=== PATIENT | male | born 1980 | race Caucasian/White ===

== ENCOUNTER 2016-07-03 15:21 | Emergency (ER) | payer OTHER, MEDICARE ==
[~2016-07-03] VITALS: Ht 165.1 cm; Wt 163.3 kg
[~2016-07-03 15:21] MED LIST: A/B OTIC 54 MG/15 ML OT; ALBUTEROL 3 ML3 ML INH/SOL; AMLODIPINE BESY10 M1 PO; AMOXICILLIN500 MG PO; ANTIVERT 25 MG25 M1 PO; ASPIR 8181 MG PO; ATORVASTATIN CA20 MG PO; ATORVASTATIN CA40 MG PO; AUGMENTIN 500 M1 TAB PO; AUGMENTIN 500M500 MG PO; AUGMENTIN 875-1 EACH PO; AZITHROMYCIN250 M1 PO; BACTRIM DS 8001 TAB PO; BENADRYL EXTRA1 CRE TOP; Benadryl PO; CALCIUM CARBON200 MG PO; CALCIUM500 M1 PO; CLONAZEPAM0.5 M3 PO; CLONAZEPAM1 MG PO; CLONAZEPAM2 M2 PO; COMPAZINE10 MG PO; CYCLOBENZAPRINE10 M2 PO; DESYREL50 MG PO; DILAUDID2 M1 PO; DILAUDID2 MG PO; DUONEB 3 MG/3 ML3 ML INH/SOL; ESCITALOPRAM OX20 MG PO; ESCITALOPRAM20 MG PO; FLOVENT HF0.11 MG/Ac INH; FLU VACCINE 0.0.5 ML IM; FUROSEMIDE80 M1 PO; HUMALOG 100U100 U/ML SC; HUMALOG KW100 UNIT/1 SC; HUMALOG PEN100 U/ML SC; KEFLEX500 M1 PO; KLOR-CON M1010 MEQ PO; LANTUS100 U/ML SC; LASIX80 MG PO; LEVEMIR 10100 UNITS/ SC; LEVEMIR FL300 UNITS/ SC; LEVEMIR100 U/ML SC; LEVEMIR100 UNIT/1 SC; LISINOPRIL20 MG PO; LOPERAMIDE2 M2 PO; LOPRESSOR50 MG PO; LYRICA100 M1 PO; LYRICA50 M1 PO; LYRICA50 MG PO; METOPROLOL TAR100 MG PO; METOPROLOL TART50 M1 PO; NORVASC 10MG10 MG PO; NORVASC 5MG TAB5 MG PO; NOVOLIN L100 UNITS/ SC; NOVOLOG FLEX100 U/ML SC; NOVOLOG100 U/ML SC; OLANZAPINE5 M2 PO; OXYCODONE5 M1 PO; PARICALCITOL PO; PERCOCET 325 MG1 TA2 PO; PROBIOTIC & ACI1 CAP PO; RENVELA800 MG PO; SENSIPAR30 MG PO; SIMVASTATIN40 MG PO; SYMBICORT 160/41 PUF INH; SYMBICORT 16010.2 GM INH; TEMAZEPAM15 MG PO; TYLENOL TAB 32325 MG PO; VIBRAMYCIN 100100 MG PO; VITAMIN D250000 UNIT PO; VITAMIN D50000 IU PO; ZOFRAN ODT4 MG PO; ZOFRAN ODT4 MG SL; ZOFRAN4 M1 SL
--- NOTE | 2016-07-03 15:35 | ED GENERAL ADULT ---
History of Present Illness General Chief Complaint: General Adult Stated Complaint: HIGH BLOOD SUGAR, WEAKNESS, SOB, L HIP PAIN Source: patient Exam Limitations: no limitations Vital Signs & Intake/Output Vital Signs & Intake/Output Vital Signs Date Time Temp Pulse Resp B/P Pulse O2 O2 Flow FiO2 Ox Delivery Rate 07/03 1847 96.0 78 18 148/98 93 Nasal 4.0L Cannula 07/03 1527 96.0 82 18 147/67 100 Nasal 3.0L Cannula ED Intake and Output 07/04 0000 07/03 1200 Intake Total Output Total Balance Patient 360 lb Weight Allergies Coded Allergies: NO KNOWN ALLERGIES (10/16/15) Reconcile Medications Amlodipine Besylate 10 MG TABLET 1 TAB PO DAILY HEART HEALTH (Reported) Cinacalcet HCl (Sensipar) 30 MG TABLET 1 TAB PO DAILY KIDNEYS (Reported) Clonazepam 1 MG TABLET 1 TAB PO BID PRN ANXIETY (Reported) Ergocalciferol (Vitamin D2) (Vitamin D2) 50,000 UNIT CAPSULE 50,000 IU PO QSAT Low Vit D Follow the Instruction for 8 weeks then check Vit D level Escitalopram Oxalate 20 MG TABLET 1 TAB PO DAILY MENTAL HEALTH (Reported) Ferric Citrate (Auryxia) 210 MG IRON TABLET 2 TAB PO TID KIDNEYS (Reported) Hydromorphone HCl (Dilaudid) 2 MG TABLET 1 TAB PO BIDP PRN pain Insulin Glargine,Hum.rec.anlog (Lantus Solostar) 100 UNIT/ML (3 ML) INSULN.PEN 24 UNITS SC BID DM (Reported) Insulin Lispro (Humalog Kwikpen U-100) 100 UNIT/ML INSULN.PEN DM (Reported) Metoprolol Tartrate 50 MG TABLET 1 TAB PO BID HTN (Reported) Olanzapine 5 MG TABLET 1 TAB PO QPM MENTAL HEALTH (Reported) Pregabalin (Lyrica) 100 MG CAPSULE 1 CAP PO TID PRN NEUROPATHY (Reported) Sodium Polystyrene Sulfon/Sorb (Kionex 15 Gm/60 Ml Suspension) (Unknown Strength ) ORAL.SUSP (Unknown Dose) AD HYPERKALEMIA (Reported) Triage Note: 36 YO MALE TO ER FOR WEAKNESS. PT WAS ON HIS WAY TO [facility] WHEN HE BECAME WEAK AND CALLED 911. PT ALSO C/O L SIDED HIP PAIN, NO KNOWN INJURY. ON EMS ARRIVAL PTS SUGAR 584. DYLAN COX TO BEDSIDE ON ARRIVAL TO ED. Triage Nurses Notes Reviewed? yes Onset: Abrupt Duration: day(s):, constant Timing: recent history Injury Environment: home No Modifying Factors: none HPI: 36-year-old male comes into emergency room for chronic left hip pain. Patient reports that he is due to go to dialysis today but reports that he couldn't make it because he was having difficulty walking. Sharp pain. Denies any recent falls or trauma. Patient has lots of chronic medical issues. Patient reports she is here for primarily his left hip. Denies any other symptoms such as chest pain shortness of breath. (BROOKE FELDMAN) Past History Travel History Traveled to [place] past 21 day No Medical History Any Pertinent Medical History? 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: NONE Other Medical Hx: MSSA hidradenitis History of MRSA: Yes History of VRE: No History of CDIFF: No Pneumonia Vaccine: 01/16/15 Influenza Vaccine: 02/17/16 Surgical History Surgical History: AVF LUE Vitrectomies- Both eyes Pilonidal Cyst I & D of abscesses Right IJ [facility] Psychosocial History Who do you live with Brother Services at Home None What is your primary language Azeri Tobacco Use: Never used Family History Family History, If Any: FATHER Myocardial infarction at age less than 60 MOTHER Hodgkin's sarcoma Relation not specified for: FH: CAD (coronary artery disease) FH: HTN (hypertension) Hx Contributory? No (BROOKE FELDMAN) Review of Systems Review of Systems Constitutional: Reports: no symptoms. EENTM: Reports: no symptoms. Respiratory: Reports: no symptoms. Cardiovascular: Reports: no symptoms. GI: Reports: no symptoms. Genitourinary: Reports: no symptoms. Musculoskeletal: Reports: see HPI. Skin: Reports: no symptoms. Neurological/Psychological: Reports: no symptoms. Hematologic/Endocrine: Reports: no symptoms. Immunologic/Allergic: Reports: no symptoms. All Other Systems: Reviewed and Negative (BROOKE FELDMAN) Physical Exam Physical Exam General Appearance: no apparent distress, alert, awake Head: atraumatic, normal appearance Eyes: Bilateral: normal appearance. Ears, Nose, Throat: normal pharynx, normal ENT inspection Neck: normal inspection Respiratory: normal breath sounds, no respiratory distress Cardiovascular: regular rate/rhythm Gastrointestinal: soft Back: normal inspection Extremities: normal inspection, full range of motion of left hip, tenderness to palpation,, no erythema, no warmth, Neurologic/Psych: awake, alert, oriented x 3, normal gait Skin: intact, normal color Core Measures ACS in differential dx? No CVA/TIA Diagnosis: No Severe Sepsis Present: No Septic Shock Present: No (BROOKE FELDMAN) Progress Differential Diagnoses I considered the following diagnoses in my evaluation of the patient: Arthritis , muscle strain, fracture, sciatica, DKA, hyperosmolar, Plan of Care: Orders Procedure Date/time Status COMPREHENSIVE METABOLIC PANEL 07/03 1532 Complete CBC WITHOUT DIFFERENTIAL 07/03 1532 Complete ACETONE 07/03 1532 Complete EKG 07/03 1532 Active Laboratory Tests 07/03/16 1531: Anion Gap 16, Estimated GFR 8 L, BUN/Creatinine Ratio 7.8, Glucose 506 *H, Calcium 6.6 L, Total Bilirubin 0.5, AST 19, ALT 22, Alkaline Phosphatase 242 H , Total Protein 7.8, Albumin 3.7, Globulin 4.1, Albumin/Globulin Ratio 0.9 L, CBC w Diff NO MAN DIFF REQ, RBC 3.80 L, MCV 75.6 L, MCH 23.0 L, RDW 23.8 H, MPV 9.2, Gran % 67.1, Lymphocytes % 17.4 L, Monocytes % 8.5, Eosinophils % 5.8 H, Basophils % 1.2, Absolute Granulocytes 5.6, Absolute Lymphocytes 1.5, Absolute Monocytes 0.7 H, Absolute Eosinophils 0.5, Absolute Basophils 0.1, PUBS MCHC 30.5 L, Acetone Level NEGATIVE Diagnostic Imaging: Viewed by Me: Radiology Read. Discussed w/RAD: Radiology Read. Radiology Impression: EXAM TYPE: RAD - XRY-HIP 2-3 VIEWS, LEFT EXAMINATION: XR HIP, LEFT CLINICAL INFORMATION: 36-year-old male patient with left hip pain. History of dialysis. COMPARISON: None recent. TECHNIQUE: Two views of the left hip. FINDINGS: Bones and soft tissues are normal. No fracture. Alignment is anatomic. Hip joint space is maintained. IMPRESSION: Normal left hip. Initial ED EKG: normal intervals, normal p-waves, normal sinus rhythm, rate (79) (JOE RICHARDSON,BROOKE) Departure Departure Disposition: HOME OR SELF CARE Condition: Stable Clinical Impression Primary Impression: Left hip pain Secondary Impressions: Hyperglycemia Referrals: GUILLERMO BEAR,BLANCA Chun (PCP/Family) Additional Instructions: Follow-up with your primary care doctor. Make sure you go to dialysis tomorrow. Return if any concerns worsening symptoms. Please go over all results of today's visit with your primary care doctor. Contact your primary care doctor to let them know you were here in the emergency room. There may be nonspecific findings which may not be related to your visit today here in the emergency room but may require further evaluation and chronic monitoring by your primary care doctor. If you had a laceration today the chance of foreign body always remains. You should follow-up with your primary care doctor for recheck in 3-5 days for a wound check. If you had an x-ray done there is a chance that a fracture could have been missed on initial read and you should follow-up with your primary care doctor for repeat x-rays if symptoms persist. If your blood pressure was elevated here in the emergency room please have rechecked by her primary care doctor within the next 48 hours by your primary care doctor. If you were prescribed a narcotic here in the emergency room or any type of controlled substances you're not allowed to drive while taking this medication or operate any type of heavy machinery. Narcotics can make you feel lightheaded dizziness nausea and can cause constipation. You may need to pickling drum operator a stool softener. Thank you for choosing [facility] emergency room. Please return to the emergency room immediately if you have any other concerns worsening of symptoms. Departure Forms: Customer Survey General Discharge Information Prescriptions: Current Visit Scripts Hydromorphone HCl (Dilaudid) 1 TAB PO BIDP PRN pain #5 TAB Comments 07/03/2016 7:29:33 PM Patient is at his normal baseline of function. I explained the importance that the patient needs to make dialysis tomorrow. Patient has been sleeping comfortably here on the stretcher in no apparent distress. Patient does not appear to be in any type of acute distress. Patient was requesting IV Dilaudid here in the emergency room. I do not feel IV pain medication as necessary. Patient needs follow-up with his primary care doctor as well as possibly orthopedic doctor. There is no signs of infection of the left hip. Patient has normal range of motion. Patient able to ambulate here in the emergency room with no difficulty. Patient sent back by ambulance due to the fact that he is on oxygen and did not bring his oxygen tank.case discussed with dr berger. (BROOKE FELDMAN) PA/SOFTWARE MANAGER Co-Sign Statement Statement: ED Attending supervision documentation- [X] I saw and evaluated the patient. I have also reviewed all the pertinent lab results and diagnostic results. I agree with the findings and the plan of care as documented in the PA's/SOFTWARE MANAGER's documentation. [X] I have reviewed the ED Record and agree with the PA's/SOFTWARE MANAGER's documentation. [] Additions or exceptions (if any) to the PAs/SOFTWARE MANAGER's note and plan are summarized below: [] (KY BEAR,AUBREY) Critical Care Note Critical Care Note Critical Care Time: non-applicable (BROOKE FELDMAN)
[2016-07-03 15:42] LABS: ABSOLUTE BASOPHIL COUNT 0.1 /CUMM (0.0-0.2); ABSOLUTE EOSINOPHIL COUNT 0.5 /CUMM (0.0-0.7); ABSOLUTE GRANULOCYTE CT 5.6 /CUMM (1.4-6.5); ABSOLUTE LYMPH COUNT 1.5 /CUMM (1.2-3.4); ABSOLUTE MONOCYTE COUNT 0.7 /CUMM (0.10-0.60); BASOPHIL % 1.2 % (0.0-2.0); EOSINOPHIL % 5.8 % (0-5); GRANULOCYTE % 67.1 % (42.2-75.2); HEMATOCRIT 28.7 % (42-52); MEAN CORPUSCULAR HGB CONC 30.5 G/DL (33.0-37.0); MEAN CORPUSCULAR VOLUME 75.6 FL (80.0-94.0); MEAN PLATELET VOLUME 9.2 FL (7.4-10.4); PLATELET COUNT 251 /CUMM (130-400); RBC DISTRIBUTION WIDTH 23.8 % (11.5-14.5); WHITE BLOOD CELL COUNT 8.3 /CUMM (4.8-10.8)
[2016-07-03] MEDS ORDERED: SENSIPAR30 M1 PO (16:03)
[2016-07-03] MEDS ORDERED: AURYXIA210 MG PO (16:04)
[2016-07-03] MEDS ORDERED: KIONEX 1515 GM/60 M (16:05)
[2016-07-03] MEDS ORDERED: LANTUS SOL100 UNIT/1 SC (16:06)
--- NOTE | 2016-07-03 17:51 | RADIOLOGY REPORT ---
EXAMINATION: XR HIP, LEFT CLINICAL INFORMATION: 36-year-old male patient with left hip pain. History of dialysis. COMPARISON: None recent. TECHNIQUE: Two views of the left hip. FINDINGS: Bones and soft tissues are normal. No fracture. Alignment is anatomic. Hip joint space is maintained. IMPRESSION: Normal left hip.
[2016-07-03] MEDS ORDERED: DILAUDID2 M1 PO (18:37)
[2016-07-03 18:47] VITALS: BP 148/98
== END 2016-07-03 19:31 ==
LOC: ERH 15:21
PROVIDERS: Physician Assistant Medical
DX: M25.552 Pain in left hip (principal); R73.9 Hyperglycemia, unspecified
CPT/HCPCS: 73502-LT; 93005; 93010; 96372; J1815

== ENCOUNTER 2016-07-04 06:20 | Inpatient (IN) | payer OTHER, MEDICARE ==
[~2016-07-04] VITALS: Ht 170.2 cm; Wt 169.8 kg
[~2016-07-04 06:20] MED LIST changes: +AURYXIA210 MG PO; +KIONEX 1515 GM/60 M; +LANTUS SOL100 UNIT/1 SC; +SENSIPAR30 M1 PO
--- NOTE | 2016-07-04 06:27 | NUR ---
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 DENIES HEADSTRIKE, +LOC. REPORTS "WOKE UP AND DIN'T KNOW WHERE I WAS." ON EMS ARRIVAL, PATIENT ALERT AND ORIENTED X3. PATIENT ONLY C/O L HIP PAIN 12/25 WHICH HE WAS SEEN HERE EARLIER TODAY FOR, DENIES ANY CHANGE IN PAIN FROM PREVIOUS VISIT. ARRIVES ALERT AND ORIENTED X3, UNKEPT. ALSO REPORTING "DIDN'T GO TO MY DIALYSIS YESTERDAY." HX L ARM RESTRICTED D/T SHUNT, +MRSA.
--- NOTE | 2016-07-04 06:27 | NUR ---
RESP PAGED FOR ABG D/T PATIENT DROWSINESS ON EXAM. EVALUATED BY MD IZQUIERDO.
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
--- NOTE | 2016-07-04 06:52 | NUR ---
BLOODWORK OBTAINED AND SENT TO LAB (LAV, SST X2, BLUE). PATIENT FALLING ASLEEP MULTIPLE TIMES DURING CONVERSATION W/ RN THOUGH ORIENTED X 3 WHEN AWAKE. ABG OBTAINED AND SENT TO LAB.
[2016-07-04 06:59] LABS: ABSOLUTE BASOPHIL COUNT 0 /CUMM (0.0-0.2); ABSOLUTE EOSINOPHIL COUNT 0.5 /CUMM (0.0-0.7); ABSOLUTE GRANULOCYTE CT 10.3 /CUMM (1.4-6.5); ABSOLUTE LYMPH COUNT 0.8 /CUMM (1.2-3.4); ABSOLUTE MONOCYTE COUNT 0.9 /CUMM (0.10-0.60); BASOPHIL % 0.2 % (0.0-2.0); EOSINOPHIL % 4.2 % (0-5); GRANULOCYTE % 81.9 % (42.2-75.2); HEMATOCRIT 28.6 % (42-52); MEAN CORPUSCULAR HGB 23.4 PG (27.0-31.0); MEAN CORPUSCULAR HGB CONC 31.1 G/DL (33.0-37.0); MEAN CORPUSCULAR VOLUME 75.3 FL (80.0-94.0); MEAN PLATELET VOLUME 10.1 FL (7.4-10.4); PLATELET COUNT 258 /CUMM (130-400); RBC DISTRIBUTION WIDTH 25.8 % (11.5-14.5)
[2016-07-04 07:05] LABS: WHITE BLOOD CELL COUNT 12.5 /CUMM (4.8-10.8)
--- NOTE | 2016-07-04 07:05 | NUR ---
AWAITING RT TO PLACE PT ON BIPAP
--- NOTE | 2016-07-04 07:32 | NUR ---
REPEAT SST DRAWN/SENT RESPIRATORY AT BEDSIDE TO PUT PATIENT ON BIPAP
--- NOTE | 2016-07-04 07:54 | NUR ---
FELIX FROM [facility] IN [facility] #[phone] CALLED TO SEE IF PATIENT WOULD BE ABLE TO MAKE 10 AM DIALYSIS APPOINTMENT AND WOULD LIKE TO BE NOTIFIED IF PATIENT IS ADMITTED OR D/C'D. NORMAL DIALYSIS SCHEDULE BUT THEY STATE HE MISSED YESTERDAY BECAUSE HE CAME TO THE ER INSTEAD.
--- NOTE | 2016-07-04 08:09 | NUR ---
CRITICAL TEST RESULTS [id number] KRISSY LAWTON 36 M TESTS AND RESULTS: CREATININE 8.7 Results received and read back by: LATIA KNOX Results received date and time: 07/04/16 0809 The following provider was notified of the results, and read the results back: DR THOMAS Notified date and time: 07/04/16 at 0809
--- NOTE | 2016-07-04 08:50 | NUR ---
PT REQUESTED WATER, OK PER DR THOMAS TAKEN TO CT SCAN VIA STRETCHER
--- NOTE | 2016-07-04 09:05 | NUR ---
PT RETURNS FROM CT SCAN AT THIS TIME, REQUESTING PAIN MEDICATIONS. DR THOMAS MADE AWARE OF SAME. NO NEW ORDERS AT THIS TIME.
--- NOTE | 2016-07-04 09:15 | NUR ---
PT PULLED BIPAP FACE MASK OFF, WHEN ASKED WHY STATES "I'M AWAKE NOW AND IT'S TOO HARD TO BREATHE WITH IT ON". PT AGAIN REQUESTING PAIN MEDICATIONS. DR THOMAS MADE AWARE OF SAME BUT DOES NOT WANT PAIN MEDICATIONS ADMINISTERED TO PATIENT AT THIS TIME.
--- NOTE | 2016-07-04 09:26 | NUR ---
RESP PAGED DUE TO PATIENT REFUSING TO WEAR MASK AND CONTINUING LOREN TAKE IT OFF.
--- NOTE | 2016-07-04 09:52 | NUR ---
DR THOMAS AT BEDSIDE
--- NOTE | 2016-07-04 09:54 | CT SCAN REPORT ---
EXAMINATION: CT HEAD WITHOUT CONTRAST CLINICAL INFORMATION: Fall, head injury. COMPARISON: None. TECHNIQUE: Contiguous axial imaging was performed from the skull base to vertex without intravenous administration of contrast. DLP: 1344 mGy-cm. FINDINGS: There is no evidence of acute intracranial hemorrhage or territorial infarction. No abnormal mass effect or midline shift is seen. Hall to white matter differentiation is well preserved. No extra-axial fluid collections are identified. The ventricles are normal in size. There is no abnormal attenuation within the brain parenchyma. The osseous structures and soft tissues are normal. The mastoid air cells and visualized portions of the paranasal sinuses are well aerated. IMPRESSION: No acute intracranial process seen.
--- NOTE | 2016-07-04 10:11 | NUR ---
PT MEDICATED WITH IV OFIRMEV PER ORDERS
--- NOTE | 2016-07-04 10:12 | CT SCAN REPORT ---
EXAMINATION: CT PELVIS WITHOUT CONTRAST CLINICAL INFORMATION: Pain after fall. COMPARISON: Left hip radiographs, 07/03/2016. CT of abdomen pelvis, 05/10/2014 and 04/08/2016. TECHNIQUE: Helical scanning was performed with submillimeter collimation through the pelvis. Sagittal and coronal multiplanar 2-D reformatted images were obtained. DLP: 1051 mGy-cm. FINDINGS: Obese body habitus. Subcutaneous tissue edema is present within the abdominal wall. No focal fluid collection or hematoma in the abdominal wall or gluteal region. The visualized gastrointestinal tract, including sigmoid colon and rectum, are unremarkable. No pelvic free fluid. Prostate gland is unremarkable. Urinary bladder is empty. The inguinal lymph nodes are chronically enlarged with lymph nodes measuring up to 1.6 cm short axis dimension on the right and 1.2 cm short axis dimension on the left. There is chronic subarticular bone resorption along the iliac margin of each sacroiliac joint, likely secondary to hyperparathyroidism in this patient with chronic renal disease. Bones have normal alignment at the pelvis and hips. There is no evidence of sacral fracture. At each hip, there is mild osteophyte formation. A small subchondral cyst is present within the superior right acetabulum. No evidence of acute acetabular injury, proximal femur fracture, hip joint effusion or pericapsular fluid collection. IMPRESSION: 1. No evidence of femoral fracture or gluteal hematoma after recent fall. 2. Inguinal lymph nodes are chronically enlarged, similar compared to 05/10/2014. 3. Subarticular bone resorption along the iliac margin of each sacroiliac joint is likely due to secondary hyperparathyroidism in this patient with history of chronic renal failure.
--- NOTE | 2016-07-04 10:15 | NUR ---
PT R/A SATS NOTED TO BE 88%, PLACED ON NASAL O2 @3L WITH SATS IMPROVED TO >94%, DR THOMAS MADE AWARE OF SAME. WILL CONTINUE TO MONITOR
--- NOTE | 2016-07-04 10:57 | NUR ---
PT REPOSITIONED INTO HOSPITAL BED AT THIS TIME
--- NOTE | 2016-07-04 11:33 | History & Physical ---
See Addendum General Information and HPI MD Statement: I have seen and personally examined KRISSY LAWTON and documented this H&P. The patient is a 36 year old M who presented with a patient stated chief complaint of [Fall]. Source of Information: patient, EMS History of Present Illness: 36 years old man presented with CC of altered mental status and fall. Patient has past medical history significant for end-stage renal disease on dialysis 4 days/week, last dialysis was today, and control diabetes mellitus on insulin complicated with peripheral neuropathy and retinopathy, depression, PTSD, Crohn' s disease with last colonoscopy in 2005 showed mild chronic colitis, asthma, obstructive sleep apnea not on CPAP, hypertension, hyperlipidemia, mitral regurgitation, congestive heart failure, previous admission at [facility] for skin abscess in 2014, grew MRSA. He lives alone, and ambulating independently and is able to take care of himself. Yesterday on 07/03/2016 patient presented to the emergency room with a complaint of not feeling well and found to have elevated blood sugar. ED physician contacted the dialysis nurse who mentioned that the patient has missed 2 sessions of his previous dialysis appointments. Patient was discharged home with recommendation to follow with the dialysis. After resecting from emergency room patient had one episode of fall associated with dizziness and loss of consciousness. Patient does not remember the details of the incident however he denies any preceding chest pain, palpitation, cold sweats, nausea, vomiting, diarrhea,, fever, chills, abdominal pain or urinary symptoms, essential upper respiratory tract infection symptoms and any sick contact. Patient highlighted that for the past few days his swelling of bilateral lower extremity slightly increased. During the fall patient did not have any head trauma and after a while he found himself on the floor. Called 911 and was transferred to the emergency room. In the ED blood gas analysis showed pH of 7.28/and markedly elevated PCO2 of 61. Vital signs are relatively stable. Patient was admitted to telemetry unit for syncopal episode. Allergies/Medications Allergies: Coded Allergies: iron (From [facility]) (UNKNOWN 07/04/16) Home Med list Amlodipine Besylate 10 MG TABLET 1 TAB PO DAILY HEART HEALTH (Reported) Cinacalcet HCl (Sensipar) 30 MG TABLET 1 TAB PO DAILY KIDNEYS (Reported) Clonazepam 1 MG TABLET 1 TAB PO BID PRN ANXIETY (Reported) Ergocalciferol (Vitamin D2) (Vitamin D2) 50,000 UNIT CAPSULE 50,000 IU PO QSAT Low Vit D Follow the Instruction for 8 weeks then check Vit D level Escitalopram Oxalate 20 MG TABLET 1 TAB PO DAILY MENTAL HEALTH (Reported) Ferric Citrate (Auryxia) 210 MG IRON TABLET 2 TAB PO TID KIDNEYS (Reported) Hydromorphone HCl (Dilaudid) 2 MG TABLET 1 TAB PO BIDP PRN pain Insulin Glargine,Hum.rec.anlog (Lantus Solostar) 100 UNIT/ML (3 ML) INSULN.PEN 24 UNITS SC BID DM (Reported) Insulin Lispro (Humalog Kwikpen U-100) 100 UNIT/ML INSULN.PEN DM (Reported) Metoprolol Tartrate 50 MG TABLET 1 TAB PO BID HTN (Reported) Olanzapine 5 MG TABLET 1 TAB PO QPM MENTAL HEALTH (Reported) Pregabalin (Lyrica) 100 MG CAPSULE 1 CAP PO TID PRN NEUROPATHY (Reported) Sodium Polystyrene Sulfon/Sorb (Kionex 15 Gm/60 Ml Suspension) (Unknown Strength ) ORAL.SUSP (Unknown Dose) AD HYPERKALEMIA (Reported) Past History Travel History Traveled to [place] past 21 day No Medical History Neurological: migraine, peripheral neuropathy EENT: diabetic retinopathy Cardiovascular: CHF, hypertension, hyperlipidemia, mitral regurgitation Respiratory: asthma, obstructive sleep apnea, pneumonia Gastrointestinal: Crohn's disease, last colonoscopy was in 2005 and biopsies showed mild chronic colitis Hepatic: NONE Renal: glomerulonephritis, CRF-DIALYSIS M-T-TH-SAT END STAGE KIDNEY FAILURE Musculoskeletal: NONE Psychiatric: depression, PTSD Endocrine: diabetes, diabetic ketoacidosis, obesity Blood Disorders: NONE Cancer(s): NONE ENTERTAINMENT USHER/Reproductive: NONE Other Medical Hx: MSSA hidradenitis History of MRSA: Yes History of VRE: No History of CDIFF: No Surgical History Surgical History: AVF LUE Vitrectomies- Both eyes Pilonidal Cyst I & D of abscesses Right IJ [facility] Past Family/Social History Family History Relations & Conditions if any FATHER Myocardial infarction at age less than 60 MOTHER Hodgkin's sarcoma Relation not specified for: FH: CAD (coronary artery disease) FH: HTN (hypertension) Psychosocial History Who Do You Live With? brother Services at Home: None Primary Language: [place] ETOH Use: denies use Illicit Drug Use: denies illicit drug use Living Will? no Power of Process Operator/HCP? no Functional Ability ADLs Independent: dressing, eating, toileting, bathing. Ambulation: independent IADLs Independent: shopping, housework, finances, food prep, telephone, transportation , medication admin. Review of Systems Review of Systems Constitutional: Reports: malaise, weakness. Denies: chills, diaphoresis, fever, unexplained weight loss. EENTM: Denies: blurred vision, double vision, visual changes, eye pain, eye drainage, eye tearing, icterus, ear discharge, ear pain, ear redness, hearing changes, nasal congestion, epistaxis, nasal pain, throat pain, throat swelling, mouth pain, tooth pain. Cardiovascular: Denies: chest pain, edema, orthopena, palpitations, peripheral edema, syncope. Respiratory: Reports: short of breath. Denies: cough, hemoptysis, orthopnea, sputum production, stridor, wheezing. GI: Reports: diarrhea. Denies: abdominal pain, bloating, constipation, distention, bowel incontinence, melena, nausea, bloody stool, changes in stool, vomiting, steatorrhea. Genitourinary: Denies: discharge, dysuria, frequency, hematuria, hesitation, nocturia, pain, urgency. Musculoskeletal: Denies: back pain, gout, joint pain, joint swelling, muscle pain, muscle stiffness, neck pain. Skin: Denies: cysts, change in skin color, change in hair/nails, dryness, erythema, jaundice, lesions, lymphangitis, lumps, moles, rash. Neurological/Psychological: Reports: depressed, emotional problems, headache, tingling, tremors, weakness. Denies: anxiety, ataxia, cognitive dysfunction, dementia, numbness, paresthesia, pre-existing deficit, petit mal seizures, tonic-clonic seizures, unable to move lower ext, unable to move upper ext, other. Hematologic/Endocrine: Reports: see HPI. All Other Systems: Reviewed and Negative Exam & Diagnostic Data Last 24 Hrs of Vital Signs/I&O Vital Signs Date Time Temp Pulse Resp B/P Pulse O2 O2 Flow FiO2 Ox Delivery Rate 07/04 1012 98.7 88 22 134/76 94 Nasal 3.0L Cannula 07/04 1011 98.7 07/04 0850 96.3 86 16 132/69 96 BIPAP 07/04 0737 76 98 07/04 0653 94 Nasal 3.0L Cannula 07/04 06 97.7 78 20 133/97 99 Nasal 3.0L Cannula Intake & Output 07/04 1600 07/04 0800 07/04 0000 Intake Total Output Total Balance Patient 357 lb Weight Physical Exam General Appearance Alert, Oriented X3, Cooperative, No Acute Distress, somnolent and drowsy; response to verbal stimulation and open his eyes response to calling his name Skin No Rashes, No Breakdown HEENT membranes are dry Neck No JVD Lymphatic Axillary nl, Cervical nl Cardiovascular Normal S1, Normal S2, No Murmurs, Gallops Lungs faint basilar crackles, significant decrease in air movement Abdomen Soft, No Tenderness, No Masses Neurological Strength at 5/5 X4 Ext, Cranial Nerves 3-12 NL, flapping tremor, drowsy but arousable Extremities bilateral pedal 2-3+ pitting edema Vascular Normal Pulses, Pulses Symmetrical Breasts No breast discharge Last 24 Hrs of Labs/Karthik: Laboratory Tests 07/04/16 0730: Anion Gap 14, Estimated GFR 7 L, BUN/Creatinine Ratio 7.2, Glucose 83, Calcium 7.1 L, Total Bilirubin 0.5, AST 20, ALT 24, Alkaline Phosphatase 231 H, Troponin I < 0.01, Total Protein 8.5 H, Albumin 4.2, Globulin 4.3 H, Albumin/ Globulin Ratio 1.0 L 07/04/16 0646: CBC w Diff NO MAN DIFF REQ, RBC 3.80 L, MCV 75.3 L, MCH 23.4 L, RDW 25.8 H, MPV 10.1, Gran % 81.9 H, Lymphocytes % 6.3 L, Monocytes % 7.4, Eosinophils % 4.2, Basophils % 0.2, Absolute Granulocytes 10.3 H, Absolute Lymphocytes 0.8 L , Absolute Monocytes 0.9 H, Absolute Eosinophils 0.5, Absolute Basophils 0, PUBS MCHC 31.1 L 07/04/16 0645: pH 7.28 *L, pCO2 61 *H, pO2 87, HCO3 28, ABG O2 Sat (Measured) 94.0 L, P-50 ( Temp Corrected) Y, Carboxyhemoglobin 1.1 L, O2 Concentration % 3 LPM, Temperature 97.7, O2 Delivery Method N/C, Phlebotomy Draw Site RIGHT RADIAL Diagnostic Data EKG Results Sinus rate and rhythm Prolonged QT interval No acute ST-T segment change CXR Results Cardiomegaly and pulmonary vascular congestion, which appears slightly improved compared to 06/05/2016. Assessment/Plan Assessment: 36-year-old gentleman with significant past medical history for obstructive sleep apnea noncompliant with CPAP and oxygen, and this is renal disease noncompliant with dialysis presented with altered mental status and fall. List of active problems #1 syncope #2 ESRD and uremic encephalopathy #3 hypercapnic respiratory acidosis with metabolic compensation #4 leukocytosis and new onset diarrhea #5 insulin-dependent diabetes #6 diabetes neuropathy #7 depression Assessment and plan #1 syncope: Possibly due to generalized weakness and somnolence secondary to metabolic encephalopathy, and/or dehydration. Cardiac arrhythmia was ruled out must be ruled out. -Admit to telemetry unit for 24-hour for cardiac arrhythmia due to nature of fall and elevated potassium(pro-arrhythmogenic) -Check troponin and EKG -Obtain echo -Continue amlodipine 10 mg by mouth daily -Continue metoprolol 50 mg by mouth twice a day -Screen for U tox -PT and OT eval -Fall precautions #2 ESRD and uremic encephalopathy - arrange for dialysis-urgent -Follow nephrology recommendation -Check BEP tomorrow -dialysis Diet #3 hypercapnic Respiratory failure due to obstructive sleep apnea noncompliant with CPAP -TRC neb [id number] as needed -Continue BiPAP treatments -Repeat ABG -Follow Dr. Leiva's recommendation #4 leukocytosis and new onset diarrhea -Possibly due to dehydration -New-onset diarrhea -C. difficile toxin sample #5 insulin-dependent diabetes -Insulin detemir 20 u BID -Insulin lispro high-dose sliding scale -Diabetic diet #6 diabetes neuropathy -pregabalin 100 mg TID #7 depression -EsCitalopram 20 mg by mouth daily #8 anxiety -Clonazepam 1 mg on dialysis day-holding parameters for somnolence -Olanzapine 5 mg at bedtime on dialysis day-with holding parameter for somnolence #9 DVT prophylaxis heparin 5000 units every 8 subcutaneous As Ranked By This Provider Problem List: 1. Syncope 2. Type 2 diabetes mellitus with hyperosmolar nonketotic hyperglycemia 3. Dehydration 4. Full code status 5. DVT prophylaxis 6. ESRD on dialysis 7. Anemia 8. Hypertension 9. Depression Core Measures/Miscellaneous Acute Coronary Syndrome ACS Diagnosis: No Cerebrovascular Accident CVA/TIA Diagnosis: No Congestive Heart Failure CHF Diagnosis: No Venous Thromboembolism VTE Risk Factors: Acute medical illness, Age > 40, Immobility, paresis, Obesity VTE Prophylaxis Ordered Inpt: Mech & Pharm No Mech VTE prophylaxis d/t: No contraindications No VTE Pharm Prophylaxis d/t: No contraindications VTE Diagnosis: No VTE Type: NONE VTE Confirmed by (Test): NONE Severe Sepsis Severe Sepsis Present: No BC x2: No Septic Shock Septic Shock Present: No Miscellaneous Documentation Attending Case Discussed With: HUSEYIN BOLANOS MD Primary Care Physician: BLANCA LI MD Patient 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
--- NOTE | 2016-07-04 12:12 | RADIOLOGY REPORT ---
EXAMINATION: XR PORTABLE CHEST CLINICAL INFORMATION: Status post fall. Possible syncope. Renal failure. COMPARISON: CXR from 06/05/2016 TECHNIQUE: Portable view of the chest was obtained. FINDINGS: Obese body habitus. Cardiac silhouette is mildly enlarged and pulmonary vessels remain congested. However, there is no evidence of peripheral interstitial edema, focal consolidation or pleural effusion. Linear streaks of discoid atelectasis are present within the right mid and lower lung. IMPRESSION: Cardiomegaly and pulmonary vascular congestion, which appears slightly improved compared to 06/05/2016.
--- NOTE | 2016-07-04 13:08 | Cons- Nephrology ---
General Information and HPI Consulting Request Date of Consult: 07/04/16 Requested By: HUSEYIN BOLANOS MD Reason for Consult: Evaluation and management of chronic kidney disease stage V or end-stage renal disease on hemodialysis Source of Information: patient, old records Exam Limitations: the patient is quite somnolent History of Present Illness: This 36-year-old gentleman has a long history of chronic kidney disease. The patient has been on hemodialysis since April 2014. He is been admitted to [facility] frequently because of fluid overload, hyperglycemia and other issues. He is dialyzed 4 times a week at renal care in [facility].(The phone number is ). He was in the emergency room here yesterday with hyperglycemia. He was last dialyzed and Sunday, 2016. His weight departing the unit was 167.6 kg. He apparently had gained 7.1 kg from the prior treatment. His target weight is listed as 160 kg. The patient was found to have CO2 retention. Interestingly, his chest x-ray is being read as being better than previous examinations. His weight today is listed as being 162.3 kg. It is unclear to me how old that weight was obtained. The patient denies any fever or chills. He says 2 or 3 nights ago he did not sleep at all. In between falling back asleep, he asked for something for sleep. Allergies/Medications Allergies: Coded Allergies: iron (From VENOFER) (UNKNOWN 07/04/16) Home Med List: Amlodipine Besylate 10 MG TABLET 1 TAB PO DAILY HEART HEALTH (Reported) Cinacalcet HCl (Sensipar) 30 MG TABLET 1 TAB PO DAILY KIDNEYS (Reported) Clonazepam 1 MG TABLET 1 TAB PO BID PRN ANXIETY (Reported) Ergocalciferol (Vitamin D2) (Vitamin D2) 50,000 UNIT CAPSULE 50,000 IU PO QSAT Low Vit D Follow the Instruction for 8 weeks then check Vit D level Escitalopram Oxalate 20 MG TABLET 1 TAB PO DAILY MENTAL HEALTH (Reported) Ferric Citrate (Auryxia) 210 MG IRON TABLET 2 TAB PO TID KIDNEYS (Reported) Hydromorphone HCl (Dilaudid) 2 MG TABLET 1 TAB PO BIDP PRN pain Insulin Glargine,Hum.rec.anlog (Lantus Solostar) 100 UNIT/ML (3 ML) INSULN.PEN 24 UNITS SC BID DM (Reported) Insulin Lispro (Humalog Kwikpen U-100) 100 UNIT/ML INSULN.PEN DM (Reported) Metoprolol Tartrate 50 MG TABLET 1 TAB PO BID HTN (Reported) Olanzapine 5 MG TABLET 1 TAB PO QPM MENTAL HEALTH (Reported) Pregabalin (Lyrica) 100 MG CAPSULE 1 CAP PO TID PRN NEUROPATHY (Reported) Sodium Polystyrene Sulfon/Sorb (Kionex 15 Gm/60 Ml Suspension) (Unknown Strength ) ORAL.SUSP (Unknown Dose) AD HYPERKALEMIA (Reported) Current Medications: Current Medications Sig/Georgina Start time Last Medication Dose Route Stop Time Status Admin Acetaminophen 650 MG Q6P PRN 07/04 1300 UNVr PO Acetaminophen 0 .STK-MED ONE 07/04 1008 DC IV Acetaminophen 500 MG ONCE ONE 07/04 1000 DC 07/04 IV 07/04 1001 1011 Amlodipine Besylate 10 MG DAILY 07/04 1237 AC PO Clonazepam 1 MG .[ON DIALYSIS DAY] 07/04 1315 UNVr PO 07/11 1314 Ergocalciferol 50,000 IU QSAT 07/08 0700 AC PO Escitalopram Oxalate 20 MG AT BEDTIME 07/04 2200 AC PO Ferrous Sulfate 325 MG TID 07/04 1238 AC PO Heparin Sodium 5,000 UNIT Q8 07/04 1400 AC (Porcine) SC Hydromorphone HCl 2 MG Q4P PRN 07/04 1300 UNVr PO Hydromorphone HCl 2 MG ONCE ONE 07/04 0630 DC IV 07/04 0631 Metoprolol Tartrate 50 MG BID 07/04 1239 AC PO Olanzapine 5 MG .[2199,DIALYSIS DAY] 07/04 1315 UNVr PO Pregabalin 100 MG TID PRN 07/04 1245 AC PO Review of Systems Review of Systems Constitutional: Reports: fever. Denies: chills. EENTM: Reports: throat pain. Denies: blurred vision, double vision, visual changes, ear pain, hearing changes. Cardiovascular: Denies: chest pain, edema, orthopena, palpitations, peripheral edema. Respiratory: Denies: orthopnea, short of breath, wheezing. GI: Denies: bloating, constipation, diarrhea, distention, bowel incontinence, vomiting. Musculoskeletal: Denies: back pain, joint pain, joint swelling. Skin: Denies: change in skin color, moles, rash. Hematologic/Endocrine: Denies: bruising, bleeding. Past History Travel History Traveled to [place] past 21 day No Medical History Neurological: migraine, peripheral neuropathy EENT: diabetic retinopathy Cardiovascular: CHF, hypertension, hyperlipidemia, mitral regurgitation, he has chronic fluid overload due to his inabilityto adhere to the necessary dietary restrictions of sodium and fluid intake. 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 brother Services at Home: None Primary Language: Libyan ETOH Use: denies use Illicit Drug Use: denies illicit drug use Living Will? no Power of Surgical Pathologist/HCP? no Functional Ability ADLs Independent: dressing, eating, toileting, bathing. Ambulation: independent IADLs Independent: shopping, housework, finances, food prep, telephone, transportation , medication admin. Exam & Diagnostic Data Vital Signs and I&O Vital Signs Date Time Temp Pulse Resp B/P Pulse O2 O2 Flow FiO2 Ox Delivery Rate 07/04 1301 98.1 84 18 123/79 94 Nasal 3.0L Cannula 07/04 1012 98.7 88 22 134/76 94 Nasal 3.0L Cannula 07/04 1011 98.7 07/04 0850 96.3 86 16 132/69 96 BIPAP 07/04 0737 76 98 07/04 0653 94 Nasal 3.0L Cannula 07/04 0627 97.7 78 20 133/97 99 Nasal 3.0L Cannula Intake & Output 07/04 1600 07/04 0400 07/03 1600 07/03 0400 07/02 1600 07/02 0400 Intake Total Output Total Balance Patient 357 lb Weight Physical Exam: General Appearance: well developed/nourished, no apparent distress, comfortable, obese Head: atraumatic Eyes: Sclerae anicteric Bilateral: normal appearance, PERRL, EOMI. Ears, Nose, Throat: normal pharynx, hearing grossly normal Neck: Cannot assess for JVD due to his body habitus. Respiratory: normal breath sounds, lungs clear anteriorly Cardiovascular: regular rate/rhythm Gastrointestinal: normal bowel sounds, soft, non-tender, no organomegaly, no Bruits Back: normal inspection Extremities: positive lower extremity edema, positive sacral edema. Skin: intact, normal color, no rash or erythema Lymphatic: no anterior cervical meagan Neurologic/Psych: Somnolent, trips off to sleep rather rapidly, but arouses easily and is appropriate when awake. Cranial Nerves: normal hearing, normal speech, PERRLA Skin: normal color, warm/dry, rash (excoriations) Lymphatic: no anterior cervical adenopathy Skin: No rash, no erythema Results Pertinent Lab Results: Laboratory Tests 07/04 07/04 07/04 0730 0646 0645 Blood Gas pH (7.35 - 7.45 PH) 7.28 *L pCO2 (35 - 45 TORR) 61 *H pO2 (80 - 100 TORR) 87 HCO3 (21 - 28 MEQ/L) 28 ABG O2 Sat (Measured) (>96.0 %) 94.0 L P-50 (Temp Corrected) Y Carboxyhemoglobin (1.5 - 5.0 %) 1.1 L O2 Concentration % 3 LPM Temperature (97.0 - 100.0 FARH) 97.7 O2 Delivery Method N/C Chemistry Sodium (137 - 145 mmol/L) 135 L Potassium (3.5 - 5.1 mmol/L) 5.5 H Chloride (98 - 107 mmol/L) 90 L Carbon Dioxide (22 - 30 mmol/L) 30 Anion Gap (5 - 16) 14 BUN (9 - 20 mg/dL) 63 H Creatinine (0.7 - 1.2 mg/dL) 8.7 *H Estimated GFR (>60 ml/min) 7 L BUN/Creatinine Ratio (7 - 25 %) 7.2 Glucose (65 - 99 mg/dL) 83 Calcium (8.4 - 10.2 mg/dL) 7.1 L Total Bilirubin (0.2 - 1.3 mg/dL) 0.5 AST (17 - 59 U/L) 20 ALT (21 - 72 U/L) 24 Alkaline Phosphatase (< 127 U/L) 231 H Troponin I (<0.11 ng/ml) < 0.01 Total Protein (6.3 - 8.2 g/dL) 8.5 H Albumin (3.5 - 5.0 g/dL) 4.2 Globulin (1.9 - 4.2 gm/dL) 4.3 H Albumin/Globulin Ratio (1.1 - 2.2 %) 1.0 L Hematology CBC w Diff NO MAN DIFF REQ WBC (4.8 - 10.8 /CUMM) 12.5 H RBC (4.70 - 6.10 /CUMM) 3.80 L Hgb (14.0 - 18.0 G/DL) 8.9 L Hct (42 - 52 %) 28.6 L MCV (80.0 - 94.0 FL) 75.3 L MCH (27.0 - 31.0 PG) 23.4 L RDW (11.5 - 14.5 %) 25.8 H Plt Count (130 - 400 /CUMM) 258 MPV (7.4 - 10.4 FL) 10.1 Gran % (42.2 - 75.2 %) 81.9 H Lymphocytes % (20.5 - 51.1 %) 6.3 L Monocytes % (1.7 - 9.3 %) 7.4 Eosinophils % (0 - 5 %) 4.2 Basophils % (0.0 - 2.0 %) 0.2 Absolute Granulocytes (1.4 - 6.5 /CUMM) 10.3 H Absolute Lymphocytes (1.2 - 3.4 /CUMM) 0.8 L Absolute Monocytes (0.10 - 0.60 /CUMM) 0.9 H Absolute Eosinophils (0.0 - 0.7 /CUMM) 0.5 Absolute Basophils (0.0 - 0.2 /CUMM) 0 PUBS MCHC (33.0 - 37.0 G/DL) 31.1 L Miscellaneous Phlebotomy Draw Site RIGHT RADIAL Imaging/Other Studies: PATIENT: KRISSY LAWTON PRESENT AGE: 36 PATIENT ACCOUNT NO: [id number] : 79 LOCATION: [facility] ORDERING PHYSICIAN: MP THOMAS MD SERVICE DATE: 07/04/16 EXAM TYPE: RAD - XRY-PORTABLE CHEST XRAY EXAMINATION: XR PORTABLE CHEST CLINICAL INFORMATION: Status post fall. Possible syncope. Renal failure. COMPARISON: CXR from 06/05/2016 TECHNIQUE: Portable view of the chest was obtained. FINDINGS: Obese body habitus. Cardiac silhouette is mildly enlarged and pulmonary vessels remain congested. However, there is no evidence of peripheral interstitial edema, focal consolidation or pleural effusion. Linear streaks of discoid atelectasis are present within the right mid and lower lung. IMPRESSION: Cardiomegaly and pulmonary vascular congestion, which appears slightly improved compared to 06/05/2016. DICTATED BY: LAURA MURILLO MD DATE/TIME DICTATED:07/04/161012 ORDNANCE TRUCK INSTALLATION SUPERVISOR:LUCI DATE/TIME TRANSCRIBED:07/04/161012 CONFIDENTIAL, DO NOT COPY WITHOUT APPROPRIATE AUTHORIZATION. <Electronically signed in Other Vendor System> SIGNED BY: LAURA MURILLO MD 07/04/16 1212 PATIENT: KRISSY LAWTON PRESENT AGE: 36 PATIENT ACCOUNT NO: [id number] : 79 LOCATION: [facility] ORDERING PHYSICIAN: BRENNA IZQUIERDO MD SERVICE DATE: 07/04/16 EXAM TYPE: CAT - CT PELVIS WO IV CONTRAST EXAMINATION: CT PELVIS WITHOUT CONTRAST CLINICAL INFORMATION: Pain after fall. COMPARISON: Left hip radiographs, 07/03/2016. CT of abdomen pelvis, 05/10/2014 and 04/08/2016. TECHNIQUE: Helical scanning was performed with submillimeter collimation through the pelvis. Sagittal and coronal multiplanar 2-D reformatted images were obtained. DLP: 1051 mGy-cm. FINDINGS: Obese body habitus. Subcutaneous tissue edema is present within the abdominal wall. No focal fluid collection or hematoma in the abdominal wall or gluteal region. The visualized gastrointestinal tract, including sigmoid colon and rectum, are unremarkable. No pelvic free fluid. Prostate gland is unremarkable. Urinary bladder is empty. The inguinal lymph nodes are chronically enlarged with lymph nodes measuring up to 1.6 cm short axis dimension on the right and 1.2 cm short axis dimension on the left. There is chronic subarticular bone resorption along the iliac margin of each sacroiliac joint, likely secondary to hyperparathyroidism in this patient with chronic renal disease. Bones have normal alignment at the pelvis and hips. There is no evidence of sacral fracture. At each hip, there is mild osteophyte formation. A small subchondral cyst is present within the superior right acetabulum. No evidence of acute acetabular injury, proximal femur fracture, hip joint effusion or pericapsular fluid collection. IMPRESSION: 1. No evidence of femoral fracture or gluteal hematoma after recent fall. 2. Inguinal lymph nodes are chronically enlarged, similar compared to 05/10/2014. 3. Subarticular bone resorption along the iliac margin of each sacroiliac joint is likely due to secondary hyperparathyroidism in this patient with history of chronic renal failure. DICTATED BY: LAURA MURILLO MD DATE/TIME DICTATED:07/04/16957 ORDNANCE TRUCK INSTALLATION SUPERVISOR:ADAN DATE/TIME TRANSCRIBED:07/04/16957 CONFIDENTIAL, DO NOT COPY WITHOUT APPROPRIATE AUTHORIZATION. <Electronically signed in Other Vendor System> SIGNED BY: LAURA MURILLO MD 07/04/16 1012 PATIENT: KRISSY LAWTON PRESENT AGE: 36 PATIENT ACCOUNT NO: [id number] : 79 LOCATION: [facility] ORDERING PHYSICIAN: BRENNA IZQUIERDO MD SERVICE DATE: 07/04/16 EXAM TYPE: CAT - CT HEAD WO IV CONTRAST EXAMINATION: CT HEAD WITHOUT CONTRAST CLINICAL INFORMATION: Fall, head injury. COMPARISON: None. TECHNIQUE: Contiguous axial imaging was performed from the skull base to vertex without intravenous administration of contrast. DLP: 1344 mGy-cm. FINDINGS: There is no evidence of acute intracranial hemorrhage or territorial infarction. No abnormal mass effect or midline shift is seen. Hall to white matter differentiation is well preserved. No extra-axial fluid collections are identified. The ventricles are normal in size. There is no abnormal attenuation within the brain parenchyma. The osseous structures and soft tissues are normal. The mastoid air cells and visualized portions of the paranasal sinuses are well aerated. IMPRESSION: No acute intracranial process seen. DICTATED BY: LARA STORM MD DATE/TIME DICTATED:07/04/16946 ORDNANCE TRUCK INSTALLATION SUPERVISOR:LUCI DATE/TIME TRANSCRIBED:07/04/16946 CONFIDENTIAL, DO NOT COPY WITHOUT APPROPRIATE AUTHORIZATION. <Electronically signed in Other Vendor System> SIGNED BY: LARA STORM MD 07/04/16 0954 Assessment/Plan Assessment/Recommendations Assessment: 1. Somnolence/carbon dioxide retention. I could not elicit any history of any ingestions. He appears to be fluid overloaded, however, the x-rays being read as perhaps better than his last exam. It is difficult to say how much volume overload is playing a role here. 2. End-stage renal disease. Hemodialysis will be off this afternoon. We'll plan 5 L ultrafiltration with dialysis today. It is possible that dialysis will be offered once again tomorrow. 3. Obesity 4. Diabetes mellitus 5. Hypertension 6. Hemodialysis for 4 hours. We'll plan 4-5 L L off as tolerated. 7. He may be dialyzed again tomorrow in order to optimize volume control 8. Anemia. He is on 200 g of Aranesp every week. Please note, he is listed as being allergic Venofer. With regards to the use of by mouth iron,'s generally does not work in people with hemodialysis. It often causes nausea as well as constipation. Recommendations: Patient will be dialyzed today. 2. Another dialysis session may be contemplated tomorrow. 3. Anemia his most recent outpatient hemoglobin on 06/23/2016 was 7.9. 4. Will continue the Aranesp as ordered.
--- NOTE | 2016-07-04 13:20 | NUR ---
REPORT TO MICHAEL BATISTA FROM DIALYSIS ALSO SPOKE WITH DR GUARDADO WHO ADVISED TO HOLD MEDS AT THIS TIME.
--- NOTE | 2016-07-04 13:27 | NUR ---
PT TRANSPORTED TO DIALYSIS AT THIS TIME
--- NOTE | 2016-07-04 14:00 | Admission Certification ---
Admission Certification Certification Statement - As attending physician, I certify that at the time of - admission, based on clinical presentation, severity of - symptoms, need for further diagnostic testing and - therapeutic interventions, and risk of adverse outcomes - without in-hospital treatment, in my clinical assessment, - this patient requires an acute hospital stay for a minimum - of two nights or longer. I have also considered psychsocial - factors such as support system, advanced age, financial - issues, cognitive issues, and failed out-patient treatments, - past re-admission history, safety of patient, and lack of - compliance as applicable. Specific rationale supporting this admission is: uremic, hyperkalemic and respiratory failure. Needs urgent dialysis and NIPPV
--- NOTE | 2016-07-04 14:14 | NUR ---
PT ADMITTED TO ROOM 183-1
--- NOTE | 2016-07-04 15:14 | NUR ---
REPORT TO MICHAEL EUGENE
--- NOTE | 2016-07-04 18:26 | Cons- Pulmonary ---
General Information and HPI Consulting Request Date of Consult: 07/04/16 Requested By: med team History of Present Illness: 36 years old man presented with CC of altered mental status and fall. Patient has past medical history significant for end-stage renal disease on dialysis 4 days/week, last dialysis was today, and control diabetes mellitus on insulin complicated with peripheral neuropathy and retinopathy, depression, PTSD, Crohn' s disease with last colonoscopy in 2005 showed mild chronic colitis, asthma, obstructive sleep apnea not on CPAP, hypertension, hyperlipidemia, mitral regurgitation, congestive heart failure, previous admission at [facility] for skin abscess in 2014, grew MRSA. He lives alone, and ambulating independently and is able to take care of himself. Yesterday on 07/03/2016 patient presented to the emergency room with a complaint of not feeling well and found to have elevated blood sugar. ED physician contacted the dialysis nurse who mentioned that the patient has missed 2 sessions of his previous dialysis appointments. Patient was discharged home with recommendation to follow with the dialysis. Patient had one episode of fall associated with dizziness and loss of consciousness. Patient does not remember the details of the incident however he denies any preceding chest pain, palpitation, cold sweats, nausea, vomiting, diarrhea,, fever, chills, abdominal pain or urinary symptoms, essential upper respiratory tract infection symptoms and any sick contact. Patient highlighted that for the past few days his swelling of bilateral lower extremity slightly increased. During the fall patient did not have any head trauma and after a while he found himself on the floor. Called 911 and was transferred to the emergency room. In the ED blood gas analysis showed pH of 7.28/and markedly elevated PCO2 of 61. Vital signs are relatively stable. Patient was admitted to telemetry unit for syncopal episode. Due to hypercarbia pt was placed on bipap intially did use it and then refused Pt did have dialysis when I saw him Appears back to baseline Has sig renee and is on cpap 12 at home and non compliant Review of Systems Constitutional: Reports: fever. Denies: chills. EENTM: Reports: throat pain. Denies: blurred vision, double vision, visual changes, ear pain, hearing changes. Cardiovascular: Denies: chest pain, edema, orthopena, palpitations, peripheral edema. Respiratory: Denies: orthopnea, short of breath, wheezing. GI: Denies: bloating, constipation, diarrhea, distention, bowel incontinence, vomiting. Musculoskeletal: Denies: back pain, joint pain, joint swelling. Skin: Denies: change in skin color, moles, rash. Hematologic/Endocrine: Denies: bruising, bleeding. Allergies/Medications Allergies: Coded Allergies: iron (From [facility]) (UNKNOWN 07/04/16) Home Med List: Amlodipine Besylate 10 MG TABLET 1 TAB PO DAILY HEART HEALTH (Reported) Cinacalcet HCl (Sensipar) 30 MG TABLET 1 TAB PO DAILY KIDNEYS (Reported) Clonazepam 1 MG TABLET 1 TAB PO BID PRN ANXIETY (Reported) Ergocalciferol (Vitamin D2) (Vitamin D2) 50,000 UNIT CAPSULE 50,000 IU PO QSAT Low Vit D Follow the Instruction for 8 weeks then check Vit D level Escitalopram Oxalate 20 MG TABLET 1 TAB PO DAILY MENTAL HEALTH (Reported) Ferric Citrate (Auryxia) 210 MG IRON TABLET 2 TAB PO TID KIDNEYS (Reported) Hydromorphone HCl (Dilaudid) 2 MG TABLET 1 TAB PO BIDP PRN pain Insulin Glargine,Hum.rec.anlog (Lantus Solostar) 100 UNIT/ML (3 ML) INSULN.PEN 24 UNITS SC BID DM (Reported) Insulin Lispro (Humalog Kwikpen U-100) 100 UNIT/ML INSULN.PEN DM (Reported) Metoprolol Tartrate 50 MG TABLET 1 TAB PO BID HTN (Reported) Olanzapine 5 MG TABLET 1 TAB PO QPM MENTAL HEALTH (Reported) Pregabalin (Lyrica) 100 MG CAPSULE 1 CAP PO TID PRN NEUROPATHY (Reported) Sodium Polystyrene Sulfon/Sorb (Kionex 15 Gm/60 Ml Suspension) (Unknown Strength ) ORAL.SUSP (Unknown Dose) AD HYPERKALEMIA (Reported) Review of Systems Review of Systems Constitutional: Reports: see HPI. Past History Travel History Traveled to [place] past 21 day No Medical History Neurological: migraine, peripheral neuropathy EENT: diabetic retinopathy Cardiovascular: CHF, hypertension, hyperlipidemia, mitral regurgitation, he has chronic fluid overload due to his inabilityto adhere to the necessary dietary restrictions of sodium and fluid intake. 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 Home Who Do You Live With? brother Primary Language: Cambodian Smoking Status: Former Smoker ETOH Use: denies use Illicit Drug Use: denies illicit drug use Living Will? no Power of Evp Managing Director/HCP? no Functional Ability ADLs Independent: dressing, eating, toileting, bathing. Ambulation: independent IADLs Independent: shopping, housework, finances, food prep, telephone, transportation , medication admin. Exam & Diagnostic Data Last 24 Hrs of Vital Signs/I&O Vital Signs Date Time Temp Pulse Resp B/P Pulse O2 O2 Flow FiO2 Ox Delivery Rate 07/04 1301 98.1 84 18 123/79 94 Nasal 3.0L Cannula 07/04 1012 98.7 88 22 134/76 94 Nasal 3.0L Cannula 07/04 1011 98.7 07/04 0850 96.3 86 16 132/69 96 BIPAP 07/04 0737 76 98 07/04 0653 94 Nasal 3.0L Cannula 07/04 0627 97.7 78 20 133/97 99 Nasal 3.0L Cannula Intake & Output 07/04 1600 07/04 0800 07/04 0000 Intake Total Output Total Balance Patient 357 lb Weight Last 48 Hrs of Labs/Karthik: Laboratory Tests 07/04/16 1758: BUN Pending 07/04/16 1340: 07/04/16 0730: Anion Gap 14, Estimated GFR 7 L, BUN/Creatinine Ratio 7.2, Glucose 83, Calcium 7.1 L, Total Bilirubin 0.5, AST 20, ALT 24, Alkaline Phosphatase 231 H, Troponin I < 0.01, Total Protein 8.5 H, Albumin 4.2, Globulin 4.3 H, Albumin/ Globulin Ratio 1.0 L 07/04/16 0646: CBC w Diff NO MAN DIFF REQ, RBC 3.80 L, MCV 75.3 L, MCH 23.4 L, RDW 25.8 H, MPV 10.1, Gran % 81.9 H, Lymphocytes % 6.3 L, Monocytes % 7.4, Eosinophils % 4.2, Basophils % 0.2, Absolute Granulocytes 10.3 H, Absolute Lymphocytes 0.8 L , Absolute Monocytes 0.9 H, Absolute Eosinophils 0.5, Absolute Basophils 0, PUBS MCHC 31.1 L 07/04/16 0645: pH 7.28 *L, pCO2 61 *H, pO2 87, HCO3 28, ABG O2 Sat (Measured) 94.0 L, P-50 ( Temp Corrected) Y, Carboxyhemoglobin 1.1 L, O2 Concentration % 3 LPM, Temperature 97.7, O2 Delivery Method N/C, Phlebotomy Draw Site RIGHT RADIAL Assessment/Plan Impression/Plan: Physical Exam: General Appearance: well developed/nourished, no apparent distress, comfortable, obese Head: atraumatic Eyes: Sclerae anicteric Bilateral: normal appearance, PERRL, EOMI. Ears, Nose, Throat: normal pharynx, hearing grossly normal Neck: Cannot assess for JVD due to his body habitus. Respiratory: normal breath sounds, lungs clear anteriorly Cardiovascular: regular rate/rhythm Gastrointestinal: normal bowel sounds, soft, non-tender, no organomegaly, no Bruits Back: normal inspection Extremities: positive lower extremity edema, positive sacral edema. Skin: intact, normal color, no rash or erythema Lymphatic: no anterior cervical meagan Neurologic/Psych: Somnolent, trips off to sleep rather rapidly, but arouses easily and is appropriate when awake. Cranial Nerves: normal hearing, normal speech, PERRLA Skin: normal color, warm/dry, rash (excoriations) Lymphatic: no anterior cervical adenopathy Skin: No rash, no erythema SIGNIFICANT DATA ABG reviewed 728/81 White count 12.5 with a left shift hemoglobin 8.9 which is chronically low Blood work reviewed initial potassium 5.5 creatinine 8.7 and and gap initially was 14. Last TSH was 3.8 last free T4 was 1.13. Chest x-ray showed cardiomegaly with pulmonary venous congestion. IMPRESSION This is an unfortunate 36-year-old gentleman with type 1 diabetes with end-stage renal disease on dialysis, sig RENEE with OHV on cpap noncompliant with cpap, Morbid obesity with dietary noncompliance, previous Crohn's disease, mild persistent eosinophilia of unknown etiology with reactive airway disease * Significant obstructive sleep apnea noncompliant with CPAP with bedtime hypoxemia supposed to be on chronic oxygen, now with acute on chronic hypercarbic resp failure due to cpap noncompliance complicated by pulm edema due to dietary noncompliance. Pt is on clonazepam and lyrica and olanzapine and this is also contributing to his chronic resp failure. Pt has been on narcotics previously and is denying that * Significant uncontrolled diabetes type I diabetic with resolving lethargy * End-stage renal disease on dialysis, now s/p dialysis * Chronic fluid overload with recurrent pulmonary edema due to renal failure and dietary noncompliance with significant diastolic heart disease * Chronic eosinophilia of unknown etiology with no evidence suggestive of eosinophilic lung disease. Patient does have reactive airway disease * Significant obstructive sleep apnea with bedtime hypoxemia noncompliant with CPAP suppose to be on oxygen with cpap but is not using it. PT has both obstructive and central apnea. Is on bedtime oxygen 3 litres with cpap * Significant gastroparesis with recurrent aspiration, now stable * Mild lymphadenopathy in the abdomen and chest of unknown etiology, last ct has shown stable lymphadenopathy * Previous history of Crohn's disease with no active colitis * Significant depression and personality disorder with anxiety and chronic pain syndrome with diabetic neuropathy as well on multiple medications which is also causing him to have altered mental status * Mild asthma with eosinophilia as well with no significant bronchospasm at this present time. RECOMMENDATION * Place patient back to baseline bedtime CPAP, with 3 L bleed in off oxygen which is his baseline * Try to wean off oxygen while awake during the day, no further BiPAP needed * Reduce his pregabalin * Can reduce his Klonopin 0.5 mg twice a day, only if patient allows * Continue his other medications * Patient is advised to be on a strict diet * Flovent 110 g 2 puffs twice a day * Keep the head of bed elevated * Continue dialysis * No need for systemic corticosteroids * Check stool for C. difficile - patient does have history of Crohn's disease * Continue insulin and check his sugar to avoid hypo-glycemia * Telemetry monitoring and rule out ID * Continue his current cardiac medications * UrinE tox screen if he can make urine Consult Acknowledgment - Thank you for your consult request.
[2016-07-04 18:42] VITALS: BP 124/61
--- NOTE | 2016-07-04 19:44 | NUR ---
ADMISSION NOTE: PT ARRIVED TO ROOM 183 AT 18:15 PM FROM DIALYSIS. PT ALREADY PLACED ON TELE MONITOR WHILE IN DIALYSIS. VSS. MEDS FOR GRINDING L HIP PAIN 12/25 PER EMAR. ACCUCHECK 56 AT THIS TIME. PT SLIGHTLY DIZZY. ATE 100% OF DINNER TRAY AT THIS TIME AND OJ. RECHECK ACCUCHECK WAS 91 AT 19:10 PM & PT NO LONGER FELT DIZZY. DR FISHMAN AWARE. PT REFUSES TO REMOVE PANTS AT THIS TIME FOR COMPLETE SKIN ASSESSMENT- OTHERWISE INTACT. PLACED ON ISOLATION PRECAUTIONS FOR HISTORY OF MRSA. LUNGS CLEAR. FAMILY TO BRING IN NOCTURNAL CPAP. WILL CONTINUE TO MONITOR.
[2016-07-04 23:36] VITALS: BP 112/58
--- NOTE | 2016-07-05 07:28 | PN- Housestaff ---
PATRICK FARLEY 07/05/16 0727: Subjective Follow-up For: 1. Acute hyperkalemia 2. End-stage renal disease on dialysis with multiple admissions due to noncompliance 3. History of obstructive sleep apnea noncompliant with CPAP. 4. Local petechial rash most likely contact dermatitis Tele-Events Since Last Visit: Sinus rhythm overnight with no acute events Subjective: Patient is seen and examined today sitting comfortably in the bed, reports rash with continuous itching on the back. Remained afebrile overnight, denies any chest discomfort trouble breathing nausea. Hyperkalemia resolved potassium today is 5, will DC monitoring manager and transfer the patient to. The [facility] floor. Patient will get dialysis today. Urine toxicology still pending(urine sample to be obtained today) Review of Systems Constitutional: Denies: chills, diaphoresis, fever, malaise. EENTM: Denies: blurred vision, double vision, visual changes, eye pain. Cardiovascular: Denies: chest pain, edema, orthopena. Respiratory: Denies: cough, hemoptysis, orthopnea, short of breath. Gastrointestinal: Denies: abdominal pain, bloating, constipation. Skin: Reports: rash. Neurological/Psychological: Denies: anxiety, ataxia, cognitive dysfunction. Objective Last 24 Hrs of Vital Signs/I&O Vital Signs Date Time Temp Pulse Resp B/P Pulse O2 O2 Flow FiO2 Ox Delivery Rate 07/05 0938 97.7 85 20 120/70 07/05 0938 97.7 85 20 120/70 07/05 0837 97.7 84 20 114/62 97 Nasal 3.0L Cannula 07/05 0136 86 98 07/05 0000 Nasal 4.0L Cannula 07/04 2336 98.5 98 22 112/58 93 Nasal 4.0L Cannula 07/04 2145 103 112/58 07/04 2141 Nasal 3.0L Cannula 07/04 1849 97 124/61 07/04 1848 97 124/61 07/04 1842 98.1 97 18 124/61 99 Nasal 4.0L Cannula 07/04 1815 Nasal Cannula 07/04 1301 98.1 84 18 123/79 94 Nasal 3.0L Cannula 07/04 1012 98.7 88 22 134/76 94 Nasal 3.0L Cannula 07/04 1011 98.7 Intake & Output 07/05 1600 07/05 0800 07/05 0000 Intake Total 490 250 Output Total Balance 490 250 Intake, IV 10 10 Intake, Oral 480 240 Patient 357 lb Weight Physical Exam General Appearance: Alert Skin: LOCAL RASH ON THE BACK HEENT: Atraumatic, PERRLA Neck: Supple, No JVD Lymphatic: Axillary nl, Cervical nl Cardiovascular: Regular Rate, Normal S1, Normal S2 Lungs: Clear to Auscultation Abdomen: Normal Bowel Sounds, Soft, No Tenderness Neurological: Normal Gait, Normal Speech Current Medications: Current Medications Sig/Georgina Start time Last Medication Dose Route Stop Time Status Admin Acetaminophen 650 MG Q6P PRN 07/04 1300 AC PO Acetaminophen 0 .STK-MED ONE 07/04 1008 DC IV Acetaminophen 500 MG ONCE ONE 07/04 1000 DC 07/04 IV 07/04 1001 1011 Albuterol Sulfate 3 ML EVERY 4 HRS/AWAKE .. 07/04 2130 AC INH Amlodipine Besylate 10 MG DAILY 07/04 1237 AC 07/05 PO 0938 Clonazepam 0.5 MG BID PRN 07/05 1000 AC PO 07/12 0959 Clonazepam 1 MG .[ON DIALYSIS DAY] 07/04 1315 DC PO 07/11 1314 Diphenhydramine HCl 25 MG Q6P PRN 07/05 0945 AC PO Ergocalciferol 50,000 IU QSAT 07/08 0700 AC PO Escitalopram Oxalate 20 MG AT BEDTIME 07/04 2200 AC 07/04 PO 2145 Ferrous Sulfate 325 MG TID 07/04 1238 DC PO Fluticasone 2 PUF BID 07/04 2200 AC 07/05 Propionate INH 0940 Heparin Sodium 5,000 UNIT Q8 07/04 1400 AC 07/05 (Porcine) SC 0508 Hydromorphone HCl 4 MG Q4P PRN 07/05 0945 AC 07/05 PO 0946 Hydromorphone HCl 1 MG ONCE ONE 07/04 2130 DC 07/04 PO 07/04 2131 2146 Hydromorphone HCl 2 MG Q4P PRN 07/04 1300 DC 07/05 PO 0108 Insulin Aspart 0 TIDAC 07/04 1700 AC 07/05 SC 0818 Insulin Detemir 20 UNITS BID 07/04 2200 AC 07/05 SC 0938 Metoprolol Tartrate 50 MG BID 07/04 1239 AC 07/05 PO 0938 Olanzapine 5 MG .[2200,DIALYSIS DAY] 07/04 1315 AC PO Patient Medication 1 UNIT 1400 07/04 1400 DC 07/04 Teaching ED 07/04 1401 1850 Patient Medication 1 UNIT ONE NR 07/04 1330 DC [facility] ED 07/04 1930 Patient Medication 1 UNIT ONE NR 07/04 1330 DC [facility] ED 07/04 1930 Patient Medication 1 UNIT ONE NR 07/04 1330 DC [facility] ED 07/04 1930 Pregabalin 50 MG TID PRN 07/05 0730 AC PO Pregabalin 50 MG TIDPRN PRN 07/04 2109 DC PO Pregabalin 100 MG TID PRN 07/04 1245 DC PO Last 24 Hrs of Lab/Karthik Results Last 24 Hrs of Labs/Mics: Laboratory Tests 07/05/16 0625: Anion Gap 16, Estimated GFR 10 L, BUN/Creatinine Ratio 6.6 L, CBC w Diff NO MAN DIFF REQ, RBC 3.93 L, MCV 75.7 L, MCH 23.0 L, RDW 26.8 H, MPV 9.4, Gran % 76.4 H, Lymphocytes % 16.1 L, Monocytes % 6.0, Eosinophils % 1.5, Basophils % 0 L, Absolute Granulocytes 7.1 H, Absolute Lymphocytes 1.5, Absolute Monocytes 0.6, Absolute Eosinophils 0.1, Absolute Basophils 0, PUBS MCHC 30.4 L 07/04/16 1758: 07/04/16 1400: Troponin I Cancelled 07/04/16 1340: Troponin I < 0.01 Microbiology 07/04 1250 STOOL: Clostridium difficile Toxin A & B - COLB Assessment/Plan Assessment: This is a 36-year-old obese gentleman with past medical history significant for end-stage renal dialysis(4 days a week), multiple admissions due to noncompliance and missing dialysis as an outpatient, history of diabetes complicated with retinopathy, history of obstructive sleep apnea noncompliant with CPAP, history of previous Crohn's disease, history of chronic eosinophilia without any etiology presented to the hospital after missing dialysis and was found to have acute uremic encephalopathy on admission requiring urgent dialysis. Also was found to be in acute hypercapnic respiratory acidosis due to noncompliance with CPAP and was admitted to telemetry floor. Labs on admission elevated W Terry BC count 12.5 that improved to 9.3 today. H& H stable at 9.1/29.8, on CPAP at nighttime. Slightly low sodium levels 133, with creatinine improved from 8.7-6.2 after urgent dialysis yesterday. Assessment Acute uremia with hyperkalemia after missing dialysis(history of end-stage renal dialysis) Acute hypercarbic respiratory acidosis-resolved now. Local rash with itching possible contact dermatitis History of uncontrolled type 1 diabetes mellitus complicated with diabetic neuropathy due to noncompliance Severe obstructive sleep apnea due to noncompliance with CPAP History of depression and anxiety with possible personality disorder Plan Acute uremia with hyperkalemia after missing dialysis(history of end-stage renal dialysis): * Nephrology consult was obtained patient received urgent dialysis yesterday and creatinine improved to 6.2 today patient is going for another dialysis today. * Will follow nephrology recommendations * Hyperkalemia resolved Will DC monitoring manager and transfer the patient told [facility] * Repeat BEP tomorrow. 2,.Local rash with itching possible contact dermatitis: * Evidence of chronic eosinophilia without any acute changes * We'll start the patient on by mouth Benadryl as needed for itchiness and rash * Continue to evaluate the rash on daily basis monitor for any worsening. 3.History of uncontrolled type 1 diabetes mellitus complicated with diabetic neuropathy due to noncompliance: * Continue high-dose NovoLog sliding scale with Accu-Cheks * Continue Lyrica for diabetic neuropathy. 4.Severe obstructive sleep apnea due to noncompliance with CPAP: * Pulmonology consult Warren Leiva MD has been obtained as per recommendations continue CPAP at bedtime. * Continue oxygen to keep saturations above 92% * 2 sets of troponin are negative without any evidence of ST-T changes on the EKG. * Continue Flovent. 5. History of depression and anxiety with possible personality disorder: * Klonopin dose has been decreased to 0.5 mg twice a day * Continue Xanax and other medications. * U tox pending 6. History of chronic pain disorder * Continue moderate to severe pain controlled with by mouth Dilaudid 4 mg as needed. 7. History of Crohn's disease with evidence of diarrhea now * Check C. difficile. 8. DVT prophylaxis subcutaneous heparin 9. Patient is full code Problem List: 1. ESRD on dialysis 2. Hyperglycemia without ketosis Pain Ratin Pain Location: Hip pain Pain Goal: Pain 4 or less Pain Plan: By mouth Dilaudid 4 mg as needed for some moderate to severe pain Tomorrow's Labs & Rationales: CBC and BEP tomorrow ABIOLA CARY MD 07/05/16 1201: Attending MD Review Statement Attending Statement Attending MD Statement: examined this patient, discuss w/resident/PA/HOG CONFINEMENT SYSTEM MANAGER, agreed w/resident/PA/HOG CONFINEMENT SYSTEM MANAGER, reviewed EMR data (avail), discussed with nursing, discussed with case mgmt Attending Assessment/Plan: More awake and alert today. He wants IV Dilaudid o I explained to him at length the dangers of IV narcotics given his significant acute hypercapnic respiratory failure. He is a 36-year-old with diabetes, obstructive sleep apnea and chronic CPAP use but significant noncompliance. He is here with uremia, acute hypercapnic acidosis and hyperkalemia. He was dialyzed yesterday and the hyperkalemia is resolved. I think we can safely stop the monitor at this point. Will try to minimize sedatives ,hypnotics and narcotics. I believe he'll need STR and will need PT to see him.
[2016-07-05 08:16] LABS: ABSOLUTE BASOPHIL COUNT 0 /CUMM (0.0-0.2); ABSOLUTE EOSINOPHIL COUNT 0.1 /CUMM (0.0-0.7); ABSOLUTE GRANULOCYTE CT 7.1 /CUMM (1.4-6.5); ABSOLUTE LYMPH COUNT 1.5 /CUMM (1.2-3.4); ABSOLUTE MONOCYTE COUNT 0.6 /CUMM (0.10-0.60); BASOPHIL % 0 % (0.0-2.0); EOSINOPHIL % 1.5 % (0-5); GRANULOCYTE % 76.4 % (42.2-75.2); HEMATOCRIT 29.8 % (42-52); MEAN CORPUSCULAR HGB CONC 30.4 G/DL (33.0-37.0); MEAN CORPUSCULAR VOLUME 75.7 FL (80.0-94.0); MEAN PLATELET VOLUME 9.4 FL (7.4-10.4); PLATELET COUNT 245 /CUMM (130-400); RBC DISTRIBUTION WIDTH 26.8 % (11.5-14.5); RED BLOOD CELL CT 3.93 /CUMM (4.70-6.10); WHITE BLOOD CELL COUNT 9.3 /CUMM (4.8-10.8)
[2016-07-05 08:37] VITALS: BP 114/62
--- NOTE | 2016-07-05 10:43 | PN- Nephrology ---
Assessment/Plan Assessment: 1. Somnolence/carbon dioxide retention. He is much more awake today 2. End-stage renal disease. Hemodialysis will be off this afternoon. We'll plan 5 L ultrafiltration with dialysis today. I do not see an urgent dialytic need today 3. Obesity 4. Diabetes mellitus 5. Hypertension 6. Hemodialysis for 4 hours. 5-6 L may need to be removed tomorrow 7. Anemia. He is on 200 g of Aranesp every week. Please note, he is listed as being allergic Venofer. With regards to the use of by mouth iron,'s generally does not work in people with hemodialysis. It often causes nausea as well as constipation. 8. Rash. Unclear cause Suggestion: 1. Hemodialysis again tomorrow 2. No urgent dialytic need today Subjective Subjective: Patient says he feels better. Denies shortness of breath. He is more awake and alert. Objective Vital Signs and I&Os Vital Signs Date Time Temp Pulse Resp B/P Pulse O2 O2 Flow FiO2 Ox Delivery Rate 07/05 1217 95 Nasal 3.0L Cannula 07/05 1122 Nasal 3.0L Cannula 07/05 0938 97.7 85 20 120/70 07/05 0938 97.7 85 20 120/70 07/05 0837 97.7 84 20 114/62 97 Nasal 3.0L Cannula 07/05 0136 86 98 07/05 0000 Nasal 4.0L Cannula 07/04 2336 98.5 98 22 112/58 93 Nasal 4.0L Cannula 07/04 2145 103 112/58 07/04 2141 Nasal 3.0L Cannula 07/04 1849 97 124/61 07/04 1848 97 124/61 07/04 1842 98.1 97 18 124/61 99 Nasal 4.0L Cannula 07/04 1815 Nasal Cannula Intake & Output 07/05 1600 07/05 0400 07/04 1600 07/04 0400 07/03 1600 07/03 0400 Intake Total 490 250 Output Total Balance 490 250 Intake, IV 10 10 Intake, Oral 480 240 Patient 357 lb 357 lb Weight Physical Exam: General Appearance: well developed/nourished, no apparent distress, comfortable, obese Head: atraumatic Eyes: Sclerae anicteric Bilateral: normal appearance, PERRL, EOMI. Ears, Nose, Throat: normal pharynx, hearing grossly normal Neck: Cannot assess for JVD due to his body habitus. Respiratory: normal breath sounds, lungs clear anteriorly Cardiovascular: regular rate/rhythm Gastrointestinal: normal bowel sounds, soft, non-tender, no organomegaly, no Bruits Back: normal inspection Extremities: positive lower extremity edema, positive sacral edema still. Skin: intact, normal color, he has a rash over his back along with excoriations. It is red raised and plaque-like. Lymphatic: no anterior cervical meagan Neurologic/Psych: Awake and alert of present complaints. Clearly there is some visual impairment Cranial Nerves: normal hearing, normal speech, PERRLA Skin: normal color, warm/dry, in addition to his usual excoriations, he has red raised areas on his back that are likely an accessible for his hands.) Lymphatic: no anterior cervical adenopathy Current Medications: Current Medications Sig/Georgina Start time Last Medication Dose Route Stop Time Status Admin Acetaminophen 650 MG Q6P PRN 07/04 1300 AC PO Albuterol Sulfate 3 ML EVERY 4 HRS/AWAKE .. 07/04 2130 AC INH Amlodipine Besylate 10 MG DAILY 07/04 1237 AC 07/05 PO 0938 Clonazepam 0.5 MG BID PRN 07/05 1000 AC PO 07/12 0959 Clonazepam 1 MG .[ON DIALYSIS DAY] 07/04 1315 DC PO 07/11 1314 Diphenhydramine HCl 25 MG Q6P PRN 07/05 0945 AC PO Ergocalciferol 50,000 IU QSAT 07/08 0700 AC PO Escitalopram Oxalate 20 MG AT BEDTIME 07/04 2200 AC 07/04 PO 2145 Ferrous Sulfate 325 MG TID 07/04 1238 DC PO Fluticasone 2 PUF BID 07/04 2200 AC 07/05 Propionate INH 0940 Heparin Sodium 5,000 UNIT Q8 07/04 1400 AC 07/05 (Porcine) SC 0508 Hydromorphone HCl 4 MG Q4P PRN 07/05 0945 AC 07/05 PO 0946 Hydromorphone HCl 1 MG ONCE ONE 07/04 2130 DC 07/04 PO 07/04 213 2146 Hydromorphone HCl 2 MG Q4P PRN 07/04 1300 DC 07/05 PO 0108 Insulin Aspart 0 TIDAC 07/04 1700 AC 07/05 SC 0818 Insulin Detemir 20 UNITS BID 07/04 2200 AC 07/05 SC 0938 Metoprolol Tartrate 50 MG BID 07/04 1239 AC 07/05 PO 0938 Olanzapine 5 MG .[2199,DIALYSIS DAY] 07/04 1315 AC PO Patient Medication 1 UNIT 1400 07/04 1400 DC 07/04 Teaching ED 07/04 1401 1850 Patient Medication 1 UNIT ONE NR 07/04 1330 DC Teaching ED 07/04 1930 Patient Medication 1 UNIT ONE NR 07/04 1330 DC [facility] ED 07/04 1930 Patient Medication 1 UNIT ONE NR 07/04 1330 DC [facility] ED 07/04 1930 Pregabalin 50 MG TID PRN 07/05 0730 AC PO Pregabalin 50 MG TIDPRN PRN 07/04 2109 DC PO Pregabalin 100 MG TID PRN 07/04 1245 DC PO Results Pertinent Lab Results: Laboratory Tests 07/05 07/04 07/04 0625 1758 1400 Chemistry Sodium (137 - 145 mmol/L) 133 L Potassium (3.5 - 5.1 mmol/L) 5.0 Chloride (98 - 107 mmol/L) 92 L Carbon Dioxide (22 - 30 mmol/L) 24 Anion Gap (5 - 16) 16 BUN (9 - 20 mg/dL) 41 H < 2 L Creatinine (0.7 - 1.2 mg/dL) 6.2 *H Estimated GFR (>60 ml/min) 10 L BUN/Creatinine Ratio (7 - 25 %) 6.6 L Troponin I Cancelled Hematology CBC w Diff NO MAN DIFF REQ WBC (4.8 - 10.8 /CUMM) 9.3 RBC (4.70 - 6.10 /CUMM) 3.93 L Hgb (14.0 - 18.0 G/DL) 9.1 L Hct (42 - 52 %) 29.8 L MCV (80.0 - 94.0 FL) 75.7 L MCH (27.0 - 31.0 PG) 23.0 L RDW (11.5 - 14.5 %) 26.8 H Plt Count (130 - 400 /CUMM) 245 MPV (7.4 - 10.4 FL) 9.4 Gran % (42.2 - 75.2 %) 76.4 H Lymphocytes % (20.5 - 51.1 %) 16.1 L Monocytes % (1.7 - 9.3 %) 6.0 Eosinophils % (0 - 5 %) 1.5 Basophils % (0.0 - 2.0 %) 0 L Absolute Granulocytes (1.4 - 6.5 /CUMM) 7.1 H Absolute Lymphocytes (1.2 - 3.4 /CUMM) 1.5 Absolute Monocytes (0.10 - 0.60 /CUMM) 0.6 Absolute Eosinophils (0.0 - 0.7 /CUMM) 0.1 Absolute Basophils (0.0 - 0.2 /CUMM) 0 PUBS MCHC (33.0 - 37.0 G/DL) 30.4 L 07/04 07/04 07/04 1340 0730 0646 Chemistry Sodium (137 - 145 mmol/L) 135 L Potassium (3.5 - 5.1 mmol/L) 5.5 H Chloride (98 - 107 mmol/L) 90 L Carbon Dioxide (22 - 30 mmol/L) 30 Anion Gap (5 - 16) 14 BUN (9 - 20 mg/dL) 68 H 63 H Creatinine (0.7 - 1.2 mg/dL) 8.7 *H Estimated GFR (>60 ml/min) 7 L BUN/Creatinine Ratio (7 - 25 %) 7.2 Glucose (65 - 99 mg/dL) 83 Calcium (8.4 - 10.2 mg/dL) 7.1 L Total Bilirubin (0.2 - 1.3 mg/dL) 0.5 AST (17 - 59 U/L) 20 ALT (21 - 72 U/L) 24 Alkaline Phosphatase (< 127 U/L) 231 H Troponin I (<0.11 ng/ml) < 0.01 < 0.01 Total Protein (6.3 - 8.2 g/dL) 8.5 H Albumin (3.5 - 5.0 g/dL) 4.2 Globulin (1.9 - 4.2 gm/dL) 4.3 H Albumin/Globulin Ratio (1.1 - 2.2 %) 1.0 L Hematology CBC w Diff NO MAN DIFF REQ WBC (4.8 - 10.8 /CUMM) 12.5 H RBC (4.70 - 6.10 /CUMM) 3.80 L Hgb (14.0 - 18.0 G/DL) 8.9 L Hct (42 - 52 %) 28.6 L MCV (80.0 - 94.0 FL) 75.3 L MCH (27.0 - 31.0 PG) 23.4 L RDW (11.5 - 14.5 %) 25.8 H Plt Count (130 - 400 /CUMM) 258 MPV (7.4 - 10.4 FL) 10.1 Gran % (42.2 - 75.2 %) 81.9 H Lymphocytes % (20.5 - 51.1 %) 6.3 L Monocytes % (1.7 - 9.3 %) 7.4 Eosinophils % (0 - 5 %) 4.2 Basophils % (0.0 - 2.0 %) 0.2 Absolute Granulocytes (1.4 - 6.5 /CUMM) 10.3 H Absolute Lymphocytes (1.2 - 3.4 /CUMM) 0.8 L Absolute Monocytes (0.10 - 0.60 /CUMM) 0.9 H Absolute Eosinophils (0.0 - 0.7 /CUMM) 0.5 Absolute Basophils (0.0 - 0.2 /CUMM) 0 PUBS MCHC (33.0 - 37.0 G/DL) 31.1 L 07/04 0645 Blood Gas pH (7.35 - 7.45 PH) 7.28 *L pCO2 (35 - 45 TORR) 61 *H pO2 (80 - 100 TORR) 87 HCO3 (21 - 28 MEQ/L) 28 ABG O2 Sat (Measured) (>96.0 %) 94.0 L P-50 (Temp Corrected) Y Carboxyhemoglobin (1.5 - 5.0 %) 1.1 L O2 Concentration % 3 LPM Temperature (97.0 - 100.0 FARH) 97.7 O2 Delivery Method N/C Miscellaneous Phlebotomy Draw Site RIGHT RADIAL
--- NOTE | 2016-07-05 12:35 | PN- Pulmonary ---
Subjective HPI/Critical Care Issues: Patient is seen and examined today sitting comfortably in the bed, reports rash with continuous itching on the back. Remained afebrile overnight, denies any chest discomfort trouble breathing nausea. Hyperkalemia resolved potassium today is 5, Urine toxicology still pending(urine sample to be obtained today) Review of Systems Constitutional: Denies: chills, diaphoresis, fever, malaise. EENTM: Denies: blurred vision, double vision, visual changes, eye pain. Cardiovascular: Denies: chest pain, edema, orthopena. Respiratory: Denies: cough, hemoptysis, orthopnea, short of breath. Gastrointestinal: Denies: abdominal pain, bloating, constipation. Skin: Reports: rash. Neurological/Psychological: Denies: anxiety, ataxia, cognitive dysfunction. Objective Current Medications: Current Medications Sig/Georgina Start time Last Medication Dose Route Stop Time Status Admin Acetaminophen 650 MG Q6P PRN 07/04 1300 AC PO Albuterol Sulfate 3 ML EVERY 4 HRS/AWAKE .. 07/04 2130 AC INH Amlodipine Besylate 10 MG DAILY 07/04 1237 AC 07/05 PO 0938 Clonazepam 0.5 MG BID PRN 07/05 1000 AC PO 07/12 0959 Clonazepam 1 MG .[ON DIALYSIS DAY] 07/04 1315 DC PO 07/11 1314 Diphenhydramine HCl 25 MG Q6P PRN 07/05 0945 AC 07/05 PO 1159 Ergocalciferol 50,000 IU QSAT 07/08 0700 AC PO Escitalopram Oxalate 20 MG AT BEDTIME 07/04 2200 AC 07/04 PO 2145 Ferrous Sulfate 325 MG TID 07/04 1238 DC PO Fluticasone 2 PUF BID 07/04 2200 AC 07/05 Propionate INH 0940 Heparin Sodium 5,000 UNIT Q8 07/04 1400 AC 07/05 (Porcine) SC 0508 Hydromorphone HCl 4 MG Q4P PRN 07/05 0945 AC 07/05 PO 0946 Hydromorphone HCl 1 MG ONCE ONE 07/04 2130 DC 07/04 PO 07/04 2131 2146 Hydromorphone HCl 2 MG Q4P PRN 07/04 1300 DC 07/05 PO 0108 Insulin Aspart 0 TIDAC 07/04 1700 AC 07/05 SC 0818 Insulin Detemir 20 UNITS BID 07/04 2200 AC 07/05 SC 0938 Metoprolol Tartrate 50 MG BID 07/04 1239 AC 07/05 PO 0938 Olanzapine 5 MG .[] 07/04 1315 AC PO Patient Medication 1 UNIT 1400 07/04 1400 DC 07/04 Teaching ED 07/04 1401 1850 Patient Medication 1 UNIT ONE NR 07/04 1330 DC Teaching ED 07/04 1930 Patient Medication 1 UNIT ONE NR 07/04 1330 DC Teaching ED 07/04 1930 Patient Medication 1 UNIT ONE NR 07/04 1330 DC Teaching ED 07/04 1930 Pregabalin 50 MG TID PRN 07/05 0730 AC PO Pregabalin 50 MG TIDPRN PRN 07/04 2109 DC PO Pregabalin 100 MG TID PRN 07/04 1245 DC PO Vital Signs & I&O Last 24 Hrs of Vitals and I&O: Vital Signs Date Time Temp Pulse Resp B/P Pulse O2 O2 Flow FiO2 Ox Delivery Rate 07/05 1217 95 Nasal 3.0L Cannula 07/05 1122 Nasal 3.0L Cannula 07/05 0938 97.7 85 20 120/70 07/05 0938 97.7 85 20 120/70 07/05 0837 97.7 84 20 114/62 97 Nasal 3.0L Cannula 07/05 0136 86 98 07/05 0000 Nasal 4.0L Cannula 07/04 2336 98.5 98 22 112/58 93 Nasal 4.0L Cannula 07/04 2145 103 112/58 07/04 2141 Nasal 3.0L Cannula 07/04 1849 97 124/61 07/04 1848 97 124/61 07/04 1842 98.1 97 18 124/61 99 Nasal 4.0L Cannula 07/04 1815 Nasal Cannula 07/04 1301 98.1 84 18 123/79 94 Nasal 3.0L Cannula Intake & Output 07/05 1600 07/05 0800 07/05 0000 Intake Total 490 250 Output Total Balance 490 250 Intake, IV 10 10 Intake, Oral 480 240 Patient 357 lb Weight Impression/Plan Impression/Plan Impression/Plan: Physical Exam: General Appearance: well developed/nourished, no apparent distress, comfortable, obese Head: atraumatic Eyes: Sclerae anicteric Bilateral: normal appearance, PERRL, EOMI. Ears, Nose, Throat: normal pharynx, hearing grossly normal Neck: Cannot assess for JVD due to his body habitus. Respiratory: normal breath sounds, lungs clear anteriorly Cardiovascular: regular rate/rhythm Gastrointestinal: normal bowel sounds, soft, non-tender, no organomegaly, no Bruits Back: normal inspection Extremities: positive lower extremity edema, positive sacral edema. Skin: intact, normal color, no rash or erythema Lymphatic: no anterior cervical meagan Neurologic/Psych: Somnolent, trips off to sleep rather rapidly, but arouses easily and is appropriate when awake. Cranial Nerves: normal hearing, normal speech, PERRLA Skin: normal color, warm/dry, rash (excoriations) Lymphatic: no anterior cervical adenopathy Skin: rash, no erythema SIGNIFICANT DATA ABG reviewed 728/61/81 White count 12.5 with a left shift hemoglobin 8.9 which is chronically low Blood work reviewed initial potassium 5.5 creatinine 8.7 and and gap initially was 14. Last TSH was 3.8 last free T4 was 1.13. Chest x-ray showed cardiomegaly with pulmonary venous congestion. IMPRESSION This is an unfortunate 36-year-old gentleman with type 1 diabetes with end-stage renal disease on dialysis, sig RENEE with OHV on cpap noncompliant with cpap, Morbid obesity with dietary noncompliance, previous Crohn's disease, mild persistent eosinophilia of unknown etiology with reactive airway disease * Significant obstructive sleep apnea noncompliant with CPAP with bedtime hypoxemia supposed to be on 3 l nocturnal oxygen, now with Resolved acute on chronic hypercarbic resp failure due to cpap noncompliance complicated by pulm edema due to dietary noncompliance. Pt is on clonazepam and lyrica and olanzapine and this is also contributing to his chronic resp failure. Pt has been on narcotics previously and is denying that * Significant uncontrolled diabetes type I diabetic with resolving lethargy * End-stage renal disease on dialysis, now s/p dialysis * Chronic fluid overload with recurrent pulmonary edema due to renal failure and dietary noncompliance with significant diastolic heart disease * Chronic eosinophilia of unknown etiology with no evidence suggestive of eosinophilic lung disease. Patient does have reactive airway disease * Significant obstructive sleep apnea with bedtime hypoxemia noncompliant with CPAP suppose to be on oxygen with cpap but is not using it. PT has both obstructive and central apnea. Is on bedtime oxygen 3 litres with cpap * Significant gastroparesis with recurrent aspiration, now stable * Mild lymphadenopathy in the abdomen and chest of unknown etiology, last ct has shown stable lymphadenopathy * Previous history of Crohn's disease with no active colitis * Significant depression and personality disorder with anxiety and chronic pain syndrome with diabetic neuropathy as well on multiple medications which is also causing him to have altered mental status * Mild asthma with eosinophilia as well with no significant bronchospasm at this present time. * Rash * RECOMMENDATION * Cont cpap at hs with oxygen, and wean oxygen off during the day if sao2 is more than 90 percent * Minimize sedatives and hypnotics * Continue his other medications * Diet * Flovent 110 g 2 puffs twice a day * Keep the head of bed elevated * Continue dialysis * Continue his current cardiac medications * UrinE tox screen if he can make urine WIll follow
[2016-07-05 16:05] VITALS: BP 118/68
[2016-07-05 23:40] VITALS: BP 116/64
--- NOTE | 2016-07-06 07:21 | PN- Housestaff ---
PATRICK FARLEY 07/06/16 0720: Subjective Follow-up For: 1. Acute hyperkalemia 2. End-stage renal disease on dialysis with multiple admissions due to noncompliance 3. History of obstructive sleep apnea noncompliant with CPAP. 4. Local petechial rash most likely contact dermatitis Subjective: Patient is seen and examined today, seems better, slept well overnight. Petechial rash on the back with itchiness improved, getting by mouth Benadryl as needed. Vitals remained stable overnight .Denies any chest discomfort/trouble breathing/ nausea. No urinary bowel habit complaints. Review of Systems Constitutional: Denies: chills, diaphoresis, fever. EENTM: Denies: blurred vision, double vision, visual changes, eye pain. Cardiovascular: Denies: chest pain, edema, orthopena, palpitations. Respiratory: Denies: cough, hemoptysis, orthopnea. Gastrointestinal: Denies: abdominal pain, bloating, constipation, diarrhea, distention. Genitourinary: Denies: discharge, dysuria, frequency. Musculoskeletal: Denies: back pain, gout, joint pain. Objective Last 24 Hrs of Vital Signs/I&O Vital Signs Date Time Temp Pulse Resp B/P Pulse O2 O2 Flow FiO2 Ox Delivery Rate 07/06 0824 98.0 80 20 118/60 97 Nasal 3.5L Cannula 07/06 0133 97 07/06 0000 Nasal 4.0L Cannula 07/05 2340 97.8 90 20 116/64 94 Nasal 4.0L Cannula 07/05 2328 90 116/64 07/05 2301 97 Nasal 3.0L Cannula 07/05 1605 97.8 80 20 118/68 95 07/05 1600 Nasal 4.0L Cannula 07/05 1217 95 Nasal 3.0L Cannula 07/05 1122 Nasal 3.0L Cannula Intake & Output 07/06 1600 07/06 0800 07/06 0000 Intake Total 240 480 Output Total Balance 240 480 Intake, Oral 240 480 Patient 379 lb Weight Physical Exam General Appearance: Alert, Oriented X3 Skin: No Rashes, No Breakdown HEENT: Atraumatic, PERRLA Neck: Supple, No JVD Cardiovascular: Regular Rate, Normal S1, Normal S2 Lungs: Clear to Auscultation Abdomen: Normal Bowel Sounds, Soft, No Tenderness Neurological: Normal Gait, Normal Speech Extremities: No Clubbing, No Cyanosis Current Medications: Current Medications Sig/Georgina Start time Last Medication Dose Route Stop Time Status Admin Acetaminophen 650 MG Q6P PRN 07/04 1300 AC PO Albuterol Sulfate 3 ML EVERY 4 HRS/AWAKE .. 07/04 2130 AC INH Amlodipine Besylate 10 MG DAILY 07/04 1237 AC 07/05 PO 0938 Clonazepam 0.5 MG BID PRN 07/05 1000 AC PO 07/12 0959 Diphenhydramine HCl 25 MG Q6P PRN 07/05 0945 AC 07/05 PO 2114 Ergocalciferol 50,000 IU QSAT 07/08 0700 AC PO Escitalopram Oxalate 20 MG AT BEDTIME 07/04 2200 AC 07/05 PO 2328 Fluticasone 2 PUF BID 07/04 2200 AC 07/05 Propionate INH 2115 Heparin Sodium 5,000 UNIT Q8 07/04 1400 AC 07/06 (Porcine) SC 0536 Hydromorphone HCl 4 MG Q4P PRN 07/05 0945 AC 07/06 PO 0659 Insulin Aspart 0 TIDAC 07/04 1700 AC 07/05 SC 0818 Insulin Detemir 20 UNITS BID 07/04 2200 AC 07/05 SC 2114 Metoprolol Tartrate 50 MG BID 07/04 1239 AC 07/05 PO 2328 Olanzapine 5 MG .[2199,DIALYSIS DAY] 07/04 1315 AC PO Pregabalin 50 MG TID PRN 07/05 0730 AC 07/05 PO 2114 Last 24 Hrs of Lab/Karthik Results Last 24 Hrs of Labs/Mics: Laboratory Tests 07/06/16 0802: Calcium Cancelled, Magnesium Cancelled, Albumin Cancelled 07/06/16 0802: Anion Gap 13, Estimated GFR 7 L, BUN/Creatinine Ratio 6.5 L, Calcium 7.6 L, Magnesium 2.4 H, Albumin 3.4 L Microbiology 07/05 1445 STOOL: Clostridium difficile Toxin A & B - COLB Assessment/Plan Assessment: This is a 36-year-old obese gentleman with past medical history significant for end-stage renal dialysis(4 days a week), multiple admissions due to noncompliance and missing dialysis as an outpatient, history of diabetes complicated with retinopathy, history of obstructive sleep apnea noncompliant with CPAP, history of previous Crohn's disease, history of chronic eosinophilia without any etiology presented to the hospital after missing dialysis and was found to have acute uremic encephalopathy on admission requiring urgent dialysis. Also was found to be in acute hypercapnic respiratory acidosis due to noncompliance with CPAP and was admitted to telemetry floor. Labs on admission elevated W Terry BC count 12.5 that improved to 9.3 today. H& H stable at 9.1/29.8, on CPAP at nighttime. Slightly low sodium levels 133, with creatinine improved from 8.7-6.2 after urgent dialysis yesterday. Assessment Acute uremia with hyperkalemia after missing dialysis(history of end-stage renal dialysis) Acute hypercarbic respiratory acidosis-resolved now. Local rash with itching possible contact dermatitis History of uncontrolled type 1 diabetes mellitus complicated with diabetic neuropathy due to noncompliance Severe obstructive sleep apnea due to noncompliance with CPAP History of depression and anxiety with possible personality disorder Plan Acute uremia with hyperkalemia after missing dialysis(history of end-stage renal dialysis): * Nephrology consult was obtained patient received urgent dialysis on admission and creatinine improved. * Patient will go for another session of dialysis today. * Will follow nephrology recommendations * Hyperkalemia resolved. * Repeat BEP tomorrow. 2,.Local rash with itching possible contact dermatitis: * Petechial rash on the back with itchiness improved, getting by mouth Benadryl as needed. * Evidence of chronic eosinophilia without any acute changes * tchiness and rash * Continue to evaluate the rash on daily basis monitor for any worsening. 3.History of uncontrolled type 1 diabetes mellitus complicated with diabetic neuropathy due to noncompliance: * Continue high-dose NovoLog sliding scale with Accu-Cheks * Continue Lyrica for diabetic neuropathy. 4.Severe obstructive sleep apnea due to noncompliance with CPAP: * Pulmonology consult Warren Leiva MD has been obtained as per recommendations continue CPAP at bedtime. * Continue oxygen to keep saturations above 92% * 2 sets of troponin are negative without any evidence of ST-T changes on the EKG. * Continue Flovent. 5. History of depression and anxiety with possible personality disorder: * Klonopin dose has been decreased to 0.5 mg twice a day * Continue Xanax and other medications. * U tox pending, sample could not be obtained 6. History of chronic pain disorder * Continue moderate to severe pain controlled with by mouth Dilaudid 4 mg as needed. 7. History of Crohn's disease with evidence of diarrhea now * C. difficile 8. DVT prophylaxis subcutaneous heparin 9. Patient is full code Problem List: 1. Chronic kidney disease with end stage renal failure on dialysis Pain Ratin Pain Location: Hip pain Pain Goal: Remain pain free Pain Plan: Moderate to severe pain control with Dilaudid Tomorrow's Labs & Rationales: Anemia elevated creatinine \ Labs after dialysis LUIS DANIEL BEAR,ABIOLA 07/06/16 1143: Attending MD Review Statement Attending Statement Attending MD Statement: examined this patient, discuss w/resident/PA/FRAME BENDER, agreed w/resident/PA/FRAME BENDER, reviewed EMR data (avail), discussed with nursing, discussed with case mgmt Attending Assessment/Plan: Appreciate nephrology's evaluation. 36-year-old male with diabetes, ESRD on hemodialysis admitted with acute hyperkalemia after having missed dialysis. His rash is much better and that suggests a contact dermatitis in its nature and distribution. He has no mucosal involvement. At this point actively working on STR placement.
--- NOTE | 2016-07-06 07:30 | NUR ---
PT LEFT FLOOR WITH DISTRIBUTION IN BED FOR DIALYSIS, AT 1330 HE RETURNED TO FLOOR ASLEEP/AROUSABLE ORIENTED X3.
[2016-07-06 08:24] VITALS: BP 118/60
[2016-07-06 09:07] LABS: ABSOLUTE BASOPHIL COUNT 0 /CUMM (0.0-0.2); ABSOLUTE EOSINOPHIL COUNT 0.2 /CUMM (0.0-0.7); ABSOLUTE GRANULOCYTE CT 5.7 /CUMM (1.4-6.5); ABSOLUTE LYMPH COUNT 0.9 /CUMM (1.2-3.4); ABSOLUTE MONOCYTE COUNT 0.5 /CUMM (0.10-0.60); BASOPHIL % 0.2 % (0.0-2.0); EOSINOPHIL % 2.5 % (0-5); GRANULOCYTE % 77.4 % (42.2-75.2); HEMATOCRIT 26.8 % (42-52); MEAN CORPUSCULAR HGB CONC 30.6 G/DL (33.0-37.0); MEAN CORPUSCULAR VOLUME 75.3 FL (80.0-94.0); MEAN PLATELET VOLUME 9.1 FL (7.4-10.4); PLATELET COUNT 225 /CUMM (130-400); RBC DISTRIBUTION WIDTH 26.2 % (11.5-14.5); RED BLOOD CELL CT 3.56 /CUMM (4.70-6.10); WHITE BLOOD CELL COUNT 7.4 /CUMM (4.8-10.8)
--- NOTE | 2016-07-06 09:30 | PN- Nephrology ---
Assessment/Plan Assessment: 1. End-stage renal disease. Hemodialysis will be off this afternoon. We'll plan 5 L ultrafiltration with dialysis today. I do not see an urgent dialytic need today 2. Obesity 3. Diabetes mellitus 4. Hypertension 5. Hemodialysis for 4 hours. 5-6 L may need to be removed tomorrow 6. Anemia. He is on 200 g of Aranesp every week. Please note, he is listed as being allergic Venofer. With regards to the use of by mouth iron,'s generally does not work in people with hemodialysis. It often causes nausea as well as constipation. 7. Anemia. He is on Aranesp as an outpatient. Currently however Leann S was not carried here. He will receive 10,000 units of Epogen today. Suggestion: 1. Hemodialysis he'll be dialyzed again on Sunday. He is been leaving the outpatient dialysis unit 6 kg above his stated dry. This leads to questions. The first question being is that dry weight accurate? Clearly his intradialytic weight gains are such that his outpatient facility feels the need to dialyze him 4 times in a week. 2. Epogen 10,000 units 3 times a week with hemodialysis. Subjective Subjective: Seen with hemodialysis in progress. Sleeping fairly soundly but is arousable. Objective Vital Signs and I&Os Vital Signs Date Time Temp Pulse Resp B/P Pulse O2 O2 Flow FiO2 Ox Delivery Rate 07/06 0824 98.0 80 20 118/60 97 Nasal 3.5L Cannula 07/06 0133 97 07/06 0000 Nasal 4.0L Cannula 07/05 2340 97.8 90 20 116/64 94 Nasal 4.0L Cannula 07/05 2328 90 116/64 07/05 2301 97 Nasal 3.0L Cannula 07/05 1605 97.8 80 20 118/68 95 07/05 1600 Nasal 4.0L Cannula 07/05 1217 95 Nasal 3.0L Cannula 07/05 1122 Nasal 3.0L Cannula 07/05 0938 97.7 85 20 120/70 07/05 0938 97.7 85 20 120/70 Intake & Output 07/06 1600 07/06 0400 07/05 1600 07/05 0400 07/04 1600 07/04 0400 Intake Total 240 480 850 250 Output Total Balance 240 480 850 250 Intake, IV 10 10 Intake, Oral 240 480 840 240 Patient 379 lb 357 lb 357 lb Weight Physical Exam: General Appearance: well developed/nourished, no apparent distress, comfortable, obese Head: atraumatic Eyes: Sclerae anicteric Bilateral: normal appearance, PERRL, EOMI. Ears, Nose, Throat: normal pharynx, hearing grossly normal Neck: Cannot assess for JVD due to his body habitus. Respiratory: normal breath sounds, lungs clear anteriorly Cardiovascular: regular rate/rhythm Gastrointestinal: normal bowel sounds, soft, non-tender, no organomegaly, no Bruits Back: normal inspection Extremities: positive lower extremity edema, positive sacral edema still. Skin: intact, normal color, he has a rash over his back along with excoriations. It is red raised and plaque-like. Lymphatic: no anterior cervical meagan Neurologic/Psych: Awake and alert of present complaints. Clearly there is some visual impairment Cranial Nerves: normal hearing, normal speech, PERRLA Skin: normal color, warm/dry, in addition to his usual excoriations, he has red raised areas on his back that are likely an accessible for his hands.) Lymphatic: no anterior cervical adenopathy Current Medications: Current Medications Sig/Georgina Start time Last Medication Dose Route Stop Time Status Admin Acetaminophen 650 MG Q6P PRN 07/04 1300 AC PO Albuterol Sulfate 3 ML EVERY 4 HRS/AWAKE .. 07/04 2130 AC INH Amlodipine Besylate 10 MG DAILY 07/04 1237 AC 07/05 PO 0938 Clonazepam 0.5 MG BID PRN 07/05 1000 AC PO 07/12 0959 Diphenhydramine HCl 25 MG Q6P PRN 07/05 0945 AC 07/05 PO 2114 Ergocalciferol 50,000 IU QSAT 07/08 0700 AC PO Escitalopram Oxalate 20 MG AT BEDTIME 07/04 2200 AC 07/05 PO 2328 Fluticasone 2 PUF BID 07/04 2200 AC 07/05 Propionate INH 2115 Heparin Sodium 5,000 UNIT Q8 07/04 1400 AC 07/06 (Porcine) SC 0536 Hydromorphone HCl 4 MG Q4P PRN 07/05 0945 AC 07/06 PO 0659 Hydromorphone HCl 2 MG Q4P PRN 07/04 1300 DC 07/05 PO 0108 Insulin Aspart 0 TIDAC 07/04 1700 AC 01/18 SC 0818 Insulin Detemir 20 UNITS BID 07/04 2200 AC 07/05 SC 2113 Metoprolol Tartrate 50 MG BID 07/04 1239 AC 07/05 PO 2328 Olanzapine 5 MG .[2199,DIALYSIS DAY] 07/04 1315 AC PO Pregabalin 50 MG TID PRN 07/05 0730 AC 07/05 PO 2113 Results Pertinent Lab Results: Laboratory Tests 07/06 07/06 07/05 0802 0802 0625 Chemistry Sodium (137 - 145 mmol/L) Pending 133 L Potassium (3.5 - 5.1 mmol/L) Pending 5.0 Chloride (98 - 107 mmol/L) Pending 92 L Carbon Dioxide (22 - 30 mmol/L) Pending 24 Anion Gap (5 - 16) Pending 16 BUN (9 - 20 mg/dL) Pending 41 H Creatinine (0.7 - 1.2 mg/dL) Pending 6.2 *H Estimated GFR (>60 ml/min) 10 L BUN/Creatinine Ratio (7 - 25 %) Pending 6.6 L Calcium Cancelled Pending Magnesium Cancelled Pending Albumin Cancelled Pending Hematology CBC w Diff NO MAN DIFF REQ WBC (4.8 - 10.8 /CUMM) 9.3 RBC (4.70 - 6.10 /CUMM) 3.93 L Hgb (14.0 - 18.0 G/DL) 9.1 L Hct (42 - 52 %) 29.8 L MCV (80.0 - 94.0 FL) 75.7 L MCH (27.0 - 31.0 PG) 23.0 L RDW (11.5 - 14.5 %) 26.8 H Plt Count (130 - 400 /CUMM) 245 MPV (7.4 - 10.4 FL) 9.4 Gran % (42.2 - 75.2 %) 76.4 H Lymphocytes % (20.5 - 51.1 %) 16.1 L Monocytes % (1.7 - 9.3 %) 6.0 Eosinophils % (0 - 5 %) 1.5 Basophils % (0.0 - 2.0 %) 0 L Absolute Granulocytes (1.4 - 6.5 /CUMM) 7.1 H Absolute Lymphocytes (1.2 - 3.4 /CUMM) 1.5 Absolute Monocytes (0.10 - 0.60 /CUMM) 0.6 Absolute Eosinophils (0.0 - 0.7 /CUMM) 0.1 Absolute Basophils (0.0 - 0.2 /CUMM) 0 PUBS MCHC (33.0 - 37.0 G/DL) 30.4 L 07/04 07/04 07/04 07/04 07/04 1758 1509 1400 1340 0730 Chemistry Sodium (137 - 145 mmol/L) 135 L Potassium (3.5 - 5.1 mmol/L) 5.5 H Chloride (98 - 107 mmol/L) 90 L Carbon Dioxide (22 - 30 mmol/L) 30 Anion Gap (5 - 16) 14 BUN (9 - 20 mg/dL) < 2 L 68 H 63 H Creatinine (0.7 - 1.2 mg/dL) 8.7 *H Estimated GFR (>60 ml/min) 7 L BUN/Creatinine Ratio (7 - 25 %) 7.2 Glucose (65 - 99 mg/dL) 83 Calcium (8.4 - 10.2 mg/dL) 7.1 L Total Bilirubin (0.2 - 1.3 mg/dL) 0.5 AST (17 - 59 U/L) 20 ALT (21 - 72 U/L) 24 Alkaline Phosphatase (< 127 U/L) 231 H Troponin I (<0.11 ng/ml) Cancelled < 0.01 < 0.01 Total Protein (6.3 - 8.2 g/dL) 8.5 H Albumin (3.5 - 5.0 g/dL) 4.2 Globulin (1.9 - 4.2 gm/dL) 4.3 H Albumin/Globulin Ratio (1.1 - 2.2 %) 1.0 L Toxicology Methadone Screen Cancelled Barbiturate Screen Cancelled Ur Phencyclidine Scrn Cancelled Amphetamines Screen Cancelled U Benzodiazepines Scrn Cancelled Urine Cocaine Screen Cancelled Urine Cannabis Screen Cancelled 07/04 07/04 0646 0645 Blood Gas pH (7.35 - 7.45 PH) 7.28 *L pCO2 (35 - 45 TORR) 61 *H pO2 (80 - 100 TORR) 87 HCO3 (21 - 28 MEQ/L) 28 ABG O2 Sat (Measured) (>96.0 %) 94.0 L P-50 (Temp Corrected) Y Carboxyhemoglobin (1.5 - 5.0 %) 1.1 L O2 Concentration % 3 LPM Temperature (97.0 - 100.0 FARH) 97.7 O2 Delivery Method N/C Hematology CBC w Diff NO MAN DIFF REQ WBC (4.8 - 10.8 /CUMM) 12.5 H RBC (4.70 - 6.10 /CUMM) 3.80 L Hgb (14.0 - 18.0 G/DL) 8.9 L Hct (42 - 52 %) 28.6 L MCV (80.0 - 94.0 FL) 75.3 L MCH (27.0 - 31.0 PG) 23.4 L RDW (11.5 - 14.5 %) 25.8 H Plt Count (130 - 400 /CUMM) 258 MPV (7.4 - 10.4 FL) 10.1 Gran % (42.2 - 75.2 %) 81.9 H Lymphocytes % (20.5 - 51.1 %) 6.3 L Monocytes % (1.7 - 9.3 %) 7.4 Eosinophils % (0 - 5 %) 4.2 Basophils % (0.0 - 2.0 %) 0.2 Absolute Granulocytes (1.4 - 6.5 /CUMM) 10.3 H Absolute Lymphocytes (1.2 - 3.4 /CUMM) 0.8 L Absolute Monocytes (0.10 - 0.60 /CUMM) 0.9 H Absolute Eosinophils (0.0 - 0.7 /CUMM) 0.5 Absolute Basophils (0.0 - 0.2 /CUMM) 0 PUBS MCHC (33.0 - 37.0 G/DL) 31.1 L Miscellaneous Phlebotomy Draw Site RIGHT RADIAL
--- NOTE | 2016-07-06 09:54 | ECHOCARDIOGRAM REPORT ---
KRISSY LAWTON Age: 36 : 1980 Gender: M Exam Date: 07/05/2016 14:27 Exam Location: 1 [facility] Ht (in): 67 Wt (lb): 357 BSA: 2.87 BP: 120 / 70 Ordering Physician: FELTON CAIN MD Referring Physician: FELTON CAIN MD Technologist: Orquidea Arnold NICOLE Room Number: [id number] Indications: PRESYNCOPE/SYNCOPE Rhythm: Sinus Technical Quality: Fair FINDINGS Left Ventricle Normal size left ventricle. Normal left ventricular wall thickness. Normal left ventricular ejection fraction visually estimated at > 60%. Normal left ventricular wall motion. Right Ventricle Normal right ventricular size and function. Right Atrium Normal right atrial size. Left Atrium Mild left atrial dilatation. Mitral Valve Mitral valve thickened. Trace mitral regurgitation. Aortic Valve Structurally normal trileaflet aortic valve. No aortic stenosis. No aortic regurgitation. Tricuspid Valve Tricuspid valve not well visualized, grossly normal. Trace tricuspid regurgitation. No evidence of pulmonary hypertension. Pulmonic Valve Pulmonic valve not well visualized, grossly normal. Pericardium No pericardial effusion. Great Vessels Normal size aortic root. CONCLUSIONS Normal size left ventricle. Normal left ventricular wall thickness. Normal left ventricular ejection fraction visually estimated at > 60%. Mild left atrial dilatation. Trace mitral regurgitation. Trace tricuspid regurgitation. Yousuf Selby M.D. (Electronically Signed) Final Date: 06 July 2016 09:54 MEASUREMENTS (Male / Female) Normal Values 2D ECHO LV Diastolic Diameter PLAX 4.9 cm 4.2 - 5.9 / 3.9 - 5.3 cm LV Systolic Diameter PLAX 2.8 cm 2.1 - 4.0 cm LV Fractional Shortening PLAX 42.9 % 25 - 46 % LV Ejection Fraction 2D Teich 73.8 % IVS Diastolic Thickness 0.9 cm LVPW Diastolic Thickness 1.2 cm LV Relative Wall Thickness 0.4 RV Internal Dim ED PLAX 3.2 cm 1.9 - 3.8 cm LVOT Diameter 2.0 cm Aortic Root Diameter 2.6 cm LA Systolic Diameter LX 4.3 cm 3.0 - 4.0 / 2.7 - 3.8 cm LA Volume 34.0 cm 18 - 58 / 22 - 52 cm Ascending Aorta Diameter 2.7 cm DOPPLER AV Peak Velocity 150.0 cm/s AV Peak Gradient 9.0 mmHg AV Mean Velocity 113.0 cm/s AV Mean Gradient 6.0 mmHg AV Velocity Time Integral 36.8 cm LVOT Peak Velocity 117.0 cm/s LVOT Peak Gradient 5.5 mmHg LVOT Mean Velocity 80.7 cm/s LVOT Mean Gradient 3.0 mmHg LVOT Velocity Time Integral 22.9 cm LVOT Stroke Volume 71.9 cm AV Area Cont Eq vti 2.0 cm AV Area Cont Eq pk 2.5 cm MV Peak Velocity 160.0 cm/s MV Peak Gradient 10.2 mmHg MV Mean Velocity 96.0 cm/s MV Mean Gradient 4.0 mmHg Mitral E Point Velocity 125.0 cm/s Mitral A Point Velocity 84.9 cm/s Mitral E to A Ratio 1.5 MV PHT Velocity 174.0 cm/s MV Deceleration Randolph 889.0 cm/s MV Pressure Half Time 58.7 ms MV Area PHT 3.7 cm MV Deceleration Time 256.0 ms TR Peak Velocity 137.0 cm/s TR Peak Gradient 7.5 mmHg Right Atrial Pressure 5.0 mmHg Pulmonary Artery Systolic Pressu 12.5 mmHg Right Ventricular Systolic Press 12.5 mmHg PV Peak Velocity 130.0 cm/s PV Peak Gradient 6.8 mmHg PV Mean Velocity 79.9 cm/s PV Mean Gradient 3.0 mmHg PV Velocity Time Integral 30.8 cm LV E' Lateral Velocity 9.5 cm/s Mitral E to LV E' Lateral Ratio 13.2 LV E' Septal Velocity 7.5 cm/s Mitral E to LV E' Septal Ratio 16.6
--- NOTE | 2016-07-06 11:33 | Discharge Summary ---
Visit Information Visit Dates Admission Date: 07/04/16 Discharge Date: 07/07/16 Hospital Course Course Attending Physician: Dr. Pantoja Primary Care Physician: GUILLERMO BEAR,BLANCA Chun Consulting Request: Consulting Specialty: Nephrology Hospital Course: Patient is a 36-year-old obese gentleman with a past medical history significant for end-stage renal disease on dialysis 4 days/week, multiple admissions due to noncompliance and missing dialysis as an outpatient,diabetes mellitus on insulin complicated with peripheral neuropathy and retinopathy, depression, PTSD, Crohn' s disease with last colonoscopy in 2005 showed mild chronic colitis, asthma, obstructive sleep apnea not on CPAP, hypertension, hyperlipidemia, mitral regurgitation, congestive heart failure, 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 Vitals on admission temperature 97.7, pulse 78, respiratory rate 20, blood pressure 133/97 saturating more than 92% on 3 L. Pertinent labs on admission leukocytosis 12.5 without any bandemia H&H low 8.9/ 28.6, sodium 135 hyperkalemia 5.5 elevated BUN/creatinine is 63/8.7 ABG showed pH of 7.28 with PCO2 of 61 PO2 87 bicarbonate 28 EKG showed normal sinus rhythm with prolonged QT interval Chest x-ray revealed cardiomegaly with pulmonary vascular congestion. Following problems are resolved patient was on telemetry floor: 1. Altered mental status(most likely due to uremic encephalopathy) with hyperkalemia: Patient was admitted to telemetry floor. Closely monitor for cardiac arrhythmias. Urgent nephrology consult was obtained and patient had dialysis done on the day of admission. His clinical condition and kidney functions( creatinine) improved after the dialysis. ACS was ruled out. He was constantly dialyzed for the next 2-3 days. Patient had been hospitalized multiple times with similar complaints. He was discharged to short-term rehabilitation for better management of his end-stage renal disease. He is dialyzed 4 times a week currently 2.History of uncontrolled type 1 diabetes mellitus complicated with diabetic neuropathy due to noncompliance: Blood sugar levels were controlled with high-dose insulin sliding scale Accu- Cheks. Received home dose of Lyrica for diabetic neuropathy. He was discharged to the [facility] on home doses of Lantus and sliding scale insulin. 3.Local rash with itching, possible contact dermatitis: Rash improved in the hospital after getting by mouth Benadryl. 4.Acute hypercarbic respiratory acidosis due to noncompliance with CPAP (history of Severe obstructive sleep apnea) Pulmonology consult Warren Leiva MD has been obtained, as per recommendations we continued the CPAP at bedtime. Flovent was continued. Respiratory status improved during the stay in the hospital. 5. History of depression and anxiety with possible personality disorder: Klonopin dose was decreased to 0.5 mg twice a day in the hospital. Other medications were continued including Xanax. 6. History of chronic pain disorder: Patient received by mouth Dilaudid 4 mg for Moderate to severe pain in the hospital. 7. History of Crohn's disease 8. DVT prophylaxis subcutaneous heparin 9. Patient is full code Allergies: Coded Allergies: iron (From VENOFER) (UNKNOWN 07/04/16) Disposition Summary Disposition Principal Diagnosis: Altered mental status(most likely due to uremic encephalopathy) with hyperkalemia Additional Diagnosis: Acute Hypercapnic respiratory acidosis Discharge Disposition: SNF Discharge Instructions General Discharge Information Code Status: Full Code Patient's Diet: Diabetic renal diet Patient's Activity: As tolerated Follow-Up Instructions/Appts: 1. Follow closely with dialysis right now patient is dialyzed 4 times a week. 2. Nocturnal CPAP diligently as patient has a tendency to have hypercapnic respiratory acidosis Medications at Discharge Discharge Medications: Stop taking the following medications: Ferric Citrate (Auryxia) 210 MG IRON TABLET ORAL THREE TIMES DAILY Qty = 180 Sodium Polystyrene Sulfon/Sorb (Kionex 15 Gm/60 Ml Suspension) (Unknown Strength ) ORAL.SUSP As Directed Qty = 360 Continue taking these medications: Clonazepam (Clonazepam) 0.5 MG TAB.RAPDIS 1 Tablet ORAL TWICE DAILY Instructions: prn sunday , and sunday Ergocalciferol (Vitamin D2) (Vitamin D2) 50,000 UNIT CAPSULE 50,000 International Unit ORAL EVERY SUNDAY Qty = 8 Instructions: Follow the Instruction for 8 weeks then check Vit D level Comments: NOT GIVEN IN HOSPITAL Amlodipine Besylate (Amlodipine Besylate) 10 MG TABLET 1 Tablet ORAL DAILY Qty = 90 Comments: Last Taken: 06/08/16 Time: 1400 Metoprolol Tartrate (Metoprolol Tartrate) 50 MG TABLET 1 Tablet ORAL TWICE DAILY Qty = 180 Comments: Last Taken: 06/08/16 Time: 1400 Olanzapine (Olanzapine) 5 MG TABLET 1 Tablet ORAL Every night Qty = 30 Comments: Last Taken: 06/07/16 Time: 2100 Insulin Lispro (Humalog Kwikpen U-100) 100 UNIT/ML INSULN.PEN Units Inject into fatty tissue BEFORE MEALS AND AT BEDTIME Qty = 30 Instructions: before meals bed time <150 mg /dl - no coverage 150 -200 - 4 units 201- 250 - 6 unit 251 -300 - 8 unit s 251- 300 - 1 unit 301 -350 -10 unit s 301- 350 - 2 unit 351- 400 -12 unit s 351- 400 -3 unit >400 - 14 unit s >400 - 4 unit Comments: Last Taken: 06/08/16 Time: 1400 NOVOLOG GIVEN SUBSTITUTION Escitalopram Oxalate (Escitalopram Oxalate) 20 MG TABLET 1 Tablet ORAL DAILY Qty = 30 Comments: Last Taken: 06/08/16 Time: 1400 Pregabalin (Lyrica) 100 MG CAPSULE 1 Capsule ORAL THREE TIMES DAILY as needed for NEUROPATHY Qty = 90 Comments: Last Taken: 06/08/16 Time: 2100 Cinacalcet HCl (Sensipar) 30 MG TABLET 1 Tablet ORAL DAILY Qty = 30 Comments: PER PT Insulin Glargine,Hum.rec.anlog (Lantus Solostar) 100 UNIT/ML (3 ML) INSULN.PEN 24 Units Inject into fatty tissue TWICE DAILY Qty = 30 Comments: PER PT MED CLAIM HX SHOWS 24 UNITS DAILY Hydromorphone HCl (Dilaudid) 2 MG TABLET 1 Tablet ORAL 2 x Daily as needed as needed for pain Qty = 5 Start taking the following new medications: Darbepoetin [place] in Polysorbat (Aranesp) 40 MCG/0.4 ML SYRINGE 1 1ML Inject into fatty tissue SEE INSTRUCTIONS Days = 30 No Refills Instructions: 0.45 mcg/kg SC/IV Diphenhydramine HCl (Diphenhydramine HCl) 25 MG CAPSULE 1 Tablet ORAL EVERY SIX HOURS NEEDED as needed for ICTHING Days = 7 No Refills Copies To: GUILLERMO BEAR,BLANCA Chun
--- NOTE | 2016-07-06 13:08 | PN- Pulmonary ---
Subjective HPI/Critical Care Issues: Doing better Rash better Afebrile ESRD with ongoing dialysis Objective Current Medications: Current Medications Sig/Georgina Start time Last Medication Dose Route Stop Time Status Admin Acetaminophen 650 MG Q6P PRN 07/04 1300 AC PO Albuterol Sulfate 3 ML EVERY 4 HRS/AWAKE .. 07/04 2130 AC INH Amlodipine Besylate 10 MG DAILY 07/04 1237 AC 07/05 PO 0938 Clonazepam 0.5 MG BID PRN 07/05 1000 AC PO 07/12 0959 Diphenhydramine HCl 25 MG Q6P PRN 07/05 0945 AC 07/05 PO 2114 Epoetin Hernesto 10,000 UNIT TuThSa PRN 07/06 1100 AC IV Ergocalciferol 50,000 IU QSAT 07/08 0700 AC PO Escitalopram Oxalate 20 MG AT BEDTIME 07/04 2200 AC 07/05 PO 2328 Fluticasone 2 PUF BID 07/04 2200 AC 07/05 Propionate INH 2115 Heparin Sodium 5,000 UNIT Q8 07/04 1400 AC 07/06 (Porcine) SC 0536 Hydromorphone HCl 4 MG Q4P PRN 07/05 0945 AC 07/06 PO 0659 Insulin Aspart 0 TIDAC 07/04 1700 AC 07/05 SC 0818 Insulin Detemir 20 UNITS BID 07/04 2200 AC 07/05 SC 2114 Metoprolol Tartrate 50 MG BID 07/04 1239 AC 07/05 PO 2328 Olanzapine 5 MG .[2199,DIALYSIS DAY] 07/04 1315 AC PO Pregabalin 50 MG TID PRN 07/05 0730 AC 07/05 PO 2114 Vital Signs & I&O Last 24 Hrs of Vitals and I&O: Vital Signs Date Time Temp Pulse Resp B/P Pulse O2 O2 Flow FiO2 Ox Delivery Rate 07/06 0824 98.0 80 20 118/60 97 Nasal 3.5L Cannula 07/06 0800 93 Nasal 4.0L Cannula 07/06 0133 97 07/06 0000 Nasal 4.0L Cannula 07/05 2340 97.8 90 20 116/64 94 Nasal 4.0L Cannula 07/05 2328 90 116/64 07/05 2301 97 Nasal 3.0L Cannula 07/05 1605 97.8 80 20 118/68 95 07/05 1600 Nasal 4.0L Cannula Intake & Output 07/06 1600 07/06 0800 07/06 0000 Intake Total 240 480 Output Total Balance 240 480 Intake, Oral 240 480 Patient 379 lb Weight Laboratory Tests 07/06 07/06 07/06 UNK 0802 0802 Chemistry Sodium (137 - 145 mmol/L) 131 L Potassium (3.5 - 5.1 mmol/L) 5.3 H Chloride (98 - 107 mmol/L) 90 L Carbon Dioxide (22 - 30 mmol/L) 27 Anion Gap (5 - 16) 13 BUN (9 - 20 mg/dL) 55 H Creatinine (0.7 - 1.2 mg/dL) 8.4 *H Estimated GFR (>60 ml/min) 7 L BUN/Creatinine Ratio (7 - 25 %) 6.5 L Calcium (8.4 - 10.2 mg/dL) Cancelled 7.6 L Magnesium (1.6 - 2.3 mg/dL) Cancelled 2.4 H Albumin (3.5 - 5.0 g/dL) Cancelled 3.4 L Hematology CBC w Diff NO MAN DIFF REQ WBC (4.8 - 10.8 /CUMM) 7.4 RBC (4.70 - 6.10 /CUMM) 3.56 L Hgb (14.0 - 18.0 G/DL) 8.2 L Hct (42 - 52 %) 26.8 L MCV (80.0 - 94.0 FL) 75.3 L MCH (27.0 - 31.0 PG) 23.0 L RDW (11.5 - 14.5 %) 26.2 H Plt Count (130 - 400 /CUMM) 225 MPV (7.4 - 10.4 FL) 9.1 Gran % (42.2 - 75.2 %) 77.4 H Lymphocytes % (20.5 - 51.1 %) 12.6 L Monocytes % (1.7 - 9.3 %) 7.3 Eosinophils % (0 - 5 %) 2.5 Basophils % (0.0 - 2.0 %) 0.2 Absolute Granulocytes (1.4 - 6.5 /CUMM) 5.7 Absolute Lymphocytes (1.2 - 3.4 /CUMM) 0.9 L Absolute Monocytes (0.10 - 0.60 /CUMM) 0.5 Absolute Eosinophils (0.0 - 0.7 /CUMM) 0.2 Absolute Basophils (0.0 - 0.2 /CUMM) 0 PUBS MCHC (33.0 - 37.0 G/DL) 30.6 L 07/05 07/04 07/04 0625 1758 1509 Chemistry Sodium (137 - 145 mmol/L) 133 L Potassium (3.5 - 5.1 mmol/L) 5.0 Chloride (98 - 107 mmol/L) 92 L Carbon Dioxide (22 - 30 mmol/L) 24 Anion Gap (5 - 16) 16 BUN (9 - 20 mg/dL) 41 H < 2 L Creatinine (0.7 - 1.2 mg/dL) 6.2 *H Estimated GFR (>60 ml/min) 10 L BUN/Creatinine Ratio (7 - 25 %) 6.6 L Hematology CBC w Diff NO MAN DIFF REQ WBC (4.8 - 10.8 /CUMM) 9.3 RBC (4.70 - 6.10 /CUMM) 3.93 L Hgb (14.0 - 18.0 G/DL) 9.1 L Hct (42 - 52 %) 29.8 L MCV (80.0 - 94.0 FL) 75.7 L MCH (27.0 - 31.0 PG) 23.0 L RDW (11.5 - 14.5 %) 26.8 H Plt Count (130 - 400 /CUMM) 245 MPV (7.4 - 10.4 FL) 9.4 Gran % (42.2 - 75.2 %) 76.4 H Lymphocytes % (20.5 - 51.1 %) 16.1 L Monocytes % (1.7 - 9.3 %) 6.0 Eosinophils % (0 - 5 %) 1.5 Basophils % (0.0 - 2.0 %) 0 L Absolute Granulocytes (1.4 - 6.5 /CUMM) 7.1 H Absolute Lymphocytes (1.2 - 3.4 /CUMM) 1.5 Absolute Monocytes (0.10 - 0.60 /CUMM) 0.6 Absolute Eosinophils (0.0 - 0.7 /CUMM) 0.1 Absolute Basophils (0.0 - 0.2 /CUMM) 0 PUBS MCHC (33.0 - 37.0 G/DL) 30.4 L Toxicology Methadone Screen Cancelled Barbiturate Screen Cancelled Ur Phencyclidine Scrn Cancelled Amphetamines Screen Cancelled U Benzodiazepines Scrn Cancelled Urine Cocaine Screen Cancelled Urine Cannabis Screen Cancelled 07/04 07/04 1400 1340 Chemistry BUN (9 - 20 mg/dL) 68 H Troponin I (<0.11 ng/ml) Cancelled < 0.01 Microbiology Date/Time Procedure - Status Source Growth 07/05 1445 Clostridium difficile Toxin A & B - COLB STOOL 07/04 1250 Clostridium difficile Toxin A & B - CAN STOOL Cancelled: NO STOOL SAMPLE COLLECTED FOR MICRO DEPT Impression/Plan Impression/Plan Impression/Plan: Physical Exam: General Appearance: well developed/nourished, no apparent distress, comfortable, obese Head: atraumatic Eyes: Sclerae anicteric Bilateral: normal appearance, PERRL, EOMI. Ears, Nose, Throat: normal pharynx, hearing grossly normal Neck: Cannot assess for JVD due to his body habitus. Respiratory: normal breath sounds, lungs clear anteriorly Cardiovascular: regular rate/rhythm Gastrointestinal: normal bowel sounds, soft, non-tender, no organomegaly, no Bruits Back: normal inspection Extremities: positive lower extremity edema, positive sacral edema. Skin: intact, normal color, no rash or erythema Lymphatic: no anterior cervical meagan Neurologic/Psych: Somnolent, trips off to sleep rather rapidly, but arouses easily and is appropriate when awake. Cranial Nerves: normal hearing, normal speech, PERRLA Skin: normal color, warm/dry, rash (excoriations) Lymphatic: no anterior cervical adenopathy Skin: rash, no erythema SIGNIFICANT DATA ABG reviewed Chest x-ray showed cardiomegaly with pulmonary venous congestion. IMPRESSION This is an unfortunate 36-year-old gentleman with type 1 diabetes with end-stage renal disease on dialysis, sig RENEE with OHV on cpap noncompliant with cpap, Morbid obesity with dietary noncompliance, previous Crohn's disease, mild persistent eosinophilia of unknown etiology with reactive airway disease * Significant obstructive sleep apnea noncompliant with CPAP with bedtime hypoxemia supposed to be on 3 l nocturnal oxygen, now with Resolved acute on chronic hypercarbic resp failure due to cpap noncompliance complicated by pulm edema due to dietary noncompliance. Pt is on clonazepam and lyrica and olanzapine and this is also contributing to his chronic resp failure. Pt has been on narcotics previously and is denying that * Significant uncontrolled diabetes type I diabetic with resolving lethargy * End-stage renal disease on dialysis, now s/p dialysis * Chronic fluid overload with recurrent pulmonary edema due to renal failure and dietary noncompliance with significant diastolic heart disease * Chronic eosinophilia of unknown etiology with no evidence suggestive of eosinophilic lung disease. Patient does have reactive airway disease * Significant obstructive sleep apnea with bedtime hypoxemia noncompliant with CPAP suppose to be on oxygen with cpap but is not using it. PT has both obstructive and central apnea. Is on bedtime oxygen 3 litres with cpap * Significant gastroparesis with recurrent aspiration, now stable * Mild lymphadenopathy in the abdomen and chest of unknown etiology, last ct has shown stable lymphadenopathy * Previous history of Crohn's disease with no active colitis * Significant depression and personality disorder with anxiety and chronic pain syndrome with diabetic neuropathy as well on multiple medications which is also causing him to have altered mental status * Mild asthma with eosinophilia as well with no significant bronchospasm at this present time. * Rash * RECOMMENDATION * Cont cpap at hs with oxygen, and wean oxygen off during the day if sao2 is more than 90 percent * Minimize sedatives and hypnotics * Continue his other medications * Diet * Flovent 110 g 2 puffs twice a day * Keep the head of bed elevated * Continue dialysis * Continue his current cardiac medications OK to dc Please have patient follow up with me in the office WIll follow
[2016-07-06 14:03] VITALS: BP 116/60
[2016-07-06] MEDS ORDERED: DIPHENHYDRAMINE25 M4 PO (15:08)
--- NOTE | 2016-07-06 15:11 | Patient Discharge Instructions ---
Discharge Instructions General Discharge Information You were seen/treated for: 1. Altered mental status(most likely due to uremic encephalopathy) with hyperkalemia 2.Acute hypercarbic respiratory acidosis due to noncompliance with CPAP (history of Severe obstructive sleep apnea) Special Instructions: 1. Please follow-up with the PCP within 1-2 weeks after discharge 2. Follow-up with mix house operator Dr. Lan as an outpatient. 3. Please remain compliant with CPAP at bedtime for obstructive sleep apnea Diet Recommended Diet: Renal Dialysis Activity Activity Self Limited: Yes Acute Coronary Syndrome Inclusion Criteria At DC or during hospital stay patient has or had the following: ACS DIAGNOSIS No Discharge Core Measures Meds if any: Prescribed or Continued at Discharge Meds if any: NOT Prescribed or Continued at Discharge Congestive Heart Failure Inclusion Criteria At DC or during hospital stay patient has or had the following: CHF DIAGNOSIS No Discharge Core Measures Meds if any: Prescribed or Continued at Discharge Meds if any: NOT Prescribed or Continued at Discharge Cerebrovascular accident Inclusion Criteria At DC or during hospital stay patient has or had the following: CVA/TIA Diagnosis No Discharge Core Measures Meds if any: Prescribed or Continued at Discharge Meds if any: NOT Prescribed or Continued at Discharge Venous thromboembolism Inclusion Criteria VTE Diagnosis No VTE Type NONE VTE Confirmed by (Test) NONE Discharge Core Measures - Per Current guidelines, there needs to be overlap - treatment for the first 5 days of Warfarin therapy. - If discharged on Warfarin prior to 5 days of - overlap therapy, the patient will need to be - assessed for post discharge needs including - *Post discharge parental anticoagulation - *Warfarin and/or parental anticoagulation education - *Follow up date to check INR post discharge At least 5 days overlap therapy as Inpatient No Meds if any: Prescribed or Continued at Discharge Note: Overlap Therapy is Warfarin and Anticoagulant Meds if any: NOT Prescribed or Continued at Discharge
[2016-07-06 16:10] VITALS: BP 134/64
[2016-07-06 22:04] VITALS: BP 124/65
--- NOTE | 2016-07-07 07:25 | PN- Housestaff ---
PATRICK FARLEY 07/07/16 0725: Subjective Follow-up For: 1. Acute hyperkalemia 2. End-stage renal disease on dialysis with multiple admissions due to noncompliance 3. History of obstructive sleep apnea noncompliant with CPAP. 4. Local petechial rash most likely contact dermatitis Subjective: Patient is seen and examined today, seems much better than yesterday slept well overnight. Denies any overnight complaints local rash on the back improved. If patient remains stable will be discharged to [facility] Review of Systems Constitutional: Denies: chills, diaphoresis, fever, malaise. EENTM: Denies: blurred vision, double vision, visual changes, eye pain. Cardiovascular: Denies: chest pain, edema, orthopena. Respiratory: Denies: cough, hemoptysis, orthopnea. Gastrointestinal: Denies: abdominal pain, bloating, constipation. Objective Last 24 Hrs of Vital Signs/I&O Vital Signs Date Time Temp Pulse Resp B/P Pulse O2 O2 Flow FiO2 Ox Delivery Rate 07/07 1037 97.8 84 18 11368 07/07 0855 84 113/68 07/07 0855 84 113/07/07 0800 97 Nasal 3.0L Cannula 07/07 0745 97.8 84 18 97 Room Air Room Air 07/07 0142 72 96 07/07 0000 Nasal 4.0L Cannula 07/06 2211 80 124/65 07/06 2204 97.3 80 20 124/65 98 Nasal 3.0L Cannula 07/06 2114 97 Nasal 3.0L Cannula 07/06 1622 90 134/64 07/06 1621 90 134/64 07/06 1610 97.3 90 20 134/64 97 Nasal 4.0L Cannula 07/06 1403 97.6 84 20 116/60 98 Nasal 3.0L Cannula Intake & Output 07/07 1600 07/07 0800 07/07 0000 Intake Total 240 240 Output Total 500 Balance 240 -260 Intake, Oral 240 240 Output, Urine 500 Patient 374 lb Weight Physical Exam General Appearance: Alert, Oriented X3 Skin: No Rashes, No Breakdown HEENT: Atraumatic, PERRLA Cardiovascular: Regular Rate, Normal S1, Normal S2 Lungs: Clear to Auscultation Abdomen: Normal Bowel Sounds, Soft Assessment/Plan Assessment: This is a 36-year-old obese gentleman with past medical history significant for end-stage renal dialysis(4 days a week), multiple admissions due to noncompliance and missing dialysis as an outpatient, history of diabetes complicated with retinopathy, history of obstructive sleep apnea noncompliant with CPAP, history of previous Crohn's disease, history of chronic eosinophilia without any etiology presented to the hospital after missing dialysis and was found to have acute uremic encephalopathy on admission requiring urgent dialysis. Also was found to be in acute hypercapnic respiratory acidosis due to noncompliance with CPAP and was admitted to telemetry floor. Labs on admission elevated W Terry BC count 12.5 that improved to 9.3 today. H& H stable at 9.1/29.8, on CPAP at nighttime. Slightly low sodium levels 133, with creatinine improved from 8.7-6.2 after urgent dialysis yesterday. Assessment Acute uremia with hyperkalemia after missing dialysis(history of end-stage renal dialysis) Acute hypercarbic respiratory acidosis-resolved now. Local rash with itching possible contact dermatitis History of uncontrolled type 1 diabetes mellitus complicated with diabetic neuropathy due to noncompliance Severe obstructive sleep apnea due to noncompliance with CPAP History of depression and anxiety with possible personality disorder Plan Acute uremia with hyperkalemia after missing dialysis(history of end-stage renal dialysis): * Nephrology consult was obtained patient received urgent dialysis on admission and creatinine improved. * Patient will go for another session of dialysis on Sunday * Will follow nephrology recommendations * Hyperkalemia resolved. * If patient remains stable will be discharged today 2,.Local rash with itching possible contact dermatitis: * Petechial rash on the back with itchiness improved, he will stop Benadryl and start the patient on loratadine. * Evidence of chronic eosinophilia without any acute changes * tchiness and rash * Continue to evaluate the rash on daily basis monitor for any worsening. 3.History of uncontrolled type 1 diabetes mellitus complicated with diabetic neuropathy due to noncompliance: * Continue high-dose NovoLog sliding scale with Accu-Cheks * Continue Lyrica for diabetic neuropathy. 4.Severe obstructive sleep apnea due to noncompliance with CPAP: * Pulmonology consult Warren Leiva MD has been obtained as per recommendations continue CPAP at bedtime. * Continue oxygen to keep saturations above 92% * 2 sets of troponin are negative without any evidence of ST-T changes on the EKG. * Continue Flovent. 5. History of depression and anxiety with possible personality disorder: * Klonopin dose has been decreased to 0.5 mg twice a day * Continue Xanax and other medications. * U tox pending, sample could not be obtained 6. History of chronic pain disorder * Continue moderate to severe pain controlled with by mouth Dilaudid 4 mg as needed. 7. History of Crohn's disease with evidence of diarrhea now * C. difficile 8. DVT prophylaxis subcutaneous heparin 9. Patient is full code Problem List: 1. Abdominal pain 2. Anxiety Pain Ratin Pain Location: Hip pain Pain Goal: Remain pain free Pain Plan: When necessary bilateral Tomorrow's Labs & Rationales: No need of labs Consulting Request: Consulting Specialty: Nephrology ABIOLA CARY MD 07/07/16 1113: Attending MD Review Statement Attending Statement Attending MD Statement: examined this patient, discuss w/resident/PA/TICKET TAKER, agreed w/resident/PA/TICKET TAKER, reviewed EMR data (avail), discussed with nursing, discussed with case mgmt Attending Assessment/Plan: Patient is doing better. His rash and itching is better as well. We stressed nocturnal CPAP and close compliance. He is a 36-year-old with diabetes, chronic complications of diabetes with diabetic nephropathy and ESRD on hemodialysis. He also has obstructive sleep apnea with nocturnal CPAP. The plan is discharge to [facility] with close outpatient follow-up.
[2016-07-07 07:45] VITALS: BP 113/68
[2016-07-07] MEDS ORDERED: ARANESP40 MCG/0.4 SC ×2 (09:26→09:28)
--- NOTE | 2016-07-07 09:52 | PN- Pulmonary ---
Subjective HPI/Critical Care Issues: More awake and back to baseline Objective Current Medications: Current Medications Sig/Georgina Start time Last Medication Dose Route Stop Time Status Admin Acetaminophen 650 MG Q6P PRN 07/04 1300 AC PO Albuterol Sulfate 3 ML EVERY 4 HRS/AWAKE .. 07/04 2130 AC INH Amlodipine Besylate 10 MG DAILY 07/04 1237 AC 07/07 PO 0855 Clonazepam 0.5 MG BID PRN 07/05 1000 AC PO 07/12 0959 Diphenhydramine HCl 25 MG .STK-MED ONE 07/06 2204 DC PO 07/06 2205 Diphenhydramine HCl 25 MG Q6P PRN 07/05 0945 AC 07/07 PO 0859 Epoetin Hernesto 10,000 UNIT TuThSa PRN 07/06 1100 AC IV Ergocalciferol 50,000 IU QSAT 07/08 0700 AC PO Escitalopram Oxalate 20 MG AT BEDTIME 07/04 2200 AC 07/06 PO 2212 Fluticasone 2 PUF BID 07/04 2200 AC 07/07 Propionate INH 0855 Heparin Sodium 5,000 UNIT Q8 07/04 1400 AC 07/07 (Porcine) SC 0511 Hydromorphone HCl 4 MG Q4P PRN 07/05 0945 AC 07/07 PO 0937 Insulin Aspart 0 TIDAC 07/04 1700 AC 07/07 SC 0854 Insulin Detemir 20 UNITS BID 07/04 2200 AC 07/07 SC 0854 Metoprolol Tartrate 50 MG BID 07/04 1239 AC 07/07 PO 0855 Olanzapine 5 MG .[2199,DIALYSIS DAY] 07/04 1315 AC PO Pregabalin 50 MG TID PRN 07/05 0730 AC 07/06 PO 2214 Vital Signs & I&O Last 24 Hrs of Vitals and I&O: Vital Signs Date Time Temp Pulse Resp B/P Pulse O2 O2 Flow FiO2 Ox Delivery Rate 07/07 0855 84 113/68 07/07 0855 84 113/68 07/07 0745 97.8 84 18 113 97 Room Air Room Air 07/07 0142 72 96 07/07 0000 Nasal 4.0L Cannula 07/06 2210 80 124/65 07/06 2203 97.3 80 20 12465 98 Nasal 3.0L Cannula 07/06 2113 97 Nasal 3.0L Cannula 07/06 1622 90 134/64 07/06 1621 90 134/64 07/06 1610 97.3 90 20 134/64 97 Nasal 4.0L Cannula 07/06 1403 97.6 84 20 116/60 98 Nasal 3.0L Cannula Intake & Output 07/07 1600 07/07 0800 07/07 0000 Intake Total 240 240 Output Total 500 Balance 240 -260 Intake, Oral 240 240 Output, Urine 500 Patient 374 lb Weight Impression/Plan Impression/Plan Impression/Plan: Physical Exam: General Appearance: well developed/nourished, no apparent distress, comfortable, obese Head: atraumatic Eyes: Sclerae anicteric Bilateral: normal appearance, PERRL, EOMI. Ears, Nose, Throat: normal pharynx, hearing grossly normal Neck: Cannot assess for JVD due to his body habitus. Respiratory: normal breath sounds, lungs clear anteriorly Cardiovascular: regular rate/rhythm Gastrointestinal: normal bowel sounds, soft, non-tender, no organomegaly, no Bruits Back: normal inspection Extremities: positive lower extremity edema, positive sacral edema. Skin: intact, normal color, no rash or erythema Lymphatic: no anterior cervical meagan Neurologic/Psych: Somnolent, trips off to sleep rather rapidly, but arouses easily and is appropriate when awake. Cranial Nerves: normal hearing, normal speech, PERRLA Skin: normal color, warm/dry, rash (excoriations) Lymphatic: no anterior cervical adenopathy Skin: rash, no erythema SIGNIFICANT DATA ABG reviewed 72 Chest x-ray showed cardiomegaly with pulmonary venous congestion. IMPRESSION This is an unfortunate 36-year-old gentleman with type 1 diabetes with end-stage renal disease on dialysis, sig RENEE with OHV on cpap noncompliant with cpap, Morbid obesity with dietary noncompliance, previous Crohn's disease, mild persistent eosinophilia of unknown etiology with reactive airway disease * Significant obstructive sleep apnea noncompliant with CPAP with bedtime hypoxemia supposed to be on 3 l nocturnal oxygen, now with Resolved acute on chronic hypercarbic resp failure due to cpap noncompliance complicated by pulm edema due to dietary noncompliance. Pt is on clonazepam and lyrica and olanzapine and this is also contributing to his chronic resp failure. Pt has been on narcotics previously and is denying that * Significant uncontrolled diabetes type I diabetic with resolving lethargy * End-stage renal disease on dialysis, now s/p dialysis * Chronic fluid overload with recurrent pulmonary edema due to renal failure and dietary noncompliance with significant diastolic heart disease * Chronic eosinophilia of unknown etiology with no evidence suggestive of eosinophilic lung disease. Patient does have reactive airway disease * Significant obstructive sleep apnea with bedtime hypoxemia noncompliant with CPAP suppose to be on oxygen with cpap but is not using it. PT has both obstructive and central apnea. Is on bedtime oxygen 3 litres with cpap * Significant gastroparesis with recurrent aspiration, now stable * Mild lymphadenopathy in the abdomen and chest of unknown etiology, last ct has shown stable lymphadenopathy * Previous history of Crohn's disease with no active colitis * Significant depression and personality disorder with anxiety and chronic pain syndrome with diabetic neuropathy as well on multiple medications which is also causing him to have altered mental status * Mild asthma with eosinophilia as well with no significant bronchospasm at this present time. * Rash * RECOMMENDATION * Cont cpap at hs with oxygen, and wean oxygen off during the day if sao2 is more than 90 percent * Minimize sedatives and hypnotics, dc benadryl and can use loratidine * Continue his other medications * Diet * Flovent 110 g 2 puffs twice a day * Keep the head of bed elevated * Continue dialysis * Continue his current cardiac medications OK to dc Please have patient follow up with me in the office WIll follow
[2016-07-07] MEDS ORDERED: HUMALOG KW100 UNIT/1 SC (10:03)
[2016-07-07 10:37] VITALS: BP 113/68
[2016-07-07] MEDS ORDERED: CLARITIN10 M1 PO (11:18)
== END 2016-07-07 13:10 | DRG 70 ==
LOC: ENRESERVTM → ENRESERVDT → ERH 06:20 → 1NO 10:55 → ENPENDDIS 10:55 → ERHI 10:55 → 1NO 15:27 → 2NB 07-05 19:10
PROVIDERS: Emergency Medicine; Student in an Organized Health Care Education/Training Program; ADMIT Internal Medicine
DX: G93.41 Metabolic encephalopathy (principal); J96.92 Respiratory failure, unspecified with hypercapnia; I13.2 Hypertensive heart and chronic kidney disease with heart failure and with stage 5 chronic kidney disease, or end stage renal disease; N18.6 End stage renal disease; K50.90 Crohn's disease, unspecified, without complications; E87.2 Acidosis; Z68.43 Body mass index [BMI] 50.0-59.9, adult; I50.32 Chronic diastolic (congestive) heart failure; E87.5 Hyperkalemia; H53.149 Visual discomfort, unspecified; E66.01 Morbid (severe) obesity due to excess calories; Z99.2 Dependence on renal dialysis; Z91.15 Patient's noncompliance with renal dialysis; G47.33 Obstructive sleep apnea (adult) (pediatric); F32.9 Major depressive disorder, single episode, unspecified; F41.9 Anxiety disorder, unspecified; G89.29 Other chronic pain; E78.5 Hyperlipidemia, unspecified; D63.1 Anemia in chronic kidney disease; E11.319 Type 2 diabetes mellitus with unspecified diabetic retinopathy without macular edema; E11.42 Type 2 diabetes mellitus with diabetic polyneuropathy
CPT/HCPCS: 1NP; 2NBP; 73502-LT; 80307; 82436; 93005; 93010; 93306; 96374; 97110-GO; 97116-GO; 97162-GP; 97530-GO; J0131; J0885; J1644; J3490

== ENCOUNTER 2016-07-31 14:09 | Inpatient (IN) | payer OTHER, MEDICARE ==
[~2016-07-31] VITALS: Ht 170.2 cm; Wt 170.1 kg
[~2016-07-31 14:09] MED LIST changes: +ARANESP40 MCG/0.4 SC; +CLARITIN10 M1 PO; +DIPHENHYDRAMINE25 M4 PO
--- NOTE | 2016-07-31 14:22 | NUR ---
36 Y/O MALE BIBA FROM HOME FOR EVAL OF L HIP PAIN X 1 MONTH. PT STATES "I COULDNT GET DOWN MY STAIRS TODAY". STATES HE HAS HAD THIS PAIN X 1 MONTH AND HAS BEEN EVAL'D IN ED FOR SAME. STATES HE DOES NOT TAKE ANYTHING FOR THE PAIN AT HOME - "THE DILAUDID PILLS DONT WORK; IT ONLY WORKS THROUGH THE IV". PT DENIES RECENT RE INJURY OR FALL. DENIES TRAUMA TO HIPS. ARRIVES WEARING 3L OXYGEN WHICH IS BASELINE, SAT 95% PA BROOKE INTO EVAL ON ARRIVAL TO ED
--- NOTE | 2016-07-31 14:24 | NUR ---
PT STATES HE HAD DIALYSIS TODAY BUT DID NOT GO - "BECAUSE I CAME HERE" RESTRICTED BAND PLACED TO L ARM.
--- NOTE | 2016-07-31 14:31 | ED UPPER/LOWER EXTREMITY COMPL ---
History of Present Illness General Chief Complaint: General Adult Stated Complaint: BIBA, BILATERAL HIP PAIN Source: patient Exam Limitations: no limitations Vital Signs & Intake/Output Vital Signs & Intake/Output Vital Signs Date Time Temp Pulse Resp B/P Pulse O2 O2 Flow FiO2 Ox Delivery Rate 08/02 0825 97.6 85 18 102/57 94 Nasal 1.0L Cannula 08/02 0238 97.5 94 15 112/47 96 Nasal 3.0L Cannula 08/02 0134 93 92 08/02 0009 96.6 95 14 90 Nasal 3.0L Cannula 08/02 0000 CPAP 08/01 2137 113 116/66 08/01 2019 113 116/66 08/01 1999 Nasal 3.0L Cannula 08/01 1999 99.7 113 20 116/66 96 Nasal 3.0L Cannula 08/01 1514 Nasal 3.0L Cannula 08/01 1152 98.7 90 20 146/80 94 Nasal 3.0L Cannula ED Intake and Output 08/02 0000 08/01 1200 Intake Total 1160 Output Total 0 Balance 1160 Intake, IV 10 Intake, Oral 1150 Number 1 Bowel Movements Output, Urine 0 Patient 374 lb 380 lb Weight Allergies Coded Allergies: iron (From [facility]) (UNKNOWN 07/04/16) Triage Note: 36 Y/O MALE BIBA FROM HOME FOR EVAL OF L HIP PAIN X 1 MONTH. PT STATES "I COULDNT GET DOWN MY STAIRS TODAY". STATES HE HAS HAD THIS PAIN X 1 MONTH AND HAS BEEN EVAL'D IN ED FOR SAME. STATES HE DOES NOT TAKE ANYTHING FOR THE PAIN AT HOME - "THE DILAUDID PILLS DONT WORK; IT ONLY WORKS THROUGH THE IV". PT DENIES RECENT RE INJURY OR FALL. DENIES TRAUMA TO HIPS. ARRIVES WEARING 3L OXYGEN WHICH IS BASELINE, SAT 95% PA BROOKE INTO EVAL ON ARRIVAL TO ED Triage Nurses Notes Reviewed? yes Onset: Abrupt Duration: chronic Timing: recent history No Modifying Factors: none HPI: 36-year-old male comes into emergency room with chronic hip pain bilaterally. Patient has been seen here many times for the same thing in the past. Patient has a history of dialysis and goes to dialysis Sunday and Saturdays. Patient reports that he has not followed up with orthopedic doctor yet because he has not had a chance to get there. Pain is sharp. Patient reports that he is usually given IV Dilaudid for the pain. Denies any recent falls or trauma. Denies any other associated symptoms. EMS reports that he was able to walk down all the steps to get the ambulance. (BROOKE FELDMAN) Reconcile Medications Amlodipine Besylate 10 MG TABLET 1 TAB PO DAILY HEART HEALTH (Reported) Cinacalcet HCl (Sensipar) 30 MG TABLET 1 TAB PO DAILY KIDNEYS (Reported) Clonazepam 1 MG TABLET 0.5 TAB PO BID PRN ANXIETY (Reported) Darbepoetin [place] in Polysorbat (Aranesp) 40 MCG/0.4 ML SYRINGE 1 1ML SC SEE ADMIN CRITERIA DURING DIALYSIS 0.45 mcg/kg SC/IV Ergocalciferol (Vitamin D2) (Vitamin D2) 50,000 UNIT CAPSULE 50,000 IU PO QSAT Low Vit D Follow the Instruction for 8 weeks then check Vit D level Escitalopram Oxalate 20 MG TABLET 1 TAB PO DAILY MENTAL HEALTH (Reported) Ferric Citrate (Auryxia) (Unknown Strength) TABLET (Unknown Dose) UNKNOWN ( Reported) Insulin Glargine,Hum.rec.anlog (Lantus Solostar) 100 UNIT/ML (3 ML) INSULN.PEN 24 UNITS SC BID DM (Reported) Insulin Lispro (Humalog Kwikpen U-100) 100 UNIT/ML INSULN.PEN 1 UNITS SC TIDAC /HS DM before meals <150 mg /dl - no coverage 150 -200 - 4 units 201- 250 - 6 unit 251 -300 - 8 unit s 301- 350 - 10 UNITS 351- 400 --- 12 UNITS >400 ----14 UNITS BED TIME 201 -250 -1 UNIT 251 - 300 - 2 UNIT 301- 350 - 3 UNIT 351 - 400 -- 4 UNIT >400 ---- 5 UNIT Loratadine (Claritin) 10 MG TABLET 1 TAB PO DAILY ALLERGY Metoprolol Tartrate 50 MG TABLET 1 TAB PO BID HTN (Reported) Olanzapine 5 MG TABLET 1 TAB PO QPM MENTAL HEALTH (Reported) Pregabalin (Lyrica) 100 MG CAPSULE 1 CAP PO TID PRN NEUROPATHY (Reported) ([place] BEAR,AUBREY) Past History Travel History Traveled to [place] past 21 day No Medical History Any Pertinent Medical History? see below for history Neurological: migraine, peripheral neuropathy EENT: diabetic retinopathy Cardiovascular: CHF, hypertension, hyperlipidemia, mitral regurgitation, he has chronic fluid overload due to his inabilityto adhere to the necessary dietary restrictions of sodium and fluid intake. 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 No (BROOKE FELDMAN) Review of Systems Review of Systems Constitutional: Reports: see HPI. EENTM: Reports: no symptoms. Respiratory: Reports: no symptoms. Cardiovascular: Reports: no symptoms. Gastrointestinal/Abdominal: Reports: no symptoms. Genitourinary: Reports: no symptoms. Musculoskeletal: Reports: see HPI. Skin: Reports: no symptoms. Neurological/Psychological: Reports: no symptoms. Hematologic/Endocrine: Reports: no symptoms. Immunological: Reports: no symptoms. All Other Systems: Reviewed and Negative (BROOKE FELDMAN) Physical Exam Physical Exam General Appearance: well developed/nourished Head: atraumatic Eyes: Bilateral: normal appearance. Ears, Nose, Throat: normal ENT inspection, hearing grossly normal Neck: normal inspection Cardiovascular/Respiratory: no respiratory distress Back: normal inspection Hip Left: soft tissue tenderness, limited range of motion Hip Right: soft tissue tenderness, limited range of motion Neurologic/Tendon: responds to pain, no evidence tendon injury Skin: intact, normal color, warm/dry Lymphatic: no anterior cervical meagan (BROOKE FELDMAN) Progress Differential Diagnosis: arterial insufficiency, cellulitis, CHF, compartment syndrome, contusion, dislocation, DVT, fracture, gout, septic arthritis, sprain, tendon injury Plan of Care: Orders Procedure Date/time Status Renal Dialysis Diet 08/02 L Active RAPID VIRAL INFLUENZA A 08/02 0700 Complete CBC WITHOUT DIFFERENTIAL 08/02 06 Active BASIC ELECTROLYTES PLUS BUN&CR 08/02 06 Active Pain Treatment and Response 08/01 0929 Active Therapeutic Activities 08/01 UNK Complete Therapeutic Exercise 08/01 UNK Complete Gait Training 08/01 UNK Complete Therapeutic Activity 08/01 UNK Complete OT EVAL MOD COMPLEX 45 MIN 08/01 UNK Complete ADL/SelfCare 08/01 UNK Complete OXYGEN SETUP CHG 07/31 UNK Complete OXYGEN 07/31 UNK Complete OXYGEN TRANSPORT 07/31 UNK Complete Current Medications Sig/Georgina Start time Last Medication Dose Stop Time Status Admin Naloxone HCl 0.4 MG Q3P PRN 07/31 2215 AC (Narcan) Laboratory Tests 08/02/16 0620: CBC w Diff Pending, WBC Pending, RBC Pending, Hgb Pending, Hct Pending, MCV Pending, MCH Pending, RDW Pending, Plt Count Pending, MPV Pending, PUBS MCHC Pending 08/01/16 0853: Anion Gap 23 H, Estimated GFR 5 L, BUN/Creatinine Ratio 6.2 L 08/01/16 0848: CBC w Diff NO MAN DIFF REQ, RBC 4.13 L, MCV 79.5 L, MCH 24.1 L, RDW 26.0 H, MPV 10.3, Gran % 85.8 H, Lymphocytes % 5.5 L, Monocytes % 6.1, Eosinophils % 2.5, Basophils % 0.1, Absolute Granulocytes 13.9 H, Absolute Lymphocytes 0.9 L , Absolute Monocytes 1.0 H, Absolute Eosinophils 0.4, Absolute Basophils 0, PUBS MCHC 30.4 L Comments: 07/31/2016 5:33:06 PM Patient did not pass the physical therapy evaluation. Patient was told earlier in the afternoon that he needs to call dialysis to set up appointment tomorrow. He understands this. (JOE RICHARDSON,BROOKE) Departure Departure Disposition: ACUTE REHAB FACILITY Condition: Stable Clinical Impression Primary Impression: Gait instability Secondary Impressions: Dialysis patient, Intractable pain Referrals: GUILLERMO BEAR,BLANCA Chun (PCP/Family) Departure Forms: Customer Survey General Discharge Information Admission Note Spoke With: TRUNG MANRIQUEZ MD Documentation of Exam: Documentation of any treatments & extenuating circumstances including Concerns Regarding Discharge (functional status, medication knowledge or non-compliance, living conditions, etc.) that warrant an admission rather than observation: Patient will require dialysis tomorrow. Patient will likely be going to short- term rehabilitation. Patient would do poorly as an outpatient. (BROOKE FELDMAN) PA/FOCUSED FACTORY MANAGER Co-Sign Statement Statement: ED Attending supervision documentation- [X] I saw and evaluated the patient. I have also reviewed all the pertinent lab results and diagnostic results. I agree with the findings and the plan of care as documented in the PA's/FOCUSED FACTORY MANAGER's documentation. [X] I have reviewed the ED Record and agree with the PA's/FOCUSED FACTORY MANAGER's documentation. [] Additions or exceptions (if any) to the PAs/FOCUSED FACTORY MANAGER's note and plan are summarized below: [] ([place] BEAR,AUBREY)
--- NOTE | 2016-07-31 15:06 | NUR ---
DYLAN DIAZ TO BEDSIDE FOR EVAL.
--- NOTE | 2016-07-31 15:25 | NUR ---
PT TO BEDSIDE FOR EVAL.
--- NOTE | 2016-07-31 15:32 | NUR ---
Case mgmnt TSF: I went in and introduced myself to patient and explained my role. Patient is willing to go back to [facility]. Physical therapy saw him and they are recommending [facility]. Patient is willing to go back to [facility]. I have a call placed to [facility] with Dimitri and am pending call back. CM continuing to follow.
--- NOTE | 2016-07-31 15:47 | NUR ---
Case mgmnt TSF: Another call placed to Dimitri at [facility]. We spoke about possibly going to back to [facility]. Dimitri stated that they would take patient back, but they need a new [facility] completed. Will attempt to get [facility] approved and patient out to facility. CM continuing to follow.
--- NOTE | 2016-07-31 16:40 | NUR ---
07/31 case mgmt- [facility] done and pending attestation faxed, call placed to [facility] and spoke with Rosa states they review ir the order in which they were recieved. She was made aware pt has bed at [facility] just awaiting [facility] and states they have 6 hours in which they receive to review it and it will be reviewed either tonight or tomorrow and they can only review in order which was received. case mgmt will continue to follow.
[2016-07-31] MEDS ORDERED: CLONAZEPAM1 M2 PO (16:48)
[2016-07-31] MEDS ORDERED: AURYXIA210 MG (16:49)
--- NOTE | 2016-07-31 16:57 | NUR ---
07/31 case mgmt- [facility] website requesting attestation and er notes faxed. attestation was faxed previously and written on [facility] that it was faxed and have confirmation, er notes faxed.
--- NOTE | 2016-07-31 17:42 | NUR ---
Case Mgmnt TSF: I went in to speak with patient. Patient drowsy but updated that he would be staying. [facility] has not been approved at present. I called Lissett RODRIGUEZ [facility]. and updated her that patient would not be going to [facility]. We let her know that we would follow up. We are pending approval and then hopefully we can get him placed at [place]. Patient was aware that he needed to cancel his dialysis ride tomorrow as he will be here. Patient states that he has cancelled. CM continuing to follow.
[2016-07-31 18:15] LABS: ABSOLUTE BASOPHIL COUNT 0 /CUMM (0.0-0.2); ABSOLUTE GRANULOCYTE CT 8.9 /CUMM (1.4-6.5); ABSOLUTE LYMPH COUNT 2.1 /CUMM (1.2-3.4); ABSOLUTE MONOCYTE COUNT 1.4 /CUMM (0.10-0.60); BASOPHIL % 0 % (0.0-2.0); EOSINOPHIL % 7.2 % (0-5); GRANULOCYTE % 66.8 % (42.2-75.2); HEMATOCRIT 33.7 % (42-52); MEAN CORPUSCULAR HGB 23.9 PG (27.0-31.0); MEAN CORPUSCULAR HGB CONC 30.1 G/DL (33.0-37.0); MEAN CORPUSCULAR VOLUME 79.2 FL (80.0-94.0); MEAN PLATELET VOLUME 9.6 FL (7.4-10.4); PLATELET COUNT 258 /CUMM (130-400); RED BLOOD CELL CT 4.26 /CUMM (4.70-6.10); WHITE BLOOD CELL COUNT 13.4 /CUMM (4.8-10.8)
--- NOTE | 2016-07-31 18:52 | NUR ---
VITALS TAKEN. PT NOTED TO HAVE RESP RATE 8-10. SATS 96%. PT AROUSABLE TO TACTILE STIMULI TO DROWSY STATE BUT WILL NOT STAY AWAKE. DR MCPHERSON IN ROOM TO JOURDAN PT. NARCAN ORDERED
--- NOTE | 2016-07-31 19:05 | NUR ---
CRITICAL TEST RESULTS [id number] KRISSY LAWTON 36 M TESTS AND RESULTS: CREATININE 10.1 Results received and read back by: ALEKSANDER SAENZ Results received date and time: 07/31/161904 The following provider was notified of the results, and read the results back: BROOKE RICHARDSON Notified date and time: 07/31/16 at 1905
--- NOTE | 2016-07-31 19:20 | NUR ---
PT AWAKE WITH EYES OPEN, ASKING FOR BEDPAN TO HAVE A BM. PT AWAKE AND ALERT ENOUGH TO LIFT BUTTOCKS IN THE AIR AND GET ON BEDPAN.
--- NOTE | 2016-07-31 19:31 | NUR ---
PT VOIDED LARGE SOFT BM. [facility] PROVIDED. DR. MANRIQUEZ TO BEDSIDE FOR EVAL.
--- NOTE | 2016-07-31 20:17 | NUR ---
PT SLEEPING, SNORING. EASILY AROUSABLE TO DROWSY STATE WITH VERBAL STIMULI BUT RESP RATE WHEN ASLEEP IS 8. BROOKE RICHARDSON NOTIFIED AND NARCAN ORDERED
--- NOTE | 2016-07-31 20:37 | History & Physical ---
[facility] 07/31/162036: General Information and HPI MD Statement: I have seen and personally examined KRISSY LAWTON and documented this H&P. The patient is a 36 year old M who presented with a patient stated chief complaint of [bilateral lower edema]. Source of Information: patient Exam Limitations: unable to give history, confusion, patient is lethargic History of Present Illness: Patient is a 36-year-old male with a history of ESRD on dialysis 4 times a week (M/T/T/S), multiple admissions due to noncompliance and missing dialysis as an outpatient, recently admitted to [facility] with AMS, hypercarbic respiratory acidosis and uremic encephalopathy, who was BIBA with left hip pain for about 2 months. He reports no back pain, no recent trauma, no LOC, reports today he fell on his knees but did not hurt himself. No pain in the knees, no headache. Patient lost today's dialysis session as he thought his hip pain is more important to be addressed. Patient is very drowsy and falls asleep right after answering each question. His PMH is also significant for diabetes mellitus on insulin complicated by peripheral neuropathy and retinopathy. 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 Allergies/Medications Allergies: Coded Allergies: iron (From [facility]OFER) (UNKNOWN 07/04/16) Home Med list Amlodipine Besylate 10 MG TABLET 1 TAB PO DAILY HEART HEALTH (Reported) Cinacalcet HCl (Sensipar) 30 MG TABLET 1 TAB PO DAILY KIDNEYS (Reported) Clonazepam 1 MG TABLET 0.5 TAB PO BID PRN ANXIETY (Reported) Darbepoetin [place] in Polysorbat (Aranesp) 40 MCG/0.4 ML SYRINGE 1 1ML SC SEE ADMIN CRITERIA DURING DIALYSIS 0.45 mcg/kg SC/IV Ergocalciferol (Vitamin D2) (Vitamin D2) 50,000 UNIT CAPSULE 50,000 IU PO QSAT Low Vit D Follow the Instruction for 8 weeks then check Vit D level Escitalopram Oxalate 20 MG TABLET 1 TAB PO DAILY MENTAL HEALTH (Reported) Ferric Citrate (Auryxia) (Unknown Strength) TABLET (Unknown Dose) UNKNOWN ( Reported) Insulin Glargine,Hum.rec.anlog (Lantus Solostar) 100 UNIT/ML (3 ML) INSULN.PEN 24 UNITS SC BID DM (Reported) Insulin Lispro (Humalog Kwikpen U-100) 100 UNIT/ML INSULN.PEN 1 UNITS SC TIDAC /HS DM before meals <150 mg /dl - no coverage 150 -200 - 4 units 201- 250 - 6 unit 251 -300 - 8 unit s 301- 350 - 10 UNITS 351- 400 --- 12 UNITS >400 ----14 UNITS BED TIME 201 -250 -1 UNIT 251 - 300 - 2 UNIT 301- 350 - 3 UNIT 351 - 400 -- 4 UNIT >400 ---- 5 UNIT Loratadine (Claritin) 10 MG TABLET 1 TAB PO DAILY ALLERGY Metoprolol Tartrate 50 MG TABLET 1 TAB PO BID HTN (Reported) Olanzapine 5 MG TABLET 1 TAB PO QPM MENTAL HEALTH (Reported) Pregabalin (Lyrica) 100 MG CAPSULE 1 CAP PO TID PRN NEUROPATHY (Reported) Compliance With Home Meds: UNKNOWN Past History Travel History Traveled to [place] past 21 day No Medical History Type of Reaction: Itching Neurological: migraine, peripheral neuropathy EENT: diabetic retinopathy Cardiovascular: CHF, hypertension, hyperlipidemia, mitral regurgitation, he has chronic fluid overload due to his inabilityto adhere to the necessary dietary restrictions of sodium and fluid intake. Respiratory: asthma, obstructive sleep apnea, pneumonia Gastrointestinal: Crohn's disease, last colonoscopy was in 2005 and biopsies showed mild chronic colitis Hepatic: NONE Renal: ESRD on HD, glomerulonephritis, CRF-DIALYSIS M-T-TH-SAT END STAGE KIDNEY FAILURE Musculoskeletal: NONE Psychiatric: depression, PTSD Endocrine: diabetes, diabetic ketoacidosis, obesity Blood Disorders: NONE Cancer(s): NONE FENCE INSTALLER/Reproductive: NONE Other Medical Hx: MSSA hidradenitis History of MRSA: Yes History of VRE: No History of CDIFF: No Influenza Vaccine: 02/17/16 Surgical History Surgical History: AVF LUE Vitrectomies- Both eyes Pilonidal Cyst I & D of abscesses Right IJ Bharat Cath Past Family/Social History Family History Relations & Conditions if any FATHER Myocardial infarction at age less than 60 MOTHER Hodgkin's sarcoma Relation not specified for: FH: CAD (coronary artery disease) FH: HTN (hypertension) Psychosocial History Who Do You Live With? brother Primary Language: Spanish Living Will? no Power of Family Development Extension Specialist/HCP? no Functional Ability ADLs Independent: dressing, eating, toileting, bathing. Ambulation: cane IADLs Independent: shopping, housework, finances, food prep, telephone, transportation , medication admin. Review of Systems Review of Systems Constitutional: Denies: chills, fever. EENTM: Reports: no symptoms. Cardiovascular: Reports: no symptoms. Respiratory: Denies: cough, short of breath. GI: Denies: abdominal pain, changes in stool. Genitourinary: Reports: no symptoms. Musculoskeletal: Reports: joint pain (on the hips). Skin: Reports: no symptoms. Neurological/Psychological: Reports: no symptoms. Hematologic/Endocrine: Reports: no symptoms. Exam & Diagnostic Data Last 24 Hrs of Vital Signs/I&O Vital Signs Date Time Temp Pulse Resp B/P Pulse O2 O2 Flow FiO2 Ox Delivery Rate 07/31 2251 98.5 85 14 142/89 98 Nasal 3.0L Cannula 07/315 100 Nasal 3.0L Cannula 07/31 2144 98.4 86 10 146/95 100 Nasal 3.0L Cannula 07/31 2015 83 8 142/84 98 Nasal 3.0L Cannula 07/31 1855 98.0 85 8 148/84 95 Nasal Cannula 07/31 1421 95 Nasal 3.0L Cannula 07/31 1421 98.1 88 18 163/71 95 Nasal 3.0L Cannula Intake & Output 07/31 1600 07/31 0800 07/31 0000 Intake Total Output Total Balance Patient 158.757 kg Weight Physical Exam General Appearance Cooperative, No Acute Distress, somnolent, orientedx3, able to follow directions Skin foliculitis on the shins b/l HEENT Atraumatic, EOMI, Mucous Membr. moist/pink, pupils myotic minimally reactive to light Neck Supple, No JVD Cardiovascular Regular Rate, Normal S1, Normal S2 Lungs Clear to Auscultation, Normal Air Movement, RR of 16, no wheezing or rhonchi Abdomen Normal Bowel Sounds, Soft, No Tenderness, distended, obese Neurological Normal Tone, Sensation Intact, Cranial Nerves 3-12 NL, asterixis present Extremities No Clubbing, No Cyanosis, 1+ pitting pedal edema b/l, obese Vascular Normal Pulses, Pulses Symmetrical Last 24 Hrs of Labs/Karthik: Laboratory Tests 02/13/17 2223: Ammonia < 9 L 02/13/17 1802: Anion Gap 19 H, Estimated GFR 6 L, BUN/Creatinine Ratio 6.2 L, Glucose 299 H , Calcium 6.8 L, Total Bilirubin 0.5, AST 18, ALT 26, Alkaline Phosphatase 234 H, Total Protein 8.7 H, Albumin 4.2, Globulin 4.5 H, Albumin/Globulin Ratio 0.9 L, CBC w Diff MAN DIFF ORDERED, RBC 4.26 L, MCV 79.2 L, MCH 23.9 L, RDW 26.0 H, MPV 9.6, Gran % 66.8, Lymphocytes % 15.4 L, Monocytes % 10.6 H, Eosinophils % 7.2 H, Basophils % 0 L, Absolute Granulocytes 8.9 H, Segmented Neutrophils 68, Absolute Lymphocytes 2.1, Lymphocytes 20 L, Monocytes 7, Absolute Monocytes 1.4 H, Eosinophils 5, Absolute Eosinophils 1.0, Absolute Basophils 0, Platelet Estimate ADEQUATE, Hypochromic-Microcytic 1+, Anisocytosis 2+, Microcytic Cells 1+, Stomatocytes 1+, PUBS MCHC 30.1 L Assessment/Plan Assessment: Patient is a 36 year old morbidly obese male with extensive PMH including diabetes, diabetic retinopathy and neuropathy, hypertension, HLD, ESRD on hemodialysis, obstructive sleep apnea noncompliant with CPAP, multiple admission due to missed dialysis and AMS who came to the ED with chronic left hip pain of about 2 months. He has missed dialysis today, will be admitted to receive dialysis tomorrow AM and be displaced to [facility] tomorrow. Patient is found to be lethargic with fluctuating RR of 8-18, SO2 on 3L. Aslo lab studies show elevated Cr of 10.1, low Ca at 6.8, elevated ALP, low ammonia. CXR unremarkable. Problem list and plan: Altered mental statu, likely due to uremia Most likely dx is uremic encephalopathy (as evidenced by asterixis, elevated BUN and creatinine, also patient missed dialysis today and has had several previous admission due to missed dialysis sessions). Less likely etiology would hepatic encephalopathy (as pt has normal ammonia), narcotic overdose: pupils miotic, respiratory depression, however minimally responded to narcan x3 doses. Sepsis: less likely, has leukocytosis but no source of infection so far, also he is afebrile, BP and CA normal, CXR unremarkable, no urinary symptoms. * vital signs Q3h * IV access * O2 suppl to keep SO2>92% * nephro consult and arrange dialysis in AM ESRD on dialysis * will arrange for dialysis tomorrow * continue cinacalcet Left hip pain chronic and stable * Hip xray * Lidoderm patch for pain * Will arrange STR tomorrow Diabetes * accuchecks * Insulin Novolog SS Renal dialysis diet DVT px with heparin SC FC As Ranked By This Provider Problem List: 1. Chronic hip pain 2. ESRD on dialysis 3. Obstructive sleep apnea 4. Hypertension 5. Hyperlipidemia 6. Migraine 7. Diabetes 8. Obesity Core Measures/Miscellaneous Acute Coronary Syndrome ACS Diagnosis: No Cerebrovascular Accident CVA/TIA Diagnosis: No Congestive Heart Failure CHF Diagnosis: No Venous Thromboembolism VTE Risk Factors: Acute medical illness, Age > 40, Obesity VTE Prophylaxis Ordered Inpt: Pharm- Heparin No Mech VTE prophylaxis d/t: No contraindications No VTE Pharm Prophylaxis d/t: No contraindications VTE Diagnosis: No VTE Type: NONE VTE Confirmed by (Test): NONE Severe Sepsis Severe Sepsis Present: No BC x2: No Septic Shock Septic Shock Present: No Miscellaneous Documentation Attending Case Discussed With: TRUNG MANRIQUEZ MD Primary Care Physician: BLANCA LI MD Patient sees these Specialists Dr. Florian Cobb, nephrology Dr. Rachel Perez, endocrinology Level of Patient Care: General Medicine K[facility]AR[facility] 07/31/167: Resident Review Statement Resident Statement: examined this patient, discussed with promotions intern, agreed with promotions intern Other Findings: Patient is 36-year-old morbidly obese gentleman with past medical history significant for end-stage renal disease on dialysis 4 days a week on Mondays, Tuesdays, and Saturdays, history of type 1 diabetes complicated with peripheral neuropathy and retinopathy, posttraumatic stress disorder, Crohn's disease last colonoscopy in 2005, asthma, obstructive sleep apnea not very much compliant with his CPAP, hypertension, hyperlipidemia, mitral regurgitation, congestive heart failure, history of chronic eosinophilia without definite the etiology, recent admission in [facility] from July 04 - July 07 with hyperkalemia and uremic encephalopathy needs urgent dialysis than and was discharged to short-term rehabilitation came with chief complaint of worsening hip pain and difficulty ambulating since discharge from rehabilitation on Sunday. Patient admits that he was discharged from rehabilitation on July 26, not feeling well and trouble with ambulation due to his chronic hip pain and order repeat medications were not helping him. He was supposed to go to dialysis today but he missed his dialysis as was thinking of addressing his hip pain and decided to come to ER. At time of interview he was very drowsy but oriented to time person and place and was able to answer our questions correctly but dozing off multiple times while talking. He denied chest pain, shortness of breath, headache, nausea, vomiting, urinary or bowel complaints. He endorses that his hip pain is sharp, annoying and 7 x 10 in intensity on walking and down to 4 at rest. Of note patient was given 2 mg of Tylenol. Intramuscular around 3:40 PM and was noted to have decreased respiratory rate to 8-10 and was given 0.4 mg of Narcan respiratory rate was fine but later on again his respiratory rate was down to 8 and was given another dose of Narcan at 8:22 PM and then 9:29 PM. Vital signs on admission were temperature 98.1, pulse 88, respiratory rate 18, blood pressure 163/71 and he was saturating 95% on 3 L nasal cannula. Labs and admission were WBC count 13.4, hemoglobin 10.1, hematocrit 33.7, platelet count 258, sodium 136, potassium 5.1, anion gap 19, BUNs 63, creatinine 10.1, glucose 299, Chest x-ray showed no acute evidence of cardiopulmonary pathology Physical examination Very drowsy but oriented to time, person and place Head atraumatic HEENT showed constricted pupils but reactive to light Neck supple Chest clear to auscultate Heart S1-S2 normal with no added sounds Abdomen obese with normal bowel sounds Lower extremities showed 3-4+ bilateral edema No neurological deficit noted Assessment and plan Patient is 76-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 Was evaluated by physical therapy in ER and was recommended to discharge to rehabilitation facility needs admission to general medical floor to get his dialysis tomorrow Problem list 1. End-stage renal disease on dialysis 4 times a week 2. Insulin-dependent diabetes mellitus 3. History of hypertension 4. History of hyperlipidemia 5. Chronic hip pain 6. History of PTSD 7. History of congestive heart failure. We will admit patient on general medical floor Vital signs every 3 hours If patient become more drowsy we will order ABGs CPAP disorder if patient still remained uncomfortable/drowsy we will order BiPAP We will request referral consultation for dialysis tomorrow Physical therapy is on hold We will continue all his home medications from tomorrow We will order x-ray hip to look for any acute pathology We will avoid opioids Pharmacological DVT prophylaxis Patient is full code TRUNG MANRIQUEZ 08/01/16 0241: Attending MD Review Statement Attending Statement Attending MD Statement: examined this patient, discuss w/resident/PA/FACETOR, agreed w/resident/PA/FACETOR, reviewed EMR data (avail), reviewed images, amended to note Attending Assessment/Plan: CC : Left hip pain, unable to walk PMH: morbid obesity, noncompliance, HTN, HLD, HFpEF (EF 65%), ESRD on HD 4 days/ week (MTTS), IDDM, peripheral neuropathy and retinopathy, RENEE on 2L home oxygen & CPAP, asthma Crohn's disease, depression and PTSD Patient is been recurrently admitted in hospital for noncompliance and missing dialysis. Recently discharged to short-term rehabilitation on July 07, discharged from there 4 days back. He went for dialysis on Sunday. When he was planning to go for dialysis today, patient's help did not come in he could not walk. He accidentally fell down tripping on O2 cannula. His left hip pain was getting aggravated and could not walk so He comes into emergency room. He complains of bilateral hip pain left more than right. He was supposed to follow- up with orthopedic but failed to do so. He states that Pain is sharp and he is usually given IV Dilaudid for the pain. He denies shortness of breath, dizziness , LOC, head trauma, palpitations, edema, weight gain. Vitals: Afebrile, pulse 80s, RR 18 at presentation drop to 8 after hydromorphone , increased to 14 after Narcan. Saturating 99% on 3 L, blood pressure in acceptable range. On exam: Sleepy but arousable, no acute respiratory distress, appropriate answers, O 3. Neck supple, no JVD, CVS: S1-S2, RS: Clear to auscultate bilaterally, no crackles. Abdomen: Soft, NT, ND, bowel sounds present. No focal neurological deficit except asterixis. Labs: WBC 13.4,, neutrophils 66%, hemoglobin 10.1, potassium 5.1, bicarbonate 26 , anion gap 19, BUN 63, creatinine 10.1, glucose 299, calcium 6.8, alkaline phosphatase 234. CXR:No acute change of chest. A and P #1 left hip pain: Patient requests for hydromorphone, received 2 mg dose in ER, followed by mild depression in respiration and lethargy. Received 3 doses of Narcan. Avoid any opiate medications for now. Obtain x-ray bilateral hips. Range of motion intact bilateral hips. Needs OT PT evaluation. Patient states that he is unable to walk and would need rehabilitation placement. It is also difficult for him to go to dialysis as he does not have help at home. #2 metabolic encephalopathy: Can be multifactorial, opiate-induced, suspected CO2 narcosis, uremia. Patient underwent dialysis on Sunday and was given today. And was ambulating at home this morning according to EMS But had a fall. Patient will need urgent dialysis tomorrow. Avoid opiates, when necessary Narcan , CPAP (patient refuses CPAP and ABG), and has history of noncompliance. #3 ESRD : Patient has metabolic encephalopathy and would need dialysis early tomorrow. At present patient's potassium is normal, clear to auscultation in all chest beckman, chest x-ray does not show any vascular congestion or volume overload, bicarbonate is 26. Inform nephrology patient being in hospital. #4 DM: Continue basal and sliding scale insulin. #5 continue his other medications for chronic stable conditions: Amlodipine, metoprolol, olanzapine, escitalopram hold benzos and Lyrica #6 DVT prophylaxis heparin.
--- NOTE | 2016-07-31 21:05 | NUR ---
PT HAS BED #206-1
--- NOTE | 2016-07-31 21:19 | NUR ---
REPORT GIVEN TO MICHAEL LAW.
--- NOTE | 2016-07-31 21:29 | NUR ---
PT ADMINISTRERED NARCAN 0.4MG PER EMAR FOR RR 10. PT CONTINUES TO BE LETHARGIC AFTER ADMINISTRATION. PT BRIEFLY AROUSABLE TO TACTILE STIMULI. CHARGE NURSE REKHA MADE AWARE OF PT STATUS. HOUSE STAFF PAGED.
--- NOTE | 2016-07-31 21:54 | NUR ---
MOD UPDATED ON PT STATUS, PLAN TO ORDER STAT ABG.
--- NOTE | 2016-07-31 22:26 | NUR ---
DR. Estrada AND HOUSE STAFF TO BEDSIDE TO RE-EVALUATE PT. PT AWAKE WITH VERBAL STIMULI. RESPIRATORY TO BEDSIDE TO ABG. PT FOUND TO HAVE BEEN INCONTINENT OF LARGE BM. PT CLEANED. LABS OBTAINED 1 GREEN TOP SENT. RADIOLOGY TO BEDSIDE FOR PCXY.
--- NOTE | 2016-07-31 22:28 | NUR ---
PER RESPIRATORY PLAN TO HOLD OFF ON ABG AT THIS TIME AND SET PT UP ON C-PAP WHEN HE GETS TO HIS ROOM UPSTAIRS.
--- NOTE | 2016-07-31 22:49 | NUR ---
PT IS ALERT TO VERBAL STIMULI AND REQUESTING ICE CHIPS. PER D. PT IS CLEARED FOR GEN MED. TRANSPORT CALLED.
--- NOTE | 2016-07-31 22:55 | RADIOLOGY REPORT ---
EXAMINATION: XR PORTABLE CHEST CLINICAL INFORMATION: Hypoxia. Drowsiness. Pleural effusion. COMPARISON: Chest x-ray 07/04/2016 TECHNIQUE: Portable AP portable view of the chest was obtained. 10:34 PM FINDINGS: No significant abnormality is noted involving the heart, lungs, mediastinum, bony thorax or soft tissues. IMPRESSION: No acute change of chest.
[2016-08-01] VITALS: BP 124/61
--- NOTE | 2016-08-01 00:35 | NUR ---
pt admitted to floor from er via stretcher. Orineted to room, call gutierres, and staff. Alert and drowsy. 3 L o2. RR-12. Vital signs Q3H. Skin cdi, +4 edema to BLE. LUE fistula. NO c/o pain. Refusing c-pap at the moment. Will continue to monnitor.
--- NOTE | 2016-08-01 02:43 | Admission Certification ---
Admission Certification Certification Statement - As attending physician, I certify that at the time of - admission, based on clinical presentation, severity of - symptoms, need for further diagnostic testing and - therapeutic interventions, and risk of adverse outcomes - without in-hospital treatment, in my clinical assessment, - this patient requires an acute hospital stay for a minimum - of two nights or longer. I have also considered psychsocial - factors such as support system, advanced age, financial - issues, cognitive issues, and failed out-patient treatments, - past re-admission history, safety of patient, and lack of - compliance as applicable. Specific rationale supporting this admission is: Fall, left hip pain, metabolic encephalopathy
[2016-08-01 03:20] VITALS: BP 155/52
[2016-08-01 03:21] VITALS: BP 155/52
--- NOTE | 2016-08-01 03:47 | NUR ---
ATTEMPTED TO WAKE PT UP FOR VITAL SIGNS. DIFFICULT TO ARROUSE WITH STERNAL STIMULATION. T-97.2 P-84 R-14 B/P-155/52 POX-92% ON CPAP. FS-218. PT OPENS EYES BREIFLY, ONLY ORINETED TO SELF. MD ROSE UP TO SEE PT. NURSING DIGITAL LEARNING PLATFORMS MANAGER MAXIMILIAN UP TO SEE PT MD WILL CONTACT DIALYSIS TO SET UP APPT FOR AM , STATING PT EXPECTED TO BE THIS WAY DUE TO UREMIA. POX Q 1H. WILL CONTINUE TO MONITOR.
--- NOTE | 2016-08-01 04:58 | PN- Housestaff ---
Subjective Follow-up For: bilateral hip pain metabolic encephalopathy requring dialysis Subjective: Patient is more awake and alert in AM compared to overnight, has been on bipap overnight. Still reports pain on the hip that increases with change in position. otherwise no complaints. Review of Systems Constitutional: Denies: chills, fever, malaise, weakness. EENTM: Reports: no symptoms. Cardiovascular: Reports: peripheral edema. Denies: chest pain, palpitations. Respiratory: Denies: cough, sputum production. Gastrointestinal: Reports: no symptoms. Genitourinary: Reports: no symptoms. Musculoskeletal: Reports: joint pain (on the hips). Skin: Reports: no symptoms. Objective Last 24 Hrs of Vital Signs/I&O Vital Signs Date Time Temp Pulse Resp B/P Pulse O2 O2 Flow FiO2 Ox Delivery Rate 08/01 0512 93 Room Air 08/01 0419 82 96 08/01 0400 94 CPAP 08/01 0321 97.2 84 14 155/52 92 CPAP 3.0L 08/01 0100 88 93 08/01 0001 99 Nasal 3.0L Cannula 08/01 0000 98.4 84 12 124/61 99 Nasal 3.0L Cannula 08/01 0000 98.4 84 12 124/61 99 Nasal 3.0L Cannula 08/01 0000 98.4 84 12 124/61 99 Nasal 3.0L Cannula 07/31 2327 Nasal 3.0L Cannula 07/31 2251 98.5 85 14 142/89 98 Nasal 3.0L Cannula 07/31 2155 100 Nasal 3.0L Cannula 07/31 2144 98.4 86 10 146/95 100 Nasal 3.0L Cannula 07/31 2015 83 8 142/84 98 Nasal 3.0L Cannula 07/31 1855 98.0 85 8 148/84 95 Nasal Cannula 07/31 1421 95 Nasal 3.0L Cannula 07/31 1421 98.1 88 18 163/71 95 Nasal 3.0L Cannula Intake & Output 08/01 0800 08/01 0000 07/31 1600 Intake Total Output Total Balance Patient 172.365 kg 158.757 kg 158.757 kg Weight Physical Exam General Appearance: Oriented X3, Cooperative, No Acute Distress, somnolent but wakes up when called, answers questions and goes back down to sleep. Skin: foliculitis on the lower legs both sides HEENT: Atraumatic, PERRLA, EOMI, Mucous Membr. moist/pink, has bipap mask on the face Neck: Supple Cardiovascular: Regular Rate, Normal S1, Normal S2, No Murmurs Lungs: Clear to Auscultation, Normal Air Movement Abdomen: Normal Bowel Sounds, Soft, No Tenderness Neurological: Normal Speech, Strength at 5/5 X4 Ext, Normal Tone, Sensation Intact, Cranial Nerves 3-12 NL Extremities: No Clubbing, No Cyanosis, Normal Pulses, 1+ pitting edema, obese Vascular: Normal Pulses, Pulses Symmetrical Last 24 Hrs of Lab/Karthik Results Last 24 Hrs of Labs/Mics: Laboratory Tests 07/31/16 2223: Ammonia < 9 L 07/31/16 1802: Anion Gap 19 H, Estimated GFR 6 L, BUN/Creatinine Ratio 6.2 L, Glucose 299 H , Calcium 6.8 L, Total Bilirubin 0.5, AST 18, ALT 26, Alkaline Phosphatase 234 H, Total Protein 8.7 H, Albumin 4.2, Globulin 4.5 H, Albumin/Globulin Ratio 0.9 L, CBC w Diff MAN DIFF ORDERED, RBC 4.26 L, MCV 79.2 L, MCH 23.9 L, RDW 26.0 H, MPV 9.6, Gran % 66.8, Lymphocytes % 15.4 L, Monocytes % 10.6 H, Eosinophils % 7.2 H, Basophils % 0 L, Absolute Granulocytes 8.9 H, Segmented Neutrophils 68, Absolute Lymphocytes 2.1, Lymphocytes 20 L, Monocytes 7, Absolute Monocytes 1.4 H, Eosinophils 5, Absolute Eosinophils 1.0, Absolute Basophils 0, Platelet Estimate ADEQUATE, Hypochromic-Microcytic 1+, Anisocytosis 2+, Microcytic Cells 1+, Stomatocytes 1+, PUBS MCHC 30.1 L Assessment/Plan Assessment: Patient is a 36 year old morbidly obese male with extensive PMH including diabetes, diabetic retinopathy and neuropathy, hypertension, HLD, ESRD on hemodialysis, obstructive sleep apnea noncompliant with CPAP, multiple admission due to missed dialysis and AMS who came to the ED with chronic hip pain of about 2 months. He has missed dialysis today, will be admitted to receive dialysis today and be displaced to [facility]. Patient is found to be lethargic with fluctuating RR of 8-18, SO2 on 3L. Aslo lab studies show elevated Cr of 10.1, low Ca at 6.8, elevated ALP, low ammonia. CXR unremarkable. Problem list and plan: Altered mental statu, likely due to uremia Most likely dx is uremic encephalopathy (as evidenced by asterixis, elevated BUN and creatinine, also patient missed dialysis today and has had several previous admission due to missed dialysis sessions). Less likely etiology would hepatic encephalopathy (as pt has normal ammonia), narcatic overdose: pupils myotic, respiratory depression, however minimally responded to narcan x3 doses. Sepsis: less likely, has leukocytosis but no source of infection so far, also he is afebrile, BP and [place] normal, CXR unremarkable, no urinary symptoms. * vital signs Q3h * IV access * O2 suppl to keep SO2>92% * follow up nephro consult ESRD on dialysis * will get dialysis today * continue cinacalcet Left hip pain chronic and stable * Hip xray * Lidoderm patch for pain * will arrange STR today Diabetes * accuchecks * Insulin Novolog SS Renal dialysis diet DVT px with heparin SC FC Problem List: 1. Dialysis patient 2. Gait instability 3. Hypertension 4. Hypertension 5. Hip pain Pain Ratin Pain Location: left hip Pain Goal: Pain 4 or less Pain Plan: tylenol Tomorrow's Labs & Rationales: CBC (leukocytosis), BEP (dialysis patient, metabolic encephalopathy)
--- NOTE | 2016-08-01 07:51 | NUR ---
PT pox 93% 3L. Pt not as lethargic. Ambulated to bathroom. Nephology consult ordered per mD Acuña.
--- NOTE | 2016-08-01 07:53 | Discharge Summary ---
See Addendum Visit Information Visit Dates Admission Date: 07/31/16 Discharge Date: 08/02/16 Hospital Course Course Attending Physician: TRUNG MANRIQUEZ MD Primary Care Physician: BLANCA LI MD Hospital Course: 36-year-old man with past medical history of morbid obesity, noncompliance, HTN, HLD, HFpEF (EF 65%), ESRD on HD 4 days/week (MTTS), IDDM, peripheral neuropathy and retinopathy, RENEE on 2L home oxygen & CPAP, asthma Crohn's disease, depression and PTSD came by ambulance with chief complaint of left hip pain and being unable to walk. Patient is been recurrently admitted in hospital for noncompliance and missing dialysis. Recently discharged to short-term rehabilitation on July 07, discharged from there 4 days back. He went for dialysis on Sunday. When he was planning to go for dialysis today, patient's help did not come in he could not walk. He accidentally fell down tripping on O2 cannula. His left hip pain was getting aggravated and could not walk so He comes into emergency room. He complains of bilateral hip pain left more than right. He was supposed to follow- up with orthopedic but failed to do so. He states that Pain is sharp and he is usually given IV Dilaudid for the pain. He denies shortness of breath, dizziness , LOC, head trauma, palpitations, edema, weight gain. Vitals: Afebrile, pulse 80s, RR 18 at presentation drop to 8 after hydromorphone , increased to 14 after Narcan. Saturating 99% on 3 L, blood pressure in acceptable range. On exam: Sleepy but arousable, no acute respiratory distress, appropriate answers, O 3. Neck supple, no JVD, CVS: S1-S2, RS: Clear to auscultate bilaterally, no crackles. Abdomen: Soft, NT, ND, bowel sounds present. No focal neurological deficit except asterixis. Labs: WBC 13.4,, neutrophils 66%, hemoglobin 10.1, potassium 5.1, bicarbonate 26 , anion gap 19, BUN 63, creatinine 10.1, glucose 299, calcium 6.8, alkaline phosphatase 234. CXR:No acute change of chest. He was admitted to general floor and treated for these medical conditions # left hip pain: Pain was controlled with narcotics. Exx ray of the hip did not show any acute fracture. PT evaluation suggested STIR #ESRD : Patient had milds metabolic encephalopathy. Nephrology was on board and he underwent dialysis during the hospitalization. Patient has dialysis schedule Sunday, Sunday, , Sunday #DM,HTN, depression We continued all other medication with home doses without any major complications Continue basal and sliding scale insulin. Allergies: Coded Allergies: iron (From VENOFER) (UNKNOWN 07/04/16) Disposition Summary Disposition Principal Diagnosis: joint pain ESRD with HD Additional Diagnosis: Diabetes Discharge Disposition: SNF Discharge Instructions General Discharge Information Code Status: Full Code Patient's Diet: renal dialysis/ diabetic Patient's Activity: as tolerated Follow-Up Instructions/Appts: -Please follow-up with your primary care provider within 7 days after discharge. -We have made changes to your home medications, please read the instructions carefully. -Please come back to the hospital if your symptoms got worse. Medications at Discharge Discharge Medications: Continue taking these medications: Ergocalciferol (Vitamin D2) (Vitamin D2) 50,000 UNIT CAPSULE 50,000 International Unit ORAL EVERY SUNDAY Qty = 8 Instructions: Follow the Instruction for 8 weeks then check Vit D level Comments: NOT GIVEN IN HOSPITAL Amlodipine Besylate (Amlodipine Besylate) 10 MG TABLET 1 Tablet ORAL DAILY Qty = 90 Comments: Last Taken: 08/02/16 Time: 0845 AM Metoprolol Tartrate (Metoprolol Tartrate) 50 MG TABLET 1 Tablet ORAL TWICE DAILY Qty = 180 Comments: Last Taken: 08/02/16 Time: 0845 AM Olanzapine (Olanzapine) 5 MG TABLET 1 Tablet ORAL Every night Qty = 30 Comments: NOT GIVEN IN HOSPITAL Escitalopram Oxalate (Escitalopram Oxalate) 20 MG TABLET 1 Tablet ORAL DAILY Qty = 30 Comments: Last Taken: 08/02/16 Time: 0845AM Pregabalin (Lyrica) 100 MG CAPSULE 1 Capsule ORAL THREE TIMES DAILY as needed for NEUROPATHY Qty = 90 Comments: Last Taken: 08/02/16 Time: 0845 AM Cinacalcet HCl (Sensipar) 30 MG TABLET 1 Tablet ORAL DAILY Qty = 30 Comments: Last Taken: 08/02/16 Time: 0845AM Insulin Glargine,Hum.rec.anlog (Lantus Solostar) 100 UNIT/ML (3 ML) INSULN.PEN 24 Units Inject into fatty tissue TWICE DAILY Qty = 30 Comments: NOT GIVEN IN HOSPITAL Darbepoetin Hernesto in Polysorbat (Aranesp) 40 MCG/0.4 ML SYRINGE 1 1ML Inject into fatty tissue SEE INSTRUCTIONS Days = 30 Instructions: 0.45 mcg/kg SC/IV Comments: NOT GIVEN IN HOSPITAL Insulin Lispro (Humalog Kwikpen U-100) 100 UNIT/ML INSULN.PEN 1 Units Inject into fatty tissue BEFORE MEALS AND AT BEDTIME Qty = 30 Instructions: before meals <150 mg /dl - no coverage 150 -200 - 4 units 201- 250 - 6 unit 251 -300 - 8 unit s 301- 350 - 10 UNITS 351- 400 --- 12 UNITS >400 ----14 UNITS BED TIME 201 -250 -1 UNIT 251 - 300 - 2 UNIT 301- 350 - 3 UNIT 351 - 400 -- 4 UNIT >400 ---- 5 UNIT Comments: Last Taken: 08/02/16 Time: 1200 NOVOLOG GIVEN SUBSTITUTION Loratadine (Claritin) 10 MG TABLET 1 Tablet ORAL DAILY Days = 10 Comments: NOT GIVEN IN HOSPITAL Clonazepam (Clonazepam) 1 MG TABLET 0.5 Tablet ORAL TWICE DAILY as needed for ANXIETY Qty = 60 Comments: Last Taken: 08/02/16 Time: 0845AM Copies To: GUILLERMO BEAR,BLANCA Chun Attending MD Review Statement Documenting Attending: PADMINI BEAR,BETH Sifuentes
[2016-08-01 08:24] VITALS: BP 140/64
[2016-08-01 09:38] LABS: ABSOLUTE BASOPHIL COUNT 0 /CUMM (0.0-0.2); ABSOLUTE EOSINOPHIL COUNT 0.4 /CUMM (0.0-0.7); ABSOLUTE GRANULOCYTE CT 13.9 /CUMM (1.4-6.5); ABSOLUTE LYMPH COUNT 0.9 /CUMM (1.2-3.4); BASOPHIL % 0.1 % (0.0-2.0); EOSINOPHIL % 2.5 % (0-5); HEMATOCRIT 32.8 % (42-52); MEAN CORPUSCULAR HGB 24.1 PG (27.0-31.0); MEAN CORPUSCULAR HGB CONC 30.4 G/DL (33.0-37.0); MEAN CORPUSCULAR VOLUME 79.5 FL (80.0-94.0); MEAN PLATELET VOLUME 10.3 FL (7.4-10.4); RED BLOOD CELL CT 4.13 /CUMM (4.70-6.10); WHITE BLOOD CELL COUNT 16.3 /CUMM (4.8-10.8)
[2016-08-01 10:33] LABS: GRANULOCYTE % 85.8 % (42.2-75.2); PLATELET COUNT 200 /CUMM (130-400)
--- NOTE | 2016-08-01 11:08 | NUR ---
NURSING NOTE: PT LEFT FLOOR VIA STRETCHER FOR HIP XRAY PER MD ORDER, 3L NC PT AWAKE, A/OX3, DENIES PAIN, TICKET TO RIDE COMPLETE, CHART SENT WITH PT. AWAIT RETURN TO FLOOR/
--- NOTE | 2016-08-01 11:49 | RADIOLOGY REPORT ---
EXAMINATION: XR HIP, BILATERAL CLINICAL INFORMATION: Hip pain and bilateral gait instability. COMPARISON: CT images of the pelvis, 07/04/2016. TECHNIQUE: AP and frog-leg lateral view of right hip. AP and frog-leg lateral view of left hip. FINDINGS: The patient has an obese body habitus; pannus projects over the lower pelvis/hips. The sacrum and sacroiliac joints are suboptimally visualized. There is mild widening of the inferior aspect of each sacroiliac joint with sclerosis along the iliac margin of each joint. These findings are more clearly seen on the recent pelvis CT of 07/04/2016 and are compatible with resorptive changes from hyperparathyroidism. There is chronic, mild subarticular bone resorption at the pubic symphysis, as well. The articular cartilage space of each hip is well-preserved. There is a small subchondral cyst of the superior right acetabulum. There is no radiographic evidence of a significant degenerative or inflammatory arthropathy at either hip. No focal soft tissue swelling. No evidence of femoral fracture or osteonecrosis. IMPRESSION: 1. No acute findings at either hip compared to 07/04/2016. 2. Subarticular bone resorption at the sacroiliac joints and pubic symphysis, compatible with changes of secondary hyperparathyroidism.
[2016-08-01 11:52] VITALS: BP 146/80
--- NOTE | 2016-08-01 13:05 | Cons- Nephrology ---
General Information and HPI Consulting Request Date of Consult: 08/01/16 Requested By: BETH WASHINGTON MD Reason for Consult: ESRD History of Present Illness: Uday Morales is a 36-year-old man with end-stage renal disease on hemodialysis support at [facility] in [place]. He is normally dialyzed 4 days per week on Tuesdays, , Saturdays and Sunday - presumably because of the need for greater clearances and ultrafiltration in this very large man. He has had multiple hospital admissions here at [facility] for variety of issues including shortness of breath/fluid overload, infections, or confusion. He now comes after having missed his regularly scheduled dialysis yesterday and having fallen at home without apparent serious injury but complaining of shortness of breath. Hip x-rays are negative for fracture. Past medical history is positive for end-stage renal disease on dialysis for the past 2-3 years, diabetic retinopathy, peripheral neuropathy, CHF, hypertension, hyperlipidemia, mitral regurgitation, obstructive sleep apnea, asthma, pneumonia , Crohn's disease, frequent admissions for volume overload, recent admission for possible pneumonia, morbid obesity. Medications: See below Allergies: No known drug allergies Family history: Negative for diabetes mellitus or kidney disease in his parents or other family members Social history: Lives with family members; ; no children. Ex-smoker without history of alcohol abuse or drug abuse. 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 Allergies/Medications Allergies: Coded Allergies: iron (From VENOFER) (UNKNOWN 07/04/16) Home Med List: Amlodipine Besylate 10 MG TABLET 1 TAB PO DAILY HEART HEALTH (Reported) Cinacalcet HCl (Sensipar) 30 MG TABLET 1 TAB PO DAILY KIDNEYS (Reported) Clonazepam 1 MG TABLET 0.5 TAB PO BID PRN ANXIETY (Reported) Darbepoetin Hernesto in Polysorbat (Aranesp) 40 MCG/0.4 ML SYRINGE 1 1ML SC SEE ADMIN CRITERIA DURING DIALYSIS 0.45 mcg/kg SC/IV Ergocalciferol (Vitamin D2) (Vitamin D2) 50,000 UNIT CAPSULE 50,000 IU PO QSAT Low Vit D Follow the Instruction for 8 weeks then check Vit D level Escitalopram Oxalate 20 MG TABLET 1 TAB PO DAILY MENTAL HEALTH (Reported) Ferric Citrate (Auryxia) (Unknown Strength) TABLET (Unknown Dose) UNKNOWN ( Reported) Insulin Glargine,Hum.rec.anlog (Lantus Solostar) 100 UNIT/ML (3 ML) INSULN.PEN 24 UNITS SC BID DM (Reported) Insulin Lispro (Humalog Kwikpen U-100) 100 UNIT/ML INSULN.PEN 1 UNITS SC TIDAC /HS DM before meals <150 mg /dl - no coverage 150 -200 - 4 units 201- 250 - 6 unit 251 -300 - 8 unit s 301- 350 - 10 UNITS 351- 400 --- 12 UNITS >400 ----14 UNITS BED TIME 201 -250 -1 UNIT 251 - 300 - 2 UNIT 301- 350 - 3 UNIT 351 - 400 -- 4 UNIT >400 ---- 5 UNIT Loratadine (Claritin) 10 MG TABLET 1 TAB PO DAILY ALLERGY Metoprolol Tartrate 50 MG TABLET 1 TAB PO BID HTN (Reported) Olanzapine 5 MG TABLET 1 TAB PO QPM MENTAL HEALTH (Reported) Pregabalin (Lyrica) 100 MG CAPSULE 1 CAP PO TID PRN NEUROPATHY (Reported) Review of Systems Review of Systems: Review of Systems Constitutional: Denies: chills, fever. EENTM: Reports: no symptoms. Cardiovascular: Reports: no symptoms. Respiratory: Reports: shortness of breath Denies: cough. GI: Denies: abdominal pain, changes in stool. Genitourinary: Reports: no symptoms. Musculoskeletal: Reports: joint pain (on the hips). Skin: Reports: no symptoms. Neurological/Psychological: Reports: no symptoms. Hematologic/Endocrine: Reports: no symptoms. Past History Travel History Traveled to [place] past 21 day No Medical History Type of Reaction: Itching Neurological: migraine, peripheral neuropathy EENT: diabetic retinopathy Cardiovascular: CHF, hypertension, hyperlipidemia, mitral regurgitation, he has chronic fluid overload due to his inabilityto adhere to the necessary dietary restrictions of sodium and fluid intake. Respiratory: asthma, obstructive sleep apnea, pneumonia Gastrointestinal: Crohn's disease, last colonoscopy was in 2005 and biopsies showed mild chronic colitis Hepatic: NONE Renal: ESRD on HD, glomerulonephritis, CRF-DIALYSIS M-T-TH-SAT END STAGE KIDNEY FAILURE Musculoskeletal: NONE Psychiatric: depression, PTSD Endocrine: diabetes, diabetic ketoacidosis, obesity Blood Disorders: NONE Cancer(s): NONE CESSATION SYSTEMS OUTREACH SPECIALIST/Reproductive: NONE Other Medical Hx: MSSA hidradenitis Surgical History Surgical History: AVF LUE Vitrectomies- Both eyes Pilonidal Cyst I & D of abscesses Right IJ Bharat Cath Family History Relations & Conditions If Any: FATHER Myocardial infarction at age less than 60 MOTHER Hodgkin's sarcoma Relation not specified for: FH: CAD (coronary artery disease) FH: HTN (hypertension) Psychosocial History Who Do You Live With? brother Primary Language: [place] Smoking Status: Unknown If Ever Smoked Living Will? no Power of Business System Consultant/HCP? no Functional Ability ADLs Independent: dressing, eating, toileting, bathing. Ambulation: cane IADLs Independent: shopping, housework, finances, food prep, telephone, transportation , medication admin. Exam & Diagnostic Data Vital Signs and I&O Vital Signs Date Time Temp Pulse Resp B/P Pulse O2 O2 Flow FiO2 Ox Delivery Rate 08/01 1152 98.7 90 20 146/80 94 Nasal 3.0L Cannula 08/01 0824 98.4 95 16 140/64 96 Nasal 3.0L Cannula 08/01 0800 95 Nasal 3.0L Cannula 08/01 0700 94 Nasal 3.0L Cannula 08/01 0600 93 CPAP 08/01 0558 93 CPAP 08/01 0557 93 93 08/01 0512 93 Room Air 08/01 0500 94 CPAP 08/01 0419 82 96 08/01 0400 94 CPAP 08/01 0400 94 CPAP 08/01 0321 97.2 84 14 155/52 92 CPAP 3.0L 08/01 0100 88 93 08/01 0001 99 Nasal 3.0L Cannula 08/01 0000 98.4 84 12 124/61 99 Nasal 3.0L Cannula 08/01 0000 98.4 84 12 124/61 99 Nasal 3.0L Cannula 08/01 0000 98.4 84 12 124/61 99 Nasal 3.0L Cannula 07/31 2327 Nasal 3.0L Cannula 07/31 2251 98.5 85 14 142/89 98 Nasal 3.0L Cannula 07/315 100 Nasal 3.0L Cannula 07/31 2143 98.4 86 10 146/95 100 Nasal 3.0L Cannula 07/31 2015 83 8 142/84 98 Nasal 3.0L Cannula 07/31 1855 98.0 85 8 148/84 95 Nasal Cannula 07/31 1421 95 Nasal 3.0L Cannula 07/31 1421 98.1 88 18 163/71 95 Nasal 3.0L Cannula Intake & Output 08/01 Intake Total Output Total Balance Number 1 Bowel Movements Patient 380 lb 350 lb 350 lb Weight Physical Exam: General: Well-developed, morbidly obese white male in NAD Skin: No rash or jaundice HEENT: Conjunctivae pink, sclerae anicteric, mucous membranes moist Neck: Without masses or thyromegaly, no supraclavicular or cervical adenopathy Chest: Decreased breath sounds at bases, no discernible rales Heart: Regular rate and rhythm without S3 or rub Abdomen: Obese, soft and nontender without palpable masses or organomegaly Extremities: 2-3+ lower extremity edema, no cyanosis Neuro: No focal findings, no asterixis or myoclonus Assessment/Plan Assessment/Recommendations Assessment: 36-year-old man with a multitude of comorbidities including end-stage renal disease and morbid obesity who now comes in after having missed his dialysis yesterday and after a fall at home but complaining only of shortness of breath. No fractures on hip x-rays. He is clinically volume overloaded. Recommendations: 1. Hemodialysis for later today with plan for 4-5 L ultrafiltration as tolerated over 4 hours 2. Next hemodialysis for 08/03 3. Diet: 2 g sodium, 2 g potassium, 90 g protein, no concentrated sweets, 1200 mL fluid limit per day 4. Continue outpatient medications
--- NOTE | 2016-08-01 15:00 | NUR ---
NURSING NOTE: PT LEFT FLOOR VIA BED WITH DISTRIBUTION FOR DIALYSIS. PT AWAKE, DROUSY AT TIMES, ORIENTED X3, 3L NC DENIES DISTRESS, LAV SHUNT INTACT. AM WEIGHT RECORDED. AWAIT RETURN TO FLOOR. WILL GIVE REPORT TO NEXT SHIFT RN.
--- NOTE | 2016-08-01 15:53 | PN- Att Addend ---
Attending MD Review Statement Attending Statement Attending MD Statement: examined this patient, discuss w/resident/PA/METAL SPRAY OPERATOR, agreed w/resident/PA/METAL SPRAY OPERATOR, reviewed EMR data (avail), discussed w/nursing Attending Assessment/Plan: Laboratory Tests 08/01/16 0853: Anion Gap 23 H, Estimated GFR 5 L, BUN/Creatinine Ratio 6.2 L 08/01/16 0848: CBC w Diff NO MAN DIFF REQ, RBC 4.13 L, MCV 79.5 L, MCH 24.1 L, RDW 26.0 H, MPV 10.3, Gran % 85.8 H, Lymphocytes % 5.5 L, Monocytes % 6.1, Eosinophils % 2.5, Basophils % 0.1, Absolute Granulocytes 13.9 H, Absolute Lymphocytes 0.9 L , Absolute Monocytes 1.0 H, Absolute Eosinophils 0.4, Absolute Basophils 0, PUBS MCHC 30.4 L 07/31/16 2223: Ammonia < 9 L 07/31/16 1802: Anion Gap 19 H, Estimated GFR 6 L, BUN/Creatinine Ratio 6.2 L, Glucose 299 H , Calcium 6.8 L, Total Bilirubin 0.5, AST 18, ALT 26, Alkaline Phosphatase 234 H, Total Protein 8.7 H, Albumin 4.2, Globulin 4.5 H, Albumin/Globulin Ratio 0.9 L, CBC w Diff MAN DIFF ORDERED, RBC 4.26 L, MCV 79.2 L, MCH 23.9 L, RDW 26.0 H, MPV 9.6, Gran % 66.8, Lymphocytes % 15.4 L, Monocytes % 10.6 H, Eosinophils % 7.2 H, Basophils % 0 L, Absolute Granulocytes 8.9 H, Segmented Neutrophils 68, Absolute Lymphocytes 2.1, Lymphocytes 20 L, Monocytes 7, Absolute Monocytes 1.4 H, Eosinophils 5, Absolute Eosinophils 1.0, Absolute Basophils 0, Platelet Estimate ADEQUATE, Hypochromic-Microcytic 1+, Anisocytosis 2+, Microcytic Cells 1+, Stomatocytes 1+, PUBS MCHC 30.1 L Vital Signs Date Time Temp Pulse Resp B/P Pulse O2 O2 Flow FiO2 Ox Delivery Rate 08/01 1514 Nasal 3.0L Cannula 08/01 1152 98.7 90 20 146/80 94 Nasal 3.0L Cannula 08/01 0824 98.4 95 16 140/64 96 Nasal 3.0L Cannula 08/01 0800 95 Nasal 3.0L Cannula 08/01 0700 94 Nasal 3.0L Cannula 08/01 0600 93 CPAP 08/01 0558 93 CPAP 08/01 0557 93 93 08/01 0512 93 Room Air 08/01 0500 94 CPAP 08/01 0419 82 96 08/01 0400 94 CPAP 08/01 0400 94 CPAP 08/01 0321 97.2 84 14 155/52 92 CPAP 3.0L 08/01 0100 88 93 08/01 0001 99 Nasal 3.0L Cannula 08/01 0000 98.4 84 12 124/61 99 Nasal 3.0L Cannula 08/01 0000 98.4 84 12 124/61 99 Nasal 3.0L Cannula 08/01 0000 98.4 84 12 124/61 99 Nasal 3.0L Cannula 07/31 2327 Nasal 3.0L Cannula 07/31 2251 98.5 85 14 142/89 98 Nasal 3.0L Cannula 07/31 2155 100 Nasal 3.0L Cannula 07/31 2144 98.4 86 10 146/95 100 Nasal 3.0L Cannula 07/31 2015 83 8 142/84 98 Nasal 3.0L Cannula 07/31 1855 98.0 85 8 148/84 95 Nasal Cannula 36 year old morbidly obese male with extensive PMH including diabetes, diabetic retinopathy and neuropathy, hypertension, HLD, ESRD on hemodialysis, obstructive sleep apnea noncompliant with CPAP, multiple admission due to missed dialysis and AMS who came to the ED with chronic hip pain of about 2 months. Pt missed 2 dialysis days and will be going for hemodialysis today . Pt is currently on 4 times a week dialysis. Pt having some chills this am at time of examination. will get rapid flu test and will repeat his labs in am and watch for fever. pt says someone around him at home was sick possibly with flu. d/w pt the care plan.
[2016-08-01 20:00] VITALS: BP 116/66
[2016-08-02 02:38] VITALS: BP 112/47
--- NOTE | 2016-08-02 04:56 | NUR ---
PT SEEN IN ROOM PLACING SOMETHING IN MOUTH AND THEN TAKING A DRINK OF WATER. WHEN PT ASKED WHAT HE JUST TOOK, HE ADMITTED TO TAKING ZYPREXA TAB. SUPERVISOR FABRICATION AND ASSEMBLY DIONI RAE, NURSING LATHE SET UP PERSON AND CHARGE NURSE NOTIFIED. PHARMACY CONTACTED AND UP TO VERIFY MEDS. SECURITY UP TO SEARCH PT'S BELONGINGS. SECURITY FOUND 2 ADDITIONAL BOTTLES OF MEDS(KLONOPIN) AND A LARGE SWITCH BLADE KNIFE. KNIFE TAKEN BY SECURITY AND LOCKED IN SAFE TO BE RETURNED TO PT UPON DISCHARGE. MEDICATIONS VERIFIED, COUNTED AND LOCKED UP BY PHARMACY. PT APOLOGETIC AND STATES HE UNDERSTANDS WHY HE CANNOT BE TAKING OWN MEDS WHILE IN HOSPITAL. WILL CONTINUE TO MONITOR.
--- NOTE | 2016-08-02 07:02 | PN- Housestaff ---
See Addendum Subjective Follow-up For: left groin pain ESRD on dialysis Subjective: Patient is alert and oriented, much less drowsy today. states he still has pain deep in the groin 7/10 worse when moving, attributes it to ligaments inside. Has no itchiness or redness on the skin. Review of Systems Constitutional: Denies: chills, weakness. EENTM: Reports: no symptoms. Cardiovascular: Denies: chest pain, palpitations. Respiratory: Denies: cough, short of breath. Gastrointestinal: Denies: abdominal pain, nausea, changes in stool, vomiting. Genitourinary: Denies: discharge, pain. Musculoskeletal: Denies: back pain, joint pain (left groin pain). Skin: Reports: no symptoms. Objective Last 24 Hrs of Vital Signs/I&O Vital Signs Date Time Temp Pulse Resp B/P Pulse O2 O2 Flow FiO2 Ox Delivery Rate 08/02 0238 97.5 94 15 112/47 96 Nasal 3.0L Cannula 08/02 0134 93 92 08/02 0009 96.6 95 14 90 Nasal 3.0L Cannula 08/02 0000 CPAP 08/01 2137 113 116/66 08/01 2020 113 116/66 08/01 2000 Nasal 3.0L Cannula 08/01 2000 99.7 113 20 116/66 96 Nasal 3.0L Cannula 08/01 1514 Nasal 3.0L Cannula 08/01 1152 98.7 90 20 146/80 94 Nasal 3.0L Cannula 08/01 0824 98.4 95 16 140/64 96 Nasal 3.0L Cannula Intake & Output 08/02 1600 08/02 0800 08/02 0000 Intake Total 300 Output Total 0 Balance 0 300 Intake, Oral 300 Number 1 Bowel Movements Output, Urine 0 Patient 170.097 kg 169.644 kg Weight Physical Exam General Appearance: Alert, Oriented X3, Cooperative, No Acute Distress Skin: No Breakdown, multiple maculopapular lesions scattered on the skin of the upper and lower extremity. HEENT: Atraumatic, EOMI Neck: Supple Cardiovascular: Normal S1, Normal S2, No Murmurs Lungs: Normal Air Movement Abdomen: Normal Bowel Sounds, Soft, No Tenderness Neurological: Normal Speech, Strength at 5/5 X4 Ext, Normal Tone, Sensation Intact, Cranial Nerves 3-12 NL Extremities: 1+ pitting edema on both legs Vascular: Normal Pulses, Pulses Symmetrical Last 24 Hrs of Lab/Karthik Results Last 24 Hrs of Labs/Mics: Laboratory Tests 08/02/16 0620: CBC w Diff Pending, WBC Pending, RBC Pending, Hgb Pending, Hct Pending, MCV Pending, MCH Pending, RDW Pending, Plt Count Pending, MPV Pending, PUBS MCHC Pending 08/01/16 0853: Anion Gap 23 H, Estimated GFR 5 L, BUN/Creatinine Ratio 6.2 L 08/01/16 0848: CBC w Diff NO MAN DIFF REQ, RBC 4.13 L, MCV 79.5 L, MCH 24.1 L, RDW 26.0 H, MPV 10.3, Gran % 85.8 H, Lymphocytes % 5.5 L, Monocytes % 6.1, Eosinophils % 2.5, Basophils % 0.1, Absolute Granulocytes 13.9 H, Absolute Lymphocytes 0.9 L , Absolute Monocytes 1.0 H, Absolute Eosinophils 0.4, Absolute Basophils 0, PUBS MCHC 30.4 L Assessment/Plan Assessment: Patient is a 36 year old morbidly obese male with extensive PMH including diabetes, diabetic retinopathy and neuropathy, hypertension, HLD, ESRD on hemodialysis, obstructive sleep apnea noncompliant with CPAP, multiple admission due to missed dialysis and AMS who came to the ED with chronic hip pain of about 2 months. He has missed dialysis today, will be admitted to receive dialysis today and be displaced to STR. Patient is found to be lethargic with fluctuating RR of 8-18, SO2 on 3L. Aslo lab studies show elevated Cr of 10.1, low Ca at 6.8, elevated ALP, low ammonia. CXR unremarkable. Problem list and plan: Altered mental status, likely due to uremia -resolved resolved, patient had dilaysis yesterday, possible DC to STR today * follow up nephro consult ESRD on dialysis * dialysis M/T/T/S * continue cinacalcet Left hip pain chronic and stable Hip xray unremarkable * Lidoderm patch for pain * will arrange STR today Diabetes * accuchecks * Insulin Novolog SS Renal dialysis diet DVT px with heparin SC FC Problem List: 1. Hip pain 2. Dialysis patient Pain Ratin Pain Location: left groin, off and on Pain Goal: Pain 4 or less Pain Plan: tylenol for mild pain, lidocaine Tomorrow's Labs & Rationales: BEP (ESRD)
[2016-08-02 08:25] VITALS: BP 102/57
--- NOTE | 2016-08-02 10:45 | Patient Discharge Instructions ---
Discharge Instructions General Discharge Information You were seen/treated for: Metabolic encephalopathy Left hip pain Special Instructions: please: 1- follwow up with your PCP within a week of discharge 2- follow up with nephrology, Dr. Cobb regarding kidney disease 3- continue hemodialysis on Sunday/Sunday//Sunday Diet Recommended Diet: Renal Dialysis Activity Activity Self Limited: Yes Acute Coronary Syndrome Inclusion Criteria At DC or during hospital stay patient has or had the following: ACS DIAGNOSIS No Discharge Core Measures Meds if any: Prescribed or Continued at Discharge Meds if any: NOT Prescribed or Continued at Discharge Congestive Heart Failure Inclusion Criteria At DC or during hospital stay patient has or had the following: CHF DIAGNOSIS No Discharge Core Measures Meds if any: Prescribed or Continued at Discharge Meds if any: NOT Prescribed or Continued at Discharge Cerebrovascular accident Inclusion Criteria At DC or during hospital stay patient has or had the following: CVA/TIA Diagnosis No Discharge Core Measures Meds if any: Prescribed or Continued at Discharge Meds if any: NOT Prescribed or Continued at Discharge Venous thromboembolism Inclusion Criteria VTE Diagnosis No VTE Type NONE VTE Confirmed by (Test) NONE Discharge Core Measures - Per Current guidelines, there needs to be overlap - treatment for the first 5 days of Warfarin therapy. - If discharged on Warfarin prior to 5 days of - overlap therapy, the patient will need to be - assessed for post discharge needs including - *Post discharge parental anticoagulation - *Warfarin and/or parental anticoagulation education - *Follow up date to check INR post discharge At least 5 days overlap therapy as Inpatient No Meds if any: Prescribed or Continued at Discharge Note: Overlap Therapy is Warfarin and Anticoagulant Meds if any: NOT Prescribed or Continued at Discharge
[2016-08-02 11:27] VITALS: BP 110/76
[2016-08-02 11:58] VITALS: BP 110/76
--- NOTE | 2016-08-02 13:07 | NUR ---
NURSING NOTE: MEDICATIONS GIVEN BACK TO PT FROM PHARMACY; SIGNED FOR BY PTS BROTHER, PT BROTHER TO BRING THEM HIM. PTS BRTOTHER TO GET HIS KNIFE FROM SECURITY. REPORT CALLED TO SNF. OTHER BELONINGINGS PACKED.
== END 2016-08-02 13:13 | DRG 70 ==
LOC: ENRESERVDT → ENRESERVTM → ERH 14:09 → ENPENDDIS 18:26 → 2NB 18:26 → ERHI 18:26 → 2NB 23:01
PROVIDERS: Internal Medicine; Physician Assistant Medical; ADMIT Internal Medicine
PROC: 5A1D00Z (ICD-10-PCS; principal; 2016-08-01)
DX: G93.41 Metabolic encephalopathy (principal); N18.6 End stage renal disease; I13.2 Hypertensive heart and chronic kidney disease with heart failure and with stage 5 chronic kidney disease, or end stage renal disease; E11.22 Type 2 diabetes mellitus with diabetic chronic kidney disease; K50.90 Crohn's disease, unspecified, without complications; Z68.43 Body mass index [BMI] 50.0-59.9, adult; E66.2 Morbid (severe) obesity with alveolar hypoventilation; I50.9 Heart failure, unspecified; Z99.2 Dependence on renal dialysis; Z79.4 Long term (current) use of insulin; Z91.15 Patient's noncompliance with renal dialysis; E11.40 Type 2 diabetes mellitus with diabetic neuropathy, unspecified; E11.319 Type 2 diabetes mellitus with unspecified diabetic retinopathy without macular edema; J45.909 Unspecified asthma, uncomplicated; G47.33 Obstructive sleep apnea (adult) (pediatric); E78.5 Hyperlipidemia, unspecified; I34.0 Nonrheumatic mitral (valve) insufficiency
CPT/HCPCS: 2NASP; 36415; 82436; 87804; 87804-59; 96372; 97110-GO; 97116-GO; 97116-GP; 97162-GP; 97166-GO; 97530-GO; 97530-GP; G8978-GP; G8979-GP; J1644; J2310

== ENCOUNTER 2016-08-04 03:24 | Emergency (ER) | payer OTHER, MEDICARE ==
[~2016-08-04 03:24] MED LIST changes: +AURYXIA210 MG; +CLONAZEPAM1 M2 PO
--- NOTE | 2016-08-04 04:21 | ED GENERAL ADULT ---
History of Present Illness General Chief Complaint: Fever Stated Complaint: FEVER Source: patient, old records, EMS, [facility] Exam Limitations: no limitations Vital Signs & Intake/Output Vital Signs & Intake/Output Vital Signs Date Time Temp Pulse Resp B/P Pulse O2 O2 Flow FiO2 Ox Delivery Rate 08/04 0524 98.9 80 20 110/55 92 Nasal 3.5L Cannula 08/04 0503 97 Nasal 3.0L Cannula 08/04 0330 99.9 87 20 112/53 94 Nasal 3.0L Cannula Allergies Coded Allergies: iron (From VENOFER) (UNKNOWN 07/04/16) Reconcile Medications Amlodipine Besylate 10 MG TABLET 1 TAB PO DAILY HEART HEALTH (Reported) Cinacalcet HCl (Sensipar) 30 MG TABLET 1 TAB PO DAILY KIDNEYS (Reported) Clonazepam 1 MG TABLET 0.5 TAB PO BID PRN ANXIETY (Reported) Darbepoetin Hern[place] in Polysorbat (Aranesp) 40 MCG/0.4 ML SYRINGE 1 1ML SC SEE ADMIN CRITERIA DURING DIALYSIS 0.45 mcg/kg SC/IV Ergocalciferol (Vitamin D2) (Vitamin D2) 50,000 UNIT CAPSULE 50,000 IU PO QSAT Low Vit D Follow the Instruction for 8 weeks then check Vit D level Escitalopram Oxalate 20 MG TABLET 1 TAB PO DAILY MENTAL HEALTH (Reported) Insulin Glargine,Hum.rec.anlog (Lantus Solostar) 100 UNIT/ML (3 ML) INSULN.PEN 24 UNITS SC BID DM (Reported) Insulin Lispro (Humalog Kwikpen U-100) 100 UNIT/ML INSULN.PEN 1 UNITS SC TIDAC /HS DM before meals <150 mg /dl - no coverage 150 -200 - 4 units 201- 250 - 6 unit 251 -300 - 8 unit s 301- 350 - 10 UNITS 351- 400 --- 12 UNITS >400 ----14 UNITS BED TIME 201 -250 -1 UNIT 251 - 300 - 2 UNIT 301- 350 - 3 UNIT 351 - 400 -- 4 UNIT >400 ---- 5 UNIT Loratadine (Claritin) 10 MG TABLET 1 TAB PO DAILY ALLERGY Metoprolol Tartrate 50 MG TABLET 1 TAB PO BID HTN (Reported) Olanzapine 5 MG TABLET 1 TAB PO QPM MENTAL HEALTH (Reported) Pregabalin (Lyrica) 100 MG CAPSULE 1 CAP PO TID PRN NEUROPATHY (Reported) Triage Note: PER [facility]CF PT HAD DIALYSIS SUNDAY AND SPIKED A TEMP TO 102.5 AND LOW SATS GIVEN TYLENOL AND TEMP WENT TO 101.9 SENT PER ORDER OF MD. Triage Nurses Notes Reviewed? yes Onset: Just prior to arrival Duration: minute(s):, better, gone now Timing: recent history Severity: moderate Modifying Factors: Improves With: medication (tylenol). HPI: Referred by [facility] for fever to 102 low oxygen saturation. Patient was not placed on CPAP as ordered for RENEE. Currently he denies chest pain cough shortness of breath headache dysuria rash bleeding and is afebrile. Past History Travel History Traveled to [facility] [place] past 21 day No Medical History Any Pertinent Medical History? see below for history Neurological: migraine, peripheral neuropathy EENT: diabetic retinopathy Cardiovascular: CHF, hypertension, hyperlipidemia, mitral regurgitation, he has chronic fluid overload due to his inabilityto adhere to the necessary dietary restrictions of sodium and fluid intake. 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 No Review of Systems Review of Systems Constitutional: Reports: see HPI, fever. EENTM: Reports: no symptoms. Respiratory: Reports: no symptoms. Cardiovascular: Reports: no symptoms. GI: Reports: no symptoms. Genitourinary: Reports: no symptoms. Musculoskeletal: Reports: no symptoms. Skin: Reports: no symptoms. Neurological/Psychological: Reports: no symptoms. Hematologic/Endocrine: Reports: no symptoms. Immunologic/Allergic: Reports: no symptoms. All Other Systems: Reviewed and Negative Physical Exam Physical Exam General Appearance: mild distress, obese Head: atraumatic, normal appearance Eyes: Bilateral: normal appearance, PERRL, EOMI. Ears, Nose, Throat: normal pharynx, normal ENT inspection Neck: normal inspection, supple, full range of motion, no midline tenderness Respiratory: chest non-tender, no respiratory distress, quiet respiration, decreased breath sounds Cardiovascular: regular rate/rhythm, normal peripheral pulses, norml femoral pulses equa Peripheral Pulses: 4+ carotid (R), 4+ carotid (L) Gastrointestinal: normal bowel sounds, soft, non-tender, no organomegaly Back: normal inspection, normal range of motion Extremities: normal inspection, pedal edema Neurologic/Psych: awake, alert, gambling counsellor II-XII nml as tested, motor weakness Reflexes: 2+: bicep (R), bicep (L). Skin: intact, normal color Lymphatic: no anterior cervical meagan Core Measures ACS in differential dx? No CVA/TIA Diagnosis: No Severe Sepsis Present: No Septic Shock Present: No Progress Differential Diagnoses I considered the following diagnoses in my evaluation of the patient: UTI pneumonia atelectasis fever influenza Plan of Care: Orders Procedure Date/time Status ARTERIAL BLOOD GAS (GEN) 08/04 0447 Complete RAPID VIRAL INFLUENZA A 08/04 0346 Complete URINALYSIS 08/04 0346 Active Laboratory Tests 08/04/16 0500: pH 7.31 L, pCO2 50 H, pO2 97, HCO3 25, ABG O2 Sat (Measured) 96.0, P-50 (Temp Corrected) Y, Carboxyhemoglobin 1.0 L, O2 Concentration % 3 LPM, Temperature 99.9, O2 Delivery Method N/C, Phlebotomy Draw Site RIGHT RADIAL Microbiology 08/04 0400 NASOPHARYN: Influenza Virus A & B Rapid Smear - COMP Diagnostic Imaging: Viewed by Me: Radiology Read. Discussed w/RAD: Radiology Read. CXR Impression: Suspect linear right basilar atelectasis. No additional consolidation. Prominent cardiac silhouette. Initial ED EKG: none Departure Departure Time of Disposition: 06 Disposition: ACUTE REHAB FACILITY Condition: Stable Clinical Impression Primary Impression: Obstructive sleep apnea Secondary Impressions: Atelectasis of right lung Fever Qualifiers: Fever type: unspecified Qualified Code: R50.9 - Fever, unspecified Referrals: GUILLERMO BEAR,BLANCA Chun (PCP/Family) Departure Forms: Customer Survey General Discharge Information Critical Care Note Critical Care Note Critical Care Time: non-applicable
--- NOTE | 2016-08-04 04:32 | RADIOLOGY REPORT ---
EXAMINATION: XR PORTABLE CHEST CLINICAL INFORMATION: Fever, chills COMPARISON: 07/31/2016 TECHNIQUE: Portable AP view of the chest was obtained. FINDINGS: Lung volumes are symmetric. No focal consolidation is seen. Linear atelectasis is suspected at the right lung base. No evidence of pneumothorax, significant pleural effusion, or overt pulmonary edema. The cardiac silhouette is prominent. No acute osseous findings are seen. IMPRESSION: Suspect linear right basilar atelectasis. No additional consolidation. Prominent cardiac silhouette.
[2016-08-04 05:24] VITALS: BP 110/55
== END 2016-08-04 07:00 ==
LOC: ERH 03:24
DX: G47.33 Obstructive sleep apnea (adult) (pediatric) (principal); J98.11 Atelectasis; R50.9 Fever, unspecified
CPT/HCPCS: 1263; 87804; 87804-59

== ENCOUNTER 2016-08-04 23:54 | Inpatient (IN) | payer OTHER, MEDICARE ==
[~2016-08-04] VITALS: Ht 172.7 cm; Wt 167.4 kg
--- NOTE | 2016-08-05 00:05 | ED GENERAL ADULT ---
History of Present Illness General Chief Complaint: General Adult Stated Complaint: BIBA MULTI COMPLAINTS Source: patient Exam Limitations: no limitations Vital Signs & Intake/Output Vital Signs & Intake/Output Vital Signs Date Time Temp Pulse Resp B/P Pulse O2 O2 Flow FiO2 Ox Delivery Rate 08/05 0030 100 Nasal 3.5L Cannula 08/05 0006 99.7 94 20 111/53 95 Nasal 3.0L Cannula Allergies Coded Allergies: iron (From VENOFER) (UNKNOWN 07/04/16) Reconcile Medications Amlodipine Besylate 10 MG TABLET 1 TAB PO DAILY HEART HEALTH (Reported) Cinacalcet HCl (Sensipar) 30 MG TABLET 1 TAB PO DAILY KIDNEYS (Reported) Clonazepam 1 MG TABLET 0.5 TAB PO BID PRN ANXIETY (Reported) Darbepoetin [place] in Polysorbat (Aranesp) 40 MCG/0.4 ML SYRINGE 1 1ML SC SEE ADMIN CRITERIA DURING DIALYSIS 0.45 mcg/kg SC/IV Ergocalciferol (Vitamin D2) (Vitamin D2) 50,000 UNIT CAPSULE 50,000 IU PO QSAT Low Vit D Follow the Instruction for 8 weeks then check Vit D level Escitalopram Oxalate 20 MG TABLET 1 TAB PO DAILY MENTAL HEALTH (Reported) Insulin Glargine,Hum.rec.anlog (Lantus Solostar) 100 UNIT/ML (3 ML) INSULN.PEN 24 UNITS SC BID DM (Reported) Insulin Lispro (Humalog Kwikpen U-100) 100 UNIT/ML INSULN.PEN 1 UNITS SC TIDAC /HS DM before meals <150 mg /dl - no coverage 150 -200 - 4 units 201- 250 - 6 unit 251 -300 - 8 unit s 301- 350 - 10 UNITS 351- 400 --- 12 UNITS >400 ----14 UNITS BED TIME 201 -250 -1 UNIT 251 - 300 - 2 UNIT 301- 350 - 3 UNIT 351 - 400 -- 4 UNIT >400 ---- 5 UNIT Loratadine (Claritin) 10 MG TABLET 1 TAB PO DAILY ALLERGY Metoprolol Tartrate 50 MG TABLET 1 TAB PO BID HTN (Reported) Olanzapine 5 MG TABLET 1 TAB PO QPM MENTAL HEALTH (Reported) Pregabalin (Lyrica) 100 MG CAPSULE 1 CAP PO TID PRN NEUROPATHY (Reported) Triage Nurses Notes Reviewed? yes Onset: Gradual Duration: week(s):, waxing and waning Injury Environment: SHORT-TERM REHABILITATION Severity: moderate Modifying Factors: Improves With: rest, other (BETTER WITH OXYGEN). Associated Symptoms: DYSPNEA, MIGRAINE HEADACHES, ELEVATED GLUCOSE HPI: 36 yo gentleman, with esrd, on 3liters nasal cannula for pneumonia, brought in by ambulance, due to low grade temperatures, headache, body aches, dyspnea. He notes no chest pain, shortness of breath, diarrhea, abdominal pain. Past History Travel History Traveled to [place] past 21 day No Medical History Any Pertinent Medical History? see below for history Neurological: migraine, peripheral neuropathy EENT: diabetic retinopathy Cardiovascular: CHF, hypertension, hyperlipidemia, mitral regurgitation, he has chronic fluid overload due to his inabilityto adhere to the necessary dietary restrictions of sodium and fluid intake. 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 Psychosocial History Who do you live with Brother What is your primary language Hebrew Family History Family History, If Any: FATHER Myocardial infarction at age less than 60 MOTHER Hodgkin's sarcoma Relation not specified for: FH: CAD (coronary artery disease) FH: HTN (hypertension) Hx Contributory? No Review of Systems Review of Systems Constitutional: Reports: no symptoms. EENTM: Reports: no symptoms. Respiratory: Reports: no symptoms. Cardiovascular: Reports: no symptoms. GI: Reports: no symptoms. Genitourinary: Reports: no symptoms. Musculoskeletal: Reports: no symptoms. Skin: Reports: no symptoms. Neurological/Psychological: Reports: no symptoms. Hematologic/Endocrine: Reports: no symptoms. Immunologic/Allergic: Reports: no symptoms. All Other Systems: Reviewed and Negative Physical Exam Physical Exam General Appearance: well developed/nourished, mild distress Head: atraumatic, normal appearance Eyes: Bilateral: normal appearance. Ears, Nose, Throat: normal pharynx, normal ENT inspection Neck: normal inspection, supple, full range of motion Respiratory: decreased breath sounds Cardiovascular: regular rate/rhythm Gastrointestinal: normal bowel sounds, soft, non-tender, no organomegaly Back: normal inspection, normal range of motion Extremities: normal inspection, normal capillary refill, diffuse edema Neurologic/Psych: no motor/sensory deficits, awake, alert, oriented x 3 Skin: intact, normal color, warm/dry Core Measures ACS in differential dx? No CVA/TIA Diagnosis: No Severe Sepsis Present: No Septic Shock Present: No Progress Differential Diagnoses I considered the following diagnoses in my evaluation of the patient: pneumonia, chf vs sepsis vs other. Plan of Care: Orders Procedure Date/time Status Nothing by Mouth 08/05 B Active Saline Lock 08/05 012 Active Misc Message 08/05 012 Active ED Holding Orders 08/05 012 Active Admit to inpatient 08/05 012 Active Saline Lock 08/05 0035 Active Misc Message 08/05 0035 Active ED Holding Orders 08/05 0035 Active Vital Signs 08/05 003 Active Code Status 08/05 0035 Active Admit to inpatient 08/05 0034 Active Diagnostic Imaging: Viewed by Me: Radiology Read. Discussed w/RAD: Radiology Read. Radiology Impression: CXR AT REHAB, DATED 08/04/16, 8PM... RIGHT ATELECTASIS VS INFILTRATE Initial ED EKG: none Departure Departure Disposition: STILL A PATIENT Condition: Stable Clinical Impression Primary Impression: Hyponatremia Secondary Impressions: Dyspnea, ESRD (end stage renal disease) on dialysis, Hyperglycemia, Obesity Referrals: GUILLERMO BEAR,BLANCA Chun (PCP/Family) Departure Forms: Customer Survey General Discharge Information Admission Note Spoke With: TRUNG MANRIQUEZ MD Documentation of Exam: Documentation of any treatments & extenuating circumstances including Concerns Regarding Discharge (functional status, medication knowledge or non-compliance, living conditions, etc.) that warrant an admission rather than observation: 36-year-old gentleman with a constellation of symptoms that make it so he cannot be cared for at short-term rehabilitation. These problems include hyperglycemia to the 400s, hyponatremia, hypoxemia this fluctuating O2 sat. In the ED as O2 sat was 86% on room air and 92% on 3 L nasal cannula. Her plan will be to medically optimize him. We will consider pneumonia, however this seems unlikely since he has no fever cough or sputum or elevated white count. He is also due for dialysis later today.
--- NOTE | 2016-08-05 00:11 | NUR ---
PT YAMILET FROM [facility] C/O SOB. PT WAS IN [facility] LAST NIGHT FOR GENERALIZED WEAKNESS, RN AT [facility] STATES THAT PT EVALUATED PT THIS MORNING AND PT LEFT SIDE WAS WEAKER THAN RIGHT. ON ARRIVAL PT IS A&0 X3, NO ACUTE DISTRESS NOTED, PT IS ON 3.5 L 02NC AT HOME AND ON ARRIVAL. PT REQUESTING VANCOMYCIN "EVERYTIME MY LEGS SWELL AND I GET WEAK I GOT IV VANCOMYCIN AND IM FIXED" [facility], DR SNYDER IN FOR EVAL. PT REFUSED IV IN AMBULANCE AND STATED TO MEDIC "I WANT ONE WHEN I GET THERE"
--- NOTE | 2016-08-05 00:26 | NUR ---
IV ACCESS ESTABLISHED BY THIS RN RFA #[id number]. BS [id number], DR SNYDER INFORMED LABS DRAWN AND SENT BY THIS RN (SST, [place], BLUE ,LAV)
--- NOTE | 2016-08-05 00:27 | NUR ---
PT HAS LEFT RESTRICTED EXTREMEITY DUE TO FISTULA FOR DIALYSIS.
--- NOTE | 2016-08-05 00:50 | NUR ---
PT MEDICATED WITH 5UNITS NOVOLIN R IV, AND 10UNITS SC NOVOLIN R PER EMAR FOR BS [id number].
--- NOTE | 2016-08-05 01:00 | NUR ---
MICHAEL ARTIS FROM [facility] CALLED THIS RN AND STATED THAT AFTER PT LEFT HIS ROOM WAS BEING CLEANED AND 1 TAB FLEXERIL WAS FOUND IN HIS BED SHEETS AND PT IS NOT PRESCRIBED FLEXERIL.
--- NOTE | 2016-08-05 02:02 | History & Physical ---
JOSE BEAR,[facility] 08/05/16 0202: General Information and HPI MD Statement: I have seen and personally examined KRISSY MORALES and documented this H&P. The patient is a 36 year old M who presented with a patient stated chief complaint of suspected pneumonia after C-Xray was done at [facility]. Source of Information: patient, old records Exam Limitations: no limitations History of Present Illness: Mr Morales is a 36 year old gentleman with PMH of morbid obesity,HTN, HLD, HFpEF (EF 60%), ESRD on HD 4 days/week (M,T,T,S), IDDM, peripheral neuropathy and retinopathy, RENEE on 2L home oxygen & CPAP, asthma, Crohn's disease, depression and PTSD who presented to the emergency on 08/05/2016 after the patient stated that an x-ray done at the short term rehab where he was undergoing therapy showed evidence of pneumonia. Patient also endorses subjective chills and reports a fever. Patient also reports cough with minimal sputum production and right-sided chest pain. He rates his chest pain is 7 out of 10 in severity. Worse with movement. Described as a sharp pain. Patient also endorses headache owing to history of migraine. He rates his headache as a 7 out of 10 in severity. Bilateral in nature. Retro-orbital in position and worse with light and excessive noise. Allergies/Medications Allergies: Coded Allergies: iron (From VENOFER) (UNKNOWN 07/04/16) Home Med list Amlodipine Besylate 10 MG TABLET 1 TAB PO DAILY HEART HEALTH (Reported) Cinacalcet HCl (Sensipar) 30 MG TABLET 1 TAB PO DAILY KIDNEYS (Reported) Clonazepam 1 MG TABLET 0.5 TAB PO BID PRN ANXIETY (Reported) Darbepoetin [place] in Polysorbat (Aranesp) 40 MCG/0.4 ML SYRINGE 1 1ML SC SEE ADMIN CRITERIA DURING DIALYSIS 0.45 mcg/kg SC/IV Ergocalciferol (Vitamin D2) (Vitamin D2) 50,000 UNIT CAPSULE 50,000 IU PO QSAT Low Vit D Follow the Instruction for 8 weeks then check Vit D level Escitalopram Oxalate 20 MG TABLET 1 TAB PO DAILY MENTAL HEALTH (Reported) Insulin Aspart (Novolog) 100 UNIT/ML VIAL 0 UNITS SC TIDAC/HS DIABETES pre-meal blood sugar - NovoLog dose 80-150 - 8 units 151-200 - 9 units 201-250 - 10 units 251-300 - 11 units 301-350 - 12 units 351-400 - 13 units Bedtime sliding scale <250 - no insulin 251-300 - 3 units 301-350 - 4 units 351-400 - 5 units Insulin Glargine,Hum.rec.anlog (Lantus Solostar) 100 UNIT/ML (3 ML) INSULN.PEN 24 UNITS SC BID DM (Reported) Insulin Lispro (Humalog Kwikpen U-100) 100 UNIT/ML INSULN.PEN 1 UNITS SC TIDAC /HS DM before meals 80-150 mg/dl--8 units 151-200 mg/dl--9 units 201-250 mg/dl--10 units 251-300 mg/dl-- 11 units 301-350 mg/dl--13 units BEDTIME DOSING less than 250-No insulin 251-300 mg/dl--3 units 301-350 mg/dl--4 units 351-400 mg/dl 5 units 351- 400 --- 12 UNITS >400 ----14 UNITS BED TIME 201 -250 -1 UNIT 251 - 300 - 2 UNIT 301- 350 - 3 UNIT 351 - 400 -- 4 UNIT >400 ---- 5 UNIT Loratadine (Claritin) 10 MG TABLET 1 TAB PO DAILY ALLERGY Metoprolol Tartrate 50 MG TABLET 1 TAB PO BID HTN (Reported) Olanzapine 5 MG TABLET 1 TAB PO QPM MENTAL HEALTH (Reported) Pregabalin (Lyrica) 100 MG CAPSULE 1 CAP PO TID PRN NEUROPATHY (Reported) Compliance With Home Meds: UNKNOWN Past History Travel History Traveled to [place] past 21 day No Medical History Neurological: migraine, peripheral neuropathy EENT: diabetic retinopathy Cardiovascular: CHF, hypertension, hyperlipidemia, mitral regurgitation, he has chronic fluid overload due to his inabilityto adhere to the necessary dietary restrictions of sodium and fluid intake. 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 Acute [facility]hab Who Do You Live With? brother Primary Language: Kazakh Living Will? no Power of Zipper Sewing Machine Operator/HCP? no Functional Ability ADLs Independent: dressing, eating, toileting, bathing. Ambulation: cane IADLs Independent: shopping, housework, finances, food prep, telephone, transportation , medication admin. Review of Systems Review of Systems Constitutional: Reports: chills, fever. Denies: weakness. Cardiovascular: Reports: chest pain, peripheral edema. Denies: edema, orthopena, palpitations, syncope. Respiratory: Denies: cough, hemoptysis, orthopnea, short of breath, sputum production. GI: Reports: abdominal pain. Denies: bloating, constipation, diarrhea, distention, bowel incontinence, nausea, bloody stool. Genitourinary: Denies: discharge, dysuria, frequency, hematuria. Musculoskeletal: Denies: back pain, gout, joint pain, joint swelling. Skin: Denies: change in skin color, change in hair/nails, dryness, erythema. Exam & Diagnostic Data Last 24 Hrs of Vital Signs/I&O Vital Signs Date Time Temp Pulse Resp B/P Pulse O2 O2 Flow FiO2 Ox Delivery Rate 08/05 0529 94 Nasal 3.0L Cannula 08/05 0400 98.4 101 16 125/43 94 Nasal 3.0L Cannula 08/05 0030 100 Nasal 3.5L Cannula 08/05 0006 99.7 94 20 111/53 95 Nasal 3.0L Cannula Intake & Output 08/05 0800 08/05 0000 08/04 1600 Intake Total Output Total Balance Patient 100.244 kg Weight Physical Exam General Appearance Alert, Oriented X3, Cooperative Neck Supple Lymphatic Cervical Lymphadenopathy Cardiovascular Normal S1, Normal S2 Lungs Clear to Auscultation Abdomen Normal Bowel Sounds, Soft, No Tenderness, Distended Neurological Strength at 5/5 X4 Ext, Sensation Intact Extremities Edema 3+ Assessment/Plan Assessment: Mr Morales is a 36 year old gentleman with PMH of morbid obesity, noncompliance , HTN, HLD, HFpEF (EF 65%), ESRD on HD 4 days/week (MTTS), IDDM, peripheral neuropathy and retinopathy, RENEE on 2L home oxygen & CPAP, asthma Crohn's disease , depression and PTSD who presented with questionable pneumonia after a C-Xray was done at the [facility] Facility. #Subjective cough and chills On admission patient was afebrile at 99.7. Monitor vitals every 6 hours. Should the patient have evidence of becoming more febrile will consider additional imaging studies and workup. Some evidence of leukocytosis seen on admission. Follow off antibiotics for now. Repeat CBC and BEP in am. #Bilateral worsening edema Patient routinely obtains dialysis on Sunday, , Sunday and Sunday. Nephro consult was placed to schedule the patient for dialysis this a.m. Repeat BEP in a.m. #History of diabetes mellitus On admission glucose was 436. We'll begin the patient on sliding scale insulin. If sugars remain uncontrolled will consider endocrinology consultation. #Obesity hypoventilation syndrome Patient might be candidate for outpatient polysomnography. Continue CPAP. Maintain saturations above 90%. If respiratory function deteriorates, consider pulmonology consultation. #Diet Renal dialysis #DVT prophylaxis Heparin subcutaneous #Code Full code As Ranked By This Provider Problem List: 1. Pneumonia 2. Anxiety 3. ESRD on dialysis 4. Migraine 5. Cough Core Measures/Miscellaneous Acute Coronary Syndrome ACS Diagnosis: No Cerebrovascular Accident CVA/TIA Diagnosis: No Congestive Heart Failure CHF Diagnosis: No Venous Thromboembolism VTE Risk Factors: Acute medical illness, Age > 40 VTE Prophylaxis Ordered Inpt: Pharm- Heparin No Mech VTE prophylaxis d/t: LE Edema No VTE Pharm Prophylaxis d/t: No contraindications VTE Diagnosis: No VTE Type: NONE VTE Confirmed by (Test): NONE Severe Sepsis Severe Sepsis Present: No BC x2: No Septic Shock Septic Shock Present: No Miscellaneous Documentation Attending Case Discussed With: Dr Gallagher Primary Care Physician: BLANCA LI MD Patient sees these Specialists NA Level of Patient Care: General Medicine FREDA GARDNER 08/05/16 0358: Resident Review Statement Resident Statement: examined this patient, discussed with software development intern, agreed with software development intern, reviewed EMR data (avail), discussed with nursing, reviewed images Other Findings: Mr. Morales is a 36-year-old gentleman with PMH of DM, ESRD on HD (MWF), HTN, anxiety, obesity, peripheral neuropathy, or say/obesity hypoventilation syndrome on 2 LNC at home, chronic disease who presents from rehabilitation facility with complaints of 2 day duration headache, shortness of breath and intermittent episodes of subjective fevers/chills. Patient was discharged from [facility] on 08/02/16 after presenting with complaints of left hip pain secondary to a fall and missed dialysis session. He reports since going to the rehabilitation facility he has had progressive shortness of breath, intermittent nonproductive coughs. Chest x-ray done on 08/04/16: Suspect linear right basilar atelectasis. No additional consolidation. Prominent cardiac silhouette. ROS: He reports a stabbing/pressure headache worse when he wakes up, decrease in appetite, increased abdominal distention. VS on admission: BP 111/53, HR 94, RR 20, SPO2 95% on 3 LNC, T 99.7 ABG prior to presentation: 7.36/48/68/92/27 on 2.5 LNC Physical exam: AAO, in no acute distress, slight increased respiratory effort, distant lung sounds bilaterally with slight wheezing on expiration. Distant heart sounds, normal S1/S2. Distant bowel sounds. Chronic lower extremity pitting edema Pertinent labs: WBC 12.1, H&H 9.0/28.8, platelets 265. Sodium 128, potassium 4.2, chloride 86, BUN/CR 47/7., glucose 336 Problem list: 1. Dyspnea at rest 2. Headache: Likely secondary to uncontrolled RENEE 3. ESRD on HD 4. Diabetes 5. Hypertension 6. Peripheral neuropathy Plan: * Admit to general medicine floor * At this time in the setting of normal CXR as indicated above before starting any antibiotics. If progressive symptoms would obtain repeat CXR and sputum culture * Follow-up EKG and troponin in the a.m. * Patient would benefit from outpatient sleep study. We'll follow-up with the patient is to see if amenable for follow-up * Nephrology already consult at for HD on Sunday * Continue with sliding scale * We'll continue amlodipine 10 mg, metoprolol tartrate 50 mg BID for BP control * Pregabalin 10 mg TID PRN for neuropathic pain. Consider dose decrease in the setting of ESRD * Renal dialysis diet * DVT prophylaxis: Heparin 5000 units subcutaneous * CODE STATUS: Full code TRUNG GALLAGHER 08/05/16 0459: Attending MD Review Statement Attending Statement Attending MD Statement: examined this patient, discuss w/resident/PA/USED EQUIPMENT SALES REPRESENTATIVE, agreed w/resident/PA/USED EQUIPMENT SALES REPRESENTATIVE, reviewed EMR data (avail), reviewed images, amended to note Attending Assessment/Plan: CC : sent from [facility] for [place] PMH: morbid obesity, noncompliance, HTN, HLD, HFpEF (EF 65%), ESRD on HD 4 days/ week (MTTS), IDDM, peripheral neuropathy and retinopathy, RENEE on 3 L home oxygen & CPAP, asthma Crohn's disease, depression and PTSD Patient is been recurrently admitted in hospital for various reason, missing dialysis, chronic pain, confusion, volume overload. Recently discharged to short -term rehabilitation on Aug 02. He was sent to ER on Aug 04 morning for fever, according to the records 100.2 (?), and low oxygen saturation. He was overnight in ER, investigated with chest x-ray, ABG, influenza test and discharged to [facility] director software. He was sent back to ER for suspected pneumonia, fever, low oxygen saturation. Patient denies any new cough, sputum production, worsening shortness of breath, abdominal pain or diarrhea. He endorses right-sided chest pain, worse with movements, does not change with breathing, no chest tightness. Vitals: T max: 99.7, pulse 94, RR 20 BP 111/53 Saturating 95% on 3 L. On exam: A O 3, no acute respiratory distress, appropriate answers, Neck supple, no JVD, CVS: S1-S2, RS: Bibasilar crackles. Abdomen: Soft, NT, ND, bowel sounds present. No focal neurological. Dependent edema. Labs: WBC 12.1, neutrophils 71 %, hemoglobin 9.0, sodium 128, potassium 4.2, bicarbonate 27, anion gap 16, BUN 47, creatinine 7.4, glucose 336, calcium 6.8, labs done on August 04, 7 PM. ABG as reported to me by ER physician: PH7.36, PCO2 48, PO2 68, bicarbonate 27 on 2 L NC. CXR: Suspect linear right basilar atelectasis. No additional consolidation. Prominent cardiac silhouette. A and P #1 admitted for suspected pneumonia: Patient did not have any documented fever in ER visit today or yesterday. He has been having low-grade fever in ER up to 99.9 and max in rehabilitation 100.4. Patient has some leukocytosis but in fact trending down from previous hospitalization. He does not have any productive cough. He has significant healthcare exposure with recurrent hemodialysis and hospitalizations but chest x-ray does not show any infiltrates. Given his body habitus chest x-ray will be difficult to evaluate. If patient spikes fever in hospitalization, consider obtaining CT chest without contrast for evaluation of pneumonia. His flu test has been negative so far. Send 2 sets of blood culture if fever spike. I would not suggest to start any antibiotic at this time. In fact the dyspnea can be secondary to his pending dialysis tomorrow patient has significant volume overload along with his OHS and RENEE. He requires 4 times dialysis in a week. Patient does not require more than usual oxygen. He is having by basilar crackles, and dependent edema which is unchanged from previous hospitalization. Inform nephrology, schedule his dialysis tomorrow. Patient does not have any elevated potassium in the evening lapse. Repeat BMP in a.m. #2 history of metabolic encephalopathy: Patient is alert and oriented, without any signs of lethargy or delirium. He will require his scheduled dialysis tomorrow. Avoid opiate medications. #3 ESRD : Scheduled dialysis for tomorrow as mentioned. Inform nephrology of patient being in hospital. #4 hyponatremia: This can be pseudohyponatremia secondary to hyperglycemia along with hypervolemia secondary to ESRD. Repeat labs in a.m. #5 DM: Continue basal and sliding scale insulin. Glucose at presentation was 436. #6 patient has obesity hypoventilation along with sleep apnea refuses nighttime CPAP.
--- NOTE | 2016-08-05 02:15 | NUR ---
HOUSE STAFF IN FOR EVAL
--- NOTE | 2016-08-05 03:29 | NUR ---
REPORT GIVEN TO MICHAEL WALDRON.
--- NOTE | 2016-08-05 03:34 | NUR ---
PTS BLOOD SUGAR CHECKED 349.
[2016-08-05 04:00] VITALS: BP 125/43
--- NOTE | 2016-08-05 05:00 | Admission Certification ---
Admission Certification Certification Statement - As attending physician, I certify that at the time of - admission, based on clinical presentation, severity of - symptoms, need for further diagnostic testing and - therapeutic interventions, and risk of adverse outcomes - without in-hospital treatment, in my clinical assessment, - this patient requires an acute hospital stay for a minimum - of two nights or longer. I have also considered psychsocial - factors such as support system, advanced age, financial - issues, cognitive issues, and failed out-patient treatments, - past re-admission history, safety of patient, and lack of - compliance as applicable. Specific rationale supporting this admission is: Dyspnea
[2016-08-05 07:52] VITALS: BP 160/83
--- NOTE | 2016-08-05 08:29 | NUR ---
RECEIVED PATIENT FROM ER ON A STRETCHER, VERY SLEEPY. BARELY ABLE TO OBTAIN RESPONSE FROM HIM. ALERT AND ORIENTED X3 WHILE AWAKE. LABS OBTAINED AND EKG DONE. ON 3L OXYGEN. REPORT GIVEN TO THE NEXT NURSE.
[2016-08-05 08:30] LABS: ABSOLUTE BASOPHIL COUNT 0 /CUMM (0.0-0.2); ABSOLUTE EOSINOPHIL COUNT 0.3 /CUMM (0.0-0.7); ABSOLUTE GRANULOCYTE CT 9.9 /CUMM (1.4-6.5); ABSOLUTE LYMPH COUNT 0.9 /CUMM (1.2-3.4); ABSOLUTE MONOCYTE COUNT 1.5 /CUMM (0.10-0.60); BASOPHIL % 0 % (0.0-2.0); GRANULOCYTE % 78.9 % (42.2-75.2); HEMATOCRIT 27.6 % (42-52); MEAN CORPUSCULAR HGB 24.2 PG (27.0-31.0); MEAN CORPUSCULAR VOLUME 78.2 FL (80.0-94.0); MEAN PLATELET VOLUME 9.9 FL (7.4-10.4); PLATELET COUNT 253 /CUMM (130-400); RBC DISTRIBUTION WIDTH 25.6 % (11.5-14.5); RED BLOOD CELL CT 3.53 /CUMM (4.70-6.10); WHITE BLOOD CELL COUNT 12.6 /CUMM (4.8-10.8)
--- NOTE | 2016-08-05 08:46 | Event Note ---
Event Note Event Note: Rapid response was called at around 8:30 am on the patient as he was found unresponsive. Me and my resident went to the room shortly after, patient was awake but was somnolent, oriented x3. BP:180/60, KS 101, SO2 94% on 2L. BS 385. Ordered: - ABG : 7.32, pCO2 46, pO2 79 - troponin, EKG - TRC nebs Patient is put on Bipap, needs close monitoring while on dialysis. Family called (brother) and made aware at around 11:30 am. Gave 0.4 mg IV Narcan.
--- NOTE | 2016-08-05 09:31 | PN- Att Addend ---
Attending Addendum Attending Brief Note Notified by nurses this morning that the patient was very difficult to arouse this morning. When I evaluated the patient he was sleeping. He was arousable hold for right back to sleep during conversation. He appeared confused stating that he was on a train. He was unable to maintain conversation. His nurse also reported that his blood glucose level this morning was in the 400s. On admission yesterday his PCO2 was elevated at 50 and he was acidotic with pH of 7.31. He did not utilize CPAP therapy overnight. Review of pH of shows that patient is noncompliant with CPAP therapy. He does have a combination of obstructive and central sleep apnea. Vital Signs Date Time Temp Pulse Resp B/P Pulse O2 O2 Flow FiO2 Ox Delivery Rate 08/05 0752 99.9 101 18 160/83 92 Nasal 3.0L Cannula 08/05 0529 94 Nasal 3.0L Cannula 08/05 0400 98.4 101 16 125/43 94 Nasal 3.0L Cannula 08/05 0030 100 Nasal 3.5L Cannula 08/05 0006 99.7 94 20 111/53 95 Nasal 3.0L Cannula Physical examination. HEENT: Pupils round equal and reactive. Neck: No jugular venous distention Heart: S1-S2 regular lungs normal. Lungs: Diminished entry bilaterally, no added sounds Abdomen: Obese, soft, nontender with normal bowel sounds Extremities: 2+ pedal edema bilaterally. Neurologic: Patient seen awake long enough to allow exam. Laboratory Tests 08/05/16 0845: pH 7.32 L, pCO2 46 H, pO2 79 L, HCO3 23, ABG O2 Sat (Measured) 94.0 L, Carboxyhemoglobin 1.1 L, O2 Concentration % 2L, O2 Delivery Method NC, Phlebotomy Draw Site RIGHT RADIAL 08/05/16 0650: Anion Gap 17 H, Estimated GFR 7 L, BUN/Creatinine Ratio 6.0 L, Phosphorus 5.4 H, Magnesium 2.2, Troponin I < 0.01, CBC w Diff Pending, WBC Pending, RBC Pending, Hgb Pending, Hct Pending, MCV Pending, MCH Pending, RDW Pending, Plt Count Pending, MPV Pending, Gran % Pending, Lymphocytes % Pending, Monocytes % Pending, Eosinophils % Pending, Basophils % Pending, Absolute Granulocytes Pending, Absolute Lymphocytes Pending, Absolute Monocytes Pending, Absolute Eosinophils Pending, Absolute Basophils Pending, PUBS MCHC Pending Problems: 1. Increased somnolence 2. Central/obstructive sleep apnea. 3. Uncontrolled insulin-dependent diabetes mellitus. 4. End-stage renal disease on hemodialysis. 5. Chronic presented ejection fraction heart failure. 6. History of fever 7. Hyponatremia Plan: -Repeat ABG this morning shows persistent CO2 retention and respiratory acidosis. -Place patient on CPAP therapy this morning and re-evaluate mental status. If no improvement obatin pulmonary consult. -Recommend CPAP therapy at night. Titrate oxygen supplementation the lowest level to maintain saturation greater than 90%. -He received clonazepam around 5 AM this morning. Recommend administrating benzos and other sedatives with caution in this patient with sleep apnea and high propensity for retaining CO2. -Review of EHR shows the patient did not receive insulin therapy last night. Administer his routine a.m. dose and coverage and reevaluate blood glucose level today. -Follow-up with the nephrology service regarding hemodialysis. His hyponatremia is likely secondary to volume overload. -He was sent in on account of fever. He has been afebrile here with no evidence of infection. We'll continue to monitor patient off antibiotic therapy. If he becomes febrile obtain blood cultures and chest CT.
--- NOTE | 2016-08-05 11:14 | PN- Nephrology ---
Assessment/Plan Assessment: ESRD: due to diabetic nephropathy; doubt mental status related to "uremia". Needs to move to ICU setting for closer monitoring as plan dialysis later today Suggestion: transfer ICU HD later today Subjective Subjective: Readmitted last night after discharge 08/02 Now poorly responsive on bipap Last known HD Thur Review of Systems: unable Objective Vital Signs and I&Os Vital Signs Date Time Temp Pulse Resp B/P Pulse O2 O2 Flow FiO2 Ox Delivery Rate 08/05 1058 94 Nasal 2.0L Cannula 08/05 1010 160/83 08/05 1009 101 160/83 08/05 0752 99.9 101 18 160/83 92 Nasal 3.0L Cannula 08/05 0529 94 Nasal 3.0L Cannula 08/05 0400 98.4 101 16 125/43 94 Nasal 3.0L Cannula 08/05 0030 100 Nasal 3.5L Cannula 08/05 0006 99.7 94 20 111/53 95 Nasal 3.0L Cannula Intake & Output 08/05 1600 08/05 0400 08/04 1600 08/04 0400 08/03 1600 08/03 0400 Intake Total 50 Output Total Balance 50 Intake, Oral 50 Patient 221 lb 310 lb Weight Physical Exam General Appearance: lethargic, obese Head: atraumatic, normal appearance Ears, Nose, Throat: bipap mask Neck: normal inspection Respiratory: no rales - poor effort Cardiovascular: regular rate/rhythm Abdomen: soft, non-tender Extremities: + bruit PAUL AVF Neurologic/Psychiatric: stuprous - barely arouseable Skin: intact, normal color Current Medications: Current Medications Sig/Georgina Start time Last Medication Dose Route Stop Time Status Admin Acetaminophen 650 MG Q4P PRN 08/05 0315 CAN PO Acetaminophen 650 MG Q6P PRN 08/05 0245 DC PO Amlodipine Besylate 10 MG DAILY 08/05 1000 AC 08/05 PO 1009 Cinacalcet 30 MG DAILY 08/05 1000 AC 08/05 PO 1010 Clonazepam 0.5 MG BID PRN 08/05 0430 AC 08/05 PO 08/12 0429 0500 Ergocalciferol 50,000 IU QSAT 08/05 0700 AC 08/05 PO 0716 Escitalopram Oxalate 20 MG DAILY 08/05 1000 AC 08/05 PO 1007 Heparin Sodium 5,000 UNIT Q8 08/05 0600 AC 08/05 (Porcine) SC 0650 Ibuprofen 600 MG Q6P PRN 08/05 0315 AC PO Insulin Aspart 0 TIDAC 08/05 0800 AC 08/05 SC 0830 Insulin Detemir 24 UNITS BID 08/05 1000 AC 08/05 SC 1013 Insulin Human Regular 10 UNITS ONCE ONE 08/05 0045 DC 08/05 SC 08/05 0046 0050 Insulin Human Regular 5 UNITS ONCE ONE 08/05 0045 DC 08/05 IV 08/05 0046 0050 Loratadine 10 MG DAILY 08/05 1000 AC 08/05 PO 1008 Metoprolol Tartrate 50 MG BID 08/05 1000 AC 08/05 PO 1010 Olanzapine 5 MG QPM 08/05 2200 AC PO Oxycodone/ 1 TAB Q6P PRN 08/05 0245 DC Acetaminophen PO Oxycodone/ 2 TAB Q6P PRN 08/05 0245 DC Acetaminophen PO Pregabalin 100 MG TID PRN 08/05 0430 AC 08/05 PO 0500 Results Pertinent Lab Results: Laboratory Tests 08/05 08/05 0845 0650 Blood Gas pH (7.35 - 7.45 PH) 7.32 L pCO2 (35 - 45 TORR) 46 H pO2 (80 - 100 TORR) 79 L HCO3 (21 - 28 MEQ/L) 23 ABG O2 Sat (Measured) (>96.0 %) 94.0 L Carboxyhemoglobin (1.5 - 5.0 %) 1.1 L O2 Concentration % 2L O2 Delivery Method NC Chemistry Sodium (137 - 145 mmol/L) 127 L Potassium (3.5 - 5.1 mmol/L) 4.3 Chloride (98 - 107 mmol/L) 87 L Carbon Dioxide (22 - 30 mmol/L) 23 Anion Gap (5 - 16) 17 H BUN (9 - 20 mg/dL) 50 H Creatinine (0.7 - 1.2 mg/dL) 8.4 *H Estimated GFR (>60 ml/min) 7 L BUN/Creatinine Ratio (7 - 25 %) 6.0 L Phosphorus (2.5 - 4.5 mg/dL) 5.4 H Magnesium (1.6 - 2.3 mg/dL) 2.2 Troponin I (<0.11 ng/ml) < 0.01 Hematology CBC w Diff MAN DIFF ORDERED WBC (4.8 - 10.8 /CUMM) 12.6 H RBC (4.70 - 6.10 /CUMM) 3.53 L Hgb (14.0 - 18.0 G/DL) 8.6 L Hct (42 - 52 %) 27.6 L MCV (80.0 - 94.0 FL) 78.2 L MCH (27.0 - 31.0 PG) 24.2 L RDW (11.5 - 14.5 %) 25.6 H Plt Count (130 - 400 /CUMM) 253 MPV (7.4 - 10.4 FL) 9.9 Gran % (42.2 - 75.2 %) 78.9 H Lymphocytes % (20.5 - 51.1 %) 7.3 L Monocytes % (1.7 - 9.3 %) 11.8 H Eosinophils % (0 - 5 %) 2.0 Basophils % (0.0 - 2.0 %) 0 L Absolute Granulocytes (1.4 - 6.5 /CUMM) 9.9 H Segmented Neutrophils (42.2 - 75.2 %) 68 Band Neutrophils (0.0 - 5.0 %) 8 H Absolute Lymphocytes (1.2 - 3.4 /CUMM) 0.9 L Lymphocytes (20.5 - 51.1 %) 7 L Monocytes (1.7 - 9.3 %) 11 H Absolute Monocytes (0.10 - 0.60 /CUMM) 1.5 H Eosinophils (0 - 5.0 %) 5 Absolute Eosinophils (0.0 - 0.7 /CUMM) 0.3 Absolute Basophils (0.0 - 0.2 /CUMM) 0 Metamyelocytes (0.0 - 1.0 %) 1 Nucleated RBCs (0.0 - 0.0 /100WBC) 3 H Platelet Estimate (ADEQUATE) ADEQUATE Polychromasia 1+ Hypochromic-Microcytic 2+ Poikilocytosis 2+ Anisocytosis 2+ Microcytic Cells 1+ PUBS MCHC (33.0 - 37.0 G/DL) 31.0 L Miscellaneous Phlebotomy Draw Site RIGHT RADIAL Imaging/Other Studies: EXAMINATION: XR PORTABLE CHEST CLINICAL INFORMATION: Fever, chills COMPARISON: 07/31/2016 TECHNIQUE: Portable AP view of the chest was obtained. FINDINGS: Lung volumes are symmetric. No focal consolidation is seen. Linear atelectasis is suspected at the right lung base. No evidence of pneumothorax, significant pleural effusion, or overt pulmonary edema. The cardiac silhouette is prominent. No acute osseous findings are seen. IMPRESSION: Suspect linear right basilar atelectasis. No additional consolidation. Prominent cardiac silhouette.
--- NOTE | 2016-08-05 11:52 | Cons- CRCU ---
General Information and HPI Consulting Request Date of Consult: 08/05/16 Requested By: Mckinley Bowling MD Reason for Consult: Increasing somnolence Source of Information: patient, old records Allergies/Medications Allergies: Coded Allergies: iron (From VENOFER) (UNKNOWN 07/04/16) Home Med List: Amlodipine Besylate 10 MG TABLET 1 TAB PO DAILY HEART HEALTH (Reported) Cinacalcet HCl (Sensipar) 30 MG TABLET 1 TAB PO DAILY KIDNEYS (Reported) Clonazepam 1 MG TABLET 0.5 TAB PO BID PRN ANXIETY (Reported) Darbepoetin [place] in Polysorbat (Aranesp) 40 MCG/0.4 ML SYRINGE 1 1ML SC SEE ADMIN CRITERIA DURING DIALYSIS 0.45 mcg/kg SC/IV Ergocalciferol (Vitamin D2) (Vitamin D2) 50,000 UNIT CAPSULE 50,000 IU PO QSAT Low Vit D Follow the Instruction for 8 weeks then check Vit D level Escitalopram Oxalate 20 MG TABLET 1 TAB PO DAILY MENTAL HEALTH (Reported) Insulin Glargine,Hum.rec.anlog (Lantus Solostar) 100 UNIT/ML (3 ML) INSULN.PEN 24 UNITS SC BID DM (Reported) Insulin Lispro (Humalog Kwikpen U-100) 100 UNIT/ML INSULN.PEN 1 UNITS SC TIDAC /HS DM before meals <150 mg /dl - no coverage 150 -200 - 4 units 201- 250 - 6 unit 251 -300 - 8 unit s 301- 350 - 10 UNITS 351- 400 --- 12 UNITS >400 ----14 UNITS BED TIME 201 -250 -1 UNIT 251 - 300 - 2 UNIT 301- 350 - 3 UNIT 351 - 400 -- 4 UNIT >400 ---- 5 UNIT Loratadine (Claritin) 10 MG TABLET 1 TAB PO DAILY ALLERGY Metoprolol Tartrate 50 MG TABLET 1 TAB PO BID HTN (Reported) Olanzapine 5 MG TABLET 1 TAB PO QPM MENTAL HEALTH (Reported) Pregabalin (Lyrica) 100 MG CAPSULE 1 CAP PO TID PRN NEUROPATHY (Reported) Past History Travel History Traveled to [place] past 21 day No Medical History Neurological: migraine, peripheral neuropathy EENT: diabetic retinopathy Cardiovascular: CHF, hypertension, hyperlipidemia, mitral regurgitation, he has chronic fluid overload due to his inabilityto adhere to the necessary dietary restrictions of sodium and fluid intake. Respiratory: asthma, obstructive sleep apnea, pneumonia Gastrointestinal: Crohn's disease, last colonoscopy was in 2005 and biopsies showed mild chronic colitis Hepatic: NONE Renal: ESRD on HD, glomerulonephritis, CRF-DIALYSIS M-T-TH-SAT END STAGE KIDNEY FAILURE Musculoskeletal: NONE Psychiatric: depression, PTSD Endocrine: diabetes, diabetic ketoacidosis, obesity Blood Disorders: NONE Cancer(s): NONE VENEER PATCHER/Reproductive: NONE Other Medical Hx: MSSA hidradenitis Surgical History Surgical History: AVF LUE Vitrectomies- Both eyes Pilonidal Cyst I & D of abscesses Right IJ Bharat Cath Family History Relations & Conditions If Any: FATHER Myocardial infarction at age less than 60 MOTHER Hodgkin's sarcoma Relation not specified for: FH: CAD (coronary artery disease) FH: HTN (hypertension) Psychosocial History Where Do You Live? Acute Rehab Who Do You Live With? brother Primary Language: Salvadorean Smoking Status: Former Smoker Living Will? no Power of Bonded Strand Operator/HCP? no Functional Ability ADLs Independent: dressing, eating, toileting, bathing. Ambulation: cane IADLs Independent: shopping, housework, finances, food prep, telephone, transportation , medication admin. Assessment/Plan Consult Acknowledgment - Thank you for your consult request.
[2016-08-05 12:00] VITALS: BP 136/80
--- NOTE | 2016-08-05 12:57 | Cons- CRCU ---
General Information and HPI Consulting Request Date of Consult: 08/05/16 Requested By: Med team History of Present Illness: Interm history Mr Morales is a 36 year old gentleman with PMH of morbid obesity, noncompliance , HTN, HLD, HFpEF (EF 65%), ESRD on HD 4 days/week (MTTS), IDDM, peripheral neuropathy and retinopathy, RENEE on 2L home oxygen & CPAP, asthma Crohn's disease , depression and PTSD who presented to the emergency on 08/05/2016 after the patient stated that an x-ray done at the acute rehabilitation facility showed evidence of pneumonia. Patient also reports subjective chills and reports a fever. Patient also reports cough with minimal sputum production and right-sided chest pain. He rates his chest pain is 7 out of 10 in severity. Worse with movement. Described as a sharp pain. Patient also endorses headache owing to history of migraine. He rates his headache is a 7 out of 10 in severity. Bilateral in nature. Retro-orbital worse with light and excessive noise. This morning pt became confused and unresponsive Hence this consult Pt given narcan and did wake up Allergies/Medications Allergies: Coded Allergies: iron (From VENOFER) (UNKNOWN 07/04/16) Home Med List: Amlodipine Besylate 10 MG TABLET 1 TAB PO DAILY HEART HEALTH (Reported) Cinacalcet HCl (Sensipar) 30 MG TABLET 1 TAB PO DAILY KIDNEYS (Reported) Clonazepam 1 MG TABLET 0.5 TAB PO BID PRN ANXIETY (Reported) Darbepoetin [place] in Polysorbat (Aranesp) 40 MCG/0.4 ML SYRINGE 1 1ML SC SEE ADMIN CRITERIA DURING DIALYSIS 0.45 mcg/kg SC/IV Ergocalciferol (Vitamin D2) (Vitamin D2) 50,000 UNIT CAPSULE 50,000 IU PO QSAT Low Vit D Follow the Instruction for 8 weeks then check Vit D level Escitalopram Oxalate 20 MG TABLET 1 TAB PO DAILY MENTAL HEALTH (Reported) Insulin Glargine,Hum.rec.anlog (Lantus Solostar) 100 UNIT/ML (3 ML) INSULN.PEN 24 UNITS SC BID DM (Reported) Insulin Lispro (Humalog Kwikpen U-100) 100 UNIT/ML INSULN.PEN 1 UNITS SC TIDAC /HS DM before meals <150 mg /dl - no coverage 150 -200 - 4 units 201- 250 - 6 unit 251 -300 - 8 unit s 301- 350 - 10 UNITS 351- 400 --- 12 UNITS >400 ----14 UNITS BED TIME 201 -250 -1 UNIT 251 - 300 - 2 UNIT 301- 350 - 3 UNIT 351 - 400 -- 4 UNIT >400 ---- 5 UNIT Loratadine (Claritin) 10 MG TABLET 1 TAB PO DAILY ALLERGY Metoprolol Tartrate 50 MG TABLET 1 TAB PO BID HTN (Reported) Olanzapine 5 MG TABLET 1 TAB PO QPM MENTAL HEALTH (Reported) Pregabalin (Lyrica) 100 MG CAPSULE 1 CAP PO TID PRN NEUROPATHY (Reported) Review of Systems Review of Systems Constitutional: Reports: see HPI. Past History Travel History Traveled to [place] past 21 day No Medical History Neurological: migraine, peripheral neuropathy EENT: diabetic retinopathy Cardiovascular: CHF, hypertension, hyperlipidemia, mitral regurgitation, he has chronic fluid overload due to his inabilityto adhere to the necessary dietary restrictions of sodium and fluid intake. Respiratory: asthma, obstructive sleep apnea, pneumonia Gastrointestinal: Crohn's disease, last colonoscopy was in 2005 and biopsies showed mild chronic colitis Hepatic: NONE Renal: ESRD on HD, glomerulonephritis, CRF-DIALYSIS ---SUN END STAGE KIDNEY FAILURE Musculoskeletal: NONE Psychiatric: depression, PTSD Endocrine: diabetes, diabetic ketoacidosis, obesity Blood Disorders: NONE Cancer(s): NONE OVEN BAKER/Reproductive: NONE Other Medical Hx: MSSA hidradenitis Surgical History Surgical History: AVF LUE Vitrectomies- Both eyes Pilonidal Cyst I & D of abscesses Right IJ Bharat Cath Family History Relations & Conditions If Any: FATHER Myocardial infarction at age less than 60 MOTHER Hodgkin's sarcoma Relation not specified for: FH: CAD (coronary artery disease) FH: HTN (hypertension) Psychosocial History Where Do You Live? Acute Rehab Who Do You Live With? brother Primary Language: Malian Smoking Status: Former Smoker Living Will? no Power of Heavy Equipment Technician/HCP? no Functional Ability ADLs Independent: dressing, eating, toileting, bathing. Ambulation: cane IADLs Independent: shopping, housework, finances, food prep, telephone, transportation , medication admin. Exam & Diagnostic Data Last 24 Hrs of Vital Signs/I&O Vital Signs Date Time Temp Pulse Resp B/P Pulse O2 O2 Flow FiO2 Ox Delivery Rate 08/05 1058 Nasal 2.0L Cannula 08/05 1058 94 Nasal 2.0L Cannula 08/05 1010 160/83 08/05 1009 101 160/83 08/05 0752 99.9 101 18 160/83 92 Nasal 3.0L Cannula 08/05 0529 94 Nasal 3.0L Cannula 08/05 0400 98.4 101 16 125/43 94 Nasal 3.0L Cannula 08/05 0030 100 Nasal 3.5L Cannula 08/05 0006 99.7 94 20 111/53 95 Nasal 3.0L Cannula Intake & Output 08/05 1600 08/05 0800 08/05 0000 Intake Total 50 Output Total Balance 50 Intake, Oral 50 Patient 221 lb Weight Last 48 Hrs of Labs/Karthik: Laboratory Tests 08/05/16 0845: pH 7.32 L, pCO2 46 H, pO2 79 L, HCO3 23, ABG O2 Sat (Measured) 94.0 L, Carboxyhemoglobin 1.1 L, O2 Concentration % 2L, O2 Delivery Method NC, Phlebotomy Draw Site RIGHT RADIAL 08/05/16 0650: Anion Gap 17 H, Estimated GFR 7 L, BUN/Creatinine Ratio 6.0 L, Phosphorus 5.4 H, Magnesium 2.2, Troponin I < 0.01, CBC w Diff MAN DIFF ORDERED, RBC 3.53 L, MCV 78.2 L, MCH 24.2 L, RDW 25.6 H, MPV 9.9, Gran % 78.9 H, Lymphocytes % 7.3 L, Monocytes % 11.8 H, Eosinophils % 2.0, Basophils % 0 L, Absolute Granulocytes 9.9 H, Segmented Neutrophils 68, Band Neutrophils 8 H, Absolute Lymphocytes 0.9 L, Lymphocytes 7 L, Monocytes 11 H, Absolute Monocytes 1.5 H , Eosinophils 5, Absolute Eosinophils 0.3, Absolute Basophils 0, Metamyelocytes 1, Nucleated RBCs 3 H, Platelet Estimate ADEQUATE, Polychromasia 1+, Hypochromic-Microcytic 2+, Poikilocytosis 2+, Anisocytosis 2+, Microcytic Cells 1+, PUBS MCHC 31.0 L Assessment/Plan Impression/Plan: Physical examination. HEENT: Pupils round equal and reactive. Neck: No jugular venous distention Heart: S1-S2 regular lungs normal. Lungs: Diminished entry bilaterally, no added sounds Abdomen: Obese, soft, nontender with normal bowel sounds Extremities: 2+ pedal edema bilaterally. Neurologic: Patient seen unresponsive IMPRESSION This is an unfortunate 36-year-old gentleman with type 1 diabetes with end-stage renal disease on dialysis, sig RENEE with OHV on cpap noncompliant with cpap, Morbid obesity with dietary noncompliance, previous Crohn's disease, mild persistent eosinophilia of unknown etiology with reactive airway disease * AMS due to poly pharmacy compounded by RENEE and Met encephalopathy, in the setting of SIg psych history. Pt with acute on chronic hypercarbic resp failure * Recent history of fever and Cultures pending * Significant obstructive sleep apnea noncompliant with CPAP. Pt was on clonazepam and lyrica and olanzapine and this is also contributing to his chronic resp failure. PT has both obstructive and central apnea. Is on bedtime oxygen 3 litres with cpap * Significant uncontrolled diabetes type I diabetes * End-stage renal disease on dialysis, now s/p dialysis * Chronic fluid overload with recurrent pulmonary edema due to renal failure and dietary noncompliance with significant diastolic heart disease * Chronic eosinophilia of unknown etiology with no evidence suggestive of eosinophilic lung disease. Patient does have reactive airway disease * Significant gastroparesis with recurrent aspiration, now stable * Mild lymphadenopathy in the abdomen and chest of unknown etiology, last ct has shown stable lymphadenopathy * Previous history of Crohn's disease with no active colitis * Significant depression and personality disorder with anxiety and chronic pain syndrome with diabetic neuropathy as well on multiple medications which is also causing him to have altered mental status REC Icu transfer BIPAP Ghosh culture Minimize meds Npo till fully awake Keep hob up Will follow TTS 35 mins Consult Acknowledgment - Thank you for your consult request.
--- NOTE | 2016-08-05 13:00 | NUR ---
NURSING NOTE: BS 416 @ 0800. MINIMAL RESPONSIVENESS. VS BP160/83 P101 T99.9 R18 [id number]% ON 2L. MEAT GRINDER REMINGTON NOTIFIED. INSULIN 14U GIVEN PSS. BS 385 @ 850. CONTINUED WITH MINIMAL RESPONSIVENESS. DR. NG IN WITH PATIENT. ORDERED BLOOD GAS. RAPID RESPONSE CALLED FOR LONG PERIODS OF UNRESPONSIVENESS. VS BP 180/60 HR101 R18 T99.9 [id number] ON 2L. PATIENT ALERT ENOUGH TO EAT BREAKFAST @ 10AM. CPAP ORDERED AND POT ON 1045. PATIENT HAD A LONG PERIOD OF UNRESPONSIVENESS @ 1100. SEEN BY DR. KAPADIA. NARCAN 0.4MG GIVEN ORDERED. PATIENT REMAINED UNRESPONSIVE. TRANSFERED TO ICU PER MD @ 2244. REPORT GIVEN TO NURSE IN THE ICU.
--- NOTE | 2016-08-05 13:11 | CT SCAN REPORT ---
EXAMINATION: CT HEAD WITHOUT CONTRAST CLINICAL INFORMATION: Worsening altered mental status. Evaluate for interval change. COMPARISON: CT scan of the head dated 07/04/2016, 04/10/2016 and 04/08/2016. TECHNIQUE: Contiguous axial imaging was performed from the skull base to vertex without intravenous administration of contrast. DLP: 600.71 mGy-cm FINDINGS: There is no evidence of acute intracranial hemorrhage or territorial infarction. No abnormal mass effect or midline shift is seen. Hall to white matter differentiation is well preserved. No extra-axial fluid collections are identified. The ventricles are normal in size. There is no abnormal attenuation within the brain parenchyma. There are dense atherosclerotic calcifications of the vertebral arteries and mild calcifications of the carotid siphons (right greater than left). The osseous structures are normal. As seen previously, there is nonspecific soft tissue thickening present in the right posterior occipital and suboccipital scalp, unchanged compared to prior studies dating back to 04/08/2016. The mastoid air cells and visualized portions of the paranasal sinuses are well aerated. The frontal sinuses are aplastic. IMPRESSION: No acute intracranial pathology. No change in nonspecific soft tissue thickening in the posterior right occipital/suboccipital scalp.
--- NOTE | 2016-08-05 13:31 | RADIOLOGY REPORT ---
EXAMINATION: XR PORTABLE CHEST CLINICAL INFORMATION: Respiratory distress most likely secondary to CPAP noncompliance and narcotic overdose. COMPARISON: Several prior chest x-rays, most recent of which is dated 08/04/2016. TECHNIQUE: Portable AP semiupright view of the chest was obtained. FINDINGS: The cardiomediastinal silhouette is enlarged. Low lung volumes are seen with bibasilar opacities, left greater than right, likely related to subsegmental atelectasis. Overall, evaluation is, however, limited due to patient's large body habitus and low lung volumes. No pneumothorax is seen. No evidence of pulmonary edema is noted. Bony structures are grossly unremarkable. IMPRESSION: Significantly limited study with low lung volumes and bibasilar opacities, possibly related to subsegmental atelectasis. Follow-up PA and lateral chest x-ray with larger inspiration would be helpful for more confident assessment.
--- NOTE | 2016-08-05 13:38 | Event Note ---
Event Note Event Note: Around 8:30 this morning, patient was found to be increasingly somnolent. He was arousable but fell right back to sleep after being awakened and appeared confused. An ABG was performed which showed 7.32/46/79/23 consistent with respiratory acidosis. He was placed on BiPAP and given 0.4 mg of IV Narcan but remained poorly responsive. Plan was made to transfer the patient to the ICU for close monitoring in the setting of altered mental status and acute on chronic hypercarbic respiratory failure. Altered mental status is most likely secondary to RENEE with CPAP noncompliance and narcotic overdose as patient had been taking significant amount of pain medications as outpatient. Plan is to repeat ABG, check CXR and CT Head, administer another 0.4 mg IV Narcan and start dialysis.
--- NOTE | 2016-08-05 15:28 | NUR ---
1200: RECEIVED PT IN ICU AT THIS TIME. LETHARGIC BUT AROUSABLE. ORIENTED X3. ON 3L NC, SAT 93%, LUNGS DIMINISHED WITH EXP WHEEZE AT BASES. NSR ON MONITOR. AFEBRILE. MANUAL B/P 136/80. ABDOMEN OBESE, +BS. SCABS NOTED ALL OVER PT'S BODY, PT SCRATCHES HIMSELF. PAUL FISTULA IN PLACE +THRILL +BRUIT, PT TO HAVE DIALYSIS TODAY. PER PT HE DOES NOT VOID. #[address] PT COVERED WITH NOVOLOG 12 UNITS FOR BLOOD SUGAR OF 371. PT TO AND FROM CT WITH THIS RN, NO ISSUES. BLE EDEMA +4. PT ORIENTED TO ROOM AND CALL THOMAS. WILL MONITOR.
--- NOTE | 2016-08-05 15:31 | NUR ---
1500: PT SLEEPING DURING DIALYSIS. WILL MONITOR. ABLE TO BE AWOKEN. BLOOD CULTURES DRAWN BY DIALYSIS NURSE.
[2016-08-05 16:00] VITALS: BP 124/68
--- NOTE | 2016-08-05 16:04 | NUR ---
PT REFUSING STRAIGHT CATH FOR URINE SAMPLE. MD FUENTES MADE AWARE.
--- NOTE | 2016-08-05 18:35 | NUR ---
BLOOD CULTURE DRAWN BY THIS RN. PT SLEPT THRU BLOOD DRAW BUT WOKE UP TO EAT DINNER. SITTING UP IN BED EATING DINNER.
[2016-08-05 23:38] VITALS: BP 116/58
--- NOTE | 2016-08-06 01:05 | NUR ---
PT WAS NOTED TO BE DESATURATING ON CPAP MACHINE DOWN T0 HIGH 70'S, PT WAS DROWSY AND AROUSABLE AT THAT TIME, AWAKENED PT NO C/O OF SOB, PT PLACED ON NC 4L SAT 96%, PT STATED HE WORE MASK LAST NIGHT WITH NO PROBLEMS. RESPIRATORY CALLED, PT PLACED ON 3LNC WHICH IS BASELINE AND SAT'S REMAIN BETWEEN 94-95% WILL CONTINUE TO MONITOR.
--- NOTE | 2016-08-06 02:04 | NUR ---
PT CONTINUOUSLY TAKING OFF 02 PROBE, EXPLAINED IMPORTANCE OF KEEPING ON. PT STATES "LEAVE ME ALONE i'M FINE". PT REMAINS ON 3LNC SAT 95-96%.
[2016-08-06 04:27] LABS: ABSOLUTE BASOPHIL COUNT 0 /CUMM (0.0-0.2); ABSOLUTE EOSINOPHIL COUNT 0.6 /CUMM (0.0-0.7); ABSOLUTE GRANULOCYTE CT 7.4 /CUMM (1.4-6.5); ABSOLUTE LYMPH COUNT 1.1 /CUMM (1.2-3.4); ABSOLUTE MONOCYTE COUNT 1.6 /CUMM (0.10-0.60); BASOPHIL % 0 % (0.0-2.0); EOSINOPHIL % 5.8 % (0-5); HEMATOCRIT 29.4 % (42-52); MEAN CORPUSCULAR HGB CONC 30.5 G/DL (33.0-37.0); MEAN CORPUSCULAR VOLUME 78.7 FL (80.0-94.0); MEAN PLATELET VOLUME 9.5 FL (7.4-10.4); PLATELET COUNT 258 /CUMM (130-400); RBC DISTRIBUTION WIDTH 26.2 % (11.5-14.5); RED BLOOD CELL CT 3.73 /CUMM (4.70-6.10); WHITE BLOOD CELL COUNT 10.8 /CUMM (4.8-10.8)
[2016-08-06 07:44] VITALS: BP 118/58
--- NOTE | 2016-08-06 07:55 | NUR ---
PT AWAKE, ALERT, SITTING AT SIDE OF BED. 3L NC IN PLACE, SAT 98%. LUNGS CLEAR BUT DIMINISHED. ALPS ON. ABDOMEN OBESE. TOLERATING DIET, NO NAUSEA. +FLATUS. PT DOES NOT VOID HE IS A DIALYSIS PT. PAUL AV FISTULA, +THRILL +BRUIT, PT HAD DIALYSIS YESTERDAY, 4L REMOVED. SCABS AND SCRATCHES NOTED ALL OVER PT'S BODY. BLE EDEMA +4. NSR/ST ON MONITOR. AFEBRILE. B/P STABLE. ACCU CHECK 210, NOVOLOG SLIDING SCALE IN PLACE. CONTACT PRECAUTIONS FOR HX OF MRSA. WILL MONITOR.
--- NOTE | 2016-08-06 08:23 | NUR ---
PT DOWNGRADED TO GEN MED PER DR NG
--- NOTE | 2016-08-06 08:33 | Cons- Endocrinology ---
General Information and HPI Consulting Request Date of Consult: 08/06/16 Requested By: medical team Reason for Consult: uncontrolled diabetes Source of Information: patient, old records Exam Limitations: no limitations History of Present Illness: This 36-year-old male with a known history of diabetes mellitus type 1 associated with morbid obesity and the presence of severe complications was sent to the emergency room from [facility] because of right-sided chest pain and the possibility of pneumonia. He was moved to the intensive care unit yesterday when he was barely arousable yesterday morning. Since then he has been doing reasonably well. He is fully alert and awake. The patient has end-stage renal disease on dialysis 4 times a week because of his large body size. He is often noncompliant on his regimen at home. His insulin regimen is stated to be 24 Levemir twice a day as well as sliding scale NovoLog starting with 4 units. He also has a history of asthma, congestive heart failure, sleep apnea, and episodes of hidradenitis. He suffers from depression. Allergies/Medications Allergies: Coded Allergies: iron (From VENOFER) (UNKNOWN 07/04/16) Home Med List: Amlodipine Besylate 10 MG TABLET 1 TAB PO DAILY HEART HEALTH (Reported) Cinacalcet HCl (Sensipar) 30 MG TABLET 1 TAB PO DAILY KIDNEYS (Reported) Clonazepam 1 MG TABLET 0.5 TAB PO BID PRN ANXIETY (Reported) Darbepoetin Hernesto in Polysorbat (Aranesp) 40 MCG/0.4 ML SYRINGE 1 1ML SC SEE ADMIN CRITERIA DURING DIALYSIS 0.45 mcg/kg SC/IV Ergocalciferol (Vitamin D2) (Vitamin D2) 50,000 UNIT CAPSULE 50,000 IU PO QSAT Low Vit D Follow the Instruction for 8 weeks then check Vit D level Escitalopram Oxalate 20 MG TABLET 1 TAB PO DAILY MENTAL HEALTH (Reported) Insulin Glargine,Hum.rec.anlog (Lantus Solostar) 100 UNIT/ML (3 ML) INSULN.PEN 24 UNITS SC BID DM (Reported) Insulin Lispro (Humalog Kwikpen U-100) 100 UNIT/ML INSULN.PEN 1 UNITS SC TIDAC /HS DM before meals <150 mg /dl - no coverage 150 -200 - 4 units 201- 250 - 6 unit 251 -300 - 8 unit s 301- 350 - 10 UNITS 351- 400 --- 12 UNITS >400 ----14 UNITS BED TIME 201 -250 -1 UNIT 251 - 300 - 2 UNIT 301- 350 - 3 UNIT 351 - 400 -- 4 UNIT >400 ---- 5 UNIT Loratadine (Claritin) 10 MG TABLET 1 TAB PO DAILY ALLERGY Metoprolol Tartrate 50 MG TABLET 1 TAB PO BID HTN (Reported) Olanzapine 5 MG TABLET 1 TAB PO QPM MENTAL HEALTH (Reported) Pregabalin (Lyrica) 100 MG CAPSULE 1 CAP PO TID PRN NEUROPATHY (Reported) Review of Systems Review of Systems Constitutional: Reports: diaphoresis, fever. Cardiovascular: Denies: chest pain. Respiratory: Reports: short of breath. Denies: cough, hemoptysis. GI: Denies: nausea, vomiting. Musculoskeletal: Denies: back pain. Skin: Reports: rash (on legs). Neurological/Psychological: Reports: depressed, emotional problems. Past History Travel History Traveled to [place] past 21 day No Medical History Neurological: migraine, peripheral neuropathy EENT: diabetic retinopathy Cardiovascular: CHF, hypertension, hyperlipidemia, mitral regurgitation, he has chronic fluid overload due to his inabilityto adhere to the necessary dietary restrictions of sodium and fluid intake. 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 [facility] Who Do You Live With? brother Primary Language: Romanian Smoking Status: Former Smoker Living Will? no Power of Public Health Training Assistant/HCP? no Functional Ability ADLs Independent: dressing, eating, toileting, bathing. Ambulation: cane IADLs Independent: shopping, housework, finances, food prep, telephone, transportation , medication admin. Exam & Diagnostic Data Last 24 Hrs of Vital Signs/I&O Vital Signs Date Time Temp Pulse Resp B/P Pulse O2 O2 Flow FiO2 Ox Delivery Rate 08/06 0800 Nasal 3.0L Cannula 08/06 0744 98.4 98 22 118/58 97 Nasal 3.0L Cannula 08/06 0554 98 100 08/06 0400 95 Nasal 3.0L Cannula 08/06 0057 97 96 02 0000 91 CPAP 4.0L 08/05 2338 97.9 92 12 116/58 91 CPAP 4.0L 08/05 2228 95 Nasal 3.0L Cannula 08/05 2131 94 98/52 08/05 2000 95 Nasal 3.0L Cannula 08/05 1600 Nasal 3.0L Cannula 08/05 1600 97.6 86 20 124/68 96 Nasal 3.0L Cannula 08/05 1200 Nasal 3.0L Cannula 08/05 1200 98.2 92 22 136/80 93 Nasal 3.0L Cannula 08/05 1058 Nasal 2.0L Cannula 08/05 1058 94 Nasal 2.0L Cannula 08/05 1010 160/83 08/05 1009 101 160/83 Intake & Output 08/06 1600 08/06 0800 08/06 0000 Intake Total 120 1080 Output Total 0 4000 Balance 120 -2920 Intake, IV 0 0 Intake, Oral 120 1080 Number 0 0 Bowel Movements Output, 4000 Dialysate Output, Urine 0 0 Patient 392 lb 392 lb Weight Vital Signs Date Time Temp Pulse Resp B/P Pulse O2 O2 Flow FiO2 Ox Delivery Rate 08/06 0800 Nasal 3.0L Cannula 08/06 0744 98.4 98 22 118/58 97 Nasal 3.0L Cannula 08/06 0554 98 100 08/06 0400 95 Nasal 3.0L Cannula 08/06 0057 97 96 02 0000 91 CPAP 4.0L 08/05 2338 97.9 92 12 116/58 91 CPAP 4.0L 08/05 2228 95 Nasal 3.0L Cannula 08/05 2131 94 98/52 02 2000 95 Nasal 3.0L Cannula 08/05 1600 Nasal 3.0L Cannula 08/05 1600 97.6 86 20 124/68 96 Nasal 3.0L Cannula 08/05 1200 Nasal 3.0L Cannula 08/05 1200 98.2 92 22 136/80 93 Nasal 3.0L Cannula 08/05 1058 Nasal 2.0L Cannula 08/05 1058 94 Nasal 2.0L Cannula 08/05 1010 160/83 08/05 1009 101 16083 Intake & Output 08/06 1600 08/06 0800 08/06 0000 Intake Total 120 1080 Output Total 0 4000 Balance 120 -2920 Intake, IV 0 0 Intake, Oral 120 1080 Number 0 0 Bowel Movements Output, 4000 Dialysate Output, Urine 0 0 Patient 392 lb 392 lb Weight Physical Exam General Appearance: alert, awake, comfortable Head: normal appearance Eyes: Bilateral: normal appearance. Neck: normal inspection Respiratory: crackles Cardiovascular: regular rate/rhythm Gastrointestinal: normal bowel sounds, soft Extremities: swelling (3-4+ both legs) Neurologic/Psych: awake, alert Skin: basis dermatitis on the Labs/Karthik Results: Laboratory Tests 08/06 08/05 0334 1220 Blood Gas pH (7.35 - 7.45 PH) 7.33 L pCO2 (35 - 45 TORR) 48 H pO2 (80 - 100 TORR) 67 L HCO3 (21 - 28 MEQ/L) 25 ABG O2 Sat (Measured) (>96.0 %) 90.0 L Carboxyhemoglobin (1.5 - 5.0 %) 2.3 O2 Concentration % 2L O2 Delivery Method NC Chemistry Sodium (137 - 145 mmol/L) 133 L Potassium (3.5 - 5.1 mmol/L) 4.0 Chloride (98 - 107 mmol/L) 92 L Carbon Dioxide (22 - 30 mmol/L) 28 Anion Gap (5 - 16) 13 BUN (9 - 20 mg/dL) 30 H Creatinine (0.7 - 1.2 mg/dL) 5.9 *H Estimated GFR (>60 ml/min) 11 L Glucose (65 - 99 mg/dL) 181 H Calcium (8.4 - 10.2 mg/dL) 7.1 L Phosphorus (2.5 - 4.5 mg/dL) 4.5 Magnesium (1.6 - 2.3 mg/dL) 2.1 Total Bilirubin (0.2 - 1.3 mg/dL) 0.4 AST (17 - 59 U/L) 23 ALT (21 - 72 U/L) 28 Albumin (3.5 - 5.0 g/dL) 3.0 L Hematology CBC w Diff NO MAN DIFF REQ WBC (4.8 - 10.8 /CUMM) 10.8 RBC (4.70 - 6.10 /CUMM) 3.73 L Hgb (14.0 - 18.0 G/DL) 9.0 L Hct (42 - 52 %) 29.4 L MCV (80.0 - 94.0 FL) 78.7 L MCH (27.0 - 31.0 PG) 24.0 L RDW (11.5 - 14.5 %) 26.2 H Plt Count (130 - 400 /CUMM) 258 MPV (7.4 - 10.4 FL) 9.5 Gran % (42.2 - 75.2 %) 69.0 Lymphocytes % (20.5 - 51.1 %) 9.9 L Monocytes % (1.7 - 9.3 %) 15.3 H Eosinophils % (0 - 5 %) 5.8 H Basophils % (0.0 - 2.0 %) 0 L Absolute Granulocytes (1.4 - 6.5 /CUMM) 7.4 H Absolute Lymphocytes (1.2 - 3.4 /CUMM) 1.1 L Absolute Monocytes (0.10 - 0.60 /CUMM) 1.6 H Absolute Eosinophils (0.0 - 0.7 /CUMM) 0.6 Absolute Basophils (0.0 - 0.2 /CUMM) 0 PUBS MCHC (33.0 - 37.0 G/DL) 30.5 L Miscellaneous Phlebotomy Draw Site RIGHT RADIAL 08/05 0845 Blood Gas pH (7.35 - 7.45 PH) 7.32 L pCO2 (35 - 45 TORR) 46 H pO2 (80 - 100 TORR) 79 L HCO3 (21 - 28 MEQ/L) 23 ABG O2 Sat (Measured) (>96.0 %) 94.0 L Carboxyhemoglobin (1.5 - 5.0 %) 1.1 L O2 Concentration % 2L O2 Delivery Method NC Miscellaneous Phlebotomy Draw Site RIGHT RADIAL Assessment/Plan Assessment/Plan This 36-year-old male with type 1 diabetes and morbid obesity as well as end- stage renal disease has uncontrolled blood sugars. I would suggest leaving him on Levemir 24 units twice a day. We should change NovoLog 3 times a day before meals to be 80-150 give 8 units NovoLog, 151-200 give 9 units NovoLog, 201-250 give 10 units NovoLog, 251 and 300 give11 units NovoLog, 301-350 give 12 units NovoLog, 351-400 give 13 units NovoLog. Bedtime sliding scale NovoLog should be less than 250 give no insulin, 251-300 give 3 units NovoLog, 301-350 give 4 units NovoLog, 351-400 give 5 units NovoLog. He should check the patient's hemoglobin A1c and also check his thyroid function tests including a free T4 and TSH. Consult Acknowledgment - Thank you for your consult request.
--- NOTE | 2016-08-06 09:01 | Patient Discharge Instructions ---
Discharge Instructions General Discharge Information You were seen/treated for: Acute on Chronic Respiratory Failure due to RENEE not on CPAP Watch for these problems: Worsening shortness of breath. Chest pain Special Instructions: Please follow-up with PCP within one week after discharge. Please continue with the regular scheduled dialysis sessions. Please follow up with Dr Leiva regarding a sleep study and your respiratory issues. Please continue dry daily dressing with xerform on you affected heel. And follow up with Dr Augustine Diet Continue normal diet: No Recommended Diet: Renal Dialysis Activity Full Activity/No Limits: No Activity Self Limited: Yes Acute Coronary Syndrome Inclusion Criteria At DC or during hospital stay patient has or had the following: ACS DIAGNOSIS No Discharge Core Measures Meds if any: Prescribed or Continued at Discharge Meds if any: NOT Prescribed or Continued at Discharge Congestive Heart Failure Inclusion Criteria At DC or during hospital stay patient has or had the following: CHF DIAGNOSIS No Discharge Core Measures Meds if any: Prescribed or Continued at Discharge Meds if any: NOT Prescribed or Continued at Discharge Cerebrovascular accident Inclusion Criteria At DC or during hospital stay patient has or had the following: CVA/TIA Diagnosis No Discharge Core Measures Meds if any: Prescribed or Continued at Discharge Meds if any: NOT Prescribed or Continued at Discharge Venous thromboembolism Inclusion Criteria VTE Diagnosis No VTE Type NONE VTE Confirmed by (Test) NONE Discharge Core Measures - Per Current guidelines, there needs to be overlap - treatment for the first 5 days of Warfarin therapy. - If discharged on Warfarin prior to 5 days of - overlap therapy, the patient will need to be - assessed for post discharge needs including - *Post discharge parental anticoagulation - *Warfarin and/or parental anticoagulation education - *Follow up date to check INR post discharge At least 5 days overlap therapy as Inpatient No Meds if any: Prescribed or Continued at Discharge Note: Overlap Therapy is Warfarin and Anticoagulant Meds if any: NOT Prescribed or Continued at Discharge
--- NOTE | 2016-08-06 09:13 | PN- Att Addend ---
Attending Addendum Attending Brief Note After being placed on CPAP therapy yesterday morning patient became more responsive which nursing staff. He was able to take his medications. He however became less responsive again and was transferred to the intensive care unit for recommendations of his bank reconciliator. He received Narcan 2 and later became management. He has since been calm and stable in the intensive care unit. No issues overnight reported by nursing staff. This morning I found him very a lot and oriented 3. He was sitting up in bed eating his breakfast. She admits to poor compliance with his CPAP therapy. When I asked him why he flatly responded "because I am stubborn." The counseling and need for compliance with his CPAP therapy. This admission has been afebrile and hemodynamically stable. He denies any cough. Apparently yesterday he reported some chest pain to his bank reconciliator. He denies any chest pain today. Denies abdominal discomfort. Reports good appetite. Vital Signs Date Time Temp Pulse Resp B/P Pulse O2 O2 Flow FiO2 Ox Delivery Rate 08/06 0843 103 123/08/06 0843 103 123/66 08/06 0800 Nasal 3.0L Cannula 08/06 0744 98.4 98 22 118/58 97 Nasal 3.0L Cannula 08/06 0554 98 100 08/06 0400 95 Nasal 3.0L Cannula 08/06 0057 97 96 08/06 0000 91 CPAP 4.0L 08/05 2338 97.9 92 12 116/58 91 CPAP 4.0L 08/05 2228 95 Nasal 3.0L Cannula 08/05 2131 94 98/52 08/05 2000 95 Nasal 3.0L Cannula 08/05 1600 Nasal 3.0L Cannula 08/05 1600 97.6 86 20 124/68 96 Nasal 3.0L Cannula 08/05 1200 Nasal 3.0L Cannula 08/05 1200 98.2 92 22 136/80 93 Nasal 3.0L Cannula 08/05 1058 Nasal 2.0L Cannula 08/05 1058 94 Nasal 2.0L Cannula 08/05 1010 160/83 02 1009 101 160/83 Gen. appearance: Obese, not in any distress Heart: S1-S2 regular Lungs: Improved air entry bilaterally, clear to auscultation Abdomen: Obese, soft, nontender with normal bowel sounds Extremities: Bilateral pedal edema Skin: Intact Laboratory Tests 08/06/16 0334: Anion Gap 13, Estimated GFR 11 L, Glucose 181 H, Calcium 7.1 L, Phosphorus 4.5, Magnesium 2.1, Total Bilirubin 0.4, AST 23, ALT 28, Albumin 3.0 L, CBC w Diff NO MAN DIFF REQ, RBC 3.73 L, MCV 78.7 L, MCH 24.0 L, RDW 26.2 H, MPV 9.5, Gran % 69.0, Lymphocytes % 9.9 L, Monocytes % 15.3 H, Eosinophils % 5.8 H, Basophils % 0 L, Absolute Granulocytes 7.4 H, Absolute Lymphocytes 1.1 L, Absolute Monocytes 1.6 H, Absolute Eosinophils 0.6, Absolute Basophils 0, PUBS MCHC 30.5 L 08/05/16 1220: pH 7.33 L, pCO2 48 H, pO2 67 L, HCO3 25, ABG O2 Sat (Measured) 90.0 L, Carboxyhemoglobin 2.3, O2 Concentration % 2L, O2 Delivery Method NC, Phlebotomy Draw Site RIGHT RADIAL Microbiology 08/05 1759 BLOOD: Blood Culture - RECD 08/05 1436 BLOOD: Blood Culture - RECD 08/05 1334 URINE ROUT: Urine Culture - ORD 08/05 1334 LOWER RESP: Respiratory Culture - COLB 08/05 1334 LOWER RESP: Gram Stain - COLB 08/05 1211 UPPER RESP: Surveillance Culture - RECD 08/05 1211 GI: Surveillance Culture - RECD Problems: 1. Metabolic encephalopathy; resolved. Secondary to CO2 retention in the setting of sedative use and poor compliance with CPAP therapy. 2. Central/obstructive sleep apnea. 3. Uncontrolled insulin-dependent diabetes mellitus. 4. End-stage renal disease on hemodialysis. 5. Chronic presented ejection fraction heart failure. 6. History of fever 7. Hyponatremia 8. Chronic eosinophilia. 9. Previous history of Crohn's disease currently not active 10. Chronic depression. Plan: -Continue to encourage CPAP therapy at nighttime. -Follow-up pancultures results. -If his seaman cultures are negative patient may be discharged back to [facility] facility tomorrow. -Blood glucose levels are better controlled today. Endocrinology evaluation appreciated. He'll be continued on his home regimen Levemir. Sliding scale coverage has been adjusted. -Hyponatremia has improved hemodialysis. His next scheduled dialysis is Sunday. -Mobilize patient as tolerated. -Downgrade patient to the general medical service and anticipate discharge back to the [facility] facility tomorrow. -Clonazepam as part of the patient's home regimen for his anxiety disorder. Medication should be used with caution and held if patient is drowsy.
--- NOTE | 2016-08-06 09:45 | PN- Resident CRCU ---
Subjective HPI/CRCU Issues: Patient in ICU for acute respiratory distress yesterday while in the medical floor. I followed up and examined the patient today. He is sitting comfortably by the side of his bed, with nasal cannula for oxygen delivery. Not in respiratory/ acute distress. He feels relatively better today. No fever, chills, cough, worsening shortness of breath, chest pain/heaviness, bowel/bladder complaints, and no issues overnight. Vitals have been stable during his stay the ICU. 24 Hour Events: Respiratory status got worse and was transferred to ICU, now getting better. Objective Vital Signs & I&O Last 8 Hrs of Vitals and I&O: Vital Signs Date Time Temp Pulse Resp B/P Pulse O2 O2 Flow FiO2 Ox Delivery Rate 08/06 0843 103 123/66 08/06 0843 103 123/66 08/06 0800 Nasal 3.0L Cannula 08/06 0744 98.4 98 22 118/58 97 Nasal 3.0L Cannula 08/06 0554 98 100 08/06 0400 95 Nasal 3.0L Cannula Exam General Appearance: well developed/nourished, no apparent distress, alert, awake , morbidly obese Head: atraumatic, normal appearance Ears, Nose, Throat: normal pharynx Neck: normal inspection, supple, full range of motion Respiratory: chest non-tender, no respiratory distress, quiet respiration, some cracles at the base of lung fileds b/l, no wheezing Cardiovascular: regular rate/rhythm, edema Gastrointestinal: normal bowel sounds, soft, non-tender Extremities: swelling Cranial Nerves: grossly intact Skin: intact, normal color, warm/dry IV Drips IV Drips: none Nutrition Nutrition: P.O. diet, renal dialysis Current Medications: Current Medications Sig/Georgina Start time Last Medication Dose Route Stop Time Status Admin Albuterol Sulfate 3 ML Q4P PRN 08/06 0915 AC INH Amlodipine Besylate 10 MG DAILY 08/05 1000 AC 08/06 PO 0843 Cinacalcet 30 MG DAILY 08/05 1000 AC 08/06 PO 0843 Clonazepam 0.5 MG BID PRN 08/05 0430 DC 08/05 PO 08/12 0429 0500 Epoetin Hernesto 10,000 UNIT TuThSa PRN 08/05 1315 AC IV Ergocalciferol 50,000 IU QSAT 08/05 0700 AC 08/05 PO 0716 Escitalopram Oxalate 20 MG DAILY 08/05 1000 AC 08/06 PO 0843 Heparin Sodium 5,000 UNIT Q8 08/05 0600 AC 08/06 (Porcine) SC 0613 Ibuprofen 600 MG Q6P PRN 08/05 0315 DC PO Insulin Aspart 0 TIDAC/HS 08/06 0800 AC 08/06 SC 0804 Insulin Aspart 0 TIDAC 08/05 0800 DC 08/05 SC 2124 Insulin Detemir 24 UNITS BID 08/05 1000 AC 08/06 SC 0945 Loratadine 10 MG DAILY 08/05 1000 AC 08/06 PO 0843 Metoprolol Tartrate 50 MG BID 08/05 1000 AC 08/06 PO 0843 Naloxone HCl 0.4 MG ONCE ONE 08/05 1200 DC 08/05 IV 08/05 1201 1208 Naloxone HCl 0.4 MG ONCE ONE 08/05 1145 DC 08/05 IV 08/05 1146 1145 Olanzapine 5 MG QPM 08/05 2200 AC 08/05 PO 2125 Pregabalin 100 MG TID PRN 08/05 0430 AC 08/06 PO 0846 Tramadol HCl 50 MG ONCE ONE 08/05 2200 DC 08/05 PO 08/05 2201 2152 CXR Findings: IMPRESSION: Significantly limited study with low lung volumes and bibasilar opacities, possibly related to subsegmental atelectasis. Follow-up PA and lateral chest x-ray with larger inspiration would be helpful for more confident assessment. DICTATED BY: ARUN RAMIREZ MD DATE/TIME DICTATED:08/05/161323 [facility] [employer] [facility] DATE/TIME TRANSCRIBED:08/05/161323 CT Scan Findings: IMPRESSION: No acute intracranial pathology. No change in nonspecific soft tissue thickening in the posterior right occipital/suboccipital scalp. DICTATED BY: ARUN RAMIREZ MD DATE/TIME DICTATED:08/05/161258 [facility] [employer] [facility] DATE/TIME TRANSCRIBED:08/05/161258 Impression/Plan Impression/Problem List Impression: 36 yo M with pmh of morbid obesity, obstructive sleep apnea with poor compliance on CPAP, uncontrolled insulin-dependent diabetes mellitus, end-stage renal disease on hemodialysis, CHF, chronic eosinophilia, long-standing depression, history of Crohn's disease (not currently active), was referred to the emergency department from his nursing facility for difficulty breathing, right-sided chest pain, some cough. He was initially admitted to the general medical floor, but had respiratory distress yesterday morning and was transferred to ICU yesterday. He is currently being managed in the ICU for the following issues: #Acute on chronic respiratory failure, secondary to obstructive sleep apnea, poor compliance to CPAP therapy The patient has an established diagnosis of obstructive sleep apnea, secondary to morbid obesity and has CPAP therapy at his nursing facility. However, he has very poor compliance and it seems to be the same issue this time as well. His condition improved significantly after respiratory therapy and CPAP therapy since yesterday. Also, he had a dose of painkiller/sedative, which might have contributed to the existing condition. -He is saturating well with additional oxygen delivered only by nasal cannula. We will continue to do that. CPAP therapy whenever needed. -Avoid narcotics/sedatives. Clonazepam was discontinued. -Patient needs further counseling/education regarding his condition and the need to continue his CPAP therapy upon discharge. -If his respiratory status gets better as is getting now, we could discharge him tomorrow. #Uncontrolled diabetes mellitus His sugar levels has been uncontrolled, but this is not new. His morning blood sugar level was 210. Harley Miller MD is following for endocrinology concerns. -Changed his insulin regimen sliding scale per Dr. Miller. -Keeping his basal insulin at the same level of 24 units twice a day -Follow up on TSH, free T4 and is HbA1C #End stage renal disease Patient has end-stage renal disease, has dialysis 4 times a week due to his body size. He received his dialysis yesterday, and his kidney function test is much better compared to the previous values. BUN and creatinine are 30 and 5.9 respectively today compared to 50 and 8.4 yesterday. -Continue hemodialysis schedule -Patient is on renal dialysis diet -Continue home medication of cinacalcet, ergocalciferol #Hypertension Continue home medication of amlodipine 10 mg daily, Lopressor 50 mg twice a day #Chronic pain secondary to neuropathy -Continue home dose of pregabalin -Avoid sedative/narcotics, due to possibility of respiratory compromise #Chronic depression Continuing his home medication of Lexapro, olanzapine #DVT prophylaxis with subcutaneous heparin #Diet: Renal dialysis diet #CODE STATUS: Full code Problem List: 1. Dialysis patient 2. ESRD on dialysis 3. Obstructive sleep apnea 4. Diabetes mellitus type 1 5. Hypertension 6. Depression 7. Neuropathy Pain Ratin Pain Location: right chest (not new) Pain Goal: Pain 4 or less Pain Plan: prn Tomorrow's Labs & Rationales: BEP to assess kidney function (ESRD) Plan DVT/Prophylaxis: mechanical, pharmacological
--- NOTE | 2016-08-06 11:30 | PN- Pulmonary ---
Subjective HPI/Critical Care Issues: No issues overnight reported by nursing staff. Stable Sleeping early in am Objective Current Medications: Current Medications Sig/Georgina Start time Last Medication Dose Route Stop Time Status Admin Albuterol Sulfate 3 ML Q4P PRN 08/06 0915 AC INH Amlodipine Besylate 10 MG DAILY 08/05 1000 AC 08/06 PO 0843 Cinacalcet 30 MG DAILY 08/05 1000 AC 08/06 PO 0843 Clonazepam 0.5 MG BID PRN 08/05 0430 DC 08/05 PO 08/12 0429 0500 Epoetin Hernesto 10,000 UNIT TuThSa PRN 08/05 1315 AC IV Ergocalciferol 50,000 IU QSAT 08/05 0700 AC 08/05 PO 0716 Escitalopram Oxalate 20 MG DAILY 08/05 1000 AC 08/06 PO 0843 Heparin Sodium 5,000 UNIT Q8 08/05 0600 AC 08/06 (Porcine) SC 0613 Ibuprofen 600 MG Q6P PRN 08/05 0315 DC PO Insulin Aspart 0 TIDAC/HS 08/06 0800 AC 08/06 SC 0804 Insulin Aspart 0 TIDAC 08/05 0800 DC 08/05 SC 2124 Insulin Detemir 24 UNITS BID 08/05 1000 AC 08/06 SC 0945 Loratadine 10 MG DAILY 08/05 1000 AC 08/06 PO 0843 Metoprolol Tartrate 50 MG BID 08/05 1000 AC 08/06 PO 0843 Naloxone HCl 0.4 MG ONCE ONE 08/05 1200 DC 08/05 IV 08/05 1201 1208 Naloxone HCl 0.4 MG ONCE ONE 08/05 1145 DC 08/05 IV 08/05 1146 1145 Olanzapine 5 MG QPM 08/05 2200 AC 08/05 PO 2125 Pregabalin 100 MG TID PRN 08/05 0430 AC 08/06 PO 0846 Tramadol HCl 50 MG ONCE ONE 08/05 2200 DC 08/05 PO 08/05 2201 2152 Vital Signs & I&O Last 24 Hrs of Vitals and I&O: Vital Signs Date Time Temp Pulse Resp B/P Pulse O2 O2 Flow FiO2 Ox Delivery Rate 08/06 1047 95 Nasal 3.0L Cannula 08/06 0843 103 123/66 08/06 0843 103 123/66 08/06 0800 Nasal 3.0L Cannula 08/06 0744 98.4 98 22 118/58 97 Nasal 3.0L Cannula 08/06 0554 98 100 08/06 0400 95 Nasal 3.0L Cannula 08/06 0057 97 96 08/06 0000 91 CPAP 4.0L 08/05 2338 97.9 92 12 116/58 91 CPAP 4.0L 08/05 2228 95 Nasal 3.0L Cannula 08/05 2131 94 98/52 08/05 2000 95 Nasal 3.0L Cannula 08/05 1600 Nasal 3.0L Cannula 08/05 1600 97.6 86 20 124/68 96 Nasal 3.0L Cannula 08/05 1200 Nasal 3.0L Cannula 08/05 1200 98.2 92 22 136/80 93 Nasal 3.0L Cannula Intake & Output 08/06 1600 08/06 0800 08/06 0000 Intake Total 120 1080 Output Total 0 4000 Balance 120 -2920 Intake, IV 0 0 Intake, Oral 120 1080 Number 0 0 Bowel Movements Output, 4000 Dialysate Output, Urine 0 0 Patient 392 lb 392 lb Weight Impression/Plan Impression/Plan Impression/Plan: Physical examination. HEENT: Pupils round equal and reactive. Neck: No jugular venous distention Heart: S1-S2 regular lungs normal. Lungs: Diminished entry bilaterally, no added sounds Abdomen: Obese, soft, nontender with normal bowel sounds Extremities: 2+ pedal edema bilaterally. Neurologic: Patient seen unresponsive IMPRESSION This is an unfortunate 36-year-old gentleman with type 1 diabetes with end-stage renal disease on dialysis, sig RENEE with OHV on cpap noncompliant with cpap, Morbid obesity with dietary noncompliance, previous Crohn's disease, mild persistent eosinophilia of unknown etiology with reactive airway disease * Resolved AMS due to poly pharmacy compounded by RENEE and Met encephalopathy, in the setting of SIg psych history. Pt with acute on chronic hypercarbic resp failure * Recent history of fever and Cultures pending * Significant obstructive sleep apnea noncompliant with CPAP. Pt was on clonazepam and lyrica and olanzapine and this is also contributing to his chronic resp failure. PT has both obstructive and central apnea. Is on bedtime oxygen 3 litres with cpap * Significant uncontrolled diabetes type I diabetes * End-stage renal disease on dialysis, now s/p dialysis * Chronic fluid overload with recurrent pulmonary edema due to renal failure and dietary noncompliance with significant diastolic heart disease * Chronic eosinophilia of unknown etiology with no evidence suggestive of eosinophilic lung disease. Patient does have reactive airway disease * Significant gastroparesis with recurrent aspiration, now stable * Mild lymphadenopathy in the abdomen and chest of unknown etiology, last ct has shown stable lymphadenopathy * Previous history of Crohn's disease with no active colitis * Significant depression and personality disorder with anxiety and chronic pain syndrome with diabetic neuropathy as well on multiple medications which is also causing him to have altered mental status REC Resume bedtime cpap Minimize meds which make him sedated Keep hob up Will follow prn Stable ok to dc in am Pt aware of cpap use and its benefit
--- NOTE | 2016-08-06 12:31 | NUR ---
PT HAS GEN [facility] BED, ROOM 208. +MRSA
[2016-08-06 13:37] VITALS: BP 105/44
[2016-08-06 15:48] VITALS: BP 122/68
[2016-08-06 23:25] VITALS: BP 120/72
[2016-08-07 08:17] VITALS: BP 122/70
--- NOTE | 2016-08-07 08:29 | PN- Diabetes ---
Assessment/Plan Assessment: The patient is sleeping this morning. His insulin was adjusted yesterday. Fingerstick blood sugars yesterday were 208, 117, and 187. This morning his fingerstick blood sugar is 303. The patient is on Levemir 24 units twice a day and sliding scale NovoLog beginning with 8 units for sugar of 80-150. Plan: Suggest continue the present insulin. Continue to monitor his blood sugars carefully. Further adjustments in his insulin may be necessary. The patient will need dialysis today. The patient's thyroid tests are within the normal range. Subjective Subjective: Does not wish to answer questions Objective Last 24 Hrs of Vital Signs/I&O Vital Signs Date Time Temp Pulse Resp B/P Pulse O2 O2 Flow FiO2 Ox Delivery Rate 08/07 08 98.0 75 20 122/70 97 Nasal 3.0L Cannula 08/07 0054 104 92 08/07 0031 96 120/72 08/07 0000 Nasal 2.0L Cannula 08/06 2325 98.8 96 20 120/72 93 BIPAP 08/06 1600 94 Nasal 3.0L Cannula 08/06 1548 99.1 87 20 122/68 94 Nasal 3.0L Cannula 08/06 1337 98.1 83 20 105/44 96 Nasal 3.0L Cannula 08/06 1047 95 Nasal 3.0L Cannula 08/06 0843 103 123/66 08/06 0843 103 123/66 Intake & Output 08/07 1600 08/07 0800 08/07 0000 Intake Total 200 Output Total Balance 200 Intake, Oral 200 Patient 373 lb Weight Vital Signs Date Time Temp Pulse Resp B/P Pulse O2 O2 Flow FiO2 Ox Delivery Rate 08/07 0817 98.0 75 20 122/70 97 Nasal 3.0L Cannula 08/07 0054 104 92 08/07 0031 96 120/72 02 0000 Nasal 2.0L Cannula 08/06 2325 98.8 96 20 120/72 93 BIPAP 08/06 1600 94 Nasal 3.0L Cannula 08/06 1548 99.1 87 20 122/68 94 Nasal 3.0L Cannula 08/06 1337 98.1 83 20 105/44 96 Nasal 3.0L Cannula 08/06 1047 95 Nasal 3.0L Cannula 08/06 0843 103 123/66 08/06 0843 103 123/66 Intake & Output 08/07 1600 08/07 0800 08/07 0000 Intake Total 200 Output Total Balance 200 Intake, Oral 200 Patient 373 lb Weight Physical Exam General Appearance: no apparent distress, obese Head: normal appearance Neck: normal inspection Cardiovascular: regular rate/rhythm, edema (both lower legs) Abdomen: normal bowel sounds, soft Extremities: swelling (both lower legs) Current Medications: Current Medications Sig/Georgina Start time Last Medication Dose Route Stop Time Status Admin Acetaminophen 325 MG Q6P PRN 08/06 1315 AC 08/06 PO 1617 Albuterol Sulfate 3 ML Q4P PRN 08/06 0915 AC INH Amlodipine Besylate 10 MG DAILY 08/05 1000 AC 08/06 PO 0843 Cinacalcet 30 MG DAILY 08/05 1000 AC 08/06 PO 0843 Epoetin Hernesto 10,000 UNIT TuThSa PRN 08/05 1315 AC IV Ergocalciferol 50,000 IU QSAT 08/05 0700 AC 08/05 PO 0716 Escitalopram Oxalate 20 MG DAILY 08/05 1000 AC 08/06 PO 0843 Heparin Sodium 5,000 UNIT Q8 08/05 0600 AC 08/07 (Porcine) SC 0643 Insulin Aspart 0 TIDAC/HS 08/06 0800 AC 08/06 SC 1619 Insulin Detemir 24 UNITS BID 08/05 1000 AC 08/07 SC 0031 Loratadine 10 MG DAILY 08/05 1000 AC 08/06 PO 0843 Metoprolol Tartrate 50 MG BID 08/05 1000 AC 08/07 PO 0031 Olanzapine 5 MG QPM 08/05 2200 AC 08/07 PO 0032 Pregabalin 100 MG TID PRN 08/05 0430 AC 08/06 PO 2007 Findings Pertinent Lab/Karthik Results: Laboratory Tests 08/06 08/06 08/06 0912 0907 0907 Chemistry Hemoglobin A1c Pending Cancelled Free T4 Cancelled
[2016-08-07] MEDS ORDERED: HUMALOG KW100 UNIT/1 SC (09:02)
[2016-08-07] MEDS ORDERED: NOVOLOG100 UNIT/2 SC (09:13)
--- NOTE | 2016-08-07 10:32 | PN- Nephrology ---
Assessment/Plan Assessment: 1. ESRD: due to diabetic nephropathy; no HD need today 2. Resp failure: clinically improved Suggestion: no objection to discharge today next HD tomorrow Subjective Subjective: Awake & alert this anastasianigenoveva No SOB No uremic sx Objective Vital Signs and I&Os Vital Signs Date Time Temp Pulse Resp B/P Pulse O2 O2 Flow FiO2 Ox Delivery Rate 08/07 0817 98.0 75 20 122/70 97 Nasal 3.0L Cannula 08/07 0054 104 92 08/07 0031 96 120/72 08/07 0000 Nasal 2.0L Cannula 08/06 2325 98.8 96 20 120/72 93 BIPAP 08/06 1600 94 Nasal 3.0L Cannula 08/06 1548 99.1 87 20 122/68 94 Nasal 3.0L Cannula 08/06 1337 98.1 83 20 105/44 96 Nasal 3.0L Cannula 08/06 1047 95 Nasal 3.0L Cannula Intake & Output 08/07 1600 08/07 0400 08/06 1600 08/06 0400 08/05 1600 08/05 0400 Intake Total 044 358 4823 50 Output Total 0 4000 0 Balance 200 360 -2920 50 Intake, IV 0 0 0 Intake, Oral 186 627 7616 50 Number 0 0 0 Bowel Movements Output, 4000 Dialysate Output, Urine 0 0 0 Patient 373 lb 392 lb 392 lb 310 lb Weight Physical Exam General Appearance: well developed/nourished, no apparent distress, obese Head: atraumatic, normal appearance Neck: normal inspection Respiratory: normal breath sounds, no respiratory distress, quiet respiration, lungs clear Cardiovascular: regular rate/rhythm Abdomen: soft, non-tender Extremities: + bruit PAUL AVF Neurologic/Psychiatric: awake, alert Current Medications: Current Medications Sig/Georgina Start time Last Medication Dose Route Stop Time Status Admin Acetaminophen 325 MG Q6P PRN 08/06 1315 AC 08/06 PO 1617 Albuterol Sulfate 3 ML Q4P PRN 08/06 0915 AC INH Amlodipine Besylate 10 MG DAILY 08/05 1000 AC 08/06 PO 0843 Cinacalcet 30 MG DAILY 08/05 1000 AC 08/06 PO 0843 Epoetin Hernesto 10,000 UNIT TuThSa PRN 08/05 1315 AC IV Ergocalciferol 50,000 IU QSAT 08/05 0700 AC 08/05 PO 0716 Escitalopram Oxalate 20 MG DAILY 08/05 1000 AC 08/06 PO 0843 Heparin Sodium 5,000 UNIT Q8 08/05 0600 AC 08/07 (Porcine) SC 0643 Insulin Aspart 0 TIDAC/HS 08/06 0800 AC 08/07 SC 0931 Insulin Detemir 24 UNITS BID 08/05 1000 AC 08/07 SC 0031 Loratadine 10 MG DAILY 08/05 1000 AC 08/06 PO 0843 Metoprolol Tartrate 50 MG BID 08/05 1000 AC 08/07 PO 0031 Olanzapine 5 MG QPM 08/05 2200 AC 08/07 PO 0032 Pregabalin 100 MG TID PRN 08/05 0430 AC 08/06 PO 2007 Results Pertinent Lab Results: Laboratory Tests 08/06 08/06 08/06 0912 0907 0907 Chemistry Hemoglobin A1c Pending Cancelled Free T4 Cancelled 08/06 08/05 0334 1441 Chemistry Sodium (137 - 145 mmol/L) 133 L Potassium (3.5 - 5.1 mmol/L) 4.0 Chloride (98 - 107 mmol/L) 92 L Carbon Dioxide (22 - 30 mmol/L) 28 Anion Gap (5 - 16) 13 BUN (9 - 20 mg/dL) 30 H Creatinine (0.7 - 1.2 mg/dL) 5.9 *H Estimated GFR (>60 ml/min) 11 L Glucose (65 - 99 mg/dL) 181 H Calcium (8.4 - 10.2 mg/dL) 7.1 L Phosphorus (2.5 - 4.5 mg/dL) 4.5 Magnesium (1.6 - 2.3 mg/dL) 2.1 Total Bilirubin (0.2 - 1.3 mg/dL) 0.4 AST (17 - 59 U/L) 23 ALT (21 - 72 U/L) 28 Albumin (3.5 - 5.0 g/dL) 3.0 L TSH (0.270 - 4.200 uIU/mL) 2.230 Free T4 (0.79 - 2.35 ng/dL) 1.02 Hematology CBC w Diff NO MAN DIFF REQ WBC (4.8 - 10.8 /CUMM) 10.8 RBC (4.70 - 6.10 /CUMM) 3.73 L Hgb (14.0 - 18.0 G/DL) 9.0 L Hct (42 - 52 %) 29.4 L MCV (80.0 - 94.0 FL) 78.7 L MCH (27.0 - 31.0 PG) 24.0 L RDW (11.5 - 14.5 %) 26.2 H Plt Count (130 - 400 /CUMM) 258 MPV (7.4 - 10.4 FL) 9.5 Gran % (42.2 - 75.2 %) 69.0 Lymphocytes % (20.5 - 51.1 %) 9.9 L Monocytes % (1.7 - 9.3 %) 15.3 H Eosinophils % (0 - 5 %) 5.8 H Basophils % (0.0 - 2.0 %) 0 L Absolute Granulocytes (1.4 - 6.5 /CUMM) 7.4 H Absolute Lymphocytes (1.2 - 3.4 /CUMM) 1.1 L Absolute Monocytes (0.10 - 0.60 /CUMM) 1.6 H Absolute Eosinophils (0.0 - 0.7 /CUMM) 0.6 Absolute Basophils (0.0 - 0.2 /CUMM) 0 PUBS MCHC (33.0 - 37.0 G/DL) 30.5 L Toxicology Methadone Screen Cancelled Barbiturate Screen Cancelled Ur Phencyclidine Scrn Cancelled Amphetamines Screen Cancelled U Benzodiazepines Scrn Cancelled Urine Cocaine Screen Cancelled Urine Cannabis Screen Cancelled 08/05 08/05 1220 0845 Blood Gas pH (7.35 - 7.45 PH) 7.33 L 7.32 L pCO2 (35 - 45 TORR) 48 H 46 H pO2 (80 - 100 TORR) 67 L 79 L HCO3 (21 - 28 MEQ/L) 25 23 ABG O2 Sat (Measured) (>96.0 %) 90.0 L 94.0 L Carboxyhemoglobin (1.5 - 5.0 %) 2.3 1.1 L O2 Concentration % 2L 2L O2 Delivery Method [facility] Miscellaneous Phlebotomy Draw Site RIGHT RADIAL RIGHT RADIAL 08/05 0650 Chemistry Sodium (137 - 145 mmol/L) 127 L Potassium (3.5 - 5.1 mmol/L) 4.3 Chloride (98 - 107 mmol/L) 87 L Carbon Dioxide (22 - 30 mmol/L) 23 Anion Gap (5 - 16) 17 H BUN (9 - 20 mg/dL) 50 H Creatinine (0.7 - 1.2 mg/dL) 8.4 *H Estimated GFR (>60 ml/min) 7 L BUN/Creatinine Ratio (7 - 25 %) 6.0 L Phosphorus (2.5 - 4.5 mg/dL) 5.4 H Magnesium (1.6 - 2.3 mg/dL) 2.2 Troponin I (<0.11 ng/ml) < 0.01 Hematology CBC w Diff MAN DIFF ORDERED WBC (4.8 - 10.8 /CUMM) 12.6 H RBC (4.70 - 6.10 /CUMM) 3.53 L Hgb (14.0 - 18.0 G/DL) 8.6 L Hct (42 - 52 %) 27.6 L MCV (80.0 - 94.0 FL) 78.2 L MCH (27.0 - 31.0 PG) 24.2 L RDW (11.5 - 14.5 %) 25.6 H Plt Count (130 - 400 /CUMM) 253 MPV (7.4 - 10.4 FL) 9.9 Gran % (42.2 - 75.2 %) 78.9 H Lymphocytes % (20.5 - 51.1 %) 7.3 L Monocytes % (1.7 - 9.3 %) 11.8 H Eosinophils % (0 - 5 %) 2.0 Basophils % (0.0 - 2.0 %) 0 L Absolute Granulocytes (1.4 - 6.5 /CUMM) 9.9 H Segmented Neutrophils (42.2 - 75.2 %) 68 Band Neutrophils (0.0 - 5.0 %) 8 H Absolute Lymphocytes (1.2 - 3.4 /CUMM) 0.9 L Lymphocytes (20.5 - 51.1 %) 7 L Monocytes (1.7 - 9.3 %) 11 H Absolute Monocytes (0.10 - 0.60 /CUMM) 1.5 H Eosinophils (0 - 5.0 %) 5 Absolute Eosinophils (0.0 - 0.7 /CUMM) 0.3 Absolute Basophils (0.0 - 0.2 /CUMM) 0 Metamyelocytes (0.0 - 1.0 %) 1 Nucleated RBCs (0.0 - 0.0 /100WBC) 3 H Platelet Estimate (ADEQUATE) ADEQUATE Polychromasia 1+ Hypochromic-Microcytic 2+ Poikilocytosis 2+ Anisocytosis 2+ Microcytic Cells 1+ PUBS MCHC (33.0 - 37.0 G/DL) 31.0 L Imaging/Other Studies: EXAMINATION: XR PORTABLE CHEST CLINICAL INFORMATION: Respiratory distress most likely secondary to CPAP noncompliance and narcotic overdose. COMPARISON: Several prior chest x-rays, most recent of which is dated 08/04/2016. TECHNIQUE: Portable AP semiupright view of the chest was obtained. FINDINGS: The cardiomediastinal silhouette is enlarged. Low lung volumes are seen with bibasilar opacities, left greater than right, likely related to subsegmental atelectasis. Overall, evaluation is, however, limited due to patient's large body habitus and low lung volumes. No pneumothorax is seen. No evidence of pulmonary edema is noted. Bony structures are grossly unremarkable. IMPRESSION: Significantly limited study with low lung volumes and bibasilar opacities, possibly related to subsegmental atelectasis. Follow-up PA and lateral chest x-ray with larger inspiration would be helpful for more confident assessment.
[2016-08-07 11:23] VITALS: BP 102/50
--- NOTE | 2016-08-07 13:49 | PN- Housestaff ---
Subjective Follow-up For: Respiratory failure Subjective: Patient is seen and examined at bedside. She does endorse complains of persistent monoclinic headache and has been noted to have significant snoring. He denies any complaints of chest pain, palpitations, dizziness, fever, chills, nausea, vomiting, abdominal pain or dysuria. Acute overnight event reported by nursing staff. Review of Systems Constitutional: Reports: see HPI. Objective Last 24 Hrs of Vital Signs/I&O Current Medications Sig/Georgina Start time Last Medication Dose Route Stop Time Status Admin Acetaminophen 325 MG Q6P PRN 08/06 1315 AC 08/06 PO 1617 Albuterol Sulfate 3 ML Q4P PRN 08/06 0915 AC INH Amlodipine Besylate 10 MG DAILY 08/05 1000 AC 08/06 PO 0843 Cinacalcet 30 MG DAILY 08/05 1000 AC 08/06 PO 0843 Epoetin Hernesto 10,000 UNIT TuThSa PRN 08/05 1315 AC IV Ergocalciferol 50,000 IU QSAT 08/05 0700 AC 08/05 PO 0716 Escitalopram Oxalate 20 MG DAILY 08/05 1000 AC 08/06 PO 0843 Heparin Sodium 5,000 UNIT Q8 08/05 0600 AC 08/07 (Porcine) SC 1448 Insulin Aspart 0 TIDAC/HS 08/06 0800 AC 08/07 SC 1445 Insulin Detemir 24 UNITS BID 08/05 1000 AC 08/07 SC 1129 Loratadine 10 MG DAILY 08/05 1000 AC 08/06 PO 0843 Metoprolol Tartrate 50 MG BID 08/05 1000 AC 08/07 PO 0031 Olanzapine 5 MG QPM 08/05 2200 AC 08/07 PO 0032 Pregabalin 100 MG TID PRN 08/05 0430 AC 08/06 PO 2007 Vital Signs & I&O Last 24 Hrs of Vitals and I&O: Vital Signs Date Time Temp Pulse Resp B/P Pulse O2 O2 Flow FiO2 Ox Delivery Rate 08/07 1205 96 Nasal 3.0L Cannula 08/07 1123 77 102/50 08/07 0817 98.0 75 20 122/70 97 Nasal 3.0L Cannula 08/07 0054 104 92 08/07 0031 96 120/72 08/07 0000 Nasal 2.0L Cannula 08/06 2325 98.8 96 20 120/72 93 BIPAP 08/06 1600 94 Nasal 3.0L Cannula 08/06 1548 99.1 87 20 122/68 94 Nasal 3.0L Cannula Intake & Output 08/07 1600 08/07 0800 08/07 0000 Intake Total 200 Output Total Balance 200 Intake, Oral 200 Patient 373 lb Weight Physical Exam General Appearance: Alert, Oriented X3, Cooperative, obese Skin: No Significant Lesion HEENT: Atraumatic Cardiovascular: Regular Rate, Normal S1, Normal S2 Lungs: Clear to Auscultation, Normal Air Movement Abdomen: Normal Bowel Sounds, Soft, No Tenderness Last 24 Hrs of Lab/Karthik Results Last 24 Hrs of Labs/Mics: Current Medications Sig/Georgina Start time Last Medication Dose Route Stop Time Status Admin Acetaminophen 325 MG Q6P PRN 08/06 1315 AC 08/06 PO 1617 Albuterol Sulfate 3 ML Q4P PRN 08/06 0915 AC INH Amlodipine Besylate 10 MG DAILY 08/05 1000 AC 08/06 PO 0843 Cinacalcet 30 MG DAILY 08/05 1000 AC 08/06 PO 0843 Epoetin Hernesto 10,000 UNIT TuThSa PRN 08/05 1315 AC IV Ergocalciferol 50,000 IU QSAT 08/05 0700 AC 08/05 PO 0716 Escitalopram Oxalate 20 MG DAILY 08/05 1000 AC 08/06 PO 0843 Heparin Sodium 5,000 UNIT Q8 08/05 0600 AC 08/07 (Porcine) SC 1448 Insulin Aspart 0 TIDAC/HS 08/06 0800 AC 08/07 SC 1445 Insulin Detemir 24 UNITS BID 08/05 1000 AC 08/07 SC 1129 Loratadine 10 MG DAILY 08/05 1000 AC 08/06 PO 0843 Metoprolol Tartrate 50 MG BID 08/05 1000 AC 08/07 PO 0031 Olanzapine 5 MG QPM 08/05 2200 AC 08/07 PO 0032 Pregabalin 100 MG TID PRN 08/05 0430 AC 08/06 PO 2007 Vital Signs & I&O Last 24 Hrs of Vitals and I&O: Vital Signs Date Time Temp Pulse Resp B/P Pulse O2 O2 Flow FiO2 Ox Delivery Rate 08/07 1205 96 Nasal 3.0L Cannula 08/07 1123 77 102/50 08/07 0817 98.0 75 20 122/70 97 Nasal 3.0L Cannula 08/07 0054 104 92 08/07 0031 96 120/72 08/07 0000 Nasal 2.0L Cannula 08/06 2325 98.8 96 20 120/72 93 BIPAP 08/06 1600 94 Nasal 3.0L Cannula 08/06 1548 99.1 87 20 122/68 94 Nasal 3.0L Cannula Intake & Output 08/07 1600 08/07 0800 08/07 0000 Intake Total 200 Output Total Balance 200 Intake, Oral 200 Patient 373 lb Weight Assessment/Plan Assessment: This 36-year-old male with significant history of obstructive sleep apnea with noncompliance with CPAP, end-stage renal disease requiring 3-4 times a week off dialysis, heart failure with preserved ejection fraction, was presented to [facility] ED from short-term rehabilitation for evaluation of pneumonia and respiratory distress. Patient was transferred to ICU after he was noted to be have increased somnolence and therefore dialysis was done at ICU. Patient was then transferred the following day to general medicine. Assessment and plan #Significant obstructive sleep apnea Patient is reporting persistent morning headaches, is reported to have significant snoring, and has hypoxic episodes with unresponsiveness. Patient is exhibiting worsening of his obstructive sleep apnea which is exacerbated by his noncompliance. Plan Refrain from any sedating medication Patient will benefit from outpatient sleep study to reassess his current worsening of RENEE Continue to encourage CPAP use #Elevated blood sugar with history of diabetes Patient has elevated uncontrolled blood sugars most likely secondary to nonadherence to diet and compliance of medication. Today's blood sugars appear more control than previous days. Plan Continue current NovoLog and Levemir dose #ESRD requiring dialysis Continue dialysis session. Continue to follow nephrology recommendations. Continued renal dialysis diet Problem List: 1. ESRD on dialysis 2. Obstructive sleep apnea Pain Ratin Pain Location: none Pain Goal: Remain pain free Pain Plan: per pain pathway Tomorrow's Labs & Rationales: none-dialysis patient
--- NOTE | 2016-08-07 15:22 | PN- Pulmonary ---
Subjective HPI/Critical Care Issues: SLeeping this am Objective Current Medications: Current Medications Sig/Georgina Start time Last Medication Dose Route Stop Time Status Admin Acetaminophen 325 MG Q6P PRN 08/06 1315 AC 08/06 PO 1617 Albuterol Sulfate 3 ML Q4P PRN 08/06 0915 AC INH Amlodipine Besylate 10 MG DAILY 08/05 1000 AC 08/06 PO 0843 Cinacalcet 30 MG DAILY 08/05 1000 AC 08/06 PO 0843 Epoetin Hernesto 10,000 UNIT TuThSa PRN 08/05 1315 AC IV Ergocalciferol 50,000 IU QSAT 08/05 0700 AC 08/05 PO 0716 Escitalopram Oxalate 20 MG DAILY 08/05 1000 AC 08/06 PO 0843 Heparin Sodium 5,000 UNIT Q8 08/05 0600 AC 08/07 (Porcine) SC 1448 Insulin Aspart 0 TIDAC/HS 08/06 0800 AC 08/07 SC 1445 Insulin Detemir 24 UNITS BID 08/05 1000 AC 08/07 SC 1129 Loratadine 10 MG DAILY 08/05 1000 AC 08/06 PO 0843 Metoprolol Tartrate 50 MG BID 08/05 1000 AC 08/07 PO 0031 Olanzapine 5 MG QPM 08/05 2200 AC 08/07 PO 0032 Pregabalin 100 MG TID PRN 08/05 0430 AC 08/06 PO 2007 Vital Signs & I&O Last 24 Hrs of Vitals and I&O: Vital Signs Date Time Temp Pulse Resp B/P Pulse O2 O2 Flow FiO2 Ox Delivery Rate 08/07 1205 96 Nasal 3.0L Cannula 08/07 1123 77 102/50 08/07 0817 98.0 75 20 122/70 97 Nasal 3.0L Cannula 08/07 0054 104 92 08/07 0031 96 120/72 08/07 0000 Nasal 2.0L Cannula 08/06 2325 98.8 96 20 120/72 93 BIPAP 08/06 1600 94 Nasal 3.0L Cannula 08/06 1548 99.1 87 20 122/68 94 Nasal 3.0L Cannula Intake & Output 08/07 1600 08/07 0800 08/07 0000 Intake Total 200 Output Total Balance 200 Intake, Oral 200 Patient 373 lb Weight Impression/Plan Impression/Plan Impression/Plan: Physical examination. HEENT: Pupils round equal and reactive. Neck: No jugular venous distention Heart: S1-S2 regular lungs normal. Lungs: Diminished entry bilaterally, no added sounds Abdomen: Obese, soft, nontender with normal bowel sounds Extremities: 2+ pedal edema bilaterally. Neurologic: Patient seen unresponsive IMPRESSION This is an unfortunate 36-year-old gentleman with type 1 diabetes with end-stage renal disease on dialysis, sig RENEE with OHV on cpap noncompliant with cpap, Morbid obesity with dietary noncompliance, previous Crohn's disease, mild persistent eosinophilia of unknown etiology with reactive airway disease * Resolved AMS due to poly pharmacy compounded by RENEE and Met encephalopathy, in the setting of SIg psych history. Pt with acute on chronic hypercarbic resp failure * Recent history of fever and Cultures pending * Significant obstructive sleep apnea noncompliant with CPAP. Pt was on clonazepam and lyrica and olanzapine and this is also contributing to his chronic resp failure. PT has both obstructive and central apnea. Is on bedtime oxygen 3 litres with cpap * Significant uncontrolled diabetes type I diabetes * End-stage renal disease on dialysis, now s/p dialysis * Chronic fluid overload with recurrent pulmonary edema due to renal failure and dietary noncompliance with significant diastolic heart disease * Chronic eosinophilia of unknown etiology with no evidence suggestive of eosinophilic lung disease. Patient does have reactive airway disease * Significant gastroparesis with recurrent aspiration, now stable * Mild lymphadenopathy in the abdomen and chest of unknown etiology, last ct has shown stable lymphadenopathy * Previous history of Crohn's disease with no active colitis * Significant depression and personality disorder with anxiety and chronic pain syndrome with diabetic neuropathy as well on multiple medications which is also causing him to have altered mental status REC Resume bedtime cpap Minimize meds which make him sedated Keep hob up Will follow prn Stable ok to dc Pt aware of cpap use and its benefit
[2016-08-07 16:01] VITALS: BP 108/34
--- NOTE | 2016-08-07 17:25 | PN- Att Addend ---
Attending MD Review Statement Attending Statement Attending MD Statement: examined this patient, discuss w/resident/PA/GAS LINE REPAIRER, agreed w/resident/PA/GAS LINE REPAIRER, reviewed EMR data (avail), discussed w/nursing, discussed w/ case mgmt Attending Assessment/Plan: Vital Signs Date Time Temp Pulse Resp B/P Pulse O2 O2 Flow FiO2 Ox Delivery Rate 08/07 1654 84 108/34 08/07 1653 84 108/34 08/07 1601 97.8 84 19 108/34 97 Nasal 3.0L Cannula 08/07 1533 Nasal 3.0L Cannula 08/07 1532 Nasal 3.0L Cannula 08/07 1529 Nasal 3.0L Cannula 08/07 1514 Nasal 3.0L Cannula 08/07 1205 96 Nasal 3.0L Cannula 08/07 1123 77 102/50 08/07 0817 98.0 75 20 122/70 97 Nasal 3.0L Cannula 08/07 0054 104 92 08/07 0031 96 120/72 08/07 0000 Nasal 2.0L Cannula 08/06 2325 98.8 96 20 120/72 93 BIPAP Patient seen and discussed with the team. Morbidly obese male with past medical history of obstructive sleep apnea and obesity hypoventilation syndrome noncompliant with CPAP. Has not used his CPAP machine for years and does not have any supplies at home. Patient also has end-stage renal disease on hemodialysis. Discussed with patient the importance of using CPAP. Patient does not have supplies at home so we will discuss with pulmonary and see if we can arrange for supplies so that patient can start using his CPAP when he gets home from rehabilitation. Possibly patient will need another sleep study given that his sleep study was done years ago. Discussed with patient the care plan.
--- NOTE | 2016-08-07 23:30 | NUR ---
NURSING NOTE: PT C/O OF SHARP, ABDOMINAL PAIN 01/25. MIXER LEVER OPERATOR 176 PAGED TO ASK IF PT CAN HAVE SOMETHING FOR PAIN. MIXER LEVER OPERATOR WAS NOTIFIED THAT PT DID NOT WANT TO TAKE PRN TYLENOL. EKG ORDERED BY MIXER LEVER OPERATOR 176 AND MIXER LEVER OPERATOR SAID IF EKG COMES BACK NORMAL SHE WILL LOOK AT PT'S CHART AND ORDER SOMETHING FOR PAIN. WILL CONTINUE TO MONITOR.
[2016-08-07 23:50] VITALS: BP 110/66
--- NOTE | 2016-08-08 | NUR ---
NURSING NOTE: PT EKG CAME BACK NORMAL. PT TRIED TO MAKE HIMSELF THROW UP TO HELP ALEVIATE HIS PAIN. EMESIS CLEAR, 50 ML, PT C/O OF SOME DRY HEAVING. INERN 176 AWARE. MANAGER WIND 176 CAME IN TO SPEAK WITH PATIENT. AT THIS TIME NO NARCOTICS WILL BE ORDERED. PT GIVEN IV TYLENOL, PROTONIX, AND MELATONIN. PT WAS HELPED BACK INTO BED AND REPOSITIONED. CPAP MASK REAPPLIED. PT RESTING IN BED. WILL CONTINUE TO MONITOR.
--- NOTE | 2016-08-08 08:46 | PN- Diabetes ---
Assessment/Plan Assessment: His insulin was adjusted yesterday. Fingerstick blood sugar. The patient states that he had some dry heaves last night but is feeling better this AM. The patient is on Levemir 24 units twice a day and sliding scale NovoLog beginning with 8 units for sugar of 80-150. Plan: Suggest continue the present insulin. The patients blood sugars seem to be coming into better control. Subjective Subjective: feels ok. Review of Systems Constitutional: Denies: chills, fever. Cardiovascular: Denies: chest pain. Respiratory: Denies: short of breath. Gastrointestinal: Reports: bloating. Skin: Reports: no symptoms. Objective Last 24 Hrs of Vital Signs/I&O Vital Signs Date Time Temp Pulse Resp B/P Pulse O2 O2 Flow FiO2 Ox Delivery Rate 08/08 0000 CPAP 3.0L 08/07 2350 98.0 81 22 110/66 93 Nasal 3.0L Cannula 08/07 2234 88 95 08/07 2233 95 Nasal 3.0L Cannula 08/07 2136 140/84 08/07 1654 84 108/34 08/07 1653 84 108/34 08/07 1601 97.8 84 19 108/34 97 Nasal 3.0L Cannula 08/07 1533 Nasal 3.0L Cannula 08/07 1532 Nasal 3.0L Cannula 08/07 1529 Nasal 3.0L Cannula 08/07 1514 Nasal 3.0L Cannula 08/07 1205 96 Nasal 3.0L Cannula 08/07 1123 77 102/50 Intake & Output 08/08 1600 08/08 0800 08/08 0000 Intake Total 120 Output Total Balance 120 Intake, Oral 120 Patient 375 lb Weight Current Medications Sig/Georgina Start time Last Medication Dose Route Stop Time Status Admin Acetaminophen 1,000 MG ONCE ONE 08/08 0045 DC 08/08 IV 08/08 0046 0117 Acetaminophen 650 MG .STK-MED ONE 08/07 2300 DC PO 08/07 2301 Acetaminophen 325 MG .STK-MED ONE 08/07 1644 DC PO 08/07 1645 Acetaminophen 325 MG Q6P PRN 08/06 1315 AC 08/07 PO 1648 Albuterol Sulfate 3 ML Q4P PRN 08/06 0915 AC INH Amlodipine Besylate 10 MG DAILY 08/05 1000 AC 08/06 PO 0843 Cinacalcet 30 MG DAILY 08/05 1000 AC 08/07 PO 1652 Epoetin Hernesto 10,000 UNIT TuThSa PRN 08/05 1315 AC IV Ergocalciferol 50,000 IU QSAT 08/05 0700 AC 08/05 PO 0716 Escitalopram Oxalate 20 MG DAILY 08/05 1000 AC 08/07 PO 1652 Heparin Sodium 5,000 UNIT Q8 08/05 0600 AC 08/07 (Porcine) SC 2136 Insulin Aspart 0 TIDAC/HS 08/06 0800 AC 08/07 SC 1753 Insulin Detemir 24 UNITS BID 08/05 1000 AC 08/07 SC 2136 Loratadine 10 MG DAILY 08/05 1000 AC 08/07 PO 1652 Melatonin 5 MG ONCE ONE 08/08 0100 DC 08/08 PO 08/08 0101 0117 Metoprolol Tartrate 50 MG BID 08/05 1000 AC 08/07 PO 2136 Olanzapine 5 MG QPM 08/05 2200 AC 08/07 PO 2136 Omeprazole 20 MG DAILY AC 08/08 0700 AC PO Pantoprazole Sodium 40 MG ONCE ONE 08/08 0100 DC IV 08/08 010 Pregabalin 100 MG TID PRN 08/05 0430 AC 08/06 PO 2007 Vital Signs Date Time Temp Pulse Resp B/P Pulse O2 O2 Flow FiO2 Ox Delivery Rate 08/08 0000 CPAP 3.0L 08/07 2350 98.0 81 22 110/66 93 Nasal 3.0L Cannula 08/07 2234 88 95 08/07 2233 95 Nasal 3.0L Cannula 08/07 2136 140/84 08/07 1654 84 108/34 08/07 1653 84 108/34 08/07 1601 97.8 84 19 108/34 97 Nasal 3.0L Cannula 08/07 1533 Nasal 3.0L Cannula 08/07 1532 Nasal 3.0L Cannula 08/07 1529 Nasal 3.0L Cannula 08/07 1514 Nasal 3.0L Cannula 08/07 1205 96 Nasal 3.0L Cannula 08/07 1123 77 102/50 Intake & Output 08/08 1600 08/08 0800 08/08 0000 Intake Total 120 Output Total Balance 120 Intake, Oral 120 Patient 375 lb Weight Physical Exam General Appearance: alert, awake, obese Head: normal appearance Neck: normal inspection Respiratory: normal breath sounds Cardiovascular: regular rate/rhythm Abdomen: normal bowel sounds, soft Extremities: swelling (2 PLUS EDEMA) Current Medications: Current Medications Sig/Georgina Start time Last Medication Dose Route Stop Time Status Admin Acetaminophen 1,000 MG ONCE ONE 08/08 0045 DC 08/08 IV 08/08 0046 0117 Acetaminophen 650 MG .STK-MED ONE 08/07 2300 DC PO 08/07 2301 Acetaminophen 325 MG .STK-MED ONE 08/07 1644 DC PO 08/07 1645 Acetaminophen 325 MG Q6P PRN 08/06 1315 AC 08/07 PO 1648 Albuterol Sulfate 3 ML Q4P PRN 08/06 0915 AC INH Amlodipine Besylate 10 MG DAILY 08/05 1000 AC 08/06 PO 0843 Cinacalcet 30 MG DAILY 08/05 1000 AC 08/07 PO 1652 Epoetin Hernesto 10,000 UNIT TuThSa PRN 08/05 1315 AC IV Ergocalciferol 50,000 IU QSAT 08/05 0700 AC 08/05 PO 0716 Escitalopram Oxalate 20 MG DAILY 08/05 1000 AC 08/07 PO 1652 Heparin Sodium 5,000 UNIT Q8 08/05 0600 AC 08/07 (Porcine) SC 2136 Insulin Aspart 0 TIDAC/HS 08/06 0800 AC 08/07 SC 1753 Insulin Detemir 24 UNITS BID 08/05 1000 AC 08/07 SC 2136 Loratadine 10 MG DAILY 08/05 1000 AC 08/07 PO 1652 Melatonin 5 MG ONCE ONE 08/08 0100 DC 08/08 PO 08/08 0101 0117 Metoprolol Tartrate 50 MG BID 08/05 1000 AC 08/07 PO 2136 Olanzapine 5 MG QPM 08/05 2200 AC 08/07 PO 2136 Omeprazole 20 MG DAILY AC 08/08 0700 AC PO Pantoprazole Sodium 40 MG ONCE ONE 08/08 0100 DC IV 08/08 0101 Pregabalin 100 MG TID PRN 08/05 0430 AC 08/06 PO 2007
--- NOTE | 2016-08-08 08:50 | PN- Housestaff ---
Subjective Follow-up For: Acute hypercapnic respiratory failure Subjective: Patient is seen and examined at bedside. He is alert and oriented and eager for dialysis. No acute Overnight events reported by nursing staff. Review of Systems Constitutional: Reports: no symptoms. Objective Last 24 Hrs of Vital Signs/I&O Vital Signs Date Time Temp Pulse Resp B/P Pulse O2 O2 Flow FiO2 Ox Delivery Rate 08/08 1636 98.3 87 20 110/70 95 08/08 1600 96 Nasal 3.0L Cannula 08/08 1458 82 156/82 08/08 1457 82 156/82 08/08 0000 CPAP 3.0L 08/07 2350 98.0 81 22 110/66 93 Nasal 3.0L Cannula 08/07 2234 88 95 08/07 2233 95 Nasal 3.0L Cannula 08/07 2136 140/84 Intake & Output 08/08 1600 08/08 0800 08/08 0000 Intake Total 500 120 Output Total Balance 500 120 Intake, Oral 500 120 Number 0 Bowel Movements Patient 165.221 kg 170.097 kg Weight Physical Exam General Appearance: Alert, Oriented X3, Cooperative, obese Other Physical Findings: HEENT: Pupils round equal and reactive. Neck: No jugular venous distention Heart: S1-S2 regular lungs normal. Lungs: Diminished entry bilaterally, no added sounds Abdomen: Obese, soft, nontender with normal bowel sounds Extremities: 2+ pedal edema bilaterally. Neurologic: Patient seen unresponsive Assessment/Plan Assessment: This 36-year-old male with significant history of obstructive sleep apnea with noncompliance with CPAP, end-stage renal disease requiring 3-4 times a week off dialysis, heart failure with preserved ejection fraction, was presented to [facility] from short-term rehabilitation for evaluation of pneumonia and respiratory distress. Patient was transferred to ICU after he was noted to be have increased somnolence and therefore dialysis was done at ICU. Patient was then transferred the following day to general medicine. Assessment and plan #Significant obstructive sleep apnea Patient is reporting persistent morning headaches, is reported to have significant snoring, and has hypoxic episodes with unresponsiveness. Patient is exhibiting worsening of his obstructive sleep apnea which is exacerbated by his noncompliance. Plan Refrain from any sedating medication Patient will benefit from outpatient sleep study to reassess his current worsening of RENEE Continue to encourage CPAP use #Elevated blood sugar with history of diabetes Patient has elevated uncontrolled blood sugars most likely secondary to nonadherence to diet and compliance of medication. Today's blood sugars appear more control than previous days. Plan Continue current NovoLog and Levemir dose #ESRD requiring dialysis Continue dialysis session. Continue to follow nephrology recommendations. Continued renal dialysis diet #History of neuropathic pain Adjustment to his Lyrica was to a low hemodialysis renally adjust dose of 75 mg 3 times a day with supplemental 100 mg on hemodialysis days #Disposition Placement for STR being actively pursued Problem List: 1. Chronic kidney disease with end stage renal failure on dialysis 2. Obstructive sleep apnea Pain Ratin Pain Location: none Pain Goal: Remain pain free Pain Plan: per pain pathway Tomorrow's Labs & Rationales: none-scheduled for discharge tomorrow
--- NOTE | 2016-08-08 08:58 | PN- Nephrology ---
Assessment/Plan Assessment: 1. ESRD: due to diabetic nephropathy; HD in progress - UF 4 liters 2. Resp failure: improved Suggestion: next HD Thur OK for discharge from renal psespective Subjective Subjective: No complaints Using CPAP hs Objective Vital Signs and I&Os Vital Signs Date Time Temp Pulse Resp B/P Pulse O2 O2 Flow FiO2 Ox Delivery Rate 08/08 0000 CPAP 3.0L 08/07 2350 98.0 81 22 110/66 93 Nasal 3.0L Cannula 08/07 2234 88 95 08/07 2233 95 Nasal 3.0L Cannula 08/07 2136 140/84 08/07 1654 84 108/34 08/07 1653 84 108/34 08/07 1601 97.8 84 19 108/34 97 Nasal 3.0L Cannula 08/07 1533 Nasal 3.0L Cannula 08/07 1532 Nasal 3.0L Cannula 08/07 1529 Nasal 3.0L Cannula 08/07 1514 Nasal 3.0L Cannula 08/07 1205 96 Nasal 3.0L Cannula 08/07 1123 77 102/50 Intake & Output 08/08 1600 08/08 0400 08/07 1600 08/07 0400 08/06 1600 08/06 0400 Intake Total 120 840 649 373 0497 Output Total 0 4000 Balance 120 840 200 360 -2920 Intake, IV 0 0 Intake, Oral 120 840 544 282 5096 Number 0 0 Bowel Movements Output, 4000 Dialysate Output, Urine 0 0 Patient 375 lb 373 lb 392 lb 392 lb Weight Physical Exam General Appearance: well developed/nourished, no apparent distress, obese Head: atraumatic, normal appearance Ears, Nose, Throat: normal ENT inspection Respiratory: normal breath sounds, no respiratory distress, quiet respiration, lungs clear Cardiovascular: regular rate/rhythm Abdomen: soft, non-tender, obese Extremities: swelling (1+) Neurologic/Psychiatric: awake, alert Current Medications: Current Medications Sig/Georgina Start time Last Medication Dose Route Stop Time Status Admin Acetaminophen 1,000 MG ONCE ONE 08/08 0045 DC 08/08 IV 08/08 0046 0117 Acetaminophen 650 MG .STK-MED ONE 08/07 2300 DC PO 08/07 2301 Acetaminophen 325 MG .STK-MED ONE 08/07 1644 DC PO 08/07 1645 Acetaminophen 325 MG Q6P PRN 08/06 1315 AC 08/07 PO 1648 Albuterol Sulfate 3 ML Q4P PRN 08/06 0915 AC INH Amlodipine Besylate 10 MG DAILY 08/05 1000 AC 08/06 PO 0843 Cinacalcet 30 MG DAILY 08/05 1000 AC 08/07 PO 1652 Epoetin Hernesto 10,000 UNIT TuThSa PRN 08/05 1315 AC IV Ergocalciferol 50,000 IU QSAT 08/05 0700 AC 08/05 PO 0716 Escitalopram Oxalate 20 MG DAILY 08/05 1000 AC 08/07 PO 1652 Heparin Sodium 5,000 UNIT Q8 08/05 0600 AC 08/07 (Porcine) SC 2136 Insulin Aspart 0 TIDAC/HS 08/06 0800 AC 08/07 SC 1753 Insulin Detemir 24 UNITS BID 08/05 1000 AC 08/07 SC 2136 Loratadine 10 MG DAILY 08/05 1000 AC 08/07 PO 1652 Melatonin 5 MG ONCE ONE 08/08 0100 DC 08/08 PO 08/08 010 0117 Metoprolol Tartrate 50 MG BID 08/05 1000 AC 08/07 PO 2136 Olanzapine 5 MG QPM 08/05 2200 AC 08/07 PO 2136 Omeprazole 20 MG DAILY AC 08/08 0700 AC PO Pantoprazole Sodium 40 MG ONCE ONE 08/08 0100 DC IV 08/08 010 Pregabalin 100 MG TID PRN 08/05 0430 AC 08/06 PO 2007 Results Pertinent Lab Results: Laboratory Tests 08/07 08/06 08/06 08/06 0600 0912 0907 0907 Chemistry Sodium Cancelled Potassium Cancelled Chloride Cancelled Carbon Dioxide Cancelled Anion Gap Cancelled BUN Cancelled Creatinine Cancelled BUN/Creatinine Ratio Cancelled Hemoglobin A1c (<5.7) 8.7 H Cancelled Free T4 Cancelled 08/06 08/05 0334 1441 Chemistry Sodium (137 - 145 mmol/L) 133 L Potassium (3.5 - 5.1 mmol/L) 4.0 Chloride (98 - 107 mmol/L) 92 L Carbon Dioxide (22 - 30 mmol/L) 28 Anion Gap (5 - 16) 13 BUN (9 - 20 mg/dL) 30 H Creatinine (0.7 - 1.2 mg/dL) 5.9 *H Estimated GFR (>60 ml/min) 11 L Glucose (65 - 99 mg/dL) 181 H Calcium (8.4 - 10.2 mg/dL) 7.1 L Phosphorus (2.5 - 4.5 mg/dL) 4.5 Magnesium (1.6 - 2.3 mg/dL) 2.1 Total Bilirubin (0.2 - 1.3 mg/dL) 0.4 AST (17 - 59 U/L) 23 ALT (21 - 72 U/L) 28 Albumin (3.5 - 5.0 g/dL) 3.0 L TSH (0.270 - 4.200 uIU/mL) 2.230 Free T4 (0.79 - 2.35 ng/dL) 1.02 Hematology CBC w Diff NO MAN DIFF REQ WBC (4.8 - 10.8 /CUMM) 10.8 RBC (4.70 - 6.10 /CUMM) 3.73 L Hgb (14.0 - 18.0 G/DL) 9.0 L Hct (42 - 52 %) 29.4 L MCV (80.0 - 94.0 FL) 78.7 L MCH (27.0 - 31.0 PG) 24.0 L RDW (11.5 - 14.5 %) 26.2 H Plt Count (130 - 400 /CUMM) 258 MPV (7.4 - 10.4 FL) 9.5 Gran % (42.2 - 75.2 %) 69.0 Lymphocytes % (20.5 - 51.1 %) 9.9 L Monocytes % (1.7 - 9.3 %) 15.3 H Eosinophils % (0 - 5 %) 5.8 H Basophils % (0.0 - 2.0 %) 0 L Absolute Granulocytes (1.4 - 6.5 /CUMM) 7.4 H Absolute Lymphocytes (1.2 - 3.4 /CUMM) 1.1 L Absolute Monocytes (0.10 - 0.60 /CUMM) 1.6 H Absolute Eosinophils (0.0 - 0.7 /CUMM) 0.6 Absolute Basophils (0.0 - 0.2 /CUMM) 0 PUBS MCHC (33.0 - 37.0 G/DL) 30.5 L Toxicology Methadone Screen Cancelled Barbiturate Screen Cancelled Ur Phencyclidine Scrn Cancelled Amphetamines Screen Cancelled U Benzodiazepines Scrn Cancelled Urine Cocaine Screen Cancelled Urine Cannabis Screen Cancelled 08/05 1220 Blood Gas pH (7.35 - 7.45 PH) 7.33 L pCO2 (35 - 45 TORR) 48 H pO2 (80 - 100 TORR) 67 L HCO3 (21 - 28 MEQ/L) 25 ABG O2 Sat (Measured) (>96.0 %) 90.0 L Carboxyhemoglobin (1.5 - 5.0 %) 2.3 O2 Concentration % 2L O2 Delivery Method NC Miscellaneous Phlebotomy Draw Site RIGHT RADIAL
[2016-08-08 09:52] LABS: ABSOLUTE BASOPHIL COUNT 0 /CUMM (0.0-0.2); ABSOLUTE EOSINOPHIL COUNT 0.9 /CUMM (0.0-0.7); ABSOLUTE GRANULOCYTE CT 7.9 /CUMM (1.4-6.5); ABSOLUTE LYMPH COUNT 1.1 /CUMM (1.2-3.4); ABSOLUTE MONOCYTE COUNT 1.2 /CUMM (0.10-0.60); BASOPHIL % 0.1 % (0.0-2.0); EOSINOPHIL % 8.3 % (0-5); GRANULOCYTE % 70.9 % (42.2-75.2); HEMATOCRIT 28.4 % (42-52); MEAN CORPUSCULAR HGB 23.6 PG (27.0-31.0); MEAN CORPUSCULAR HGB CONC 30.4 G/DL (33.0-37.0); MEAN CORPUSCULAR VOLUME 77.6 FL (80.0-94.0); MEAN PLATELET VOLUME 9.7 FL (7.4-10.4); PLATELET COUNT 298 /CUMM (130-400); RED BLOOD CELL CT 3.66 /CUMM (4.70-6.10); WHITE BLOOD CELL COUNT 11.1 /CUMM (4.8-10.8)
--- NOTE | 2016-08-08 11:20 | NUR ---
NURSING NOTE: PATIENT TRANSPORTED TO DIALYSIS @ 0720. A/O X 3 WITH NO C/O PAIN OR DISCOMFORT. SPO2 95% OBN 3L O2.
--- NOTE | 2016-08-08 13:21 | NUR ---
PHYSICAL THERAPY: Patient is WILNER at this time. Will f/u as appropriate for PT.
--- NOTE | 2016-08-08 14:32 | Discharge Summary ---
See Addendum Visit Information Visit Dates Admission Date: 08/05/16 Discharge Date: 08/08/2016 Hospital Course Course Attending Physician: PADMINI BEAR,BETH Sifuentes Primary Care Physician: BLANCA LI MD Hospital Course: This is a 36 yo gentleman with a PMHX of morbid obesity,, HTN, HLD, HFpEF (EF 65%), ESRD on HD 4 days/week (MTTS), IDDM, peripheral neuropathy and retinopathy , RENEE on 3 L home oxygen & non compliance with CPAP, asthma Crohn's disease, depression and PTSD , presented from Short term rehab for evaluation of PNA and fevers. Patient was recently discharged to short-term rehabilitation on Aug 02. He came back to ER on Aug 04 morning for fever, according to the records 100.2 (?), and low oxygen saturation. He was overnight in ER, investigated with chest x-ray, ABG, influenza test and discharged to [facility] system consultant. He was sent back to ER for suspected pneumonia, fever, low oxygen saturation. Patient denied any new cough, sputum production, worsening shortness of breath, abdominal pain or diarrhea. He endorsed right-sided chest pain, worse with movements, thatdoes not change with breathing, no chest tightness. Vitals: T max: 99.7, pulse 94, RR 20 BP 111/53 Saturating 95% on 3 L. On exam: A O 3, no acute respiratory distress, appropriate answers, Neck supple, no JVD, CVS: S1-S2, RS: Bibasilar crackles. Abdomen: Soft, NT, ND, bowel sounds present. No focal neurological. Dependent edema. Labs: WBC 12.1, neutrophils 71 %, hemoglobin 9.0, sodium 128, potassium 4.2, bicarbonate 27, anion gap 16, BUN 47, creatinine 7.4, glucose 336, calcium 6.8, labs done on August 04, PM. ABG as reported to me by ER physician: PH7.36, PCO2 48, PO2 68, bicarbonate 27 on 2 L NC. CXR: Suspect linear right basilar atelectasis. No additional consolidation. Prominent cardiac silhouette. Pt was then admitted for evaluation and management of hypercapnic repsiratory failure and suspected PNA and respiratory failure. Pt remained in the hospital for 4 days, he was discharged on 08/08 after being stable. the following issues were addressed during hospital stay: #Acute hypercapnic respiratory failure. Pt non compliance with CPAP,obesity, and polypharmacy was believed to be the underlying etiology of his hyper capnic respiratory failure. Patient received noctturnal CPAP while at the hospital. During the day patient remained at his baseline 3L NC O2 supplementation. # suspected pneumonia: Patient did not have any documented fever in his 2 ER visits. He had a reported Tmax fever of 100.4 in rehab. Patient has some leukocytosis but in fact was trending down from previous hospitalization. He does not have any productive cough. He has significant healthcare exposure with recurrent hemodialysis and hospitalizations but chest x-ray does not show any infiltrates. Given his body habitus chest x-ray was difficult to evaluate. Antibioitcs were held during admission and patient did not require them as he did not develop any fever, leukocytosis or clinical symptoms. His dyspnea was thought to be secondary to his pending dialysis as he had significant volume overload along with his OHS and RENEE. #2 Altered mental status/somnolence Patient was noted to have increased somnolence and altered mental status , and was transferred to ICU for close monitoring with dialysis. His non compliance with CPAP and polypharmacy with pain medication was likely the cause of his altered mental status/somnolence. Patient was transferred to general mdeicine floor following day after he was more awake and alert. His medication regimen was reveiwed and his gabapentin dose was decreased to a more renal hemodialysis appropriate dose (please see medication summary below) #3 ESRD Patien received Dialysis sessions as scheduled during hospital stay. #Elevated Blood sugars. Most probably secondary to non compliance . Endocrine was consulted and per their reccomendation, patient's insulin dose was adjusted (please see medication summary) and better glucose control was noted. #Worsening RENEE Patient continued to report persistent morning headaches, is reported to have significant snoring, and has hypoxic episodes with unresponsiveness. Patient is exhibiting worsening of his obstructive sleep apnea which is exacerbated by his noncompliance. A referral is given for patient to follow up with Dr Ware ( pul) for evaluation and sleep study. Allergies: Coded Allergies: iron (From VENOFER) (Intermediate, N/V 08/26/16) Disposition Summary Disposition Principal Diagnosis: Hypercapnic Hypoxic repsiratory failure Additional Diagnosis: HYPERGLYCEMIA, ALTERED MENTAL STATUS Discharge Disposition: SNF Discharge Instructions General Discharge Information Code Status: Full Code Patient's Diet: diabetic Patient's Activity: As tolerated Follow-Up Instructions/Appts: Patient is to follow up with Pulmonolgy for evaluation Medications at Discharge Discharge Medications: Stop taking the following medications: Pregabalin (Lyrica) 100 MG CAPSULE ORAL THREE TIMES DAILY as needed for NEUROPATHY Qty = 90 Continue taking these medications: Ergocalciferol (Vitamin D2) (Vitamin D2) 50,000 UNIT CAPSULE 50,000 International Unit ORAL EVERY SUNDAY Qty = 8 Instructions: Follow the Instruction for 8 weeks then check Vit D level Comments: NOT GIVEN IN HOSPITAL Amlodipine Besylate (Amlodipine Besylate) 10 MG TABLET 1 Tablet ORAL DAILY Qty = 90 Comments: Last Taken: 08/24/16 Time: 1 PM Metoprolol Tartrate (Metoprolol Tartrate) 50 MG TABLET 1 Tablet ORAL TWICE DAILY Qty = 180 Comments: Last Taken: 08/24/16 Time: 1 PM Olanzapine (Olanzapine) 5 MG TABLET 1 Tablet ORAL Every night Qty = 30 Comments: Last Taken: 08/23/16 Time: 10:30 PM Escitalopram Oxalate (Escitalopram Oxalate) 20 MG TABLET 1 Tablet ORAL DAILY Qty = 30 Comments: Last Taken: 08/24/16 Time: 1 PM Cinacalcet HCl (Sensipar) 30 MG TABLET 1 Tablet ORAL DAILY Qty = 30 Comments: NOT GIVEN Insulin Glargine,Hum.rec.anlog (Lantus Solostar) 100 UNIT/ML (3 ML) INSULN.PEN 24 Units Inject into fatty tissue TWICE DAILY Qty = 30 Comments: NOT GIVEN IN HOSPITAL ALTERNATIVE MED, LEVEMIR GIVEN INSTEAD Last Taken: 08/24/16 Time: 1 PM Darbepoetin Hernesto in Polysorbat (Aranesp) 40 MCG/0.4 ML SYRINGE 1 1ML Inject into fatty tissue SEE INSTRUCTIONS Days = 30 Instructions: 0.45 mcg/kg SC/IV Comments: NOT GIVEN IN HOSPITAL Loratadine (Claritin) 10 MG TABLET 1 Tablet ORAL DAILY Days = 10 Comments: Last Taken: 08/24/16 Time: 1 PM Clonazepam (Clonazepam) 1 MG TABLET 0.5 Tablet ORAL TWICE DAILY as needed for ANXIETY Qty = 60 Comments: NOT GIVEN Insulin Lispro (Humalog Kwikpen U-100) 100 UNIT/ML INSULN.PEN 1 Units Inject into fatty tissue BEFORE MEALS AND AT BEDTIME Qty = 30 Instructions: before meals 80-150 mg/dl--8 units 151-200 mg/dl--9 units 201-250 mg/dl--10 units 251-300 mg/dl-- 11 units 301-350 mg/dl--12 units 351-400 mg/dl--13 units BEDTIME DOSING less than 250-No insulin 251-300 mg/dl--3 units 301-350 mg/dl--4 units 351-400 mg/dl 5 units Comments: Last Taken: 08/24/16 Time: 6 PM NOVOLOG GIVEN SUBSTITUTION This prescription has been renewed Start taking the following new medications: Pregabalin (Lyrica) 75 MG CAPSULE 1 Tablet ORAL DAILY Qty = 30 No Refills Comments: 50 MG GIVEN DAILY WHILE IN HOSPITAL Last Taken: 08/24/16 Time: 1 PM Pregabalin (Lyrica) 100 MG CAPSULE 1 Tablet ORAL SUNDAY, SUNDAY, SUNDAY Qty = 16 No Refills Instructions: Please take on dialysis days after HD session Comments: 75 MG GIVEN WHILE IN HOSPITAL FOR DILAYSIS DAYS Last Taken: 08/24/16 Time: 4 PM Copies To: Madeline WARE MD; BLANCA LI MD Attending MD Review Statement Documenting Attending: BETH WASHINGTON MD Other Findings: Agree with the above discharge plan. Pregabalin (Lyrica) 100 MG CAPSULE 100 Milligram ORAL SUNDAY, SUNDAY, SUNDAY Qty = 16 No Refills Instructions: Please take on dialysis days after HD session Copies To: Madeline WARE MD; BLANCA LI MD
--- NOTE | 2016-08-08 15:22 | PN- Att Addend ---
See Addendum Attending MD Review Statement Attending Statement Attending MD Statement: examined this patient, discuss w/resident/PA/GOLF CLUB ASSEMBLER, agreed w/resident/PA/G[employer] ASSEMBLER, reviewed EMR data (avail), discussed w/nursing, discussed w/ case mgmt Attending Assessment/Plan: Laboratory Tests 08/08/16 0745: Anion Gap 17 H, Estimated GFR 7 L, BUN/Creatinine Ratio 7.1, Glucose 204 H, Calcium 6.7 L, CBC w Diff NO MAN DIFF REQ, RBC 3.66 L, MCV 77.6 L, MCH 23.6 L, RDW 25.0 H, MPV 9.7, Gran % 70.9, Lymphocytes % 10.2 L, Monocytes % 10.5 H , Eosinophils % 8.3 H, Basophils % 0.1, Absolute Granulocytes 7.9 H, Absolute Lymphocytes 1.1 L, Absolute Monocytes 1.2 H, Absolute Eosinophils 0.9, Absolute Basophils 0, PUBS MCHC 30.4 L Vital Signs Date Time Temp Pulse Resp B/P Pulse O2 O2 Flow FiO2 Ox Delivery Rate 08/08 1458 82 156/82 08/08 1457 82 156/82 08/08 0000 CPAP 3.0L 08/07 2350 98.0 81 22 110/66 93 Nasal 3.0L Cannula 08/07 2234 88 95 08/07 2233 95 Nasal 3.0L Cannula 08/07 2136 140/84 08/07 1654 84 108/34 08/07 1653 84 108/34 08/07 1601 97.8 84 19 108/34 97 Nasal 3.0L Cannula 08/07 1533 Nasal 3.0L Cannula 08/07 1532 Nasal 3.0L Cannula 08/07 1529 Nasal 3.0L Cannula Patient seen and discussed with the team. Morbidly obese male with past medical history of obstructive sleep apnea and obesity hypoventilation syndrome noncompliant with CPAP. Has not used his CPAP machine for years and does not have any supplies at home. Patient also has end-stage renal disease on hemodialysis. Pt had hypoxic and hypercapneic respiratory failure. Did not have pneumonia. Pt needs to be on Bipap at night. Discussed with patient the importance of using Bipap. Pulmonary follow up needed after discharge. d/w pt the care plan.
--- NOTE | 2016-08-08 15:25 | NUR ---
NURSING NOTE: PATIENT RETURNED FROM DIALYSIS @ 1400. A/O X 3 WITH NO C/O SOB. SPO2 96% ON 3L O2. VS BP156/84, P82, T98.4, R20. WEIGHT 364. ATE 100% OF LUNCH. INSULIN AND PO MEDS GIVEN LATE BECAUSE OF DIALYSIS E[employer] TECHNOLOGY DEPARTMENT CHAIR IS AWARE.
[2016-08-08 16:36] VITALS: BP 110/70
--- NOTE | 2016-08-08 18:04 | PN- Pulmonary ---
Subjective HPI/Critical Care Issues: Stable Afeberile Objective Current Medications: Current Medications Sig/Georgina Start time Last Medication Dose Route Stop Time Status Admin Acetaminophen 1,000 MG ONCE ONE 08/08 0045 DC 08/08 IV 08/08 0046 0117 Acetaminophen 650 MG .STK-MED ONE 08/07 2300 DC PO 08/07 2301 Acetaminophen 325 MG Q6P PRN 08/06 1315 AC 08/08 PO 1514 Albuterol Sulfate 3 ML Q4P PRN 08/06 0915 DC INH Amlodipine Besylate 10 MG DAILY 08/05 1000 AC 08/08 PO 1458 Cinacalcet 30 MG DAILY 08/05 1000 AC 08/08 PO 1458 Epoetin Hernesto 10,000 UNIT TuThSa PRN 08/05 1315 AC IV Ergocalciferol 50,000 IU QSAT 08/05 0700 AC 08/05 PO 0716 Escitalopram Oxalate 20 MG DAILY 08/05 1000 AC 08/08 PO 1454 Heparin Sodium 5,000 UNIT Q8 08/05 0600 AC 08/08 (Porcine) SC 1500 Insulin Aspart 0 TIDAC/HS 08/06 0800 AC 08/08 SC 1712 Insulin Detemir 24 UNITS BID 08/05 1000 AC 08/08 SC 1501 Loratadine 10 MG DAILY 08/05 1000 AC 08/08 PO 1453 Melatonin 5 MG ONCE ONE 08/08 0100 DC 08/08 PO 08/08 0101 0117 Metoprolol Tartrate 50 MG BID 08/05 1000 AC 08/08 PO 1457 Olanzapine 5 MG QPM 08/05 2200 AC 08/07 PO 2136 Omeprazole 20 MG DAILY AC 08/08 0700 AC PO Pantoprazole Sodium 40 MG ONCE ONE 08/08 0100 DC IV 08/08 0101 Pregabalin 75 MG 8AM PRN 08/09 1006 AC PO Pregabalin 100 MG TUES THURS SAT 08/08 1000 AC 08/08 PO 1459 Pregabalin 100 MG TID PRN 08/05 0430 DC 08/06 PO 2007 Vital Signs & I&O Last 24 Hrs of Vitals and I&O: Vital Signs Date Time Temp Pulse Resp B/P Pulse O2 O2 Flow FiO2 Ox Delivery Rate 08/08 1636 98.3 87 20 110/70 95 08/08 1600 96 Nasal 3.0L Cannula 08/08 1458 82 156/82 08/08 1457 82 156/82 08/08 0000 CPAP 3.0L 08/07 2350 98.0 81 22 110/66 93 Nasal 3.0L Cannula 08/07 2234 88 95 08/073 95 Nasal 3.0L Cannula 08/07 2136 140/84 Intake & Output 08/08 1600 08/08 0800 08/08 0000 Intake Total 500 120 Output Total Balance 500 120 Intake, Oral 500 120 Number 0 Bowel Movements Patient 364 lb 375 lb Weight Impression/Plan Impression/Plan Impression/Plan: Physical examination. HEENT: Pupils round equal and reactive. Neck: No jugular venous distention Heart: S1-S2 regular lungs normal. Lungs: Diminished entry bilaterally, no added sounds Abdomen: Obese, soft, nontender with normal bowel sounds Extremities: 2+ pedal edema bilaterally. Neurologic: Patient seen unresponsive IMPRESSION This is an unfortunate 36-year-old gentleman with type 1 diabetes with end-stage renal disease on dialysis, sig RENEE with OHV on cpap noncompliant with cpap, Morbid obesity with dietary noncompliance, previous Crohn's disease, mild persistent eosinophilia of unknown etiology with reactive airway disease * Resolved AMS due to poly pharmacy compounded by RENEE and Met encephalopathy, in the setting of SIg psych history. Pt with acute on chronic hypercarbic resp failure * Recent history of fever and Cultures pending * Significant obstructive sleep apnea noncompliant with CPAP. Pt was on clonazepam and lyrica and olanzapine and this is also contributing to his chronic resp failure. PT has both obstructive and central apnea. Is on bedtime oxygen 3 litres with cpap * Significant uncontrolled diabetes type I diabetes * End-stage renal disease on dialysis, now s/p dialysis * Chronic fluid overload with recurrent pulmonary edema due to renal failure and dietary noncompliance with significant diastolic heart disease * Chronic eosinophilia of unknown etiology with no evidence suggestive of eosinophilic lung disease. Patient does have reactive airway disease * Significant gastroparesis with recurrent aspiration, now stable * Mild lymphadenopathy in the abdomen and chest of unknown etiology, last ct has shown stable lymphadenopathy * Previous history of Crohn's disease with no active colitis * Significant depression and personality disorder with anxiety and chronic pain syndrome with diabetic neuropathy as well on multiple medications which is also causing him to have altered mental status REC Resume bedtime cpap PT can take his mask upon dc and use his cpap with the tubing he has Minimize meds which make him sedated Keep hob up Will follow prn Stable ok to dc Pt aware of cpap use and its benefit Please have him make an appointment upon dc for arrangement of sleep study etc
[2016-08-09 00:10] VITALS: BP 100/60
[2016-08-09] MEDS ORDERED: HUMALOG KW100 UNIT/1 SC (07:59)
[2016-08-09 08:00] VITALS: BP 120/60
--- NOTE | 2016-08-09 08:04 | PN- Diabetes ---
Assessment/Plan Assessment: The patient is on 24 units of Levemir twice a day. He is also on sliding scale NovoLog before meals with the separate sliding scale at bedtime. Most recent blood sugars yesterday were 176 before breakfast, 164 before lunch, 293 before dinner, and to 279 at bedtime. Plan: The patient states he is probably going home today. If he is discharged I would send him home on his present insulin regimen. However we can substitute Humalog which he has at home for the NovoLog using the same sliding scale. Subjective Subjective: Feels okay Review of Systems Constitutional: Denies: chills, fever. Cardiovascular: Reports: edema (legs). Denies: chest pain. Respiratory: Denies: short of breath. Objective Last 24 Hrs of Vital Signs/I&O Vital Signs Date Time Temp Pulse Resp B/P Pulse O2 O2 Flow FiO2 Ox Delivery Rate 08/09 0010 98.5 81 20 100/60 97 Nasal 3.0L Cannula 08/09 0000 97 Nasal 3.0L Cannula 08/08 2210 80 100/50 08/08 1636 98.3 87 20 110/70 95 08/08 1600 96 Nasal 3.0L Cannula 08/08 1458 82 156/82 08/08 1457 82 156/82 Intake & Output 08/09 1600 08/09 0800 08/09 0000 Intake Total 240 480 Output Total 0 Balance 240 480 Intake, Oral 240 480 Number 0 0 Bowel Movements Output, Urine 0 Patient 370 lb Weight Vital Signs Date Time Temp Pulse Resp B/P Pulse O2 O2 Flow FiO2 Ox Delivery Rate 08/09 0010 98.5 81 20 100/60 97 Nasal 3.0L Cannula 08/09 0000 97 Nasal 3.0L Cannula 08/08 2210 80 100/50 08/08 1636 98.3 87 20 110/70 95 08/08 1600 96 Nasal 3.0L Cannula 08/08 1458 82 156/82 08/08 1457 82 156/82 Intake & Output 08/09 1600 08/09 0800 08/09 0000 Intake Total 240 480 Output Total 0 Balance 240 480 Intake, Oral 240 480 Number 0 0 Bowel Movements Output, Urine 0 Patient 370 lb Weight Physical Exam General Appearance: alert, awake, comfortable Head: normal appearance Neck: normal inspection Respiratory: normal breath sounds Cardiovascular: regular rate/rhythm Extremities: swelling (2+ edema lower legs) Current Medications: Current Medications Sig/Georgina Start time Last Medication Dose Route Stop Time Status Admin Acetaminophen 325 MG .STK-MED ONE 08/08 204 DC PO 08/08 204 Acetaminophen 325 MG .STK-MED ONE 08/08 1512 DC PO 08/08 1513 Acetaminophen 325 MG Q6P PRN 08/06 1315 AC 08/08 PO 2050 Albuterol Sulfate 3 ML Q4P PRN 08/06 0915 DC INH Amlodipine Besylate 10 MG DAILY 08/05 1000 AC 08/08 PO 1458 Cinacalcet 30 MG DAILY 08/05 1000 AC 08/08 PO 1458 Epoetin Hernesto 10,000 UNIT TuThSa PRN 08/05 1315 AC IV Ergocalciferol 50,000 IU QSAT 08/05 0700 AC 08/05 PO 0716 Escitalopram Oxalate 20 MG DAILY 08/05 1000 AC 08/08 PO 1454 Heparin Sodium 5,000 UNIT Q8 08/05 0600 AC 08/09 (Porcine) SC 0601 Insulin Aspart 0 TIDAC/HS 08/06 0800 AC 08/08 SC 2209 Insulin Detemir 24 UNITS BID 08/05 1000 AC 08/08 SC 2208 Loratadine 10 MG DAILY 08/05 1000 AC 08/08 PO 1453 Metoclopramide HCl 10 MG ONCE ONE 08/08 2145 DC 08/08 IV 08/08 2146 2204 Metoprolol Tartrate 50 MG BID 08/05 1000 AC 08/08 PO 1457 Olanzapine 5 MG QPM 08/05 2200 AC 08/08 PO 2212 Omeprazole 20 MG DAILY AC 08/08 0700 AC 08/09 PO 0600 Polyethylene Glycol 17 GM DAILY 08/09 1000 AC PO Pregabalin 75 MG 8AM PRN 08/09 1006 AC PO Pregabalin 100 MG TUES THURS SAT 08/08 1000 AC 08/08 PO 1459 Pregabalin 100 MG TID PRN 08/05 0430 DC 08/06 PO 2008 Prochlorperazine 5 MG ONCE ONE 08/08 2129 CAN IV 08/08 2130
--- NOTE | 2016-08-09 08:09 | PN- Housestaff ---
CARLA BEAR,ALBER 08/09/16 0809: Subjective Follow-up For: Acute respiratory failure Subjective: Patient is seen and examined at bedside. Patient is not endorsing any acute complaints, he is however concerned about his discharge disposition was is now able to obtain short-term rehabilitation due to insurance issues and he is not stable yet to be discharged at home due to the full flight of stairs he has to climb. No acute overnight event reported by nursing staff. Review of Systems Constitutional: Reports: no symptoms. Objective Last 24 Hrs of Vital Signs/I&O Vital Signs Date Time Temp Pulse Resp B/P Pulse O2 O2 Flow FiO2 Ox Delivery Rate 08/09 0935 91 100/60 08/09 0934 91 100/60 08/09 0800 97 Nasal 3.0L Cannula 08/09 0800 98.2 91 20 120/60 98 Nasal 3.0L Cannula 08/09 0010 98.5 81 20 100/60 97 Nasal 3.0L Cannula 08/09 0000 97 Nasal 3.0L Cannula 08/08 2211 80 100/50 08/08 1636 98.3 87 20 110/70 95 08/08 1600 96 Nasal 3.0L Cannula 08/08 1458 82 156/82 08/08 1457 82 156/82 Intake & Output 08/09 1600 08/09 0800 08/09 0000 Intake Total 240 480 Output Total 0 Balance 240 480 Intake, Oral 240 480 Number 0 0 Bowel Movements Output, Urine 0 Patient 167.829 kg Weight Physical Exam General Appearance: Alert, Oriented X3, Cooperative Other Physical Findings: HEENT: Pupils round equal and reactive. Neck: No jugular venous distention Heart: S1-S2 regular lungs normal. Lungs: Diminished entry bilaterally, no added sounds Abdomen: Obese, soft, nontender with normal bowel sounds Extremities: 2+ pedal edema bilaterally. Neurologic: Patient seen unresponsive Current Medications: Current Medications Sig/Georgina Start time Last Medication Dose Route Stop Time Status Admin Acetaminophen 325 MG .STK-MED ONE 08/08 2046 DC PO 08/08 2047 Acetaminophen 325 MG .STK-MED ONE 08/08 1512 DC PO 08/08 1513 Acetaminophen 325 MG Q6P PRN 08/06 1315 AC 08/09 PO 0941 Amlodipine Besylate 10 MG DAILY 08/05 1000 AC 08/08 PO 1458 Cinacalcet 30 MG DAILY 08/05 1000 AC 08/09 PO 0933 Epoetin Hernesto 10,000 UNIT TuThSa PRN 08/05 1315 AC IV Ergocalciferol 50,000 IU QSAT 08/05 0700 AC 08/05 PO 0716 Escitalopram Oxalate 20 MG DAILY 08/05 1000 AC 08/09 PO 0933 Heparin Sodium 5,000 UNIT Q8 08/05 0600 AC 08/09 (Porcine) SC 1339 Insulin Aspart 0 TIDAC/HS 08/06 0800 AC 08/09 SC 1338 Insulin Detemir 24 UNITS BID 08/05 1000 AC 08/09 SC 0930 Loratadine 10 MG DAILY 08/05 1000 AC 08/09 PO 0933 Metoclopramide HCl 10 MG ONCE ONE 08/08 2145 DC 08/08 IV 08/08 2145 220 Metoprolol Tartrate 50 MG BID 08/05 1000 AC 08/08 PO 1457 Olanzapine 5 MG QPM 08/05 2200 AC 08/08 PO 2212 Omeprazole 20 MG DAILY AC 08/08 0700 AC 08/09 PO 0600 Patient Medication 1 ED .STK-MED ONE 08/09 1333 OH Teaching ED 08/09 1334 Polyethylene Glycol 17 GM DAILY 08/09 1000 AC 08/09 PO 0929 Pregabalin 75 MG 8AM PRN 08/09 1006 AC PO Pregabalin 100 MG TU THURS SAT 08/08 1000 AC 08/08 PO 1459 Prochlorperazine 5 MG ONCE ONE 08/08 2129 CAN IV 08/08 2130 Assessment/Plan Assessment: This 36-year-old male with significant history of obstructive sleep apnea with noncompliance with CPAP, end-stage renal disease requiring 3-4 times a week off dialysis, heart failure with preserved ejection fraction, was presented to [facility] ED from short-term rehabilitation for evaluation of pneumonia and respiratory distress. Patient was transferred to ICU after he was noted to be have increased somnolence and therefore dialysis was done at ICU. Patient was then transferred the following day to general medicine. Assessment and plan #Significant obstructive sleep apnea Patient is reporting persistent morning headaches, is reported to have significant snoring, and has hypoxic episodes with unresponsiveness. Patient is exhibiting worsening of his obstructive sleep apnea which is exacerbated by his noncompliance. Plan Refrain from any sedating medication Patient will benefit from outpatient sleep study to reassess his current worsening of RENEE Continue to encourage CPAP use #Elevated blood sugar with history of diabetes Patient has elevated uncontrolled blood sugars most likely secondary to nonadherence to diet and compliance of medication. Today's blood sugars appear more control than previous days. Plan Continue current NovoLog and Levemir dose #ESRD requiring dialysis Continue dialysis session. Continue to follow nephrology recommendations. Continued renal dialysis diet #History of neuropathic pain Adjustment to his Lyrica was to a low hemodialysis renally adjust dose of 75 mg 3 times a day with supplemental 100 mg on hemodialysis days #Disposition Placement for STR being actively pursued Problem List: 1. ESRD on dialysis Pain Ratin Pain Location: none Pain Goal: Remain pain free Pain Plan: per pain pathway Tomorrow's Labs & Rationales: none:dialysis patient GUILLERMO BEAR,KANE 08/09/16 1342: Attending MD Review Statement Attending Statement Attending MD Statement: examined this patient, discuss w/resident/PA/FIELD ASSEMBLY SUPERVISOR, agreed w/resident/PA/FIELD ASSEMBLY SUPERVISOR Attending Assessment/Plan: Patient was unable to do well with physical therapy. He became short of breath yesterday while walking physical therapy. He has stairs at home and he has not tried stairs here therefore he is now stable for discharge yet. He will work with PT today to try using stairs. Otherwise he is currently afebrile with stable vital signs. His next dialysis will be tomorrow. His Accu-Chek today is 140 6 in the morning and 260 at unknown time. Notes from endocrinology pulmonology and nephrology were reviewed. Will plan for possible discharge tomorrow.
--- NOTE | 2016-08-09 09:58 | PN- Pulmonary ---
Subjective HPI/Critical Care Issues: Stable No active issues Objective Current Medications: Current Medications Sig/Georgina Start time Last Medication Dose Route Stop Time Status Admin Acetaminophen 325 MG .STK-MED ONE 08/08 2046 DC PO 08/08 2047 Acetaminophen 325 MG .STK-MED ONE 08/08 1512 DC PO 08/08 1513 Acetaminophen 325 MG Q6P PRN 08/06 1315 AC 08/09 PO 0941 Albuterol Sulfate 3 ML Q4P PRN 08/06 0915 DC INH Amlodipine Besylate 10 MG DAILY 08/05 1000 AC 08/08 PO 1458 Cinacalcet 30 MG DAILY 08/05 1000 AC 08/09 PO 0933 Epoetin Hernesto 10,000 UNIT TuThSa PRN 08/05 1315 AC IV Ergocalciferol 50,000 IU QSAT 08/05 0700 AC 08/05 PO 0716 Escitalopram Oxalate 20 MG DAILY 08/05 1000 AC 08/09 PO 0933 Heparin Sodium 5,000 UNIT Q8 08/05 0600 AC 08/09 (Porcine) SC 0601 Insulin Aspart 0 TIDAC/HS 08/06 0800 AC 08/09 SC 0929 Insulin Detemir 24 UNITS BID 08/05 1000 AC 08/09 SC 0930 Loratadine 10 MG DAILY 08/05 1000 AC 08/09 PO 0933 Metoclopramide HCl 10 MG ONCE ONE 08/08 2145 DC 08/08 IV 08/08 2146 2204 Metoprolol Tartrate 50 MG BID 08/05 1000 AC 08/08 PO 1457 Olanzapine 5 MG QPM 08/05 2200 AC 08/08 PO 2212 Omeprazole 20 MG DAILY AC 08/08 0700 AC 08/09 PO 0600 Polyethylene Glycol 17 GM DAILY 08/09 1000 AC 08/09 PO 0929 Pregabalin 75 MG 8AM PRN 08/09 1006 AC PO Pregabalin 100 MG TUES THURS SAT 08/08 1000 AC 08/08 PO 1459 Pregabalin 100 MG TID PRN 08/05 0430 DC 08/06 PO 2008 Prochlorperazine 5 MG ONCE ONE 08/08 2130 CAN IV 08/08 2130 Vital Signs & I&O Last 24 Hrs of Vitals and I&O: Vital Signs Date Time Temp Pulse Resp B/P Pulse O2 O2 Flow FiO2 Ox Delivery Rate 08/09 0935 91 100/60 08/09 0934 91 100/60 08/09 0800 97 Nasal 3.0L Cannula 08/09 0800 98.2 91 20 120/60 98 Nasal 3.0L Cannula 08/09 0010 98.5 81 20 100/60 97 Nasal 3.0L Cannula 08/09 0000 97 Nasal 3.0L Cannula 08/08 2211 80 100/50 08/08 1636 98.3 87 20 110/70 95 08/08 1600 96 Nasal 3.0L Cannula 08/08 1458 82 156/82 08/08 1457 82 156/82 Intake & Output 08/09 1600 08/09 0800 08/09 0000 Intake Total 240 480 Output Total 0 Balance 240 480 Intake, Oral 240 480 Number 0 0 Bowel Movements Output, Urine 0 Patient 370 lb Weight Laboratory Tests 08/08 0745 Chemistry Sodium (137 - 145 mmol/L) 128 L Potassium (3.5 - 5.1 mmol/L) 5.2 H Chloride (98 - 107 mmol/L) 90 L Carbon Dioxide (22 - 30 mmol/L) 20 L Anion Gap (5 - 16) 17 H BUN (9 - 20 mg/dL) 65 H Creatinine (0.7 - 1.2 mg/dL) 9.1 *H Estimated GFR (>60 ml/min) 7 L BUN/Creatinine Ratio (7 - 25 %) 7.1 Glucose (65 - 99 mg/dL) 204 H Calcium (8.4 - 10.2 mg/dL) 6.7 L Hematology CBC w Diff NO MAN DIFF REQ WBC (4.8 - 10.8 /CUMM) 11.1 H RBC (4.70 - 6.10 /CUMM) 3.66 L Hgb (14.0 - 18.0 G/DL) 8.6 L Hct (42 - 52 %) 28.4 L MCV (80.0 - 94.0 FL) 77.6 L MCH (27.0 - 31.0 PG) 23.6 L RDW (11.5 - 14.5 %) 25.0 H Plt Count (130 - 400 /CUMM) 298 MPV (7.4 - 10.4 FL) 9.7 Gran % (42.2 - 75.2 %) 70.9 Lymphocytes % (20.5 - 51.1 %) 10.2 L Monocytes % (1.7 - 9.3 %) 10.5 H Eosinophils % (0 - 5 %) 8.3 H Basophils % (0.0 - 2.0 %) 0.1 Absolute Granulocytes (1.4 - 6.5 /CUMM) 7.9 H Absolute Lymphocytes (1.2 - 3.4 /CUMM) 1.1 L Absolute Monocytes (0.10 - 0.60 /CUMM) 1.2 H Absolute Eosinophils (0.0 - 0.7 /CUMM) 0.9 Absolute Basophils (0.0 - 0.2 /CUMM) 0 PUBS MCHC (33.0 - 37.0 G/DL) 30.4 L Impression/Plan Impression/Plan Impression/Plan: Physical examination. HEENT: Pupils round equal and reactive. Neck: No jugular venous distention Heart: S1-S2 regular lungs normal. Lungs: Diminished entry bilaterally, no added sounds Abdomen: Obese, soft, nontender with normal bowel sounds Extremities: 2+ pedal edema bilaterally. Neurologic: Patient seen unresponsive IMPRESSION This is an unfortunate 36-year-old gentleman with type 1 diabetes with end-stage renal disease on dialysis, sig RENEE with OHV on cpap noncompliant with cpap, Morbid obesity with dietary noncompliance, previous Crohn's disease, mild persistent eosinophilia of unknown etiology with reactive airway disease * Resolved AMS due to poly pharmacy compounded by RENEE and Met encephalopathy, in the setting of SIg psych history. Pt with acute on chronic hypercarbic resp failure * Recent history of fever and Cultures pending * Significant obstructive sleep apnea noncompliant with CPAP. Pt was on clonazepam and lyrica and olanzapine and this is also contributing to his chronic resp failure. PT has both obstructive and central apnea. Is on bedtime oxygen 3 litres with cpap * Significant uncontrolled diabetes type I diabetes * End-stage renal disease on dialysis, now s/p dialysis * Chronic fluid overload with recurrent pulmonary edema due to renal failure and dietary noncompliance with significant diastolic heart disease * Chronic eosinophilia of unknown etiology with no evidence suggestive of eosinophilic lung disease. Patient does have reactive airway disease * Significant gastroparesis with recurrent aspiration, now stable * Mild lymphadenopathy in the abdomen and chest of unknown etiology, last ct has shown stable lymphadenopathy * Previous history of Crohn's disease with no active colitis * Significant depression and personality disorder with anxiety and chronic pain syndrome with diabetic neuropathy as well on multiple medications which is also causing him to have altered mental status REC Resume bedtime cpap PT can take his mask upon dc and use his cpap with the tubing he has Minimize meds which make him sedated Stable ok to dc Pt aware of cpap use and its benefit Please have him make an appointment upon dc for arrangement of sleep study and follow up of his issues with me
[2016-08-09 17:38] VITALS: BP 110/60
[2016-08-10 00:31] VITALS: BP 122/68
--- NOTE | 2016-08-10 07:50 | PN- Diabetes ---
Assessment/Plan Assessment: The patient is on 24 units of Levemir twice a day. He is also on sliding scale NovoLog before meals with the separate sliding scale at bedtime. The patient's most recent blood sugars are 146, 200, 108, and 132. Plan: Suggest continue the present insulin. Increase activity. The patient's blood sugars are in fairly good control. Subjective Subjective: Feels okay Review of Systems Constitutional: Denies: chills, fever. Cardiovascular: Denies: chest pain. Respiratory: Denies: cough, short of breath. Gastrointestinal: Denies: abdominal pain. Objective Last 24 Hrs of Vital Signs/I&O Vital Signs Date Time Temp Pulse Resp B/P Pulse O2 O2 Flow FiO2 Ox Delivery Rate 08/10 0031 97.9 87 20 122/68 97 Nasal Cannula 08/10 0000 CPAP 3.0L 08/09 2258 89 94 08/093 128/70 08/09 1738 98.4 90 20 110/60 98 08/09 0935 91 100/60 08/09 0934 91 100/60 08/09 0800 97 Nasal 3.0L Cannula 08/09 0800 98.2 91 20 120/60 98 Nasal 3.0L Cannula Intake & Output 08/10 0800 08/10 0000 08/09 1600 Intake Total 600 Output Total Balance 600 Intake, Oral 600 Number 1 1 Bowel Movements Patient 371 lb Weight Vital Signs Date Time Temp Pulse Resp B/P Pulse O2 O2 Flow FiO2 Ox Delivery Rate 08/10 0031 97.9 87 20 122/68 97 Nasal Cannula 08/10 0000 CPAP 3.0L 08/098 89 94 08/093 128/70 08/09 1738 98.4 90 20 110/60 98 08/09 0935 91 100/60 08/09 0934 91 100/60 08/09 0800 97 Nasal 3.0L Cannula 08/09 0800 98.2 91 20 120/60 98 Nasal 3.0L Cannula Intake & Output 08/10 0800 08/10 0000 08/09 1600 Intake Total 600 Output Total Balance 600 Intake, Oral 600 Number 1 1 Bowel Movements Patient 371 lb Weight Physical Exam General Appearance: alert, awake, comfortable Neck: normal inspection Respiratory: normal breath sounds Cardiovascular: regular rate/rhythm Extremities: swelling (2-3+ edema) Current Medications: Current Medications Sig/Georgina Start time Last Medication Dose Route Stop Time Status Admin Acetaminophen 325 MG .STK-MED ONE 08/09 1738 DC PO 08/09 1739 Acetaminophen 325 MG .STK-MED ONE 08/09 0939 DC PO 08/09 0940 Acetaminophen 325 MG Q6P PRN 08/06 1315 AC 08/10 PO 0404 Amlodipine Besylate 10 MG DAILY 08/05 1000 AC 08/08 PO 1458 Cinacalcet 30 MG DAILY 08/05 1000 AC 08/09 PO 0933 Epoetin Hernesto 10,000 UNIT TuThSa PRN 08/05 1315 AC IV Ergocalciferol 50,000 IU QSAT 08/05 0700 AC 08/05 PO 0716 Escitalopram Oxalate 20 MG DAILY 08/05 1000 AC 08/09 PO 0933 Heparin Sodium 5,000 UNIT Q8 08/05 0600 AC 08/10 (Porcine) SC 0613 Insulin Aspart 0 TIDAC/HS 08/06 0800 AC 08/09 SC 1741 Insulin Detemir 24 UNITS BID 08/05 1000 AC 08/09 SC 2141 Loratadine 10 MG DAILY 08/05 1000 AC 08/09 PO 0933 Metoprolol Tartrate 50 MG BID 08/05 1000 AC 08/09 PO 2143 Olanzapine 5 MG QPM 08/05 2200 AC 08/09 PO 2143 Omeprazole 20 MG DAILY AC 08/08 0700 AC 08/10 PO 0613 Patient Medication 1 ED .STK-MED ONE 08/09 1333 DC Teaching ED 08/09 1334 Polyethylene Glycol 17 GM DAILY 08/09 1000 AC 08/09 PO 0929 Pregabalin 75 MG 8AM PRN 08/09 1006 AC PO Pregabalin 100 MG TUES THURS SAT 08/08 1000 AC 08/08 PO 1459
[2016-08-10 08:12] VITALS: BP 110/72
--- NOTE | 2016-08-10 08:49 | PN- Nephrology ---
Assessment/Plan Assessment: 1. ESRD: due to diabetic nephropathy; HD in progress - UF 4 liters again 2. Resp failure: improved 3. Hypocalcemia: due to Sensipar & prob active Vit D deficiency; on hi Ca bath Suggestion: 1. d/c sensipar 2. add calcitriol 0.5 mcg IV w HD TuThSat 3. next HD Sat no objection to discharge Subjective Subjective: No complaints Walked in [place] yesterday Objective Vital Signs and I&Os Vital Signs Date Time Temp Pulse Resp B/P Pulse O2 O2 Flow FiO2 Ox Delivery Rate 08/10 0812 98.1 85 20 110/72 94 Nasal 3.0L Cannula 08/10 0031 97.9 87 20 122/68 97 Nasal Cannula 08/10 0000 CPAP 3.0L 08/09 2258 89 94 08/09 2143 128/70 08/09 1738 98.4 90 20 110/60 98 08/09 0935 91 100/60 08/09 0934 91 100/60 Intake & Output 08/10 1600 08/10 0400 08/09 1600 08/09 0400 08/08 1600 08/08 0400 Intake Total 840 480 500 120 Output Total 0 Balance 840 480 500 120 Intake, Oral 840 480 500 120 Number 1 1 0 0 Bowel Movements Output, Urine 0 Patient 371 lb 370 lb 364 lb Weight Physical Exam General Appearance: well developed/nourished, no apparent distress Head: atraumatic, normal appearance Ears, Nose, Throat: normal ENT inspection Respiratory: normal breath sounds, no respiratory distress, quiet respiration, lungs clear Cardiovascular: regular rate/rhythm Abdomen: soft, obese Extremities: swelling Neurologic/Psychiatric: no motor/sensory deficits, awake, alert, oriented x 3 Current Medications: Current Medications Sig/Georgina Start time Last Medication Dose Route Stop Time Status Admin Acetaminophen 325 MG .STK-MED ONE 08/09 1738 DC PO 08/09 173 Acetaminophen 325 MG .STK-MED ONE 08/09 0939 DC PO 08/09 0940 Acetaminophen 325 MG Q6P PRN 08/06 1315 AC 08/10 PO 0404 Amlodipine Besylate 10 MG DAILY 08/05 1000 AC 08/08 PO 1458 Cinacalcet 30 MG DAILY 08/05 1000 AC 08/09 PO 0933 Epoetin Hernesto 10,000 UNIT TuThSa PRN 08/05 1315 AC IV Ergocalciferol 50,000 IU QSAT 08/05 0700 AC 08/05 PO 0716 Escitalopram Oxalate 20 MG DAILY 08/05 1000 AC 08/09 PO 0933 Heparin Sodium 5,000 UNIT Q8 08/05 0600 AC 08/10 (Porcine) SC 0613 Insulin Aspart 0 TIDAC/HS 08/06 0800 AC 08/10 SC 0758 Insulin Detemir 24 UNITS BID 08/05 1000 AC 08/09 SC 2141 Loratadine 10 MG DAILY 08/05 1000 AC 08/09 PO 0933 Metoprolol Tartrate 50 MG BID 08/05 1000 AC 08/09 PO 2143 Olanzapine 5 MG QPM 08/05 2200 AC 08/09 PO 2143 Omeprazole 20 MG DAILY AC 08/08 0700 AC 08/10 PO 0613 Ondansetron HCl 4 MG ONCE ONE 08/10 0800 DC 08/10 IV 08/10 0801 0803 Patient Medication 1 ED .STK-MED ONE 08/09 1333 DC Teaching ED 08/09 1334 Polyethylene Glycol 17 GM DAILY 08/09 1000 AC 08/09 PO 0929 Pregabalin 75 MG 8AM PRN 08/09 1006 AC PO Pregabalin 100 MG TUES THURS SAT 08/08 1000 AC 08/08 PO 1459 Results Pertinent Lab Results: Laboratory Tests 08/08 0745 Chemistry Sodium (137 - 145 mmol/L) 128 L Potassium (3.5 - 5.1 mmol/L) 5.2 H Chloride (98 - 107 mmol/L) 90 L Carbon Dioxide (22 - 30 mmol/L) 20 L Anion Gap (5 - 16) 17 H BUN (9 - 20 mg/dL) 65 H Creatinine (0.7 - 1.2 mg/dL) 9.1 *H Estimated GFR (>60 ml/min) 7 L BUN/Creatinine Ratio (7 - 25 %) 7.1 Glucose (65 - 99 mg/dL) 204 H Calcium (8.4 - 10.2 mg/dL) 6.7 L Hematology CBC w Diff NO MAN DIFF REQ WBC (4.8 - 10.8 /CUMM) 11.1 H RBC (4.70 - 6.10 /CUMM) 3.66 L Hgb (14.0 - 18.0 G/DL) 8.6 L Hct (42 - 52 %) 28.4 L MCV (80.0 - 94.0 FL) 77.6 L MCH (27.0 - 31.0 PG) 23.6 L RDW (11.5 - 14.5 %) 25.0 H Plt Count (130 - 400 /CUMM) 298 MPV (7.4 - 10.4 FL) 9.7 Gran % (42.2 - 75.2 %) 70.9 Lymphocytes % (20.5 - 51.1 %) 10.2 L Monocytes % (1.7 - 9.3 %) 10.5 H Eosinophils % (0 - 5 %) 8.3 H Basophils % (0.0 - 2.0 %) 0.1 Absolute Granulocytes (1.4 - 6.5 /CUMM) 7.9 H Absolute Lymphocytes (1.2 - 3.4 /CUMM) 1.1 L Absolute Monocytes (0.10 - 0.60 /CUMM) 1.2 H Absolute Eosinophils (0.0 - 0.7 /CUMM) 0.9 Absolute Basophils (0.0 - 0.2 /CUMM) 0 PUBS MCHC (33.0 - 37.0 G/DL) 30.4 L
--- NOTE | 2016-08-10 09:01 | PN- Housestaff ---
CARLA BEAR,ALBER 08/10/16 0900: Subjective Follow-up For: ACUTE RESP FAILURE Review of Systems Constitutional: Reports: no symptoms. Objective Last 24 Hrs of Vital Signs/I&O Vital Signs Date Time Temp Pulse Resp B/P Pulse O2 O2 Flow FiO2 Ox Delivery Rate 08/11 0812 98.0 84 20 120/78 97 Nasal 3.0L Cannula 08/11 0000 CPAP 3.0L 08/10 2339 98.6 84 16 114/66 94 CPAP 3.0L 08/10 2240 70 99 08/10 2109 110/58 08/10 1611 99.1 84 20 124/64 97 Nasal 3.0L Cannula 08/10 1600 98 Nasal 3.0L Cannula 08/10 1401 104 138/79 Intake & Output 08/11 1600 08/11 0800 08/11 0000 Intake Total Output Total Balance Patient 167.376 kg Weight Physical Exam General Appearance: Alert, Oriented X3, Cooperative Cardiovascular: Regular Rate, Normal S1, Normal S2 Lungs: Clear to Auscultation, Normal Air Movement Abdomen: Normal Bowel Sounds, Soft, No Tenderness, No Hepatospenomegaly Assessment/Plan Assessment: This 36-year-old male with significant history of obstructive sleep apnea with noncompliance with CPAP, end-stage renal disease requiring 3-4 times a week off dialysis, heart failure with preserved ejection fraction, was presented to [place] ED from short-term rehabilitation for evaluation of pneumonia and respiratory distress. Patient was transferred to ICU after he was noted to be have increased somnolence and therefore dialysis was done at ICU. Patient was then transferred the following day to general medicine. Assessment and plan #Significant obstructive sleep apnea Patient is reporting persistent morning headaches, is reported to have significant snoring, and has hypoxic episodes with unresponsiveness. Patient is exhibiting worsening of his obstructive sleep apnea which is exacerbated by his noncompliance. Plan Refrain from any sedating medication Patient will benefit from outpatient sleep study to reassess his current worsening of RENEE Continue to encourage CPAP use #Elevated blood sugar with history of diabetes Patient has elevated uncontrolled blood sugars most likely secondary to nonadherence to diet and compliance of medication. Today's blood sugars appear more control than previous days. Plan Continue current NovoLog and Levemir dose #ESRD requiring dialysis Continue dialysis session. Continue to follow nephrology recommendations. Continued renal dialysis diet #History of neuropathic pain Adjustment to his Lyrica was to a low hemodialysis renally adjust dose of 75 mg 3 times a day with supplemental 100 mg on hemodialysis days #Disposition Placement for STR being actively pursued Problem List: 1. Obstructive sleep apnea Pain Ratin Pain Location: BACK Pain Goal: Remain pain free Pain Plan: PER PAIN PATHWAY Tomorrow's Labs & Rationales: NONE-POSSIBLE DISCHARGE GUILLERMO BEAR,KANE 08/10/16 0951: Attending MD Review Statement Attending Statement Attending Assessment/Plan: Attending MD Statement: Plan of care discussed w/resident/PA/INVENTORY CONTROL SUPERVISOR, agreed w/ resident/PA/INVENTORY CONTROL SUPERVISOR Attending Assessment/Plan: Patient's vital signs are stable and he is currently afebrile. His blood sugars are well controlled at this point. He is going for hemodialysis today. No new complaints were reported. He has stairs at home and he has not tried stairs here therefore he is now stable for discharge yet. He will work with PT today to try using stairs. Notes from endocrinology pulmonology and nephrology were reviewed. Yesterday with physical therapy he did better than they before however he easily gets fatigued. Patient unfortunately has maxed out his Medicare short-term days. Plan is to continue physical therapy daily stable enough to go home.
[2016-08-10 09:47] LABS: ABSOLUTE BASOPHIL COUNT 0.1 /CUMM (0.0-0.2); ABSOLUTE EOSINOPHIL COUNT 0.6 /CUMM (0.0-0.7); ABSOLUTE GRANULOCYTE CT 8.9 /CUMM (1.4-6.5); ABSOLUTE LYMPH COUNT 1.1 /CUMM (1.2-3.4); ABSOLUTE MONOCYTE COUNT 1.2 /CUMM (0.10-0.60); EOSINOPHIL % 4.8 % (0-5); GRANULOCYTE % 74.8 % (42.2-75.2); HEMATOCRIT 27.4 % (42-52); MEAN CORPUSCULAR HGB CONC 31.1 G/DL (33.0-37.0); MEAN PLATELET VOLUME 9.3 FL (7.4-10.4); PLATELET COUNT 310 /CUMM (130-400); RED BLOOD CELL CT 3.56 /CUMM (4.70-6.10); WHITE BLOOD CELL COUNT 11.9 /CUMM (4.8-10.8)
--- NOTE | 2016-08-10 10:21 | NUR ---
PATIENT REPORTED PAIN TO NOTED CALLUS AREA TO LEFT HEAL. ON PALPATION, SOFT AND PLIABLE TO THE TOUCH. ELECTRICAL AND INSTRUMENT ENGINEER ALBER NOTIFIED. PENDING WOUND CARE CONSULT.
--- NOTE | 2016-08-10 15:52 | NUR ---
PT CAME BACK TO FLOOR AFTER DILAYSIS. VSS. GAVE PT HIS INSULIN AND DAILY MEDICATIONS. PT IS A/O. PT LUNGS ARE DIMISHED THROUGHOUT 4L NC.ASSIST X 1. PAIN IN FOOT. PER DEEPAK RODRIGUEZ MD IS AWARE OF OPEN AREA ON LT HEEL. PT WORKED WITH PHYSICAL THERAPY. IV WNL TO RT FOREARM. GAVE [facility] POST DIALYSIS ORDERED.LT AV FISTULA WNL. +4EDEMA IN BLE. PT STATES A LITTLE MORE SWOLLEN THAN NORMAL. MEDICATED FOR PAIN. CALL THOMAS IN REACH
[2016-08-10 16:11] VITALS: BP 124/64
[2016-08-10 23:39] VITALS: BP 114/66
--- NOTE | 2016-08-11 05:07 | NUR ---
NURSING NOTE: PT C/O NAUSEA. SHELLAC POLISHER 176 NOTIFIED THAT PT WAS FEELING NAUSEOUS AND HAD NOTHING ON EMAR FOR NAUSEA. SHELLAC POLISHER MADE AWARE THAT PT GETS NAUSEOUS AND HAS STOMACH CRAMPS DAILY. ZOFRAN AND EKG WAS ORDERED. WILL CONTINUE TO MONITOR.
[2016-08-11] MEDS ORDERED: LYRICA75 M1 PO (06:17)
[2016-08-11] MEDS ORDERED: LYRICA100 M1 PO (06:18)
[2016-08-11 08:12] VITALS: BP 120/78
--- NOTE | 2016-08-11 08:43 | PN- Diabetes ---
Assessment/Plan Assessment: The patient is on 24 units of Levemir twice a day. He is also on sliding scale NovoLog before meals with the separate sliding scale at bedtime. This morning the agents blood sugar was high at 355. It turns out that someone brought him in a cheeseburger and citizen of [place] fries which she ate late in the day yesterday. The patient states he is concerned about his left heel. Plan: Suggest continue the present insulin. Cautioned the patient concerning his diet. He should not be eating food outside of what is served to him in the hospital. Suggest podiatry consult concerning the patient's left heel Subjective Subjective: Feels okay Review of Systems Constitutional: Denies: chills, fever. Cardiovascular: Denies: chest pain. Respiratory: Denies: short of breath. Gastrointestinal: Denies: nausea, vomiting. Skin: Reports: lymphangitis (left heel). Objective Last 24 Hrs of Vital Signs/I&O Vital Signs Date Time Temp Pulse Resp B/P Pulse O2 O2 Flow FiO2 Ox Delivery Rate 08/11 811 98.0 84 20 120/78 97 Nasal 3.0L Cannula 08/11 08 95 Nasal 3.0L Cannula 08/11 0000 CPAP 3.0L 08/10 2339 98.6 84 16 114/66 94 CPAP 3.0L 08/10 2240 70 99 08/10 2109 110/58 08/10 1611 99.1 84 20 124/64 97 Nasal 3.0L Cannula 08/10 1600 98 Nasal 3.0L Cannula 08/10 1401 104 138/79 Intake & Output 08/11 1600 08/11 0800 08/11 0000 Intake Total Output Total Balance Patient 369 lb Weight Vital Signs Date Time Temp Pulse Resp B/P Pulse O2 O2 Flow FiO2 Ox Delivery Rate 08/11 811 98.0 84 20 120/78 97 Nasal 3.0L Cannula 08/11 0800 95 Nasal 3.0L Cannula 08/11 0000 CPAP 3.0L 08/10 2339 98.6 84 16 114/66 94 CPAP 3.0L 08/10 2240 70 99 02 2109 110/58 08/10 1611 99.1 84 20 124/64 97 Nasal 3.0L Cannula 08/10 1600 98 Nasal 3.0L Cannula 08/10 1401 104 138/79 Intake & Output 08/11 1600 08/11 0800 08/11 0000 Intake Total Output Total Balance Patient 369 lb Weight Physical Exam General Appearance: alert, awake, comfortable Neck: normal inspection Respiratory: normal breath sounds Cardiovascular: regular rate/rhythm Current Medications: Vital Signs Date Time Temp Pulse Resp B/P Pulse O2 O2 Flow FiO2 Ox Delivery Rate 08/11 0812 98.0 84 20 120/78 97 Nasal 3.0L Cannula 08/11 0800 95 Nasal 3.0L Cannula 08/11 0000 CPAP 3.0L 08/10 2339 98.6 84 16 114/66 94 CPAP 3.0L 08/10 2240 70 99 08/10 2109 110/58 08/10 1611 99.1 84 20 124/64 97 Nasal 3.0L Cannula 08/10 1600 98 Nasal 3.0L Cannula 08/10 1401 104 138/79 Intake & Output 08/11 1600 08/11 0800 08/11 0000 Intake Total Output Total Balance Patient 369 lb Weight Findings Pertinent Lab/Karthik Results: Laboratory Tests 08/10 0845 Chemistry Sodium (137 - 145 mmol/L) 129 L Potassium (3.5 - 5.1 mmol/L) 5.1 Chloride (98 - 107 mmol/L) 92 L Carbon Dioxide (22 - 30 mmol/L) 21 L Anion Gap (5 - 16) 16 BUN (9 - 20 mg/dL) 52 H Creatinine (0.7 - 1.2 mg/dL) 8.6 *H Estimated GFR (>60 ml/min) 7 L BUN/Creatinine Ratio (7 - 25 %) 6.0 L Hematology CBC w Diff NO MAN DIFF REQ WBC (4.8 - 10.8 /CUMM) 11.9 H RBC (4.70 - 6.10 /CUMM) 3.56 L Hgb (14.0 - 18.0 G/DL) 8.5 L Hct (42 - 52 %) 27.4 L MCV (80.0 - 94.0 FL) 77.0 L MCH (27.0 - 31.0 PG) 24.0 L RDW (11.5 - 14.5 %) 25.0 H Plt Count (130 - 400 /CUMM) 310 MPV (7.4 - 10.4 FL) 9.3 Gran % (42.2 - 75.2 %) 74.8 Lymphocytes % (20.5 - 51.1 %) 9.0 L Monocytes % (1.7 - 9.3 %) 10.4 H Eosinophils % (0 - 5 %) 4.8 Basophils % (0.0 - 2.0 %) 1.0 Absolute Granulocytes (1.4 - 6.5 /CUMM) 8.9 H Absolute Lymphocytes (1.2 - 3.4 /CUMM) 1.1 L Absolute Monocytes (0.10 - 0.60 /CUMM) 1.2 H Absolute Eosinophils (0.0 - 0.7 /CUMM) 0.6 Absolute Basophils (0.0 - 0.2 /CUMM) 0.1 PUBS MCHC (33.0 - 37.0 G/DL) 31.1 L
[2016-08-11 10:01] VITALS: BP 113/59
--- NOTE | 2016-08-11 10:11 | PN- Pulmonary ---
Subjective HPI/Critical Care Issues: Pt has had at times high sugar Complains of left heel pain Objective Current Medications: Current Medications Sig/Georgina Start time Last Medication Dose Route Stop Time Status Admin Acetaminophen 325 MG .STK-MED ONE 08/10 2042 DC PO 08/10 204 Acetaminophen 325 MG .STK-MED ONE 08/10 1355 DC PO 08/10 1356 Acetaminophen 325 MG Q6P PRN 08/06 1315 AC 08/11 PO 0503 Amlodipine Besylate 10 MG DAILY 08/05 1000 AC 08/11 PO 1001 Calcitriol 0.5 MCG SAT PRN 08/10 0900 AC IV Epoetin Hernesto 10,000 UNIT TuThSa PRN 08/05 1315 AC IV Ergocalciferol 50,000 IU QSAT 08/05 0700 AC 08/05 PO 0716 Escitalopram Oxalate 20 MG DAILY 08/05 1000 AC 08/11 PO 1000 Heparin Sodium 5,000 UNIT Q8 08/05 0600 AC 08/11 (Porcine) SC 0503 Insulin Aspart 0 TIDAC/HS 08/06 0800 AC 08/11 SC 0800 Insulin Detemir 24 UNITS BID 08/05 1000 AC 08/11 SC 1001 Loratadine 10 MG DAILY 08/05 1000 AC 08/11 PO 1000 Metoprolol Tartrate 50 MG BID 08/05 1000 AC 08/11 PO 1001 Olanzapine 5 MG QPM 08/05 2200 AC 08/10 PO 2109 Omeprazole 20 MG DAILY AC 08/08 0700 AC 08/11 PO 0503 Ondansetron HCl 4 MG Q6P PRN 08/11 0500 AC 08/11 IV 0459 Polyethylene Glycol 17 GM DAILY 08/09 1000 AC 08/10 PO 1533 Pregabalin 75 MG 8AM PRN 08/09 1006 AC PO Pregabalin 100 MG SAT 08/08 1000 AC 08/10 PO 1401 Vital Signs & I&O Last 24 Hrs of Vitals and I&O: Vital Signs Date Time Temp Pulse Resp B/P Pulse O2 O2 Flow FiO2 Ox Delivery Rate 08/11 1001 88 113/59 08/11 1001 88 113/64 08/11 0812 98.0 84 20 120/78 97 Nasal 3.0L Cannula 08/11 0800 95 Nasal 3.0L Cannula 08/11 0000 CPAP 3.0L 08/10 2339 98.6 84 16 114/66 94 CPAP 3.0L 08/10 2240 70 99 08/10 2109 110/58 08/10 1611 99.1 84 20 124/64 97 Nasal 3.0L Cannula 08/10 1600 98 Nasal 3.0L Cannula 08/10 1401 104 138/79 Intake & Output 08/11 1600 08/11 0800 08/11 0000 Intake Total Output Total Balance Patient 369 lb Weight Impression/Plan Impression/Plan Impression/Plan: Physical examination. HEENT: Pupils round equal and reactive. Neck: No jugular venous distention Heart: S1-S2 regular lungs normal. Lungs: Diminished entry bilaterally, no added sounds Abdomen: Obese, soft, nontender with normal bowel sounds Extremities: 2+ pedal edema bilaterally. Neurologic: Patient seen unresponsive IMPRESSION This is an unfortunate 36-year-old gentleman with type 1 diabetes with end-stage renal disease on dialysis, sig RENEE with OHV on cpap noncompliant with cpap, Morbid obesity with dietary noncompliance, previous Crohn's disease, mild persistent eosinophilia of unknown etiology with reactive airway disease * Resolved AMS due to poly pharmacy compounded by RENEE and Met encephalopathy, in the setting of SIg psych history. Pt with acute on chronic hypercarbic resp failure * Recent history of fever and Cultures pending * Significant obstructive sleep apnea noncompliant with CPAP. Pt was on clonazepam and lyrica and olanzapine and this is also contributing to his chronic resp failure. PT has both obstructive and central apnea. Is on bedtime oxygen 3 litres with cpap * Significant uncontrolled diabetes type I diabetes * End-stage renal disease on dialysis, now s/p dialysis * Chronic fluid overload with recurrent pulmonary edema due to renal failure and dietary noncompliance with significant diastolic heart disease * Chronic eosinophilia of unknown etiology with no evidence suggestive of eosinophilic lung disease. Patient does have reactive airway disease * Significant gastroparesis with recurrent aspiration, now stable * Mild lymphadenopathy in the abdomen and chest of unknown etiology, last ct has shown stable lymphadenopathy * Previous history of Crohn's disease with no active colitis * Significant depression and personality disorder with anxiety and chronic pain syndrome with diabetic neuropathy as well on multiple medications which is also causing him to have altered mental status REC Resume bedtime cpap PT can take his mask upon dc and use his cpap with the tubing he has Minimize meds which make him sedated Stable ok to dc Needs podiatry consult aswell as out pt Pt aware of cpap use and its benefit Please have him make an appointment upon dc for arrangement of sleep study and follow up of his issues with me
--- NOTE | 2016-08-11 10:28 | PN- Nephrology ---
Assessment/Plan Assessment: 1. ESRD: due to diabetic nephropathy; no HD need today 2. Resp failure: improved 3. Hypocalcemia: Sensipar d/c; calcitriol added Suggestion: 1. next HD tomorrow 2. no objection to discharge --> OK for outpt HD Subjective Subjective: No complaints For discharge home ? today Objective Vital Signs and I&Os Vital Signs Date Time Temp Pulse Resp B/P Pulse O2 O2 Flow FiO2 Ox Delivery Rate 08/11 1001 88 113/59 08/11 1001 88 113/64 08/11 0812 98.0 84 20 120/78 97 Nasal 3.0L Cannula 08/11 0800 95 Nasal 3.0L Cannula 08/11 0000 CPAP 3.0L 08/10 2339 98.6 84 16 114/66 94 CPAP 3.0L 08/10 2240 70 99 08/10 2109 110/58 08/10 1611 99.1 84 20 124/64 97 Nasal 3.0L Cannula 08/10 1600 98 Nasal 3.0L Cannula 08/10 1401 104 138/79 Intake & Output 08/11 1600 08/11 0400 08/10 1600 08/10 0400 08/09 1600 08/09 0400 Intake Total 509 840 480 Output Total 0 Balance 509 840 480 Intake, IV 10 Intake, Oral 499 840 480 Number 1 1 0 Bowel Movements Output, Urine 0 Patient 369 lb 362 lb 370 lb Weight Physical Exam General Appearance: no apparent distress, alert Head: atraumatic, normal appearance Respiratory: chest non-tender, no respiratory distress, quiet respiration, lungs clear Cardiovascular: regular rate/rhythm Abdomen: soft, obese Extremities: + bruit PAUL AVF Neurologic/Psychiatric: awake, alert, oriented x 3 Current Medications: Current Medications Sig/Georgina Start time Last Medication Dose Route Stop Time Status Admin Acetaminophen 325 MG .STK-MED ONE 08/10 2042 DC PO 08/10 204 Acetaminophen 325 MG .STK-MED ONE 08/10 1355 DC PO 08/10 1356 Acetaminophen 325 MG Q6P PRN 08/06 1315 AC 08/11 PO 0503 Amlodipine Besylate 10 MG DAILY 08/05 1000 AC 08/11 PO 1001 Calcitriol 0.5 MCG TUES THURS SAT PRN 08/10 0900 AC IV Epoetin Hernesto 10,000 UNIT TuThSa PRN 08/05 1315 AC IV Ergocalciferol 50,000 IU QSAT 08/05 0700 AC 08/05 PO 0716 Escitalopram Oxalate 20 MG DAILY 08/05 1000 AC 08/11 PO 1000 Heparin Sodium 5,000 UNIT Q8 08/05 0600 AC 08/11 (Porcine) SC 0503 Insulin Aspart 0 TIDAC/HS 08/06 0800 AC 08/11 SC 0800 Insulin Detemir 24 UNITS BID 08/05 1000 AC 08/11 SC 1001 Loratadine 10 MG DAILY 08/05 1000 AC 08/11 PO 1000 Metoprolol Tartrate 50 MG BID 08/05 1000 AC 08/11 PO 1001 Olanzapine 5 MG QPM 08/05 2200 AC 08/10 PO 2109 Omeprazole 20 MG DAILY AC 08/08 0700 AC 08/11 PO 0503 Ondansetron HCl 4 MG Q6P PRN 08/11 0500 AC 08/11 IV 0459 Polyethylene Glycol 17 GM DAILY 08/09 1000 AC 08/10 PO 1533 Pregabalin 75 MG 8AM PRN 08/09 1006 AC PO Pregabalin 100 MG TUES THURS SAT 08/08 1000 AC 08/10 PO 1401 Results Pertinent Lab Results: Laboratory Tests 08/10 0845 Chemistry Sodium (137 - 145 mmol/L) 129 L Potassium (3.5 - 5.1 mmol/L) 5.1 Chloride (98 - 107 mmol/L) 92 L Carbon Dioxide (22 - 30 mmol/L) 21 L Anion Gap (5 - 16) 16 BUN (9 - 20 mg/dL) 52 H Creatinine (0.7 - 1.2 mg/dL) 8.6 *H Estimated GFR (>60 ml/min) 7 L BUN/Creatinine Ratio (7 - 25 %) 6.0 L Hematology CBC w Diff NO MAN DIFF REQ WBC (4.8 - 10.8 /CUMM) 11.9 H RBC (4.70 - 6.10 /CUMM) 3.56 L Hgb (14.0 - 18.0 G/DL) 8.5 L Hct (42 - 52 %) 27.4 L MCV (80.0 - 94.0 FL) 77.0 L MCH (27.0 - 31.0 PG) 24.0 L RDW (11.5 - 14.5 %) 25.0 H Plt Count (130 - 400 /CUMM) 310 MPV (7.4 - 10.4 FL) 9.3 Gran % (42.2 - 75.2 %) 74.8 Lymphocytes % (20.5 - 51.1 %) 9.0 L Monocytes % (1.7 - 9.3 %) 10.4 H Eosinophils % (0 - 5 %) 4.8 Basophils % (0.0 - 2.0 %) 1.0 Absolute Granulocytes (1.4 - 6.5 /CUMM) 8.9 H Absolute Lymphocytes (1.2 - 3.4 /CUMM) 1.1 L Absolute Monocytes (0.10 - 0.60 /CUMM) 1.2 H Absolute Eosinophils (0.0 - 0.7 /CUMM) 0.6 Absolute Basophils (0.0 - 0.2 /CUMM) 0.1 PUBS MCHC (33.0 - 37.0 G/DL) 31.1 L
--- NOTE | 2016-08-11 13:52 | NUR ---
WOUND CARE: ATTEMPT TO EVALUATE PT FOR SKIN ALTERATION PRESENT ON ADMISSION TO LEFT HEEL - PER PT REPORT, DR DEL RIO) HAD JUST BEEN IN TO DEBRIDE IT AND REMOVE CALLOUS - KERLIX DRESSING IN PLACE - AWAITING FURTHER RECOMMENDATIONS FROM DR LI
--- NOTE | 2016-08-11 16:21 | PN- Att Addend ---
Attending MD Review Statement Attending Statement Attending MD Statement: examined this patient, discuss w/resident/PA/TRENCH DIGGING MACHINE OPERATOR, agreed w/resident/PA/TRENCH DIGGING MACHINE OPERATOR, reviewed EMR data (avail), discussed w/nursing, discussed w/ case mgmt Attending Assessment/Plan: Vital Signs Date Time Temp Pulse Resp B/P Pulse O2 O2 Flow FiO2 Ox Delivery Rate 08/11 1001 88 113/59 08/11 1001 88 113/64 08/11 0812 98.0 84 20 120/78 97 Nasal 3.0L Cannula 08/11 0800 95 Nasal 3.0L Cannula 08/11 0000 CPAP 3.0L 08/10 2339 98.6 84 16 114/66 94 CPAP 3.0L 08/10 2240 70 99 08/10 2109 110/58 Morbidly obese male with past medical history of obstructive sleep apnea and obesity hypoventilation syndrome noncompliant with CPAP. Has not used his CPAP machine for years and does not have any supplies at home. Patient also has end- stage renal disease on hemodialysis. Pt had hypoxic and hypercapneic respiratory failure. Did not have pneumonia. improved with cpap pt being dced home today with home care and will f/u with pulmonary clinic as an outpatient and will also follow-up with podiatry as an outpatient. Discussed with patient the care plan and he was explained the importance of continuing CPAP at home. Patient was given supplies for CPAP before discharge and was also explained the to clean the tubings every 2-3 days.
--- NOTE | 2016-08-11 16:32 | PN- Housestaff ---
Subjective Follow-up For: Acute respiratory failure Subjective: Patient seen and examined at bedside. He is eager for discharge. Patient does report mild irritation of his right heel. Patient denies any fever, chills, nausea, vomiting, increased shortness of breath, chest pain or palpitation. No acute overnight event reported by nursing staff. Review of Systems Constitutional: Reports: no symptoms. Objective Last 24 Hrs of Vital Signs/I&O Vital Signs Date Time Temp Pulse Resp B/P Pulse O2 O2 Flow FiO2 Ox Delivery Rate 08/11 1001 88 113/59 08/11 1001 88 113/64 08/11 0812 98.0 84 20 120/78 97 Nasal 3.0L Cannula 08/11 0800 95 Nasal 3.0L Cannula 08/11 0000 CPAP 3.0L 08/10 2339 98.6 84 16 114/66 94 CPAP 3.0L 08/10 2240 70 99 08/10 2109 110/58 Intake & Output 08/11 1600 08/11 0800 08/11 0000 Intake Total Output Total Balance Patient 167.376 kg Weight Physical Exam General Appearance: Alert, Oriented X3, Cooperative Other Physical Findings: HEENT: Pupils round equal and reactive. Neck: No jugular venous distention Heart: S1-S2 regular lungs normal. Lungs: Diminished entry bilaterally, no added sounds Abdomen: Obese, soft, nontender with normal bowel sounds Extremities: 2+ pedal edema bilaterally. Very Mild swelling of the right heel noted, suggestive of some small collection of fluid. No ulceration or skin integrity break noted. Neurologic: Patient seen unresponsive Assessment/Plan Assessment: This 36-year-old male with significant history of obstructive sleep apnea with noncompliance with CPAP, end-stage renal disease requiring 3-4 times a week off dialysis, heart failure with preserved ejection fraction, was presented to [facility] ED from short-term rehabilitation for evaluation of pneumonia and respiratory distress. Patient was transferred to ICU after he was noted to be have increased somnolence and therefore dialysis was done at ICU. Patient was then transferred the following day to general medicine. Assessment and plan #Right heel swelling Mild swelling noted on patient's right foot around the calcaneal area. Ulceration of skin integrity break was noted. Podiatry was consulted and an I&D was done with recommendation of daily dry dressing with Xeroform and follow-up on an outpatient basis. #Significant obstructive sleep apnea Patient is reporting persistent morning headaches, is reported to have significant snoring, and has hypoxic episodes with unresponsiveness. Patient is exhibiting worsening of his obstructive sleep apnea which is exacerbated by his noncompliance. Plan Refrain from any sedating medication Patient will benefit from outpatient sleep study to reassess his current worsening of RENEE Continue to encourage CPAP use #Elevated blood sugar with history of diabetes Patient has elevated uncontrolled blood sugars most likely secondary to nonadherence to diet and compliance of medication. Today's blood sugars appear more control than previous days. Plan Continue current NovoLog and Levemir dose #ESRD requiring dialysis Continue dialysis session. Continue to follow nephrology recommendations. Continued renal dialysis diet #History of neuropathic pain Adjustment to his Lyrica was to a low hemodialysis renally adjust dose of 75 mg 3 times a day with supplemental 100 mg on hemodialysis days #Disposition Ration being discharged today for home with STR Problem List: 1. Obstructive sleep apnea Pain Ratin Pain Location: Diffuse Pain Goal: Remain pain free Pain Plan: Per pain pathway Tomorrow's Labs & Rationales: none-scheduled for discharge
--- NOTE | 2016-08-12 13:03 | Cons- Podiatry ---
General Information and HPI Consulting Request Date of Consult: 08/11/16 Requested By: PADMINI BEAR,BETH Sifuentes History of Present Illness: Mr. Morales is a 36-year-old male with multiple medical problems, who was noted to develop a serous bulla to the posterior aspect of his right heel. The patient does admit to some discomfort associated with the lesion. Allergies/Medications Allergies: Coded Allergies: iron (From VENOFER) (UNKNOWN 08/12/16) Home Med List: Amlodipine Besylate 10 MG TABLET 1 TAB PO DAILY HEART HEALTH (Reported) Cinacalcet HCl (Sensipar) 30 MG TABLET 1 TAB PO DAILY KIDNEYS (Reported) Clonazepam 1 MG TABLET 0.5 TAB PO BID PRN ANXIETY (Reported) Darbepoetin [place] in Polysorbat (Aranesp) 40 MCG/0.4 ML SYRINGE 1 1ML SC SEE ADMIN CRITERIA DURING DIALYSIS 0.45 mcg/kg SC/IV Ergocalciferol (Vitamin D2) (Vitamin D2) 50,000 UNIT CAPSULE 50,000 IU PO QSAT Low Vit D Follow the Instruction for 8 weeks then check Vit D level Escitalopram Oxalate 20 MG TABLET 1 TAB PO DAILY MENTAL HEALTH (Reported) Insulin Glargine,Hum.rec.anlog (Lantus Solostar) 100 UNIT/ML (3 ML) INSULN.PEN 24 UNITS SC BID DM (Reported) Insulin Lispro (Humalog Kwikpen U-100) 100 UNIT/ML INSULN.PEN 1 UNITS SC TIDAC /HS DM before meals 80-150 mg/dl--8 units 151-200 mg/dl--9 units 201-250 mg/dl--10 units 251-300 mg/dl-- 11 units 301-350 mg/dl--12 units 351-400 mg/dl--13 units BEDTIME DOSING less than 250-No insulin 251-300 mg/dl--3 units 301-350 mg/dl--4 units 351-400 mg/dl 5 units Loratadine (Claritin) 10 MG TABLET 1 TAB PO DAILY ALLERGY Metoprolol Tartrate 50 MG TABLET 1 TAB PO BID HTN (Reported) Olanzapine 5 MG TABLET 1 TAB PO QPM MENTAL HEALTH (Reported) Pregabalin (Lyrica) 75 MG CAPSULE 1 TAB PO DAILY Neuropathy Pregabalin (Lyrica) 100 MG CAPSULE 1 TAB PO TU THURS SAT Neuropathy Please take on dialysis days after HD session Past History Medical History Neurological: migraine, peripheral neuropathy EENT: diabetic retinopathy Cardiovascular: CHF, hypertension, hyperlipidemia, mitral regurgitation, he has chronic fluid overload due to his inabilityto adhere to the necessary dietary restrictions of sodium and fluid intake. Respiratory: asthma, obstructive sleep apnea, pneumonia Gastrointestinal: Crohn's disease, last colonoscopy was in 2005 and biopsies showed mild chronic colitis Hepatic: NONE Renal: ESRD on HD, glomerulonephritis, CRF-DIALYSIS ---[facility] END STAGE KIDNEY FAILURE Musculoskeletal: NONE Psychiatric: depression, PTSD Endocrine: diabetes, diabetic ketoacidosis, obesity Blood Disorders: NONE Cancer(s): NONE SUPERINTENDENT OPERATING/Reproductive: NONE Other Medical Hx: MSSA hidradenitis Surgical History Pertinent Surgical History: AVF LUE Vitrectomies- Both eyes Pilonidal Cyst I & D of abscesses Right IJ [facility] Family History Relations & Conditions If Any: FATHER Myocardial infarction at age less than 60 MOTHER Hodgkin's sarcoma Relation not specified for: FH: CAD (coronary artery disease) FH: HTN (hypertension) Psychosocial History Where Do You Live? [facility] Who Do You Live With? brother Primary Language: Mozambican Smoking Status: Former Smoker Living Will? no Power of Customs Broker/HCP? no Functional Ability ADLs Independent: dressing, eating, toileting, bathing. Ambulation: cane IADLs Independent: shopping, housework, finances, food prep, telephone, transportation , medication admin. Review of Systems Review of Systems: Unremarkable Exam & Diagnostic Data Vital Signs and I&O Intake & Output 08/12 1600 08/12 0800 08/12 0000 08/11 1600 08/11 0800 08/11 0000 Intake Total 840 Output Total 500 Balance 340 Intake, Oral 840 Output, Urine 500 Patient 369 lb Weight Physical Exam: Serous bulla noted to the posterior aspect of the right heel, measuring approximately 5 x 5 cm. The lesion was deroofed and drained, with a uniformly granular wound bed identified. No probing or undermining noted. No associated cellulitis. No fluctuance or crepitus identified. Assessment/Plan Assessment/Plan Serous bulla posterior right heel. Due to removed and drained the lesion and dressed with Xeroform and dry sterile dressing. Recommend daily Xeroform and dry sterile dressing changes with strict offloading. Please have the patient follow up with me as an outpatient in the wound care center. Consult Acknowledgment - Thank you for your consult request. Attending MD Review Statement Attending Statement Attending MD Statement: examined this patient
== END 2016-08-11 14:42 | disposition home health service (06) | DRG 189 ==
LOC: ENRESERVDT → ENRESERVTM → ERH 23:54 → ERHI 08-05 00:34 → ENPENDDIS 08-05 00:34 → 2NB 08-05 00:34 → CRI 08-05 11:48 → 2NB 08-06 13:33
PROVIDERS: Dermatology; Internal Medicine; Internal Medicine Nephrology; ADMIT Internal Medicine
PROC: 5A1D60Z (ICD-10-PCS; principal; 2016-08-05)
PROC: 5A09357 Assistance with Respiratory Ventilation, Less than 24 Consecutive Hours, Continuous Positive Airway Pressure (ICD-10-PCS; 2016-08-05)
DX: J96.22 Acute and chronic respiratory failure with hypercapnia (principal); G93.41 Metabolic encephalopathy; I13.2 Hypertensive heart and chronic kidney disease with heart failure and with stage 5 chronic kidney disease, or end stage renal disease; N18.6 End stage renal disease; E10.22 Type 1 diabetes mellitus with diabetic chronic kidney disease; E10.42 Type 1 diabetes mellitus with diabetic polyneuropathy; D72.1 Eosinophilia; K31.84 Gastroparesis; Z99.81 Dependence on supplemental oxygen; K50.90 Crohn's disease, unspecified, without complications; E66.2 Morbid (severe) obesity with alveolar hypoventilation; E87.1 Hypo-osmolality and hyponatremia; I50.32 Chronic diastolic (congestive) heart failure; Z68.43 Body mass index [BMI] 50.0-59.9, adult; J45.909 Unspecified asthma, uncomplicated; Z79.4 Long term (current) use of insulin; E78.5 Hyperlipidemia, unspecified; F41.9 Anxiety disorder, unspecified; R59.1 Generalized enlarged lymph nodes; F32.9 Major depressive disorder, single episode, unspecified; G89.4 Chronic pain syndrome; R23.8 Other skin changes; Z99.2 Dependence on renal dialysis; E10.319 Type 1 diabetes mellitus with unspecified diabetic retinopathy without macular edema; E10.65 Type 1 diabetes mellitus with hyperglycemia; E10.43 Type 1 diabetes mellitus with diabetic autonomic (poly)neuropathy; E83.51 Hypocalcemia
CPT/HCPCS: 2NBP; CCU; 36415; 80307; 82436; 87040; 87070; 87086; 87804; 87804-59; 93005; 93010; 96372; 97110-GO; 97116-GO; 97161-GP; 97530-GO; J0131; J0636; J0885; J1644; J2310; J2405; J2765

== ENCOUNTER 2016-08-12 08:51 | Inpatient (IN) | payer OTHER, MEDICARE ==
[~2016-08-12] VITALS: Ht 170.2 cm; Wt 164.2 kg
[~2016-08-12 08:51] MED LIST changes: +LYRICA75 M1 PO; +NOVOLOG100 UNIT/2 SC
--- NOTE | 2016-08-12 08:57 | ED GENERAL ADULT ---
See Addendum History of Present Illness General Chief Complaint: General Adult Stated Complaint: CAN'T AMBULATE-DOESN'T FEEL SAFE AT HOME Source: patient, old records, EMS Exam Limitations: no limitations Vital Signs & Intake/Output Vital Signs & Intake/Output Vital Signs Date Time Temp Pulse Resp B/P Pulse O2 O2 Flow FiO2 Ox Delivery Rate 08/12 1140 96.2 75 18 143/65 97 Room Air 08/12 0919 97 Nasal 3.0L Cannula 08/12 0854 96.5 71 24 127/62 97 Nasal 3.0L Cannula Allergies Coded Allergies: iron (From VENOFER) (UNKNOWN 08/12/16) Reconcile Medications Amlodipine Besylate 10 MG TABLET 1 TAB PO DAILY HEART HEALTH (Reported) Cinacalcet HCl (Sensipar) 30 MG TABLET 1 TAB PO DAILY KIDNEYS (Reported) Clonazepam 1 MG TABLET 0.5 TAB PO BID PRN ANXIETY (Reported) Darbepoetin Hern[place] in Polysorbat (Aranesp) 40 MCG/0.4 ML SYRINGE 1 1ML SC SEE ADMIN CRITERIA DURING DIALYSIS 0.45 mcg/kg SC/IV Ergocalciferol (Vitamin D2) (Vitamin D2) 50,000 UNIT CAPSULE 50,000 IU PO QSAT Low Vit D Follow the Instruction for 8 weeks then check Vit D level Escitalopram Oxalate 20 MG TABLET 1 TAB PO DAILY MENTAL HEALTH (Reported) Insulin Glargine,Hum.rec.anlog (Lantus Solostar) 100 UNIT/ML (3 ML) INSULN.PEN 24 UNITS SC BID DM (Reported) Insulin Lispro (Humalog Kwikpen U-100) 100 UNIT/ML INSULN.PEN 1 UNITS SC TIDAC /HS DM before meals 80-150 mg/dl--8 units 151-200 mg/dl--9 units 201-250 mg/dl--10 units 251-300 mg/dl-- 11 units 301-350 mg/dl--12 units 351-400 mg/dl--13 units BEDTIME DOSING less than 250-No insulin 251-300 mg/dl--3 units 301-350 mg/dl--4 units 351-400 mg/dl 5 units Loratadine (Claritin) 10 MG TABLET 1 TAB PO DAILY ALLERGY Metoprolol Tartrate 50 MG TABLET 1 TAB PO BID HTN (Reported) Olanzapine 5 MG TABLET 1 TAB PO QPM MENTAL HEALTH (Reported) Pregabalin (Lyrica) 75 MG CAPSULE 1 TAB PO DAILY Neuropathy Pregabalin (Lyrica) 100 MG CAPSULE 1 TAB PO Sun Neuropathy Please take on dialysis days after HD session Triage Nurses Notes Reviewed? yes HPI: Patient was discharged from [facility] one week ago. Patient was home for a day when he came back to the emergency room with increasing shortness of breath. Patient was found fluid overloaded. Patient required dialysis. Patient was discharged from the hospital yesterday. Patient was due to go to dialysis today but he felt to weak to get there. Pt states that he was scared to walk because of how weak he felt. Pt denies chest painor shortness of breath. No orthopnea. pt compalins of 6 out of 10 pain to his right heel. Pt has a blister which was I&D'd. There is no radiation. No aggrivating or mitigating factors. Pain is aching in nature. Past History Travel History Traveled to [place] past 21 day No Medical History Any Pertinent Medical History? see below for history Neurological: migraine, peripheral neuropathy EENT: diabetic retinopathy Cardiovascular: CHF, hypertension, hyperlipidemia, mitral regurgitation, he has chronic fluid overload due to his inabilityto adhere to the necessary dietary restrictions of sodium and fluid intake. Respiratory: asthma, obstructive sleep apnea, pneumonia Gastrointestinal: Crohn's disease, last colonoscopy was in 2005 and biopsies showed mild chronic colitis Hepatic: NONE Renal: ESRD on HD, glomerulonephritis, CRF-DIALYSIS -[facility] END STAGE KIDNEY FAILURE Musculoskeletal: NONE Psychiatric: depression, PTSD Endocrine: diabetes, diabetic ketoacidosis, obesity Blood Disorders: NONE Cancer(s): NONE INFORMATICIST/Reproductive: NONE Other Medical Hx: MSSA hidradenitis History of MRSA: Yes History of VRE: No History of CDIFF: No Influenza Vaccine: 02/17/16 Surgical History Surgical History: AVF LUE Vitrectomies- Both eyes Pilonidal Cyst I & D of abscesses Right IJ [facility] Psychosocial History Who do you live with Brother What is your primary language Guamanian Tobacco Use: Never used ETOH Use: denies use Illicit Drug Use: denies illicit drug use Family History Family History, If Any: FATHER Myocardial infarction at age less than 60 MOTHER Hodgkin's sarcoma Relation not specified for: FH: CAD (coronary artery disease) FH: HTN (hypertension) Hx Contributory? No Review of Systems Review of Systems Constitutional: Reports: see HPI, weakness. EENTM: Reports: no symptoms. Respiratory: Reports: no symptoms. Cardiovascular: Reports: no symptoms. GI: Reports: no symptoms. Genitourinary: Reports: no symptoms. Musculoskeletal: Reports: see HPI. Skin: Reports: no symptoms. Neurological/Psychological: Reports: no symptoms. Hematologic/Endocrine: Reports: no symptoms. Immunologic/Allergic: Reports: no symptoms. All Other Systems: Reviewed and Negative Physical Exam Physical Exam General Appearance: well developed/nourished, alert, awake Head: atraumatic, normal appearance Eyes: Bilateral: PERRL, EOMI. Ears, Nose, Throat: normal pharynx, normal ENT inspection Neck: normal inspection, supple, full range of motion Respiratory: normal breath sounds, chest non-tender, no respiratory distress, lungs clear Cardiovascular: regular rate/rhythm, normal peripheral pulses Gastrointestinal: normal bowel sounds Back: normal inspection Extremities: normal inspection, pedal edema Neurologic/Psych: no motor/sensory deficits, awake, alert, oriented x 3, normal mood/affect Skin: intact, normal color, warm/dry Core Measures ACS in differential dx? No CVA/TIA Diagnosis: No Severe Sepsis Present: No Septic Shock Present: No Progress Differential Diagnoses I considered the following diagnoses in my evaluation of the patient: [Fluid overload, electrolyte abnormality, unconditioned state] Plan of Care: Orders Procedure Date/time Status Patient Data 08/12 1520 Active Admit to inpatient 08/12 1509 Active PT Evaluate & Treat 08/12 1252 Active COMPREHENSIVE METABOLIC PANEL 08/12 0856 Complete CBC WITHOUT DIFFERENTIAL 08/12 0856 Complete CASE MANAGEMENT CONSULT 08/12 0856 Active Laboratory Tests 08/12/16 0904: Anion Gap 17 H, Estimated GFR 7 L, BUN/Creatinine Ratio 6.1 L, Glucose 331 H , Calcium 7.1 L, Total Bilirubin 0.5, AST 43, ALT 39, Alkaline Phosphatase 322 H, Total Protein 6.5, Albumin 3.1 L, Globulin 3.4, Albumin/Globulin Ratio 0.9 L, CBC w Diff NO MAN DIFF REQ, RBC 3.71 L, MCV 77.4 L, MCH 23.6 L, RDW 25.1 H, MPV 8.9, Gran % 75.0, Lymphocytes % 10.4 L, Monocytes % 9.8 H, Eosinophils % 4.1, Basophils % 0.7, Absolute Granulocytes 8.6 H, Absolute Lymphocytes 1.2, Absolute Monocytes 1.1 H, Absolute Eosinophils 0.5, Absolute Basophils 0.1, PUBS MCHC 30.5 L Initial ED EKG: none Comments: AFTER DISCUSSION WITH CASE MANAGEMENT, PT TO BE ADMITTED AND THEN PLACED IN P[facility]ITENTIARY FACILITY. Departure Departure Disposition: STILL A PATIENT Condition: Stable Clinical Impression Primary Impression: Weakness Secondary Impressions: End stage renal disease Referrals: GUILLERMO BEAR,BLANCA Chun (PCP/Family) Departure Forms: Customer Survey General Discharge Information Admission Note Spoke With: ABIOLA CARY MD Documentation of Exam: Documentation of any treatments & extenuating circumstances including Concerns Regarding Discharge (functional status, medication knowledge or non-compliance, living conditions, etc.) that warrant an admission rather than observation: [PT TO BE ADMITTED TO BE PLACED IN [facility]. PT UNABLE TO TAKE CARE OF HIMSELF.] Critical Care Note Critical Care Note Critical Care Time: non-applicable
[2016-08-12 09:21] LABS: ABSOLUTE BASOPHIL COUNT 0.1 /CUMM (0.0-0.2); ABSOLUTE EOSINOPHIL COUNT 0.5 /CUMM (0.0-0.7); ABSOLUTE GRANULOCYTE CT 8.6 /CUMM (1.4-6.5); ABSOLUTE LYMPH COUNT 1.2 /CUMM (1.2-3.4); ABSOLUTE MONOCYTE COUNT 1.1 /CUMM (0.10-0.60); BASOPHIL % 0.7 % (0.0-2.0); EOSINOPHIL % 4.1 % (0-5); HEMATOCRIT 28.7 % (42-52); MEAN CORPUSCULAR HGB 23.6 PG (27.0-31.0); MEAN CORPUSCULAR HGB CONC 30.5 G/DL (33.0-37.0); MEAN CORPUSCULAR VOLUME 77.4 FL (80.0-94.0); MEAN PLATELET VOLUME 8.9 FL (7.4-10.4); PLATELET COUNT 351 /CUMM (130-400); RBC DISTRIBUTION WIDTH 25.1 % (11.5-14.5); RED BLOOD CELL CT 3.71 /CUMM (4.70-6.10); WHITE BLOOD CELL COUNT 11.4 /CUMM (4.8-10.8)
--- NOTE | 2016-08-12 15:22 | History & Physical ---
FREDA GARDNER 08/12/16 1521: General Information and HPI MD Statement: I have seen and personally examined KRISSY MORALES and documented this H&P. The patient is a 36 year old M who presented with a patient stated chief complaint of [difficulty with walking, intermittent chills]. Source of Information: patient Exam Limitations: no limitations History of Present Illness: Mr Morales is a 36-year-old gentleman well-known to us with a PMH of morbid obesity, RENEE currently not compliant on CPAP but 3 L home O2, ESRD on HD 4 days a week, HTN, HLD, peripheral neuropathy and retinopathy who presents with complaints of difficulty walking upstairs or inclines which has been made worse with pain in his left hip and some weakness associated with this. He was discharged yesterday after recent admission for fever and low oxygen saturation at the rehabilitation facility. He denies any other new symptoms since his last discharge. Allergies/Medications Allergies: Coded Allergies: iron (From VENOFER) (UNKNOWN 08/12/16) Home Med list Amlodipine Besylate 10 MG TABLET 1 TAB PO DAILY HEART HEALTH (Reported) Cinacalcet HCl (Sensipar) 30 MG TABLET 1 TAB PO DAILY KIDNEYS (Reported) Clonazepam 1 MG TABLET 0.5 TAB PO BID PRN ANXIETY (Reported) Darbepoetin [place] in Polysorbat (Aranesp) 40 MCG/0.4 ML SYRINGE 1 1ML SC SEE ADMIN CRITERIA DURING DIALYSIS 0.45 mcg/kg SC/IV Ergocalciferol (Vitamin D2) (Vitamin D2) 50,000 UNIT CAPSULE 50,000 IU PO QSAT Low Vit D Follow the Instruction for 8 weeks then check Vit D level Escitalopram Oxalate 20 MG TABLET 1 TAB PO DAILY MENTAL HEALTH (Reported) Insulin Glargine,Hum.rec.anlog (Lantus Solostar) 100 UNIT/ML (3 ML) INSULN.PEN 24 UNITS SC BID DM (Reported) Insulin Lispro (Humalog Kwikpen U-100) 100 UNIT/ML INSULN.PEN 1 UNITS SC TIDAC /HS DM before meals 80-150 mg/dl--8 units 151-200 mg/dl--9 units 201-250 mg/dl--10 units 251-300 mg/dl-- 11 units 301-350 mg/dl--12 units 351-400 mg/dl--13 units BEDTIME DOSING less than 250-No insulin 251-300 mg/dl--3 units 301-350 mg/dl--4 units 351-400 mg/dl 5 units Loratadine (Claritin) 10 MG TABLET 1 TAB PO DAILY ALLERGY Metoprolol Tartrate 50 MG TABLET 1 TAB PO BID HTN (Reported) Olanzapine 5 MG TABLET 1 TAB PO QPM MENTAL HEALTH (Reported) Pregabalin (Lyrica) 75 MG CAPSULE 1 TAB PO DAILY Neuropathy Pregabalin (Lyrica) 100 MG CAPSULE 1 TAB PO Sun Neuropathy Please take on dialysis days after HD session Past History Travel History Traveled to [place] past 21 day No Medical History Neurological: migraine, peripheral neuropathy EENT: diabetic retinopathy Cardiovascular: CHF, hypertension, hyperlipidemia, mitral regurgitation, he has chronic fluid overload due to his inabilityto adhere to the necessary dietary restrictions of sodium and fluid intake. Respiratory: asthma, obstructive sleep apnea, pneumonia Gastrointestinal: Crohn's disease, last colonoscopy was in 2005 and biopsies showed mild chronic colitis Hepatic: NONE Renal: ESRD on HD, glomerulonephritis, CRF-DIALYSIS END STAGE KIDNEY FAILURE Musculoskeletal: WOUND ON L FOOT Psychiatric: depression, PTSD Endocrine: diabetes, diabetic ketoacidosis, obesity Blood Disorders: NONE Cancer(s): NONE LOAN OFFICER ASSISTANT/Reproductive: NONE Other Medical Hx: MSSA hidradenitis History of MRSA: Yes History of VRE: No History of CDIFF: No Surgical History Surgical History: AVF LUE Vitrectomies- Both eyes Pilonidal Cyst I & D of abscesses Right IJ Bharat Cath Past Family/Social History Family History Relations & Conditions if any FATHER Myocardial infarction at age less than 60 MOTHER Hodgkin's sarcoma Relation not specified for: FH: CAD (coronary artery disease) FH: HTN (hypertension) Psychosocial History Who Do You Live With? brother Primary Language: Wallisian ETOH Use: denies use Illicit Drug Use: denies illicit drug use Living Will? no Power of Blast Furnace Operator/HCP? no Functional Ability ADLs Independent: dressing, eating, toileting, bathing. Ambulation: cane IADLs Independent: shopping, housework, finances, food prep, telephone, transportation , medication admin. Review of Systems Review of Systems Constitutional: Reports: see HPI. EENTM: Reports: no symptoms. Cardiovascular: Reports: no symptoms. Respiratory: Reports: see HPI. GI: Reports: no symptoms. Genitourinary: Reports: no symptoms. Musculoskeletal: Reports: see HPI. Neurological/Psychological: Reports: no symptoms. Exam & Diagnostic Data Last 24 Hrs of Vital Signs/I&O Vital Signs Date Time Temp Pulse Resp B/P Pulse O2 O2 Flow FiO2 Ox Delivery Rate 08/12 1654 97.4 74 18 118/74 98 Room Air 2.0L 08/12 1532 73 16 97 Nasal 2.0L Cannula 08/12 1140 96.2 75 18 143/65 97 Room Air 08/12 0919 97 Nasal 3.0L Cannula 08/12 0854 96.5 71 24 127/62 97 Nasal 3.0L Cannula Intake & Output 08/12 1600 08/12 0800 08/12 0000 Intake Total 0 Output Total Balance 0 Intake, IV 0 Patient 360 lb Weight Physical Exam General Appearance Alert, Cooperative, No Acute Distress Skin Vevnous stasis changes on Bilateral LE. Skin on the LE appears dry. HEENT EOMI, Mucous Membr. moist/pink Cardiovascular Regular Rate, Normal S1, Normal S2, Distant heart sounds due to body habitus Lungs Distant breath sounds. No wheezing opr crackles present at this time Abdomen Normal Bowel Sounds, No Tenderness Neurological Normal Speech, Sensation Intact Extremities 3+ pitting edema BL LE Last 24 Hrs of Labs/Karthik: Laboratory Tests 08/12/16 0904: Anion Gap 17 H, Estimated GFR 7 L, BUN/Creatinine Ratio 6.1 L, Glucose 331 H , Calcium 7.1 L, Phosphorus Pending, Magnesium Pending, Total Bilirubin 0.5, AST 43, ALT 39, Alkaline Phosphatase 322 H, Total Protein 6.5, Albumin 3.1 L, Globulin 3.4, Albumin/Globulin Ratio 0.9 L, CBC w Diff NO MAN DIFF REQ, RBC 3.71 L, MCV 77.4 L, MCH 23.6 L, RDW 25.1 H, MPV 8.9, Gran % 75.0, Lymphocytes % 10.4 L, Monocytes % 9.8 H, Eosinophils % 4.1, Basophils % 0.7, Absolute Granulocytes 8.6 H, Absolute Lymphocytes 1.2, Absolute Monocytes 1.1 H, Absolute Eosinophils 0.5, Absolute Basophils 0.1, PUBS MCHC 30.5 L Assessment/Plan Assessment: 36-year-old gentleman with type 1 diabetes, came with ESRD on HD 4 days a week, always a noncompliant on CPAP 3 L supplemental O2 at baseline, morbid obesity, Crohn's disease, HTN, HLD, peripheral neuropathy and retinopathy who presents with complaints of difficulty with ambulation of stairs, pain and weakness in his left hip. VS: BP 127/62, HR 70, RR 24, SPO2 97% 2 L NC T 97.4 Pertinent labs: WBC 11.4, H&H 8.8/27, sodium 134 potassium 5.5, chloride 95 BUN/ CR 50/8.8, anion gap 17, calcium 7.1, albumin 3.1 Problem list: 1. ESRD on HD 2. Gait instability 3. Hypokalemia 4. Hypocalcemia 5. Elevated anion gap 6. Hyponatremia Plan: * Admit to general medicine. Patient will have scheduled hemodialysis later today * At this time there is no indication of infectious source or need for repeat imaging of the hip. Follow electrolytes and CBC in the a.m. * Renal dialysis diet * PT for the AM. Plan for intermediate project manager placement * Continue with Xeroform dressing for heel ulcer * Nocturnal CPAP for RENEE * Calcium 7.1, albumin 3.1. Corrected calcium 7.8. We'll follow-up post Dialysis * DVT prophylaxis: Heparin * Code Status: full code As Ranked By This Provider Problem List: 1. Weakness 2. Hip pain 3. Dialysis patient 4. Chronic hip pain 5. Obstructive sleep apnea Core Measures/Miscellaneous Acute Coronary Syndrome ACS Diagnosis: No Cerebrovascular Accident CVA/TIA Diagnosis: No Congestive Heart Failure CHF Diagnosis: No Venous Thromboembolism VTE Risk Factors: Acute medical illness, Obesity VTE Prophylaxis Ordered Inpt: Pharm- Heparin No [facility] VTE prophylaxis d/t: No contraindications No VTE Pharm Prophylaxis d/t: No contraindications VTE Diagnosis: No VTE Type: NONE VTE Confirmed by (Test): NONE Severe Sepsis Severe Sepsis Present: No BC x2: No Septic Shock Septic Shock Present: No Miscellaneous Documentation Attending Case Discussed With: ABIOLA CARY MD Primary Care Physician: BLANCA LI MD Patient sees these Specialists Nephrology Level of Patient Care: General Medicine Resident Review Statement Resident Statement: examined this patient, discussed with internal specialist, agreed with internal specialist, discussed with nursing ABIOLA CARY MD 08/12/163: Attending MD Review Statement Attending Statement Attending MD Statement: examined this patient, discuss w/resident/PA/ADJUNCT MATHEMATICS INSTRUCTOR, agreed w/resident/PA/ADJUNCT MATHEMATICS INSTRUCTOR, reviewed EMR data (avail), discussed with case mgmt, reviewed images Attending Assessment/Plan: 36-year-old male with multiple medical problems including diabetes, ESRD on hemodialysis on a Sunday schedule, chronic respiratory failure on 3 L of oxygen with obstructive sleep apnea and noncompliance with CPAP. He has been in and out of the hospital and was recently at [facility]. Finished all of his Medicare days for STR and was just discharged yesterday from the hospital after being admitted and cared for. He says that he feels unsafe at home is worried about falling and couldn't navigate the stairs at home to get a ride for dialysis today. He ultimately missed dialysis and came here instead. Mr. Morales is a very challenging, all of his complex, multiple problems are chronic. I think he requires either 24-hour care or long-term care and at the very least he requires rehabilitation where he can be watched in a supervised medical facility. He didn't work with PT here today and will need to have him work with PT. Nephrology is going to dialyze him for a few hours today given that he missed his regular dialysis today and we will watch his hyperkalemia and fluid status closely. We'll continue his diabetic medications and his neuropathic medications. Will hold off on IV dilaudid as he does have a tendency to become opiate dependent. Does have chronic pain from neuropathy and renal bone disease.
[2016-08-12 20:08] VITALS: BP 130/80
[2016-08-13 01:22] VITALS: BP 112/50
[2016-08-13 08:17] VITALS: BP 121/69
--- NOTE | 2016-08-13 09:54 | PN- Housestaff ---
ROSE BEAR,[facility] 08/13/16 0954: Subjective Follow-up For: difficulty with walking, intermittent chills Subjective: I saw and examined the patient this am, he is alert and oriented in no distress, sitting at the edge of the bed and watching a tv show, reports some pain on the left hip and left foot with weight bearing, says he came to the ED as he could not move around in the house. Denies fever, chills, but reports nausea at times, some abdominal pain, denies SOB or cough. Review of Systems Constitutional: Reports: weakness. Denies: chills, fever. EENTM: Reports: no symptoms. Cardiovascular: Reports: no symptoms. Respiratory: Reports: no symptoms. Gastrointestinal: Reports: abdominal pain. Denies: changes in stool. Genitourinary: Reports: no symptoms. Musculoskeletal: Reports: joint pain. Skin: Reports: no symptoms. Objective Last 24 Hrs of Vital Signs/I&O Vital Signs Date Time Temp Pulse Resp B/P Pulse O2 O2 Flow FiO2 Ox Delivery Rate 08/13 1210 68 132/78 08/13 0817 98.1 98 18 121/69 99 Nasal 3.0L Cannula 08/13 0800 94 Nasal 3.0L Cannula 08/13 0335 79 98 08/13 0122 98.6 84 18 112/50 98 Nasal Cannula 08/13 0000 Nasal 3.0L Cannula 08/12 2007 Nasal 3.0L Cannula 08/12 2007 98.7 83 18 130/80 98 Nasal 3.0L Cannula 08/12 1654 97.4 74 18 118/74 98 Room Air 2.0L 08/12 1532 73 16 97 Nasal 2.0L Cannula Intake & Output 08/13 1600 08/13 0800 08/13 0000 Intake Total 100 Output Total Balance 100 Intake, Oral 100 Patient 168.963 kg 167.829 kg Weight Physical Exam General Appearance: Alert, Oriented X3, Cooperative, No Acute Distress Skin: No Rashes, No Breakdown HEENT: Atraumatic, EOMI Neck: Supple Cardiovascular: Regular Rate, Normal S1, Normal S2 Lungs: Clear to Auscultation, Normal Air Movement Abdomen: Normal Bowel Sounds, Soft, No Tenderness Neurological: Normal Speech, Normal Tone Extremities: there is dressing around the left ankle and foot s/p debridement . no erythema or tenderness or discharge or tenderness Vascular: Normal Pulses, Pulses Symmetrical Current Medications: Current Medications Sig/Georgina Start time Last Medication Dose Route Stop Time Status Admin Amlodipine Besylate 10 MG DAILY 08/13 1015 AC 08/13 PO 1210 Cinacalcet 30 MG DAILY 08/13 1016 AC 08/13 PO 1210 Clonazepam 0.5 MG BID PRN 08/13 1030 AC PO / 1029 Escitalopram Oxalate 20 MG DAILY 08/13 1018 AC 08/13 PO 1210 Heparin Sodium 5,000 UNIT Q8 08/12 2200 AC 08/13 (Porcine) SC 0606 Insulin Aspart 0 TIDAC 08/13 1200 CAN SC Insulin Aspart 0 TIDAC/HS 08/13 0800 AC 08/13 SC 1209 Insulin Detemir 20 UNITS BID 08/13 1018 DC SC Insulin Detemir 24 UNITS BID 08/12 2315 AC 08/13 SC 0938 Loratadine 10 MG DAILY 08/13 1019 AC 08/13 PO 1210 Metoprolol Tartrate 50 MG BID 08/13 1019 AC 08/13 PO 1210 Olanzapine 5 MG QPM 08/13 2200 AC PO Ondansetron HCl 4 MG Q6P PRN 08/13 1300 UNVr IV Patient Medication 1 UNIT ONE NR 08/12 1730 DC Teaching ED 08/12 1800 Pregabalin 100 MG SAT 08/15 1000 AC PO Pregabalin 75 MG DAILY 08/13 1020 AC 08/13 PO 1210 Last 24 Hrs of Lab/Karthki Results Last 24 Hrs of Labs/Mics: Laboratory Tests 08/13/16 0638: Anion Gap 16, Estimated GFR 8 L, BUN/Creatinine Ratio 6.2 L Assessment/Plan Assessment: 36-year-old gentleman with type 1 diabetes, came with ESRD on HD 4 days a week, always a noncompliant on CPAP 3 L supplemental O2 at baseline, morbid obesity, Crohn's disease, HTN, HLD, peripheral neuropathy and retinopathy who presents with complaints of difficulty with ambulation of stairs, pain and weakness in his left hip. VS: BP 127/62, HR 70, RR 24, SPO2 97% 2 L NC T 97.4 Pertinent labs: WBC 11.4, H&H 8.8/27, sodium 134 potassium 5.5, chloride 95 BUN/ CR 50/8.8, anion gap 17, calcium 7.1, albumin 3.1 Problem list: 1. ESRD on HD 2. Gait instability 3. Hypokalemia 4. Hypocalcemia 5. Elevated anion gap 6. Hyponatremia Plan: * Patient had hemodialysis yesterday, will be dialyzed on //sun * At this time there is no indication of infectious source or need for repeat imaging of the hip. * Renal dialysis diet * PT eval and tx. Plan for correction placement * Continue with Xeroform dressing for heel ulcer * Nocturnal CPAP for RENEE * Calcium 7.1, albumin 3.1. Corrected calcium 7.8. We'll follow-up post Dialysis * DVT prophylaxis: Heparin * Code Status: full code Problem List: 1. Dialysis patient 2. Chronic hip pain 3. Weakness 4. Gait instability Pain Ratin Pain Location: left hip pain while walking Pain Goal: Pain 4 or less Pain Plan: acetaminophen PO and IV Tomorrow's Labs & Rationales: no labs LUIS DANIEL BEAR,ABIOLA 08/13/16 1018: Attending MD Review Statement Attending Statement Attending MD Statement: examined this patient, discuss w/resident/PA/GASTROENTEROLOGIST, agreed w/resident/PA/GASTROENTEROLOGIST, reviewed EMR data (avail), discussed with nursing, discussed with case mgmt, reviewed images Attending Assessment/Plan: Patient is very worried about his disposition. He says he clearly cannot be at home. He feels it's unsafe for him he feels he cannot negotiate stairs and he cannot make it to dialysis. He is worried that he is used up all his Medicare days and he doesn't know what the plan will be. I reassured him that case management will actively work with him and he worked with PT today. His sugars are high but I think we need to tighten up his scale and give him a higher dose of his long-acting insulin. Restart all of his chronic medications. Restart his Lyrica for his neuropathy and avoid narcotics as much as possible. Have PT work aggressively with him and he will need long-term care. His potassium is better today at 5.2. He was dialyzed for about 2 hours yesterday. I don't think we need to recheck it today. He is due for dialysis on his Sunday schedule.
--- NOTE | 2016-08-13 10:08 | Admission Certification ---
Admission Certification Certification Statement - As attending physician, I certify that at the time of - admission, based on clinical presentation, severity of - symptoms, need for further diagnostic testing and - therapeutic interventions, and risk of adverse outcomes - without in-hospital treatment, in my clinical assessment, - this patient requires an acute hospital stay for a minimum - of two nights or longer. I have also considered psychsocial - factors such as support system, advanced age, financial - issues, cognitive issues, and failed out-patient treatments, - past re-admission history, safety of patient, and lack of - compliance as applicable. Specific rationale supporting this admission is: Missed dialysis due to inability to negotiate stairs. Complex competing medical problems and unsafe discharge home.
--- NOTE | 2016-08-13 13:39 | PN- Nephrology ---
Assessment/Plan Assessment: End-stage renal disease: Typical schedule is Sunday. As he only had 2 hours of dialysis on Sunday we'll arrange for an additional 2 hour treatment tomorrow on Sunday, especially in light of a potassium of 5.3 and significant edema. I will order Epogen for 3 times a week with each dialysis treatment. Upon discharge he will need to have transportation from his senior care to his outpatient dialysis clinic. Suggestion: As above Subjective Subjective: Patient readmitted within 24-48 hours after recent discharge with inability to care for himself at home. Long-term placement extended care facility is planned. His last full dialysis treatment was in the hospital. When he came in late in the day yesterday we arranged for a 2 hour dialysis treatment last night, as his K was mildly elevated. Improved to 5.3 today. His usual dialysis schedule is Sunday, 4 hour treatments at the [facility]. His biggest difficulty at home is mobility. It took his brother and several friends to build to lift him up into the house as she cannot walk up the stairs. Review of Systems: No fever or chills No vomiting or diarrhea No shortness of breath or chest pain Positive edema Objective Vital Signs and I&Os Vital Signs Date Time Temp Pulse Resp B/P Pulse O2 O2 Flow FiO2 Ox Delivery Rate 08/13 1210 68 132/78 08/13 0817 98.1 98 18 121/69 99 Nasal 3.0L Cannula 08/13 0800 94 Nasal 3.0L Cannula 08/13 0335 79 98 08/13 0122 98.6 84 18 112/50 98 Nasal Cannula 08/13 0000 Nasal 3.0L Cannula 08/12 2008 Nasal 3.0L Cannula 08/12 2007 98.7 83 18 130/80 98 Nasal 3.0L Cannula 08/12 1654 97.4 74 18 118/74 98 Room Air 2.0L 08/12 1532 73 16 97 Nasal 2.0L Cannula Intake & Output 08/13 1600 08/13 0400 08/12 1600 08/12 0400 08/11 1600 08/11 040 Intake Total 100 0 Output Total Balance 100 0 Intake, IV 0 Intake, Oral 100 Patient 373 lb 370 lb 360 lb Weight Physical Exam: General: NAD, A+O x3. HEENT: NC/AT. No icterus. Moist mucosa Neck: negative for CHRISTIANO, JVD CV: RRR, no m/r/g Pulm: CTAB, no rales Abd: soft, NT/ND, obese Lower Ext: 2+ edema Upper Ext: LUE AVF+thrill/bruit Back: negative for CVA tenderness Neuro: neg tremor, asterixis Skin: no rash, jaundice : no miller catheter Current Medications: Current Medications Sig/Georgina Start time Last Medication Dose Route Stop Time Status Admin Amlodipine Besylate 10 MG DAILY 08/13 1015 AC 08/13 PO 1210 Cinacalcet 30 MG DAILY 08/13 1016 AC 08/13 PO 1210 Clonazepam 0.5 MG BID PRN 08/13 1030 AC PO 08/20 1029 Escitalopram Oxalate 20 MG DAILY 08/13 1018 AC 08/13 PO 1210 Heparin Sodium 5,000 UNIT Q8 08/12 2200 AC 08/13 (Porcine) SC 0606 Insulin Aspart 0 TIDAC 08/13 1200 CAN SC Insulin Aspart 0 TIDAC/HS 08/13 0800 AC 08/13 SC 1209 Insulin Detemir 20 UNITS BID 08/13 1018 DC SC Insulin Detemir 24 UNITS BID 08/12 2315 AC 08/13 SC 0938 Loratadine 10 MG DAILY 08/13 1019 AC 08/13 PO 1210 Metoprolol Tartrate 50 MG BID 08/13 1019 AC 08/13 PO 1210 Olanzapine 5 MG QPM 08/13 2200 AC PO Ondansetron HCl 4 MG Q6P PRN 08/13 1300 UNVr IV Patient Medication 1 UNIT ONE NR 08/12 1730 DC Teaching ED 08/12 1800 Pregabalin 100 MG SAT 08/15 1000 AC PO Pregabalin 75 MG DAILY 08/13 1020 AC 08/13 PO 1210 Results Pertinent Lab Results: Laboratory Tests 08/13 08/12 0638 0904 Chemistry Sodium (137 - 145 mmol/L) 134 L 134 L Potassium (3.5 - 5.1 mmol/L) 5.2 H 5.5 H Chloride (98 - 107 mmol/L) 94 L 95 L Carbon Dioxide (22 - 30 mmol/L) 24 22 Anion Gap (5 - 16) 16 17 H BUN (9 - 20 mg/dL) 47 H 54 H Creatinine (0.7 - 1.2 mg/dL) 7.6 *H 8.8 *H Estimated GFR (>60 ml/min) 8 L 7 L BUN/Creatinine Ratio (7 - 25 %) 6.2 L 6.1 L Glucose (65 - 99 mg/dL) 331 H Calcium (8.4 - 10.2 mg/dL) Pending 7.1 L Phosphorus (2.5 - 4.5 mg/dL) 6.6 H Magnesium (1.6 - 2.3 mg/dL) 2.0 Total Bilirubin (0.2 - 1.3 mg/dL) 0.5 AST (17 - 59 U/L) 43 ALT (21 - 72 U/L) 39 Alkaline Phosphatase (< 127 U/L) 322 H Total Protein (6.3 - 8.2 g/dL) 6.5 Albumin (3.5 - 5.0 g/dL) Pending 3.1 L Globulin (1.9 - 4.2 gm/dL) 3.4 Albumin/Globulin Ratio (1.1 - 2.2 %) 0.9 L Hematology CBC w Diff NO MAN DIFF REQ WBC (4.8 - 10.8 /CUMM) 11.4 H RBC (4.70 - 6.10 /CUMM) 3.71 L Hgb (14.0 - 18.0 G/DL) 8.8 L Hct (42 - 52 %) 28.7 L MCV (80.0 - 94.0 FL) 77.4 L MCH (27.0 - 31.0 PG) 23.6 L RDW (11.5 - 14.5 %) 25.1 H Plt Count (130 - 400 /CUMM) 351 MPV (7.4 - 10.4 FL) 8.9 Gran % (42.2 - 75.2 %) 75.0 Lymphocytes % (20.5 - 51.1 %) 10.4 L Monocytes % (1.7 - 9.3 %) 9.8 H Eosinophils % (0 - 5 %) 4.1 Basophils % (0.0 - 2.0 %) 0.7 Absolute Granulocytes (1.4 - 6.5 /CUMM) 8.6 H Absolute Lymphocytes (1.2 - 3.4 /CUMM) 1.2 Absolute Monocytes (0.10 - 0.60 /CUMM) 1.1 H Absolute Eosinophils (0.0 - 0.7 /CUMM) 0.5 Absolute Basophils (0.0 - 0.2 /CUMM) 0.1 PUBS MCHC (33.0 - 37.0 G/DL) 30.5 L
[2016-08-13 16:29] VITALS: BP 102/58
[2016-08-13 23:43] VITALS: BP 120/68
--- NOTE | 2016-08-14 08:06 | PN- Housestaff ---
See Addendum Subjective Follow-up For: difficulty with walking, intermittent chills Subjective: I saw and examined the patient this am, he is alert and oriented in no distress, sitting at the edge of the bed and watching a tv show, has a blanket rapped around him and reports some chills that comes and goes, also reports persistent pain on the left hip and wonders what the reason is, had some nausea and dry heaves yesterday evening that is controlled by medications we gave yesterday. Review of Systems Constitutional: Reports: chills. Denies: fever, weakness. EENTM: Reports: no symptoms. Cardiovascular: Reports: no symptoms. Respiratory: Denies: cough, short of breath. Gastrointestinal: Reports: nausea. Denies: abdominal pain, changes in stool, vomiting. Genitourinary: Reports: no symptoms. Musculoskeletal: Reports: joint pain (left hip). Skin: Reports: no symptoms. Neurological/Psychological: Reports: no symptoms. Objective Last 24 Hrs of Vital Signs/I&O Vital Signs Date Time Temp Pulse Resp B/P Pulse O2 O2 Flow FiO2 Ox Delivery Rate 08/14 0000 Nasal 3.0L Cannula 08/13 2343 97.4 70 20 120/68 93 Nasal 3.0L Cannula 08/13 2232 77 92 08/13 2120 80 121/70 08/13 1629 97.9 75 21 102/58 98 Nasal 3.0L Cannula 08/13 1600 Nasal 3.0L Cannula 08/13 1210 68 132/78 Intake & Output 08/14 1600 08/14 0800 08/14 0000 Intake Total 300 600 Output Total Balance 300 600 Intake, Oral 300 600 Number 2 Bowel Movements Patient 171.458 kg Weight Physical Exam General Appearance: Alert, Oriented X3, Cooperative, No Acute Distress Skin: No Rashes, No Breakdown, No Significant Lesion HEENT: Atraumatic, EOMI Neck: Supple, No JVD Cardiovascular: Normal S1, Normal S2, No Murmurs Lungs: Clear to Auscultation, Normal Air Movement Abdomen: Soft, No Tenderness Neurological: Normal Speech, Normal Tone Extremities: Normal Pulses, No Tenderness/Swelling, there is dressing and a splint around the left foot, ankle and distal leg Vascular: Pulses Symmetrical Current Medications: Current Medications Sig/Georgina Start time Last Medication Dose Route Stop Time Status Admin Acetaminophen 650 MG ONCE PRN 08/13 1800 DC 08/13 PO 08/13 2300 1802 Amlodipine Besylate 10 MG DAILY 08/13 1015 AC 08/13 PO 1210 Cinacalcet 30 MG DAILY 08/13 1016 AC 08/13 PO 1210 Clonazepam 0.5 MG BID PRN 08/13 1030 AC PO 08/20 1029 Escitalopram Oxalate 20 MG DAILY 08/13 1018 AC 08/13 PO 1210 Heparin Sodium 5,000 UNIT Q8 08/12 2200 AC 08/14 (Porcine) SC 0521 Insulin Aspart 0 TIDAC 08/13 1200 CAN SC Insulin Aspart 0 TIDAC/HS 08/13 0800 AC 08/13 SC 1712 Insulin Detemir 20 UNITS BID 08/13 1018 DC SC Insulin Detemir 24 UNITS BID 08/12 2315 AC 08/13 SC 2120 Loratadine 10 MG DAILY 08/13 1019 AC 08/13 PO 1210 Metoprolol Tartrate 50 MG BID 08/13 1019 AC 08/13 PO 2120 Olanzapine 5 MG QPM 08/13 2200 AC 08/13 PO 2120 Ondansetron HCl 4 MG Q6P PRN 08/13 1300 DC IV Pregabalin 100 MG SAT 08/15 1000 AC PO Pregabalin 75 MG DAILY 08/13 1020 AC 08/13 PO 1210 Prochlorperazine 5 MG Q6 PRN 08/13 1445 AC 08/13 IM 1555 Prochlorperazine 5 MG Q6 PRN 08/13 1415 DC IV Assessment/Plan Assessment: 36-year-old gentleman with type 1 diabetes, came with ESRD on HD 4 days a week, always a noncompliant on CPAP 3 L supplemental O2 at baseline, morbid obesity, Crohn's disease, HTN, HLD, peripheral neuropathy and retinopathy who presents with complaints of difficulty with ambulation of stairs, pain and weakness in his left hip. VS: BP 127/62, HR 70, RR 24, SPO2 97% 2 L NC T 97.4 Pertinent labs: WBC 11.4, H&H 8.8/27, sodium 134 potassium 5.5, chloride 95 BUN/ CR 50/8.8, anion gap 17, calcium 7.1, albumin 3.1 Problem list: 1. ESRD on HD 2. Gait instability 3. Hypokalemia 4. Hypocalcemia 5. Elevated anion gap 6. Hyponatremia Plan: * Patient had hemodialysis on Sunday for 2 hours, will be dialyzed again today for another 2 hours and then continue //sun * Regarding hip pain, advised the patient on losing weight however patient has been noncompliant about modifying diet and losing weight. Patient will follow up with orthopedics outpatient and also will be discharged to [facility] to obtain more physical therapy. * Renal dialysis diet * PT eval and tx. Plan for ad terminal makeup operator placement * Continue with Xeroform dressing for heel ulcer * Nocturnal CPAP for RENEE * Calcium 7.1, albumin 3.1. Corrected calcium 7.8. We'll follow-up post Dialysis * DVT prophylaxis: Heparin * Code Status: full code Problem List: 1. Dialysis patient 2. Gait instability 3. Left hip pain Pain Ratin Pain Location: left hip with weight bearing Pain Goal: Pain 4 or less Pain Plan: acetaminophen Tomorrow's Labs & Rationales: CBC, BEP (ESRD on dialysis)
[2016-08-14 08:35] VITALS: BP 116/70
--- NOTE | 2016-08-14 14:13 | PN- Nephrology ---
Assessment/Plan Assessment: ESRD - As an outpatient, lowest weight is 165kg - dry weight is listed as 160kg. HD is for 4hrs although his kinetics were not adequate when checked recently at 4.5hrs. Anemia - On darbepoetin 200mcg weekly. Was iron deficient as an outpatient but has an allergy to IV iron. Last Hg 7.9 CKD-MBD - Gets sensipar 30mg daily Suggestion: -Extra HD session today - 2-3L UF as tolerated -Will get back on routine HD schedule tomorrow - will remain on TTS schedule after that -Goal EDW 160kg if able -Epogen with dialysis -Should get home sensipar 30mg if able -PT/SW evaluation Subjective Subjective: Pt seen and examined on dialysis No specific complaints Objective Vital Signs and I&Os Vital Signs Date Time Temp Pulse Resp B/P Pulse O2 O2 Flow FiO2 Ox Delivery Rate 08/14 0835 98.0 80 20 116/70 93 Nasal 3.0L Cannula 08/14 0823 118/64 08/14 0823 118/64 08/14 0800 94 Nasal 3.0L Cannula 08/14 0000 Nasal 3.0L Cannula 08/13 2343 97.4 70 20 120/68 93 Nasal 3.0L Cannula 08/13 2232 77 92 08/13 2120 80 121/70 08/13 1629 97.9 75 21 102/58 98 Nasal 3.0L Cannula 08/13 1600 Nasal 3.0L Cannula Intake & Output 08/14 1600 08/14 0400 08/13 1600 08/13 0400 08/12 1600 08/12 0400 Intake Total 300 600 770 100 0 Output Total 0 Balance 300 600 770 100 0 Intake, IV 10 0 Intake, Oral 300 600 760 100 Number 2 0 Bowel Movements Output, Urine 0 Patient 378 lb 373 lb 370 lb 360 lb Weight Physical Exam: Gen - OK appearing HEENT - supple CV - RRR Chest - clear anteriorly Abd - obese, soft, nontender Ext - 1-2+ edema Neuro - AOX3 Current Medications: Current Medications Sig/Georgina Start time Last Medication Dose Route Stop Time Status Admin Acetaminophen 650 MG ONCE PRN 08/13 1800 DC 08/13 PO 08/13 2300 1802 Amlodipine Besylate 10 MG DAILY 08/13 1015 AC 08/14 PO 0823 Cinacalcet 30 MG DAILY 08/13 1016 AC 08/14 PO 0820 Clonazepam 0.5 MG BID PRN 08/13 1030 AC 08/14 PO 03 1029 1300 Escitalopram Oxalate 20 MG DAILY 08/13 1018 AC 08/14 PO 0820 Heparin Sodium 5,000 UNIT Q8 08/12 2200 AC 08/14 (Porcine) SC 1256 Insulin Aspart 0 TIDAC/HS 08/13 0800 AC 08/14 SC 1255 Insulin Detemir 24 UNITS BID 08/12 2315 AC 08/14 SC 0819 Loratadine 10 MG DAILY 08/13 1019 AC 08/14 PO 0820 Metoprolol Tartrate 50 MG BID 08/13 1019 AC 08/14 PO 0823 Olanzapine 5 MG QPM 08/13 2200 AC 08/13 PO 2120 Ondansetron HCl 4 MG Q6P PRN 08/13 1300 DC IV Patient Medication 1 ED .STK-MED ONE 08/14 1313 DC Teaching ED 08/14 1314 Pregabalin 100 MG TUES THURS SAT 08/15 1000 AC PO Pregabalin 75 MG DAILY 08/13 1020 AC 08/14 PO 0820 Prochlorperazine 5 MG Q6 PRN 08/13 1445 AC 08/13 IM 1555 Prochlorperazine 5 MG Q6 PRN 08/13 1415 DC IV Results Pertinent Lab Results: Laboratory Tests 08/13 08/12 0638 0904 Chemistry Sodium (137 - 145 mmol/L) 134 L 134 L Potassium (3.5 - 5.1 mmol/L) 5.2 H 5.5 H Chloride (98 - 107 mmol/L) 94 L 95 L Carbon Dioxide (22 - 30 mmol/L) 24 22 Anion Gap (5 - 16) 16 17 H BUN (9 - 20 mg/dL) 47 H 54 H Creatinine (0.7 - 1.2 mg/dL) 7.6 *H 8.8 *H Estimated GFR (>60 ml/min) 8 L 7 L BUN/Creatinine Ratio (7 - 25 %) 6.2 L 6.1 L Glucose (65 - 99 mg/dL) 331 H Calcium (8.4 - 10.2 mg/dL) 7.0 L 7.1 L Phosphorus (2.5 - 4.5 mg/dL) 6.6 H Magnesium (1.6 - 2.3 mg/dL) 2.0 Total Bilirubin (0.2 - 1.3 mg/dL) 0.5 AST (17 - 59 U/L) 43 ALT (21 - 72 U/L) 39 Alkaline Phosphatase (< 127 U/L) 322 H Total Protein (6.3 - 8.2 g/dL) 6.5 Albumin (3.5 - 5.0 g/dL) 3.0 L 3.1 L Globulin (1.9 - 4.2 gm/dL) 3.4 Albumin/Globulin Ratio (1.1 - 2.2 %) 0.9 L Hematology CBC w Diff NO MAN DIFF REQ WBC (4.8 - 10.8 /CUMM) 11.4 H RBC (4.70 - 6.10 /CUMM) 3.71 L Hgb (14.0 - 18.0 G/DL) 8.8 L Hct (42 - 52 %) 28.7 L MCV (80.0 - 94.0 FL) 77.4 L MCH (27.0 - 31.0 PG) 23.6 L RDW (11.5 - 14.5 %) 25.1 H Plt Count (130 - 400 /CUMM) 351 MPV (7.4 - 10.4 FL) 8.9 Gran % (42.2 - 75.2 %) 75.0 Lymphocytes % (20.5 - 51.1 %) 10.4 L Monocytes % (1.7 - 9.3 %) 9.8 H Eosinophils % (0 - 5 %) 4.1 Basophils % (0.0 - 2.0 %) 0.7 Absolute Granulocytes (1.4 - 6.5 /CUMM) 8.6 H Absolute Lymphocytes (1.2 - 3.4 /CUMM) 1.2 Absolute Monocytes (0.10 - 0.60 /CUMM) 1.1 H Absolute Eosinophils (0.0 - 0.7 /CUMM) 0.5 Absolute Basophils (0.0 - 0.2 /CUMM) 0.1 PUBS MCHC (33.0 - 37.0 G/DL) 30.5 L
[2016-08-14 15:01] LABS: ABSOLUTE BASOPHIL COUNT 0 /CUMM (0.0-0.2); ABSOLUTE EOSINOPHIL COUNT 0.4 /CUMM (0.0-0.7); ABSOLUTE GRANULOCYTE CT 6.7 /CUMM (1.4-6.5); ABSOLUTE LYMPH COUNT 1.4 /CUMM (1.2-3.4); ABSOLUTE MONOCYTE COUNT 1.3 /CUMM (0.10-0.60); BASOPHIL % 0.1 % (0.0-2.0); EOSINOPHIL % 3.8 % (0-5); GRANULOCYTE % 68.4 % (42.2-75.2); HEMATOCRIT 27.2 % (42-52); MEAN CORPUSCULAR HGB 23.8 PG (27.0-31.0); MEAN CORPUSCULAR HGB CONC 30.8 G/DL (33.0-37.0); MEAN CORPUSCULAR VOLUME 77.4 FL (80.0-94.0); MEAN PLATELET VOLUME 8.9 FL (7.4-10.4); PLATELET COUNT 353 /CUMM (130-400); RBC DISTRIBUTION WIDTH 24.3 % (11.5-14.5); RED BLOOD CELL CT 3.52 /CUMM (4.70-6.10); WHITE BLOOD CELL COUNT 9.8 /CUMM (4.8-10.8)
[2016-08-14 16:40] VITALS: BP 120/64
[2016-08-15 01:08] VITALS: BP 122/64
--- NOTE | 2016-08-15 06:44 | Discharge Summary ---
Visit Information Visit Dates Admission Date: 08/12/16 Discharge Date: 08/24/2016 Hospital Course Course Attending Physician: HUSEYIN AVILES MD Primary Care Physician: GUILLERMO BEAR,BLANCA Chun Hospital Course: 36-year-old gentleman with type 1 diabetes, came with ESRD on HD 4 days a week, always a noncompliant on CPAP 3 L supplemental O2 at baseline, morbid obesity, Crohn's disease, HTN, HLD, peripheral neuropathy and retinopathy who presents with complaints of difficulty with ambulation of stairs, pain and weakness in his left hip. VS: BP 127/62, HR 70, RR 24, SPO2 97% 2 L NC T 97.4 Pertinent labs: WBC 11.4, H&H 8.8/27, sodium 134 potassium 5.5, chloride 95 BUN/ CR 50/8.8, anion gap 17, calcium 7.1, albumin 3.1 He was admitted to the general medicine floor for management of the following problems. 1. ESRD on HD with electrolyte derangement 2. Gait instability with persistent hip pain 3. Anemia 4. Chronic kidney disease 5. Left heel ulcer 6. Depression 7. Obstructive sleep apnea with daytime somnolence 8. Peripheral neuropathy Hospital course: 1. ESRD on HD, electrolyte derangements * Patient continued with dialysis on Mon/Tues/Thurs/Sat. Goal ED W 160 kg. Advised patient about fluid restriction of 1 L per 24 hours however persistent noncompliance despite adequate education remained barrier * Epogen 10,000U TIW with dialysis, Phoslo 2 tabs TID with meals 2. Gait instability with persistent hip pain * She was assessed by physical therapy daily throughout the hospital course * During the hospitalization we had an extensive meeting with the patient's family member, psychiatrist and medical team. Arrangements have been made for post discharge ambulatory aides floating a walker and cane * Patient did suffer a fall in 07/04/2016. CT of the pelvis at the time showed Subarticular bone resorption along the iliac margin of each sacroiliac joint is likely due to secondary hyperparathyroidism in this patient with history of chronic renal failure. No evidence of femoral fracture. Major contribution factor to his gait instability and limitations with ambulation are directly attribute it to his morbid obesity. We will continue to provide support with diet control, studio control operator recommendations and encouragement 3. Anemia * Patient does have a history of iron deficiency with allergy to IV iron. He was previously on darbepoetin 200mcg weekly which has been converted to 10,000U Epogen TIW (high dose) * Per recommendations from nephrology (Dr. Gaitan): In the future if hemoglobin <7.0, patient may warrant a transfusion 4. Chronic kidney disease * MBD/Hypocalcemia. He was previously on Sensipar 30 mg daily which was discontinued in the setting of hypocalcemia. Patient is currently on calcium based phosphate binders phoslo 2 tabs TID with meals * Follow up recommendations: Weekly calcium and phosphorus levels to be checked 5. Left heel ulcer * Xeroform dressing 6. Depression * During the hospital course the medicine team in conjunction with the patient's brother Nessa, Munira Farrell LCSW, Dr. Aviles, attending, Lorena Clemente, manager general, and Blanka from [facility] set down to discuss options to assist him with post discharge management. Of note, the patient is currently followed by Sharri Cordova APRN foci psychiatry. The patient indicated noticeable increased depression and contemplating on stopping dialysis due to change in psychosocial environment at home uncertain environmental factors that were perceived as unchanged. During the interview it became apparent that the patient's change in relationship with his brother and housemates was contribution to these challenges. * The patient's brother Nessa agreed to assist with getting him to his appointments on Sunday mornings * Recommendations moving forward: Continue with escitalopram 20 mg daily, olanzapine 5 mg evening * The patient was instructed on his follow-up appointment post discharge. [facility] intake appointment on 08/30/16 at [address] [place] [address]. [phone]. The patient is to bring his photo ID and insurance card. 7. RENEE with daytime somnolence * Patient has been provided with a CPAP machine and tubing 8. Peripheral neuropathy * In the setting of noticeable lethargy with good adjust his dose of Lyrica based on his dialysis: 50 mg daily and 75 mg additionally on dialysis days Allergies: Coded Allergies: iron (From VENOFER) (UNKNOWN 08/12/16) Disposition Summary Disposition Principal Diagnosis: Gait instability Additional Diagnosis: ESRD on HD Electrolyte derangement Discharge Disposition: home or self care Discharge Instructions General Discharge Information Code Status: Full Code Patient's Diet: Renal dialysis diet Patient's Activity: Weightbearing as tolerated Follow-Up Instructions/Appts: Please follow-up with your PCP within 1-2 weeks after discharge Please follow-up with his scheduled dialysis and medications Medications at Discharge Discharge Medications: Continue taking these medications: Ergocalciferol (Vitamin D2) (Vitamin D2) 50,000 UNIT CAPSULE 50,000 International Unit ORAL EVERY SUNDAY Qty = 8 Instructions: Follow the Instruction for 8 weeks then check Vit D level Comments: NOT GIVEN IN HOSPITAL Amlodipine Besylate (Amlodipine Besylate) 10 MG TABLET 1 Tablet ORAL DAILY Qty = 90 Comments: Last Taken: 08/24/16 Time: 1 PM Metoprolol Tartrate (Metoprolol Tartrate) 50 MG TABLET 1 Tablet ORAL TWICE DAILY Qty = 180 Comments: Last Taken: 08/24/16 Time: 1 PM Olanzapine (Olanzapine) 5 MG TABLET 1 Tablet ORAL Every night Qty = 30 Comments: Last Taken: 08/23/16 Time: 10:30 PM Escitalopram Oxalate (Escitalopram Oxalate) 20 MG TABLET 1 Tablet ORAL DAILY Qty = 30 Comments: Last Taken: 08/24/16 Time: 1 PM Cinacalcet HCl (Sensipar) 30 MG TABLET 1 Tablet ORAL DAILY Qty = 30 Comments: NOT GIVEN Insulin Glargine,Hum.rec.anlog (Lantus Solostar) 100 UNIT/ML (3 ML) INSULN.PEN 24 Units Inject into fatty tissue TWICE DAILY Qty = 30 Comments: NOT GIVEN IN HOSPITAL ALTERNATIVE MED, LEVEMIR GIVEN INSTEAD Last Taken: 08/24/16 Time: 1 PM Darbepoetin Hernesto in Polysorbat (Aranesp) 40 MCG/0.4 ML SYRINGE 1 1ML Inject into fatty tissue SEE INSTRUCTIONS Days = 30 Instructions: 0.45 mcg/kg SC/IV Comments: NOT GIVEN IN HOSPITAL Loratadine (Claritin) 10 MG TABLET 1 Tablet ORAL DAILY Days = 10 Comments: Last Taken: 08/24/16 Time: 1 PM Clonazepam (Clonazepam) 1 MG TABLET 0.5 Tablet ORAL TWICE DAILY as needed for ANXIETY Qty = 60 Comments: NOT GIVEN Pregabalin (Lyrica) 75 MG CAPSULE 1 Tablet ORAL DAILY Qty = 30 Comments: 50 MG GIVEN DAILY WHILE IN HOSPITAL Last Taken: 08/24/16 Time: 1 PM Pregabalin (Lyrica) 100 MG CAPSULE 1 Tablet ORAL SUNDAY, SUNDAY, SUNDAY Qty = 16 Instructions: Please take on dialysis days after HD session Comments: 75 MG GIVEN WHILE IN HOSPITAL FOR DILAYSIS DAYS Last Taken: 08/24/16 Time: 4 PM Insulin Lispro (Humalog Kwikpen U-100) 100 UNIT/ML INSULN.PEN 1 Units Inject into fatty tissue BEFORE MEALS AND AT BEDTIME Qty = 30 Instructions: before meals 80-150 mg/dl--8 units 151-200 mg/dl--9 units 201-250 mg/dl--10 units 251-300 mg/dl-- 11 units 301-350 mg/dl--12 units 351-400 mg/dl--13 units BEDTIME DOSING less than 250-No insulin 251-300 mg/dl--3 units 301-350 mg/dl--4 units 351-400 mg/dl 5 units Comments: Last Taken: 08/24/16 Time: 6 PM NOVOLOG GIVEN SUBSTITUTION Copies To: MIGUELINA BEAR,SIDDHARTHA RAMIREZ APRN Attending MD Review Statement Documenting Attending: HUSEYIN AVILES MD Other Findings: The patient was seen and discussed with house staff, case management, PT, nephrology. OK to discharge today to home. Home services, OP dialysis 4x/week. Eventual psychiatry follow-up.
--- NOTE | 2016-08-15 07:01 | PN- Housestaff ---
Subjective Follow-up For: waiting STR placement ESRD on dialysis Subjective: Patient reports no new complaints, reports chronic pain on the left hip. Denies fever chills, abdominal pain, headache, dizziness, SB, coughing. Review of Systems Constitutional: Reports: weakness. Denies: chills, diaphoresis, fever. EENTM: Reports: no symptoms. Cardiovascular: Denies: chest pain, palpitations. Respiratory: Denies: cough, short of breath. Gastrointestinal: Denies: abdominal pain, changes in stool. Genitourinary: Reports: no symptoms. Musculoskeletal: Reports: joint pain (left hip pain). Skin: Reports: no symptoms. Neurological/Psychological: Reports: no symptoms. Hematologic/Endocrine: Reports: no symptoms. Objective Last 24 Hrs of Vital Signs/I&O Vital Signs Date Time Temp Pulse Resp B/P Pulse O2 O2 Flow FiO2 Ox Delivery Rate 08/15 1652 97.8 94 26 128/64 96 Nasal 3.0L Cannula 08/15 1530 100.2 08/15 1437 100.2 91 20 133/59 97 Nasal 3.0L Cannula 08/15 1333 69 122/64 08/15 1332 69 122/64 08/15 0108 98.2 69 20 122/64 94 Nasal Cannula 08/15 0000 CPAP 08/14 2252 66 93 08/14 2129 86 118/70 Intake & Output 08/15 1600 08/15 0800 08/15 0000 Intake Total 350 Output Total 0 Balance 0 350 Intake, Oral 350 Output, Urine 0 Patient 166.553 kg 168.906 kg 169.303 kg Weight Physical Exam General Appearance: Alert, Oriented X3, Cooperative, No Acute Distress Skin: No Rashes, No Breakdown, No Significant Lesion HEENT: Atraumatic, EOMI, Mucous Membr. moist/pink Neck: Supple, No JVD Cardiovascular: Normal S1, Normal S2, No Murmurs Lungs: Clear to Auscultation, Normal Air Movement Abdomen: Soft, No Tenderness, obese, distended Neurological: Normal Speech, Normal Tone Extremities: left foot ulcer, dressing changed daily, appears dry., 2+ pitting edema, bilaterally Vascular: Pulses Symmetrical Current Medications: Current Medications Sig/Georgina Start time Last Medication Dose Route Stop Time Status Admin Acetaminophen 650 MG ONCE ONE 08/15 1500 DC 08/15 PO 08/15 1501 1530 Acetaminophen 650 MG ONCE ONE 08/14 2130 DC 08/14 PO 08/14 2131 2144 Amlodipine Besylate 10 MG DAILY 08/13 1015 AC 08/15 PO 1333 Calcium Acetate 1,334 MG TIDAC 08/15 1200 AC 08/15 PO 1333 Cinacalcet 30 MG DAILY 08/13 1016 DC 08/14 PO 0820 Clonazepam 0.5 MG BID PRN 08/13 1030 AC 08/15 PO 08/20 1029 1334 Epoetin Hernesto 10,000 UNIT TuThSa PRN 08/15 0930 AC IV Escitalopram Oxalate 20 MG DAILY 08/13 1018 AC 08/15 PO 1332 Heparin Sodium 5,000 UNIT Q8 08/12 2200 AC 08/15 (Porcine) SC 1337 Insulin Aspart 0 TIDAC/HS 08/13 0800 AC 08/15 SC 1335 Insulin Detemir 24 UNITS BID 08/12 2315 AC 08/15 SC 1337 Loratadine 10 MG DAILY 08/13 1019 AC 08/15 PO 1332 Metoprolol Tartrate 50 MG BID 08/13 1019 AC 08/15 PO 1332 Olanzapine 5 MG QPM 08/13 2200 AC 08/14 PO 2129 Pregabalin 100 MG TUES THURS SAT 08/15 1000 AC 08/15 PO 1333 Pregabalin 75 MG DAILY 08/13 1020 AC 08/15 PO 1334 Prochlorperazine 5 MG Q6 PRN 08/13 1445 AC 08/13 IM 1555 Last 24 Hrs of Lab/Karthik Results Last 24 Hrs of Labs/Mics: Laboratory Tests 08/15/16 0800: Anion Gap 11, Estimated GFR 8 L, BUN/Creatinine Ratio 7.2, Phosphorus 6.4 H, Magnesium 2.0 Assessment/Plan Assessment: 36-year-old gentleman with type 1 diabetes, came with ESRD on HD 4 days a week, always a noncompliant on CPAP 3 L supplemental O2 at baseline, morbid obesity, Crohn's disease, HTN, HLD, peripheral neuropathy and retinopathy who presents with complaints of difficulty with ambulation of stairs, pain and weakness in his left hip. VS: BP 127/62, HR 70, RR 24, SPO2 97% 2 L NC T 97.4 Pertinent labs: WBC 11.4, H&H 8.8/27, sodium 134 potassium 5.5, chloride 95 BUN/ CR 50/8.8, anion gap 17, calcium 7.1, albumin 3.1 Problem list: 1. ESRD on HD 2. Gait instability 3. Hypokalemia 4. Hypocalcemia 5. Elevated anion gap 6. Hyponatremia Plan: * Patient had one episode of mild fever today, will recheck in the evening and send Blod cultures if spikes fever. * Patient had hemodialysis on Sunday, Sunday and again today. will continue //sun * Regarding hip pain, advised the patient on losing weight however patient has been noncompliant about modifying diet and losing weight. Patient will follow up with orthopedics outpatient and also will be discharged to [facility] to obtain more physical therapy. * Renal dialysis diet * PT eval and tx. Plan for termite control representative placement * Continue with Xeroform dressing for heel ulcer * Nocturnal CPAP for RENEE * Calcium 7.1, albumin 3.1. Corrected calcium 7.8. We'll follow-up post Dialysis * DVT prophylaxis: Heparin * Code Status: full code Problem List: 1. Hip pain 2. Dialysis patient Pain Ratin Pain Location: hip left side Pain Goal: Pain 4 or less Pain Plan: mild pain pathway Tomorrow's Labs & Rationales: CBC (leukocytosis, fever) BEP (ESRD on dialysis)
--- NOTE | 2016-08-15 10:14 | PN- Nephrology ---
Assessment/Plan Assessment: ESRD - As an outpatient, lowest weight is 165kg - dry weight is listed as 160kg. Significantly above today although in no acute respiratory distress. Dispo plan still pending. Anemia - On darbepoetin 200mcg weekly which has been converted to 10,000U Epogen TIW (high dose). Was iron deficient as an outpatient but has an allergy to IV iron. Last Hg 7.9 CKD-MBD/Hypocalcemia - Gets sensipar 30mg daily although given hypocalcemia, we may need to stop. Will start phoslo 2 tabs TID with meals. Suggestion: -Extra HD session today - 4L UF as tolerated -Cont on TTS schedule -Goal EDW 160kg (although closer to 165kg may be more realistic) -Cont Epogen 10,000U TIW with dialysis -Will d/c sensipar -Will start Phoslo 2 tabs TID with meals -PT/SW evaluation Subjective Subjective: Pt seen and examined at dialysis Had HD session yesterday 169kg (dry weight 160kg) Objective Vital Signs and I&Os Vital Signs Date Time Temp Pulse Resp B/P Pulse O2 O2 Flow FiO2 Ox Delivery Rate 08/15 0108 98.2 69 20 122/64 94 Nasal Cannula 08/15 0000 CPAP 08/14 2252 66 93 08/14 2129 86 118/70 08/14 1640 98.0 89 20 120/64 98 Nasal 3.0L Cannula 08/14 1600 98 Nasal 3.0L Cannula Intake & Output 08/15 1600 08/15 0400 08/14 1600 08/14 0400 08/13 1600 08/13 0400 Intake Total 350 780 600 770 100 Output Total 0 0 Balance 0 350 780 600 770 100 Intake, IV 10 Intake, Oral 350 780 600 760 100 Number 2 0 Bowel Movements Output, Urine 0 0 Patient 372 lb 373 lb 373 lb 370 lb Weight Physical Exam: Gen - OK appearing HEENT - supple CV - RRR Chest - clear anteriorly Abd - obese, soft, nontender Ext - 1-2+ edema Neuro - AOX3 Current Medications: Current Medications Sig/Georgina Start time Last Medication Dose Route Stop Time Status Admin Acetaminophen 650 MG ONCE ONE 08/14 2129 DC 08/14 PO 08/14 Amlodipine Besylate 10 MG DAILY 08/13 1015 AC 08/14 PO 0823 Cinacalcet 30 MG DAILY 08/13 1016 AC 08/14 PO 0820 Clonazepam 0.5 MG BID PRN 08/13 1030 AC 08/14 PO 08/20 1029 2127 Epoetin Hernesto 10,000 UNIT TuThSa PRN 08/15 0930 AC IV Escitalopram Oxalate 20 MG DAILY 08/13 1018 AC 08/14 PO 0820 Heparin Sodium 5,000 UNIT Q8 08/12 2200 AC 08/15 (Porcine) SC 0605 Insulin Aspart 0 TIDAC/HS 08/13 0800 AC 08/14 SC 1255 Insulin Detemir 24 UNITS BID 08/12 2315 AC 08/14 SC 2128 Loratadine 10 MG DAILY 08/13 1019 AC 08/14 PO 0820 Metoprolol Tartrate 50 MG BID 08/13 1019 AC 08/14 PO 2129 Olanzapine 5 MG QPM 08/13 220 AC 08/14 PO 212 Patient Medication 1 ED .STK-MED ONE 08/14 1313 DC Teaching ED 08/14 1314 Pregabalin 100 MG TU THURS SAT 08/15 1000 AC PO Pregabalin 75 MG DAILY 08/13 1020 AC 08/14 PO 0820 Prochlorperazine 5 MG Q6 PRN 08/13 1445 AC 08/13 IM 1555 Results Pertinent Lab Results: Laboratory Tests 08/15 08/14 08/14 0800 1300 0800 Chemistry Sodium (137 - 145 mmol/L) 135 L 135 L Cancelled Potassium (3.5 - 5.1 mmol/L) 5.4 H 5.1 Cancelled Chloride (98 - 107 mmol/L) 98 96 L Cancelled Carbon Dioxide (22 - 30 mmol/L) 26 23 Cancelled Anion Gap (5 - 16) 11 16 Cancelled BUN (9 - 20 mg/dL) 58 H 65 H Cancelled Creatinine (0.7 - 1.2 mg/dL) 8.1 *H 9.4 *H Cancelled Estimated GFR (>60 ml/min) 8 L 6 L BUN/Creatinine Ratio (7 - 25 %) 7.2 6.9 L Cancelled Calcium (8.4 - 10.2 mg/dL) 6.6 L Phosphorus (2.5 - 4.5 mg/dL) 6.4 H Cancelled Magnesium (1.6 - 2.3 mg/dL) 2.0 Cancelled Hematology CBC w Diff NO MAN DIFF REQ Cancelled WBC (4.8 - 10.8 /CUMM) 9.8 Cancelled RBC (4.70 - 6.10 /CUMM) 3.52 L Cancelled Hgb (14.0 - 18.0 G/DL) 8.4 L Cancelled Hct (42 - 52 %) 27.2 L Cancelled MCV (80.0 - 94.0 FL) 77.4 L Cancelled MCH (27.0 - 31.0 PG) 23.8 L Cancelled RDW (11.5 - 14.5 %) 24.3 H Cancelled Plt Count (130 - 400 /CUMM) 353 Cancelled MPV (7.4 - 10.4 FL) 8.9 Cancelled Gran % (42.2 - 75.2 %) 68.4 Lymphocytes % (20.5 - 51.1 %) 14.7 L Monocytes % (1.7 - 9.3 %) 13.0 H Eosinophils % (0 - 5 %) 3.8 Basophils % (0.0 - 2.0 %) 0.1 Absolute Granulocytes (1.4 - 6.5 /CUMM) 6.7 H Absolute Lymphocytes (1.2 - 3.4 /CUMM) 1.4 Absolute Monocytes (0.10 - 0.60 /CUMM) 1.3 H Absolute Eosinophils (0.0 - 0.7 /CUMM) 0.4 Absolute Basophils (0.0 - 0.2 /CUMM) 0 PUBS MCHC (33.0 - 37.0 G/DL) 30.8 L Cancelled 08/13 0638 Chemistry Sodium (137 - 145 mmol/L) 134 L Potassium (3.5 - 5.1 mmol/L) 5.2 H Chloride (98 - 107 mmol/L) 94 L Carbon Dioxide (22 - 30 mmol/L) 24 Anion Gap (5 - 16) 16 BUN (9 - 20 mg/dL) 47 H Creatinine (0.7 - 1.2 mg/dL) 7.6 *H Estimated GFR (>60 ml/min) 8 L BUN/Creatinine Ratio (7 - 25 %) 6.2 L Calcium (8.4 - 10.2 mg/dL) 7.0 L Albumin (3.5 - 5.0 g/dL) 3.0 L
[2016-08-15 14:37] VITALS: BP 133/59
--- NOTE | 2016-08-15 16:05 | PN- Att Addend ---
Attending MD Review Statement Attending Statement Attending MD Statement: examined this patient, discuss w/resident/PA/DENTAL SECRETARY, agreed w/resident/PA/DENTAL SECRETARY, reviewed EMR data (avail), discussed w/nursing, discussed w/ case mgmt Attending Assessment/Plan: Laboratory Tests 08/15/16 0800: Anion Gap 11, Estimated GFR 8 L, BUN/Creatinine Ratio 7.2, Phosphorus 6.4 H, Magnesium 2.0 Vital Signs Date Time Temp Pulse Resp B/P Pulse O2 O2 Flow FiO2 Ox Delivery Rate 08/15 1530 100.2 08/15 1437 100.2 91 20 133/59 97 Nasal 3.0L Cannula 08/15 1333 69 122/64 08/15 1332 69 122/64 08/15 0108 98.2 69 20 122/64 94 Nasal Cannula 08/15 0000 CPAP 08/14 2252 66 93 08/14 2129 86 118/70 08/14 1640 98.0 89 20 120/64 98 Nasal 3.0L Cannula Patient seen and examined at bedside. Currently post hemodialysis. Patient was encouraged to participate actively in physical therapy. Discussed with patient the care plan.
[2016-08-15 16:52] VITALS: BP 128/64
[2016-08-15 22:00] VITALS: BP 129/68
[2016-08-16 02:06] VITALS: BP 122/86
--- NOTE | 2016-08-16 06:57 | PN- Housestaff ---
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 Denies fever, SOB, abdominal pain, diarrhea. His nurse reported one episode of bloody stool. Reports having had this before every once in a while, denies constipation, straining while passing stool, denies history of hemorrhoids or fissure. Patient reports history of chron's disease not on any treatment. Review of Systems Constitutional: Reports: chills. Denies: fever. EENTM: Reports: no symptoms. Cardiovascular: Reports: edema. Denies: chest pain, palpitations. Respiratory: Denies: cough, short of breath, sputum production. Gastrointestinal: Reports: bloody stool (one episode). Denies: abdominal pain. Genitourinary: Reports: no symptoms. Musculoskeletal: Reports: joint pain. Skin: Reports: no symptoms. Neurological/Psychological: Reports: no symptoms. Hematologic/Endocrine: Reports: no symptoms. Objective Last 24 Hrs of Vital Signs/I&O Vital Signs Date Time Temp Pulse Resp B/P Pulse O2 O2 Flow FiO2 Ox Delivery Rate 08/16 0900 83 120/82 08/16 0859 83 120/82 08/16 0836 98.1 80 20 120/82 97 Nasal 3.0L Cannula 08/16 0206 98.6 86 122/86 08/16 0107 92 94 08/16 0000 CPAP 08/15 2252 93 94 08/15 2234 90 129/68 08/15 2200 98.1 90 20 129/68 93 Nasal 3.0L Cannula 08/15 1652 97.8 94 26 128/64 96 Nasal 3.0L Cannula 08/15 1600 96 Nasal 3.0L Cannula 08/15 1530 100.2 08/15 1437 100.2 91 20 133/59 97 Nasal 3.0L Cannula 08/15 1333 69 122/64 08/15 1332 69 122/64 Intake & Output 08/16 1600 08/16 0800 08/16 0000 Intake Total Output Total Balance Number 1 Bowel Movements Patient 166.922 kg Weight Physical Exam General Appearance: Alert, Oriented X3, Cooperative, No Acute Distress Skin: there is an open ulcer 3x3 cm on the posterior left heel, has small amount of yellowish discharge, dressing is changed every day and as needed. HEENT: Atraumatic, EOMI Neck: Supple Cardiovascular: Normal S1, Normal S2, No Murmurs Lungs: Clear to Auscultation, Normal Air Movement Abdomen: Soft, No Tenderness, distended and obese Neurological: Normal Speech, Strength at 5/5 X4 Ext, Normal Tone Extremities: distal lower extremity non-pitting edema on both sides Vascular: Pulses Symmetrical Current Medications: Current Medications Sig/Georgina Start time Last Medication Dose Route Stop Time Status Admin Acetaminophen 650 MG Q4P PRN 08/16 1030 AC PO Acetaminophen 650 MG .STK-MED ONE 08/16 0206 DC PO 08/16 0207 Acetaminophen 650 MG ONCE ONE 08/15 1500 DC 08/15 PO 08/15 1501 1530 Amlodipine Besylate 10 MG DAILY 08/13 1015 AC 08/16 PO 0859 Calcium Acetate 1,334 MG TIDAC 08/15 1200 AC 08/16 PO 0857 Clonazepam 0.5 MG BID PRN 08/13 1030 AC 08/16 PO 08/20 1029 0213 Epoetin Hernesto 10,000 UNIT TuThSa PRN 08/15 0930 AC IV Escitalopram Oxalate 20 MG DAILY 08/13 1018 AC 08/16 PO 0900 Heparin Sodium 5,000 UNIT Q8 08/12 2200 AC 08/16 (Porcine) [place] 0741 Insulin Aspart 0 TIDAC/HS 08/13 0800 AC 08/16 SC 0856 Insulin Detemir 24 UNITS BID 08/12 2315 AC 08/16 SC 0855 Loratadine 10 MG DAILY 08/13 1019 AC 08/16 PO 0900 Metoprolol Tartrate 50 MG BID 08/13 1019 AC 08/16 PO 0900 Olanzapine 5 MG QPM 08/13 2200 AC 08/15 PO 2235 Pregabalin 100 MG TUES THURS SAT 08/15 1000 AC 08/15 PO 1333 Pregabalin 75 MG DAILY 08/13 1020 AC 08/16 PO 0900 Prochlorperazine 10 MG .STK-MED ONE 08/16 0209 DC IM 08/16 0210 Prochlorperazine 5 MG Q6 PRN 08/13 1445 AC 08/16 IM 0213 Last 24 Hrs of Lab/Karthik Results Last 24 Hrs of Labs/Mics: Laboratory Tests 08/16/16 0630: Anion Gap 12, Estimated GFR 11 L, BUN/Creatinine Ratio 7.3, CBC w Diff NO MAN DIFF REQ, RBC 3.21 L, MCV 78.2 L, MCH 24.0 L, RDW 24.2 H, MPV 8.9, Gran % 66.5, Lymphocytes % 13.6 L, Monocytes % 15.1 H, Eosinophils % 4.7, Basophils % 0.1, Absolute Granulocytes 6.7 H, Absolute Lymphocytes 1.4, Absolute Monocytes 1.5 H, Absolute Eosinophils 0.5, Absolute Basophils 0, PUBS MCHC 30.6 L Assessment/Plan Assessment: 36-year-old gentleman with type 1 diabetes, came with ESRD on HD 4 days a week, always a noncompliant on CPAP 3 L supplemental O2 at baseline, morbid obesity, Crohn's disease, HTN, HLD, peripheral neuropathy and retinopathy who presents with complaints of difficulty with ambulation of stairs, pain and weakness in his left hip. VS: BP 127/62, HR 70, RR 24, SPO2 97% 2 L NC T 97.4 Pertinent labs: WBC 11.4, H&H 8.8/27, sodium 134 potassium 5.5, chloride 95 BUN/ CR 50/8.8, anion gap 17, calcium 7.1, albumin 3.1 Problem list: 1. ESRD on HD 2. Gait instability 3. Hypokalemia 4. Hypocalcemia 5. Elevated anion gap 6. Hyponatremia 7. History of crohn's disease Plan: * One episode of mild fever yesterday evening, received tylenol, did not spike any fever again, reports some chills: vital signs Q shift, watch for fever, if spikes will send pancultures. Tylenol for fever. * One episode of bloody stool: reports hx of Crohn's disease not on medication, denies hemorroids and fissure, denies abdominal pain. Will Guaiac stools, if persistent bloody stool will need to be started on medication (anti-inflamamtory drugs such as mesalamine, or steroids). * Patient had hemodialysis on Sunday, Sunday and Sunday. will continue / /sat * Regarding hip pain, advised the patient on losing weight, life style modification including physical therapy and diet. Xray negative for fracture or dislocation. * Continue with Xeroform dressing for heel ulcer * Nocturnal CPAP for RENEE * Calcium 6.6, albumin 3.0. Corrected calcium 7.0. Patient is on calcium supplements. * PT eval and tx. [facility] * Renal dialysis diet * DVT prophylaxis: Heparin * Code Status: full code Problem List: 1. Hip pain 2. ESRD on dialysis 3. Fever 4. Diabetes mellitus type 1 Pain Ratin Pain Location: no pain currently, has left hip pain with ambulation Pain Goal: Pain 4 or less Pain Plan: mild pain pathway Tomorrow's Labs & Rationales: CBC (anemia), BEP (electrolyte abnormalities, ESRD on dialysis)
[2016-08-16 08:12] LABS: ABSOLUTE BASOPHIL COUNT 0 /CUMM (0.0-0.2); ABSOLUTE EOSINOPHIL COUNT 0.5 /CUMM (0.0-0.7); ABSOLUTE GRANULOCYTE CT 6.7 /CUMM (1.4-6.5); ABSOLUTE LYMPH COUNT 1.4 /CUMM (1.2-3.4); ABSOLUTE MONOCYTE COUNT 1.5 /CUMM (0.10-0.60); BASOPHIL % 0.1 % (0.0-2.0); EOSINOPHIL % 4.7 % (0-5); GRANULOCYTE % 66.5 % (42.2-75.2); HEMATOCRIT 25.1 % (42-52); MEAN CORPUSCULAR HGB CONC 30.6 G/DL (33.0-37.0); MEAN CORPUSCULAR VOLUME 78.2 FL (80.0-94.0); MEAN PLATELET VOLUME 8.9 FL (7.4-10.4); PLATELET COUNT 313 /CUMM (130-400); RBC DISTRIBUTION WIDTH 24.2 % (11.5-14.5); RED BLOOD CELL CT 3.21 /CUMM (4.70-6.10)
[2016-08-16 08:36] VITALS: BP 120/82
[2016-08-16 14:43] VITALS: BP 128/82
--- NOTE | 2016-08-16 15:32 | PN- Nephrology ---
Assessment/Plan Assessment: ESRD - 7kg above dry weight although only 2kg above lowest recent weight. Stable to wait for dialysis tomorrow. Will likely plan for extra session on Sunday for ultrafiltration. Anemia - On darbepoetin 200mcg weekly which has been converted to 10,000U Epogen TIW (high dose). Was iron deficient as an outpatient but has an allergy to IV iron. CKD-MBD/Hypocalcemia - Gets sensipar 30mg daily although given hypocalcemia, had to be stopped. Will start phoslo 2 tabs TID with meals. No repeat labs today Suggestion: -Extra HD session today - 4L UF as tolerated -Cont on TTS schedule -Goal EDW 160kg (although closer to 165kg may be more realistic) -Cont Epogen 10,000U TIW with dialysis -Cont Phoslo 2 tabs TID with meals -Dispo planning Subjective Subjective: Disposition still pending Pt still admits to difficulty moving around No SOB Weight 167kg (dry weight 160kg although has not been <165kg recently) Objective Vital Signs and I&Os Vital Signs Date Time Temp Pulse Resp B/P Pulse O2 O2 Flow FiO2 Ox Delivery Rate 08/16 1443 98.5 78 20 128/82 99 Nasal 3.0L Cannula 08/16 0900 83 120/82 08/16 0859 83 120/82 08/16 0836 98.1 80 20 120/82 97 Nasal 3.0L Cannula 08/16 0800 98 Nasal 3.0L Cannula 08/16 0206 98.6 86 122/86 08/16 0107 92 94 / 0000 CPAP 08/15 2252 93 94 08/15 2234 90 129/68 08/15 2200 98.1 90 20 129/68 93 Nasal 3.0L Cannula 08/15 1652 97.8 94 26 128/64 96 Nasal 3.0L Cannula 08/15 1600 96 Nasal 3.0L Cannula 08/15 1530 100.2 Intake & Output 08/16 1600 08/16 0400 08/15 1600 08/15 0400 08/14 1600 08/14 0400 Intake Total 350 525 350 780 600 Output Total 300 Balance 350 225 350 780 600 Intake, Oral 350 525 350 780 600 Number 1 0 2 Bowel Movements Output, Urine 300 Patient 368 lb 367 lb 373 lb Weight Physical Exam: Gen - OK appearing HEENT - supple CV - RRR Chest - clear anteriorly Abd - obese, soft, nontender Ext - 1-2+ edema Neuro - AOX3 Current Medications: Current Medications Sig/Georgina Start time Last Medication Dose Route Stop Time Status Admin Acetaminophen 650 MG Q4P PRN 08/16 1030 AC 08/16 PO 1144 Acetaminophen 650 MG .STK-MED ONE 08/16 0206 DC PO 08/16 0207 Amlodipine Besylate 10 MG DAILY 08/13 1015 AC 08/16 PO 0859 Calcium Acetate 1,334 MG TIDAC 08/15 1200 AC 08/16 PO 1144 Clonazepam 0.5 MG BID PRN 08/13 1030 AC 08/16 PO 08/20 1029 0213 Epoetin Hernesto 10,000 UNIT TuThSa PRN 08/15 0930 AC IV Escitalopram Oxalate 20 MG DAILY 08/13 1018 AC 08/16 PO 0900 Heparin Sodium 5,000 UNIT Q8 08/12 2200 AC 08/16 (Porcine) SC 1347 Insulin Aspart 0 TIDAC/HS 08/13 0800 AC 08/16 SC 1144 Insulin Detemir 24 UNITS BID 08/12 2315 AC 08/16 SC 0855 Loratadine 10 MG DAILY 08/13 1019 AC 08/16 PO 0900 Metoprolol Tartrate 50 MG BID 08/13 1019 AC 08/16 PO 0900 Olanzapine 5 MG QPM 08/13 2200 AC 08/15 PO 2235 Pregabalin 100 MG TUES THURS SAT 08/15 1000 AC 08/15 PO 1333 Pregabalin 75 MG DAILY 08/13 1020 AC 08/16 PO 0900 Prochlorperazine 10 MG .STK-MED ONE 08/16 0209 DC IM 08/16 0210 Prochlorperazine 5 MG Q6 PRN 08/13 1445 AC 08/16 IM 0213 Results Pertinent Lab Results: Laboratory Tests 08/16 08/15 0630 0800 Chemistry Sodium (137 - 145 mmol/L) 132 L 135 L Potassium (3.5 - 5.1 mmol/L) 5.0 5.4 H Chloride (98 - 107 mmol/L) 96 L 98 Carbon Dioxide (22 - 30 mmol/L) 24 26 Anion Gap (5 - 16) 12 11 BUN (9 - 20 mg/dL) 44 H 58 H Creatinine (0.7 - 1.2 mg/dL) 6.0 *H 8.1 *H Estimated GFR (>60 ml/min) 11 L 8 L BUN/Creatinine Ratio (7 - 25 %) 7.3 7.2 Phosphorus (2.5 - 4.5 mg/dL) 6.4 H Magnesium (1.6 - 2.3 mg/dL) 2.0 Hematology CBC w Diff NO MAN DIFF REQ WBC (4.8 - 10.8 /CUMM) 10.0 RBC (4.70 - 6.10 /CUMM) 3.21 L Hgb (14.0 - 18.0 G/DL) 7.7 L Hct (42 - 52 %) 25.1 L MCV (80.0 - 94.0 FL) 78.2 L MCH (27.0 - 31.0 PG) 24.0 L RDW (11.5 - 14.5 %) 24.2 H Plt Count (130 - 400 /CUMM) 313 MPV (7.4 - 10.4 FL) 8.9 Gran % (42.2 - 75.2 %) 66.5 Lymphocytes % (20.5 - 51.1 %) 13.6 L Monocytes % (1.7 - 9.3 %) 15.1 H Eosinophils % (0 - 5 %) 4.7 Basophils % (0.0 - 2.0 %) 0.1 Absolute Granulocytes (1.4 - 6.5 /CUMM) 6.7 H Absolute Lymphocytes (1.2 - 3.4 /CUMM) 1.4 Absolute Monocytes (0.10 - 0.60 /CUMM) 1.5 H Absolute Eosinophils (0.0 - 0.7 /CUMM) 0.5 Absolute Basophils (0.0 - 0.2 /CUMM) 0 PUBS MCHC (33.0 - 37.0 G/DL) 30.6 L 08/14 08/14 1300 0800 Chemistry Sodium (137 - 145 mmol/L) 135 L Cancelled Potassium (3.5 - 5.1 mmol/L) 5.1 Cancelled Chloride (98 - 107 mmol/L) 96 L Cancelled Carbon Dioxide (22 - 30 mmol/L) 23 Cancelled Anion Gap (5 - 16) 16 Cancelled BUN (9 - 20 mg/dL) 65 H Cancelled Creatinine (0.7 - 1.2 mg/dL) 9.4 *H Cancelled Estimated GFR (>60 ml/min) 6 L BUN/Creatinine Ratio (7 - 25 %) 6.9 L Cancelled Calcium (8.4 - 10.2 mg/dL) 6.6 L Phosphorus Cancelled Magnesium Cancelled Hematology CBC w Diff NO MAN DIFF REQ Cancelled WBC (4.8 - 10.8 /CUMM) 9.8 Cancelled RBC (4.70 - 6.10 /CUMM) 3.52 L Cancelled Hgb (14.0 - 18.0 G/DL) 8.4 L Cancelled Hct (42 - 52 %) 27.2 L Cancelled MCV (80.0 - 94.0 FL) 77.4 L Cancelled MCH (27.0 - 31.0 PG) 23.8 L Cancelled RDW (11.5 - 14.5 %) 24.3 H Cancelled Plt Count (130 - 400 /CUMM) 353 Cancelled MPV (7.4 - 10.4 FL) 8.9 Cancelled Gran % (42.2 - 75.2 %) 68.4 Lymphocytes % (20.5 - 51.1 %) 14.7 L Monocytes % (1.7 - 9.3 %) 13.0 H Eosinophils % (0 - 5 %) 3.8 Basophils % (0.0 - 2.0 %) 0.1 Absolute Granulocytes (1.4 - 6.5 /CUMM) 6.7 H Absolute Lymphocytes (1.2 - 3.4 /CUMM) 1.4 Absolute Monocytes (0.10 - 0.60 /CUMM) 1.3 H Absolute Eosinophils (0.0 - 0.7 /CUMM) 0.4 Absolute Basophils (0.0 - 0.2 /CUMM) 0 PUBS MCHC (33.0 - 37.0 G/DL) 30.8 L Cancelled
[2016-08-16 21:50] VITALS: BP 102/50
--- NOTE | 2016-08-17 06:56 | PN- Housestaff ---
See Addendum Subjective Follow-up For: ESRD on dialysis awaiting [facility] care plan Subjective: Patient is seen and examined at bedside, has no complaints, denies any fever or chills, denies abdominal pain, headache, N/V, chest pain. still has left hip pain when walking. Review of Systems Constitutional: Denies: chills, fever, weakness. EENTM: Reports: no symptoms. Cardiovascular: Denies: chest pain, palpitations. Respiratory: Denies: cough, short of breath. Gastrointestinal: Reports: no symptoms. Genitourinary: Reports: no symptoms. Musculoskeletal: Reports: joint pain. Skin: Reports: no symptoms. Neurological/Psychological: Reports: no symptoms. Hematologic/Endocrine: Reports: no symptoms. Objective Last 24 Hrs of Vital Signs/I&O Vital Signs Date Time Temp Pulse Resp B/P Pulse O2 O2 Flow FiO2 Ox Delivery Rate 08/17 1600 Nasal 3.0L Cannula 08/17 1401 98.2 82 20 114/62 96 Nasal 3.0L Cannula 08/17 0800 96 Nasal 3.0L Cannula 08/17 0745 97.7 84 20 108/62 97 Nasal Cannula 08/17 0000 Nasal 3.0L Cannula 08/16 2214 102/50 08/16 2150 98.5 81 20 102/50 96 Nasal 3.0L Cannula Intake & Output 08/17 1600 08/17 0800 08/17 0000 Intake Total 700 450 Output Total 0 Balance 700 0 450 Intake, Oral 700 450 Number 2 0 Bowel Movements Output, Urine 0 Patient 168.538 kg 168.538 kg Weight Physical Exam General Appearance: Alert, Oriented X3, Cooperative, No Acute Distress Skin: No Rashes, posterior left heel ulcer, no purulent discharge noted, dressing appears dry HEENT: Atraumatic, EOMI Neck: Supple Cardiovascular: Normal S1, Normal S2, No Murmurs Lungs: Clear to Auscultation, Normal Air Movement Abdomen: Soft, No Tenderness, obese Neurological: Normal Speech, Normal Tone Extremities: Normal Pulses Current Medications: Current Medications Sig/Georgina Start time Last Medication Dose Route Stop Time Status Admin Acetaminophen 650 MG Q4P PRN 08/16 1030 AC 08/17 PO 1317 Amlodipine Besylate 10 MG DAILY 08/13 1015 AC 08/17 PO 1237 Calcium Acetate 1,334 MG TIDAC 08/15 1200 AC 08/17 PO 1636 Clonazepam 0.5 MG BID PRN 08/13 1030 AC 08/16 PO 08/20 1029 0213 Epoetin Hernesto 10,000 UNIT TuThSa PRN 08/15 0930 AC IV Escitalopram Oxalate 20 MG DAILY 08/13 1018 AC 08/17 PO 1236 Heparin Sodium 5,000 UNIT Q8 08/12 2200 AC 08/17 (Porcine) SC 1238 Insulin Aspart 0 TIDAC/HS 08/13 0800 AC 08/17 SC 1636 Insulin Detemir 24 UNITS BID 08/12 2315 AC 08/17 SC 1237 Loratadine 10 MG DAILY 08/13 1019 AC 08/17 PO 1236 Metoprolol Tartrate 50 MG BID 08/13 1019 AC 08/17 PO 1236 Olanzapine 5 MG QPM 08/13 2200 AC 08/16 PO 2213 Pregabalin 100 MG TUES THURS SAT 08/15 1000 AC 08/15 PO 1333 Pregabalin 75 MG DAILY 08/13 1020 AC 08/17 PO 1236 Prochlorperazine 5 MG Q6 PRN 08/13 1445 AC 08/16 IM 0213 Last 24 Hrs of Lab/Karthik Results Last 24 Hrs of Labs/Mics: Laboratory Tests 08/17/16 1120: 08/17/16 0733: Anion Gap 12, Estimated GFR 8 L, BUN/Creatinine Ratio 7.8, Calcium 7.5 L, Phosphorus 5.6 H, Magnesium 2.0, Albumin 3.0 L, CBC w Diff MAN DIFF ORDERED, RBC 3.09 L, MCV 77.9 L, MCH 24.2 L, RDW 23.5 H, MPV 8.9, Gran % 63.7, Lymphocytes % 14.6 L, Monocytes % 13.9 H, Eosinophils % 6.9 H, Basophils % 0.9, Absolute Granulocytes 5.3, Segmented Neutrophils 56, Band Neutrophils 14 H , Absolute Lymphocytes 1.2, Lymphocytes 17 L, Monocytes 7, Absolute Monocytes 1.2 H, Eosinophils 6 H, Absolute Eosinophils 0.6, Absolute Basophils 0.1, Platelet Estimate ADEQUATE, Hypochromic-Microcytic 2+, Poikilocytosis 2+, Anisocytosis 1+, Microcytic Cells 1+, PUBS MCHC 31.1 L Assessment/Plan Assessment: 36-year-old gentleman with type 1 diabetes, came with ESRD on HD 4 days a week, always a noncompliant on CPAP 3 L supplemental O2 at baseline, morbid obesity, Crohn's disease, HTN, HLD, peripheral neuropathy and retinopathy who presents with complaints of difficulty with ambulation of stairs, pain and weakness in his left hip. VS: BP 127/62, HR 70, RR 24, SPO2 97% 2 L NC T 97.4 Pertinent labs: WBC 11.4, H&H 8.8/27, sodium 134 potassium 5.5, chloride 95 BUN/ CR 50/8.8, anion gap 17, calcium 7.1, albumin 3.1 Problem list: 1. ESRD on HD 2. Gait instability 3. Hypokalemia 4. Hypocalcemia 5. Elevated anion gap 6. Hyponatremia 7. History of crohn's disease Plan: * NO further episodes of fever. One episode of mild fever on 08/15/16, received tylenol, did not spike any fever again, reports some chills: vital signs Q shift , watch for fever, if spikes will send pancultures. * One episode of bloody stool on 08/16/16: reports hx of Crohn's disease not on medication,denies hemorroids and fissure, denies abdominal pain. Will Guaiac stools, if persistent bloody stool will need to be started on medication (anti- inflamamtory drugs such as mesalamine, or steroids). * Patient had hemodialysis on Sunday, Sunday and Sunday. will continue / /sun * Regarding hip pain, advised the patient on losing weight, life style modification including physical therapy and diet. Xray negative for fracture or dislocation. * Continue with Xeroform dressing for heel ulcer * Nocturnal CPAP for RENEE * Calcium 6.6, albumin 3.0. Corrected calcium 7.0. Patient is on calcium supplements. * PT eval and tx. Plan for [facility] placement * Renal dialysis diet * DVT prophylaxis: Heparin * Code Status: full code Problem List: 1. Hip pain 2. ESRD on dialysis Pain Ratin Pain Location: no pain Pain Goal: Pain 4 or less Pain Plan: tylenol Tomorrow's Labs & Rationales: CBC, BEP, Ca, P (anemia, ESRD on dialysis)
[2016-08-17 07:45] VITALS: BP 108/62
[2016-08-17 08:15] LABS: ABSOLUTE BASOPHIL COUNT 0.1 /CUMM (0.0-0.2); ABSOLUTE EOSINOPHIL COUNT 0.6 /CUMM (0.0-0.7); ABSOLUTE GRANULOCYTE CT 5.3 /CUMM (1.4-6.5); ABSOLUTE LYMPH COUNT 1.2 /CUMM (1.2-3.4); ABSOLUTE MONOCYTE COUNT 1.2 /CUMM (0.10-0.60); BASOPHIL % 0.9 % (0.0-2.0); EOSINOPHIL % 6.9 % (0-5); GRANULOCYTE % 63.7 % (42.2-75.2); MEAN CORPUSCULAR HGB 24.2 PG (27.0-31.0); MEAN CORPUSCULAR HGB CONC 31.1 G/DL (33.0-37.0); MEAN CORPUSCULAR VOLUME 77.9 FL (80.0-94.0); MEAN PLATELET VOLUME 8.9 FL (7.4-10.4); PLATELET COUNT 334 /CUMM (130-400); RBC DISTRIBUTION WIDTH 23.5 % (11.5-14.5); RED BLOOD CELL CT 3.09 /CUMM (4.70-6.10); WHITE BLOOD CELL COUNT 8.3 /CUMM (4.8-10.8)
--- NOTE | 2016-08-17 10:53 | PN- Nephrology ---
Assessment/Plan Assessment: ESRD - 9kg above dry weight. In speaking to the patient more, he essentially goes for dialysis 4 days per week - Sun///Sun. He is agreeable to extra session tomorrow. If he remains in-house on Sunday, would plan for Sun/ //Sun dialysis next week. Anemia - On darbepoetin 200mcg weekly which has been converted to 10,000U Epogen TIW (high dose). Was iron deficient as an outpatient but has an allergy to IV iron. If Hg<7.0, may warrant transfusion. CKD-MBD/Hypocalcemia - Improved with cessation of sensipar and addition of calcium based phos binders. Please get weekly Ca/Phos. Would also check PTH. Suggestion: -HD today - 4L UF as tolerated -2hr session tomorrow -Dialysis Sunday -For next week if remains in-house, Sun///Sun HD schedule -Goal EDW 160kg -NEEDS fluid restriction - 1L/day -Cont Epogen 10,000U TIW with dialysis -Cont Phoslo 2 tabs TID with meals -Please check Ca and Phos at least weekly -Please check PTH -Dispo planning Subjective Subjective: Pt seen and examined on dialysis No specific complaints No decision yet re: dispo Objective Vital Signs and I&Os Vital Signs Date Time Temp Pulse Resp B/P Pulse O2 O2 Flow FiO2 Ox Delivery Rate 08/17 0745 97.7 84 20 108/62 97 Nasal Cannula 08/17 0000 Nasal 3.0L Cannula 08/16 2214 102/50 08/16 2150 98.5 81 20 102/50 96 Nasal 3.0L Cannula 08/16 1600 Nasal 3.0L Cannula 08/16 1443 98.5 78 20 128/82 99 Nasal 3.0L Cannula Intake & Output 08/17 1600 08/17 0400 08/16 1600 08/16 0400 08/15 1600 08/15 0400 Intake Total 450 350 525 350 Output Total 0 300 Balance 0 450 350 225 350 Intake, Oral 450 350 525 350 Number 0 1 0 Bowel Movements Output, Urine 0 300 Patient 372 lb 368 lb 367 lb 373 lb Weight Physical Exam: Gen - NAD HEENT - supple CV - RRR Chest - clear anteriorly Abd - soft, nontender Ext - 1+ edema Neuro - [email or web address] Access - PAUL Current Medications: Current Medications Sig/Georgina Start time Last Medication Dose Route Stop Time Status Admin Acetaminophen 650 MG Q4P PRN 08/16 1030 AC 08/16 PO 1847 Amlodipine Besylate 10 MG DAILY 08/13 1015 AC 08/16 PO 0859 Calcium Acetate 1,334 MG TIDAC 08/15 1200 AC 08/16 PO 1724 Clonazepam 0.5 MG BID PRN 08/13 1030 AC 08/16 PO 08/20 1029 0213 Epoetin Hernesto 10,000 UNIT TuThSa PRN 08/15 0930 AC IV Escitalopram Oxalate 20 MG DAILY 08/13 1018 AC 08/16 PO 0900 Heparin Sodium 5,000 UNIT Q8 08/12 2200 AC 08/17 (Porcine) SC 0716 Insulin Aspart 0 TIDAC/HS 08/13 0800 AC 08/16 SC 1723 Insulin Detemir 24 UNITS BID 08/12 2315 AC 08/16 SC 2214 Loratadine 10 MG DAILY 08/13 1019 AC 08/16 PO 0900 Metoprolol Tartrate 50 MG BID 08/13 1019 AC 08/16 PO 2214 Olanzapine 5 MG QPM 08/13 2200 AC 08/16 PO 2213 Pregabalin 100 MG TUES THURS SAT 08/15 1000 AC 08/15 PO 1333 Pregabalin 75 MG DAILY 08/13 1020 AC 08/16 PO 0900 Prochlorperazine 5 MG Q6 PRN 08/13 1445 AC 08/16 IM 0213 Results Pertinent Lab Results: Laboratory Tests 08/17 08/16 0733 0630 Chemistry Sodium (137 - 145 mmol/L) 132 L 132 L Potassium (3.5 - 5.1 mmol/L) 5.3 H 5.0 Chloride (98 - 107 mmol/L) 97 L 96 L Carbon Dioxide (22 - 30 mmol/L) 22 24 Anion Gap (5 - 16) 12 12 BUN (9 - 20 mg/dL) 62 H 44 H Creatinine (0.7 - 1.2 mg/dL) 8.0 *H 6.0 *H Estimated GFR (>60 ml/min) 8 L 11 L BUN/Creatinine Ratio (7 - 25 %) 7.8 7.3 Calcium (8.4 - 10.2 mg/dL) 7.5 L Phosphorus (2.5 - 4.5 mg/dL) 5.6 H Magnesium (1.6 - 2.3 mg/dL) 2.0 Albumin (3.5 - 5.0 g/dL) 3.0 L Hematology CBC w Diff MAN DIFF ORDERED NO MAN DIFF REQ WBC (4.8 - 10.8 /CUMM) 8.3 10.0 RBC (4.70 - 6.10 /CUMM) 3.09 L 3.21 L Hgb (14.0 - 18.0 G/DL) 7.5 L 7.7 L Hct (42 - 52 %) 24.0 L 25.1 L MCV (80.0 - 94.0 FL) 77.9 L 78.2 L MCH (27.0 - 31.0 PG) 24.2 L 24.0 L RDW (11.5 - 14.5 %) 23.5 H 24.2 H Plt Count (130 - 400 /CUMM) 334 313 MPV (7.4 - 10.4 FL) 8.9 8.9 Gran % (42.2 - 75.2 %) 63.7 66.5 Lymphocytes % (20.5 - 51.1 %) 14.6 L 13.6 L Monocytes % (1.7 - 9.3 %) 13.9 H 15.1 H Eosinophils % (0 - 5 %) 6.9 H 4.7 Basophils % (0.0 - 2.0 %) 0.9 0.1 Absolute Granulocytes (1.4 - 6.5 /CUMM) 5.3 6.7 H Segmented Neutrophils (42.2 - 75.2 %) 56 Band Neutrophils (0.0 - 5.0 %) 14 H Absolute Lymphocytes (1.2 - 3.4 /CUMM) 1.2 1.4 Lymphocytes (20.5 - 51.1 %) 17 L Monocytes (1.7 - 9.3 %) 7 Absolute Monocytes (0.10 - 0.60 /CUMM) 1.2 H 1.5 H Eosinophils (0 - 5.0 %) 6 H Absolute Eosinophils (0.0 - 0.7 /CUMM) 0.6 0.5 Absolute Basophils (0.0 - 0.2 /CUMM) 0.1 0 Platelet Estimate (ADEQUATE) ADEQUATE Hypochromic-Microcytic 2+ Poikilocytosis 2+ Anisocytosis 1+ Microcytic Cells 1+ PUBS MCHC (33.0 - 37.0 G/DL) 31.1 L 30.6 L 08/15 08/14 0800 1300 Chemistry Sodium (137 - 145 mmol/L) 135 L 135 L Potassium (3.5 - 5.1 mmol/L) 5.4 H 5.1 Chloride (98 - 107 mmol/L) 98 96 L Carbon Dioxide (22 - 30 mmol/L) 26 23 Anion Gap (5 - 16) 11 16 BUN (9 - 20 mg/dL) 58 H 65 H Creatinine (0.7 - 1.2 mg/dL) 8.1 *H 9.4 *H Estimated GFR (>60 ml/min) 8 L 6 L BUN/Creatinine Ratio (7 - 25 %) 7.2 6.9 L Calcium (8.4 - 10.2 mg/dL) 6.6 L Phosphorus (2.5 - 4.5 mg/dL) 6.4 H Magnesium (1.6 - 2.3 mg/dL) 2.0 Hematology CBC w Diff NO MAN DIFF REQ WBC (4.8 - 10.8 /CUMM) 9.8 RBC (4.70 - 6.10 /CUMM) 3.52 L Hgb (14.0 - 18.0 G/DL) 8.4 L Hct (42 - 52 %) 27.2 L MCV (80.0 - 94.0 FL) 77.4 L MCH (27.0 - 31.0 PG) 23.8 L RDW (11.5 - 14.5 %) 24.3 H Plt Count (130 - 400 /CUMM) 353 MPV (7.4 - 10.4 FL) 8.9 Gran % (42.2 - 75.2 %) 68.4 Lymphocytes % (20.5 - 51.1 %) 14.7 L Monocytes % (1.7 - 9.3 %) 13.0 H Eosinophils % (0 - 5 %) 3.8 Basophils % (0.0 - 2.0 %) 0.1 Absolute Granulocytes (1.4 - 6.5 /CUMM) 6.7 H Absolute Lymphocytes (1.2 - 3.4 /CUMM) 1.4 Absolute Monocytes (0.10 - 0.60 /CUMM) 1.3 H Absolute Eosinophils (0.0 - 0.7 /CUMM) 0.4 Absolute Basophils (0.0 - 0.2 /CUMM) 0 PUBS MCHC (33.0 - 37.0 G/DL) 30.8 L
[2016-08-17 14:01] VITALS: BP 114/62
[2016-08-17 22:32] VITALS: BP 97/40
--- NOTE | 2016-08-18 07:09 | PN- Housestaff ---
See Addendum Subjective Follow-up For: ESRD on dialysis awaiting retirement care plan (STR not available for him) Subjective: I saw and examined the patient at bedside this am, he reports shooting pain in both lower legs, denies any fever but reports chills and being cold, reports headache, denies abdominal pain, N/V, chest pain. I asked the patient about long-term care plan, he says he wished medicare would qualify him for a STR, as if he goes to long-term rehab he will need to lose assets. He has a car and he has monthly rent to pay. He lives with a younger brother and a friend. Review of Systems Constitutional: Reports: chills. Denies: fever. EENTM: Reports: no symptoms. Cardiovascular: Denies: chest pain, palpitations. Respiratory: Denies: cough, short of breath. Gastrointestinal: Denies: abdominal pain, changes in stool. Genitourinary: Reports: no symptoms. Musculoskeletal: Reports: joint pain. Skin: Reports: no symptoms. Neurological/Psychological: Reports: anxiety, depressed. Denies: weakness. Hematologic/Endocrine: Reports: no symptoms. Objective Last 24 Hrs of Vital Signs/I&O Vital Signs Date Time Temp Pulse Resp B/P Pulse O2 O2 Flow FiO2 Ox Delivery Rate 08/18 0733 98.0 77 18 121/59 95 Room Air 08/18 0051 78 98 08/18 0000 Nasal 3.0L Cannula 08/17 2232 98.0 82 16 97/40 99 08/17 2228 114/62 08/17 1600 Nasal 3.0L Cannula 08/17 1401 98.2 82 20 114/62 96 Nasal 3.0L Cannula Intake & Output 08/18 1600 08/18 0800 08/18 0000 Intake Total 300 1600 Output Total 0 0 Balance 300 1600 Intake, Oral 300 1600 Number 1 Bowel Movements Output, Urine 0 0 Patient 166.922 kg Weight Physical Exam General Appearance: Alert, Oriented X3, Cooperative, No Acute Distress Skin: No Rashes, No Significant Lesion HEENT: Atraumatic, EOMI Neck: No JVD Cardiovascular: Normal S1, Normal S2, No Murmurs Lungs: Clear to Auscultation, Normal Air Movement Abdomen: Soft, No Tenderness Neurological: Normal Speech, Strength at 5/5 X4 Ext, Normal Tone Extremities: No Edema Vascular: Normal Pulses, Pulses Symmetrical Current Medications: Current Medications Sig/Georgina Start time Last Medication Dose Route Stop Time Status Admin Acetaminophen 650 MG .STK-MED ONE 08/17 2231 DC PO 08/17 2232 Acetaminophen 650 MG .STK-MED ONE 08/17 1314 DC PO 08/17 1315 Acetaminophen 650 MG Q4P PRN 08/16 1030 AC 08/18 PO 0709 Amlodipine Besylate 10 MG DAILY 08/13 1015 AC 08/17 PO 1237 Calcium Acetate 1,334 MG TIDAC 08/15 1200 AC 08/18 PO 0858 Clonazepam 0.5 MG BID PRN 08/13 1030 AC 08/16 PO 08/20 1029 0213 Epoetin Hernesto 10,000 UNIT TuThSa PRN 08/15 0930 AC IV Escitalopram Oxalate 20 MG DAILY 08/13 1018 AC 08/17 PO 1236 Heparin Sodium 5,000 UNIT Q8 08/12 2200 AC 08/18 (Porcine) SC 0531 Insulin Aspart 0 TIDAC/HS 08/13 0800 AC 08/18 SC 0858 Insulin Detemir 24 UNITS BID 08/12 2315 AC 08/17 SC 2228 Loratadine 10 MG DAILY 08/13 1019 AC 08/17 PO 1236 Metoprolol Tartrate 50 MG BID 08/13 1019 AC 08/17 PO 2228 Olanzapine 5 MG QPM 08/13 2200 AC 08/17 PO 2228 Pregabalin 100 MG TU SAT 08/15 1000 AC 08/15 PO 1333 Pregabalin 75 MG DAILY 08/13 1020 AC 08/17 PO 1236 Prochlorperazine 5 MG Q6 PRN 08/13 1445 AC 08/16 IM 0213 Last 24 Hrs of Lab/Karthik Results Last 24 Hrs of Labs/Mics: Laboratory Tests 08/17/16 1120: PTH Intact 551.2 H Assessment/Plan Assessment: 36-year-old gentleman with type 1 diabetes, came with ESRD on HD 4 days a week, always a noncompliant on CPAP 3 L supplemental O2 at baseline, morbid obesity, Crohn's disease, HTN, HLD, peripheral neuropathy and retinopathy who presents with complaints of difficulty with ambulation of stairs, pain and weakness in his left hip. VS: BP 127/62, HR 70, RR 24, SPO2 97% 2 L NC T 97.4 Pertinent labs: WBC 11.4, H&H 8.8/27, sodium 134 potassium 5.5, chloride 95 BUN/ CR 50/8.8, anion gap 17, calcium 7.1, albumin 3.1 Problem list: 1. ESRD on HD 2. Gait instability 3. Hypokalemia 4. Hypocalcemia 5. Elevated anion gap 6. Hyponatremia 7. History of crohn's disease Plan: * Psych consult was placed to evaluate the patient with regards to depression, will follow recommendations. * NO further episodes of fever. One episode of mild fever on 08/15/16, received tylenol, did not spike any fever again, reports some chills: vital signs Q shift , watch for fever, if spikes will send pancultures. * One episode of bloody stool on 08/16/16: reports hx of Crohn's disease not on medication,denies hemorroids and fissure, denies abdominal pain. Will Guaiac stools, if persistent bloody stool will need to be started on medication (anti- inflamamtory drugs such as mesalamine, or steroids). * Patient had hemodialysis on Sunday, Sunday and Sunday. will continue / /sun. Will follow nephro for their recommendations on elevated PTH and low calcium. * Regarding hip pain, advised the patient on losing weight, life style modification including physical therapy and diet. Xray negative for fracture or dislocation. * Continue with Xeroform dressing for heel ulcer * Nocturnal CPAP for RENEE * Calcium 6.6, albumin 3.0. Corrected calcium 7.0. Patient is on calcium supplements. * PT eval and tx. 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 Dialysis patient 2. Chronic hip pain 3. Diabetes mellitus type 1 4. DIBETIC NEPHROPATHY 5. DIABETIC RETINOPATHY 6. Depression 7. Fever and chills Pain Ratin Pain Location: Headache, bilateral shooting pain in the lower legs Pain Goal: Pain 4 or less Pain Plan: Tylenol, lyrica for lower ext pain Tomorrow's Labs & Rationales: CBC and BEP (with dialysis, patient is anemic and has abnormal electrolyte and elevated BUN and Cr)
--- NOTE | 2016-08-18 07:10 | PN- Housestaff ---
Assessment/Plan Assessment: 36-year-old gentleman with type 1 diabetes, came with ESRD on HD 4 days a week, always a noncompliant on CPAP 3 L supplemental O2 at baseline, morbid obesity, Crohn's disease, HTN, HLD, peripheral neuropathy and retinopathy who presents with complaints of difficulty with ambulation of stairs, pain and weakness in his left hip. VS: BP 127/62, HR 70, RR 24, SPO2 97% 2 L NC T 97.4 Pertinent labs: WBC 11.4, H&H 8.8/27, sodium 134 potassium 5.5, chloride 95 BUN/ CR 50/8.8, anion gap 17, calcium 7.1, albumin 3.1 Problem list: 1. ESRD on HD 2. Gait instability 3. Hypokalemia 4. Hypocalcemia 5. Elevated anion gap 6. Hyponatremia 7. History of crohn's disease Plan: * NO further episodes of fever. One episode of mild fever on 08/15/16, received tylenol, did not spike any fever again, reports some chills: vital signs Q shift , watch for fever, if spikes will send pancultures. * One episode of bloody stool on 08/16/16: reports hx of Crohn's disease not on medication,denies hemorroids and fissure, denies abdominal pain. Will Guaiac stools, if persistent bloody stool will need to be started on medication (anti- inflamamtory drugs such as mesalamine, or steroids). * Patient had hemodialysis on Sunday, Sunday and Sunday. will continue / /sun * Regarding hip pain, advised the patient on losing weight, life style modification including physical therapy and diet. Xray negative for fracture or dislocation. * Continue with Xeroform dressing for heel ulcer * Nocturnal CPAP for RENEE * Calcium 6.6, albumin 3.0. Corrected calcium 7.0. Patient is on calcium supplements. * PT eval and tx. Plan for shelter placement * Renal dialysis diet * DVT prophylaxis: Heparin * Code Status: full code
[2016-08-18 07:33] VITALS: BP 121/59
[2016-08-18 10:22] LABS: ABSOLUTE BASOPHIL COUNT 0.1 /CUMM (0.0-0.2); ABSOLUTE EOSINOPHIL COUNT 0.5 /CUMM (0.0-0.7); ABSOLUTE GRANULOCYTE CT 4.1 /CUMM (1.4-6.5); ABSOLUTE LYMPH COUNT 1.1 /CUMM (1.2-3.4); ABSOLUTE MONOCYTE COUNT 1.1 /CUMM (0.10-0.60); BASOPHIL % 1.1 % (0.0-2.0); EOSINOPHIL % 7.5 % (0-5); GRANULOCYTE % 59.7 % (42.2-75.2); MEAN CORPUSCULAR HGB 23.8 PG (27.0-31.0); MEAN CORPUSCULAR HGB CONC 30.6 G/DL (33.0-37.0); MEAN CORPUSCULAR VOLUME 77.6 FL (80.0-94.0); MEAN PLATELET VOLUME 9.1 FL (7.4-10.4); PLATELET COUNT 364 /CUMM (130-400); RBC DISTRIBUTION WIDTH 23.5 % (11.5-14.5); RED BLOOD CELL CT 3.22 /CUMM (4.70-6.10)
[2016-08-18 11:32] LABS: WHITE BLOOD CELL COUNT 6.9 /CUMM (4.8-10.8)
[2016-08-18 14:41] VITALS: BP 100/48
--- NOTE | 2016-08-18 14:59 | PN- Nephrology ---
Assessment/Plan Assessment: ESRD - Remains significantly above dry weight. Given large fluid gains as an outpatient, he essentially goes for dialysis 4 days per week - Sun/// Sun. Today is an extra session. If he remains in-house on Sunday, would plan for Sun///Sun dialysis next week. Anemia - On darbepoetin 200mcg weekly which has been converted to 10,000U Epogen TIW (high dose). Was iron deficient as an outpatient but has an allergy to IV iron. If Hg<7.0, may warrant transfusion. CKD-MBD/Hypocalcemia - Improved with cessation of sensipar and addition of calcium based phos binders. All numbers are now at goal. Suggestion: -HD today - 2L UF as tolerated -Dialysis Sunday -For next week if remains in-house, Sun///Sun HD schedule -Goal EDW 160kg -NEEDS fluid restriction - 1L/day -Cont Epogen 10,000U TIW with dialysis -Cont Phoslo 2 tabs TID with meals -Please check Ca and Phos at least weekly -Dispo planning Subjective Subjective: Pt seen today on dialysis without complaints Dispo still pending Objective Vital Signs and I&Os Vital Signs Date Time Temp Pulse Resp B/P Pulse O2 O2 Flow FiO2 Ox Delivery Rate 08/18 1441 98.4 78 16 100/48 98 Nasal 3.0L Cannula 08/18 1233 121/59 08/18 1233 77 121/59 08/18 0800 96 Nasal 3.0L Cannula 08/18 0733 98.0 77 18 121/59 95 Room Air 08/18 0051 78 98 08/18 0000 Nasal 3.0L Cannula 08/17 2232 98.0 82 16 97/40 99 / 2228 114/62 08/17 1600 Nasal 3.0L Cannula Intake & Output 08/18 1600 08/18 0400 08/17 1600 08/17 0400 08/16 1600 08/16 0400 Intake Total 300 1600 700 450 350 Output Total 0 0 0 Balance 300 1600 700 450 350 Intake, Oral 300 1600 700 450 350 Number 1 2 1 Bowel Movements Output, Urine 0 0 0 Patient 368 lb 372 lb 368 lb Weight Physical Exam: Gen - NAD HEENT - supple CV - RRR Chest - clear anteriorly Abd - soft, nontender Ext - 1+ edema Neuro - [email or web address] Access - PAUL Current Medications: Current Medications Sig/Georgina Start time Last Medication Dose Route Stop Time Status Admin Acetaminophen 650 MG .STK-MED ONE 08/18 0608 DC PO 08/18 0609 Acetaminophen 650 MG .STK-MED ONE 08/17 2231 DC PO 08/17 223 Acetaminophen 650 MG Q4P PRN 08/16 1030 AC 08/18 PO 1447 Amlodipine Besylate 10 MG DAILY 08/13 1015 AC 08/18 PO 1233 Calcium Acetate 1,334 MG TIDAC 08/15 1200 AC 08/18 PO 1233 Clonazepam 0.5 MG BID PRN 08/13 1030 AC 08/16 PO 08/20 1029 0213 Epoetin Hernesto 10,000 UNIT TuThSa PRN 08/15 0930 AC IV Escitalopram Oxalate 20 MG DAILY 08/13 1018 AC 08/18 PO 1233 Heparin Sodium 5,000 UNIT Q8 08/12 2200 AC 08/18 (Porcine) SC 1447 Insulin Aspart 0 TIDAC/HS 08/13 0800 AC 08/18 SC 1414 Insulin Detemir 24 UNITS BID 08/12 2315 AC 08/18 SC 1233 Loratadine 10 MG DAILY 08/13 1019 AC 08/18 PO 1234 Metoprolol Tartrate 50 MG BID 08/13 1019 AC 08/18 PO 1233 Olanzapine 5 MG QPM 08/13 2200 AC 08/17 PO 2228 Pregabalin 100 MG TUES THURS SAT 08/15 1000 AC 08/15 PO 1333 Pregabalin 75 MG DAILY 08/13 1020 AC 08/18 PO 1233 Prochlorperazine 5 MG Q6 PRN 08/13 1445 AC 08/16 IM 0213 Results Pertinent Lab Results: Laboratory Tests 08/18 08/17 0933 1120 Chemistry Sodium (137 - 145 mmol/L) 132 L Potassium (3.5 - 5.1 mmol/L) 5.0 Chloride (98 - 107 mmol/L) 96 L Carbon Dioxide (22 - 30 mmol/L) 24 Anion Gap (5 - 16) 11 BUN (9 - 20 mg/dL) 45 H 20 Creatinine (0.7 - 1.2 mg/dL) 5.9 *H Estimated GFR (>60 ml/min) 11 L BUN/Creatinine Ratio (7 - 25 %) 7.6 Calcium (8.4 - 10.2 mg/dL) 7.7 L Phosphorus (2.5 - 4.5 mg/dL) 4.8 H PTH Intact (13.8 - 85 pg/ml) 459.6 H 551.2 H Hematology CBC w Diff NO MAN DIFF REQ WBC (4.8 - 10.8 /CUMM) 6.9 RBC (4.70 - 6.10 /CUMM) 3.22 L Hgb (14.0 - 18.0 G/DL) 7.6 L Hct (42 - 52 %) 25.0 L MCV (80.0 - 94.0 FL) 77.6 L MCH (27.0 - 31.0 PG) 23.8 L RDW (11.5 - 14.5 %) 23.5 H Plt Count (130 - 400 /CUMM) 364 MPV (7.4 - 10.4 FL) 9.1 Gran % (42.2 - 75.2 %) 59.7 Lymphocytes % (20.5 - 51.1 %) 16.4 L Monocytes % (1.7 - 9.3 %) 15.3 H Eosinophils % (0 - 5 %) 7.5 H Basophils % (0.0 - 2.0 %) 1.1 Absolute Granulocytes (1.4 - 6.5 /CUMM) 4.1 Absolute Lymphocytes (1.2 - 3.4 /CUMM) 1.1 L Absolute Monocytes (0.10 - 0.60 /CUMM) 1.1 H Absolute Eosinophils (0.0 - 0.7 /CUMM) 0.5 Absolute Basophils (0.0 - 0.2 /CUMM) 0.1 PUBS MCHC (33.0 - 37.0 G/DL) 30.6 L /07 21/ 0733 0630 Chemistry Sodium (137 - 145 mmol/L) 132 L 132 L Potassium (3.5 - 5.1 mmol/L) 5.3 H 5.0 Chloride (98 - 107 mmol/L) 97 L 96 L Carbon Dioxide (22 - 30 mmol/L) 22 24 Anion Gap (5 - 16) 12 12 BUN (9 - 20 mg/dL) 62 H 44 H Creatinine (0.7 - 1.2 mg/dL) 8.0 *H 6.0 *H Estimated GFR (>60 ml/min) 8 L 11 L BUN/Creatinine Ratio (7 - 25 %) 7.8 7.3 Calcium (8.4 - 10.2 mg/dL) 7.5 L Phosphorus (2.5 - 4.5 mg/dL) 5.6 H Magnesium (1.6 - 2.3 mg/dL) 2.0 Albumin (3.5 - 5.0 g/dL) 3.0 L Hematology CBC w Diff MAN DIFF ORDERED NO MAN DIFF REQ WBC (4.8 - 10.8 /CUMM) 8.3 10.0 RBC (4.70 - 6.10 /CUMM) 3.09 L 3.21 L Hgb (14.0 - 18.0 G/DL) 7.5 L 7.7 L Hct (42 - 52 %) 24.0 L 25.1 L MCV (80.0 - 94.0 FL) 77.9 L 78.2 L MCH (27.0 - 31.0 PG) 24.2 L 24.0 L RDW (11.5 - 14.5 %) 23.5 H 24.2 H Plt Count (130 - 400 /CUMM) 334 313 MPV (7.4 - 10.4 FL) 8.9 8.9 Gran % (42.2 - 75.2 %) 63.7 66.5 Lymphocytes % (20.5 - 51.1 %) 14.6 L 13.6 L Monocytes % (1.7 - 9.3 %) 13.9 H 15.1 H Eosinophils % (0 - 5 %) 6.9 H 4.7 Basophils % (0.0 - 2.0 %) 0.9 0.1 Absolute Granulocytes (1.4 - 6.5 /CUMM) 5.3 6.7 H Segmented Neutrophils (42.2 - 75.2 %) 56 Band Neutrophils (0.0 - 5.0 %) 14 H Absolute Lymphocytes (1.2 - 3.4 /CUMM) 1.2 1.4 Lymphocytes (20.5 - 51.1 %) 17 L Monocytes (1.7 - 9.3 %) 7 Absolute Monocytes (0.10 - 0.60 /CUMM) 1.2 H 1.5 H Eosinophils (0 - 5.0 %) 6 H Absolute Eosinophils (0.0 - 0.7 /CUMM) 0.6 0.5 Absolute Basophils (0.0 - 0.2 /CUMM) 0.1 0 Platelet Estimate (ADEQUATE) ADEQUATE Hypochromic-Microcytic 2+ Poikilocytosis 2+ Anisocytosis 1+ Microcytic Cells 1+ PUBS MCHC (33.0 - 37.0 G/DL) 31.1 L 30.6 L Imaging/Other Studies: None
--- NOTE | 2016-08-18 15:32 | Cons- Psychiatry ---
Psychiatric Consult Date of Consult: 08/18/16 Reason for Consult: "Progressive depression. Pt has multiple comorbidities, family stressors." History of Present Illness: 36 M BIBA from home on 08/12/2016 at 0909 with a CC of "I don't feel safe walking." Reports difficulty on stairs and missing hemodialysis due to fear of falling on them, per attending MD admission note. The patient is known to us from previous consult visitations, mainly for evaluation of depression and anxiety, while on benzodiazepines and an SSRI. From a previous note, his last psychiatric hospitalization was in 2010 two times at [facility] for depression without suicidal intent or attempt. He is currently treated for psychiatry by LING Bunch, at [facility] in [place]. With the patient's written permission, I have left a voicemail for Ms. Gauthier, and expect a return telephone call. Allergies: Coded Allergies: iron (From VENOFER) (UNKNOWN 08/12/16) Current Medications: Current Medications Sig/Georgina Start time Last Medication Dose Route Stop Time Status Admin Acetaminophen 650 MG .STK-MED ONE 08/18 0608 DC PO 08/18 0609 Acetaminophen 650 MG .STK-MED ONE 08/17 2231 DC PO 08/17 2232 Acetaminophen 650 MG Q4P PRN 08/16 1030 AC 08/18 PO 1447 Amlodipine Besylate 10 MG DAILY 08/13 1015 AC 08/18 PO 1233 Calcium Acetate 1,334 MG TIDAC 08/15 1200 AC 08/18 PO 1743 Clonazepam 0.5 MG BID PRN 08/13 1030 AC 08/16 PO 08/20 1029 0213 Epoetin Hernesto 10,000 UNIT TuThSa PRN 08/15 0930 AC IV Escitalopram Oxalate 20 MG DAILY 08/13 1018 AC 08/18 PO 1233 Heparin Sodium 5,000 UNIT Q8 08/12 2200 AC 08/18 (Porcine) SC 1447 Insulin Aspart 0 TIDAC/HS 08/13 0800 AC 08/18 SC 1743 Insulin Detemir 24 UNITS BID 08/12 2315 AC 08/18 SC 1233 Loratadine 10 MG DAILY 08/13 1019 AC 08/18 PO 1234 Metoprolol Tartrate 50 MG BID 08/13 1019 AC 08/18 PO 1233 Olanzapine 5 MG QPM 08/13 2200 AC 08/17 PO 2228 Pregabalin 100 MG SAT 08/15 1000 AC 08/15 PO 1333 Pregabalin 75 MG DAILY 08/13 1020 AC 08/18 PO 1233 Prochlorperazine 5 MG Q6 PRN 08/13 1445 AC 08/16 IM 0213 Addendum Addendum Current nursing considerations: 1. Wound to left heel, granulated with yellow D/C; Xeroform and Kerlix daily 2. Contact precautions for MSSA hydradenitis. Nursing has this as MRSA 3. 1000 cc fluid restriction 4. Oxygen 3L NC 5. CPAP, but doesn't alwasy use it. 6. Hemodialysis Gps-Duen-Kflvg-Sat 7. Daily weights (morbidly obese, 368 lbs) 8. Listed as X1 assist, but PT reports that patient is ambulating safely with a walker for long distances. The patient has signed HIPAA release to discuss his care with: Sharri Cordova APRN, his psychiatry provider Nessa Morales, the patient's younger brother, with whom he lives. Past History Past Medical History Neurological: migraine, peripheral neuropathy EENT: diabetic retinopathy Cardiovascular: CHF, hypertension, hyperlipidemia, mitral regurgitation, he has chronic fluid overload due to his inabilityto adhere to the necessary dietary restrictions of sodium and fluid intake. 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 Physical Limitations (Interventions): The patient is morbidly obese, ambulates with a walker, requires daily wound care for granulated wound with yellow discharge on his left heel, home oxygen, CPAP with which he is generally noncompliant, hemodialysis on Sunday and Sunday, and on contact precautions in the hospital due to wound MRSA. Psychiatric Treatment History Psych Treatment Psychiatric Treatment Yes Inpatient Treatment Yes Outpatient Treatment Yes Location of Treatment [facility] [place] [facility] Reason for Treatment Depression, suicidal ideation, anxiety Dates of Treatment in treatment for at least 6 years Response to Treatment Some improvement Diagnosis: See below Risk Factors: chronic/serious med cond., high anxiety/distress, SA/MH hospitalized, male, limited support Substance Use/Abuse History Drug Use/Abuse Substances Used/Abused No (denies) Substance Abuse Treatment Substance Abuse Treatment Past Substance Abuse [place] No Assessment/Plan Mental Status Mental Status Exam: The patient was set hemodialysis this morning, and unavailable for interview. He was seen later today, 08/18/2016, for several visits, beginning at 1330, and room 207. The patient is alert and oriented. He denies current auditory hallucinations, but states that he often hears incoherent voices, which are tolerable. He reports occasional visual hallucinations, in the form of shadows in the corner of his vision. Thought processes are logical and linear. Sleep is poor only a few hours per night. Last good sleep a few weeks ago, when he took his olanzapine 5 mg and 1-1/2 of his clonazepam dose at the same time at night. Endorses hopelessness, helplessness and worthlessness. Scales depression as 9/10, anxiety as 7/10; 10/10 is the most severe. The patient is depressed and wants to stop hemodialysis. He verbalizes understanding of the risks and benefits of hemodialysis, including if he refuses treatment. He denies any history of suicide attempt. He is not opposed to hemodialysis, but his suicidality is triggered by his isolation and loneliness at home, exacerbated by his younger brother, Nessa, who has not been interacting with the patient, and has been closing the door to his room in the apartment. The patient has no other supports other than his brother. Both parents are . Patient quotes: "I'm here to get well, and I don't know what I'm getting well for. I'm at the point where I'm just covering Nessa's bills. I pay for the car, and have to use [facility] [employer] to get to hemodialysis. I would like to have someone to give me advice. I don't want to be here and I don't want to go home." Lab Results: Laboratory Tests 08/18 0933 Chemistry Sodium (137 - 145 mmol/L) 132 L Potassium (3.5 - 5.1 mmol/L) 5.0 Chloride (98 - 107 mmol/L) 96 L Carbon Dioxide (22 - 30 mmol/L) 24 Anion Gap (5 - 16) 11 BUN (9 - 20 mg/dL) 45 H Creatinine (0.7 - 1.2 mg/dL) 5.9 *H Estimated GFR (>60 ml/min) 11 L BUN/Creatinine Ratio (7 - 25 %) 7.6 Calcium (8.4 - 10.2 mg/dL) 7.7 L Phosphorus (2.5 - 4.5 mg/dL) 4.8 H 25-OH Vitamin D Total (30 - 100 ng/ml) 23.0 L PTH Intact (13.8 - 85 pg/ml) 459.6 H Hematology CBC w Diff NO MAN DIFF REQ WBC (4.8 - 10.8 /CUMM) 6.9 RBC (4.70 - 6.10 /CUMM) 3.22 L Hgb (14.0 - 18.0 G/DL) 7.6 L Hct (42 - 52 %) 25.0 L MCV (80.0 - 94.0 FL) 77.6 L MCH (27.0 - 31.0 PG) 23.8 L RDW (11.5 - 14.5 %) 23.5 H Plt Count (130 - 400 /CUMM) 364 MPV (7.4 - 10.4 FL) 9.1 Gran % (42.2 - 75.2 %) 59.7 Lymphocytes % (20.5 - 51.1 %) 16.4 L Monocytes % (1.7 - 9.3 %) 15.3 H Eosinophils % (0 - 5 %) 7.5 H Basophils % (0.0 - 2.0 %) 1.1 Absolute Granulocytes (1.4 - 6.5 /CUMM) 4.1 Absolute Lymphocytes (1.2 - 3.4 /CUMM) 1.1 L Absolute Monocytes (0.10 - 0.60 /CUMM) 1.1 H Absolute Eosinophils (0.0 - 0.7 /CUMM) 0.5 Absolute Basophils (0.0 - 0.2 /CUMM) 0.1 PUBS MCHC (33.0 - 37.0 G/DL) 30.6 L Diffential Diagnosis: Major depressive disorder, recurrent, severe Generalized anxiety disorder Rule out psychotic features 2/2 other medical condition/sleep disturbance Impression: The patient is reporting depression and stating that he has been thinking about stopping hemodialysis. He is of sound mind, with a report of tolerable, non- command auditory disturbance, and as such, has the right to make that decision. He verbalizes understanding of the risks of making the decision to stop hemodialysis. He has the capacity to make that decision. The trigger for his depression is not hemodialysis, but the isolation and loneliness he is experiencing at home. He is afraid of falling on the stairs at home, and unless he is going traveling to hemodialysis by cab, he remains home. He feels more isolated lately, as his brother has a girlfriend for several months and has not been present and supportive in the home. The patient also is still paying for his car, which only his brother drives. The patient states that when he asks for a ride, it is not convenient to Nessa's schedule. I called and spoke with the patient's brother, Nessa, today, who agrees to come to the hospital for a meeting. He can be available on 08/21/16. I called a second time to suggest a time and left a voicemail message suggesting after lunch. The brother begins work at 1600. The patient is eager to get out of the house, and would like to participate in group therapy at [facility]. He believes he can arrange transportation, and states that Sunday would be the best day. Although the patient expresses a fear of falling, PT has informed us that he can perform safe ambulation with a walker. Current HD schedule is: [id number] The patient is depressed and would likely benefit from increased outpatient psychiatry services, eventually returning to his current provider if he wishes. He is not a candidate at this time for acute inpatient psychiatry because he has no cognitive deficits, understands the risks and benefits of stopping his hemodialysis, and has the right and the capacity to make that decision. Provisional Treatment Plan: 1. After review with Dr. Chilango Mendoza and housestaff represented by Dr. Sam Kokwaro, we feel that the patient does not need a 1:1 safety monitor at this time. 2. Please continue to arrange a family and discharge planning meeting for Sunday , 08/21/16. I have left a message for the brother suggesting after lunch. In an earlier TC, the brother had indicated willingness to attend. Nessa Torresfield . Limnologist, Lorena Clemente, [phone]. 3. Continue the patient's psychotropic medications, clonazepam, olanzepine and escitalopram, as currently ordered. We may have other suggestions as we move forward. Thank-you for asking us to participate in Adis's care. We will continue to follow. Bear Shoemaker APRN, Pager [phone]
[2016-08-18 22:59] VITALS: BP 107/50
[2016-08-19 07:50] VITALS: BP 110/60
--- NOTE | 2016-08-19 08:17 | PN- Housestaff ---
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 Vital signs are stable Review of Systems Constitutional: Reports: see HPI. Objective Last 24 Hrs of Vital Signs/I&O Vital Signs Date Time Temp Pulse Resp B/P Pulse O2 O2 Flow FiO2 Ox Delivery Rate 08/19 1518 90 118/70 08/19 1517 90 118/70 08/19 0750 97.7 80 16 110/60 98 Nasal 3.0L Cannula 08/19 0000 97 Nasal 3.0L Cannula 08/18 2259 99.0 75 20 107/50 97 Nasal 4.0L Cannula 08/18 2222 74 100/50 Intake & Output 08/19 1600 08/19 0800 08/19 0000 Intake Total 280 120 Output Total Balance 280 120 Intake, Oral 280 120 Patient 166.468 kg Weight Physical Exam General Appearance: Alert, Oriented X3, Cooperative, No Acute Distress Skin: No Rashes, No Breakdown, No Significant Lesion HEENT: Atraumatic, PERRLA, EOMI, Mucous Membr. moist/pink Neck: Supple Cardiovascular: Regular Rate, Normal S1, Normal S2, No Murmurs Lungs: Clear to Auscultation, Normal Air Movement Abdomen: Normal Bowel Sounds, Soft, No Tenderness Neurological: Normal Speech, Strength at 5/5 X4 Ext, Normal Tone, Sensation Intact, Cranial Nerves 3-12 NL, Reflexes 2+ Extremities: No Clubbing, No Cyanosis, No Edema, Normal Pulses Assessment/Plan Assessment: 36-year-old gentleman with type 1 diabetes, came with ESRD on HD 4 days a week, always a noncompliant on CPAP 3 L supplemental O2 at baseline, morbid obesity, Crohn's disease, HTN, HLD, peripheral neuropathy and retinopathy who presents with complaints of difficulty with ambulation of stairs, pain and weakness in his left hip. Problem list: 1. ESRD on HD 2. Gait instability 3. Hypokalemia 4. Hypocalcemia 5. Elevated anion gap 6. Hyponatremia 7. History of crohn's disease Plan: * Psych consult was obtained to evaluate the patient with regards to depression, will follow recommendations. * No suggestion for one-to-one sitter to monitor at this time * Please arrange for for family and discharge planning meeting per psychiatric ( review the note) * Patient remained afebrile; vital signs Q shift, watch for fever, if spikes will send pancultures. * One episode of bloody stool on 08/16/16: reports hx of Crohn's disease not on medication,denies hemorroids and fissure, denies abdominal pain. Will Guaiac stools, if persistent bloody stool will need to be started on medication (anti- inflamamtory drugs such as mesalamine, or steroids). * Patient had hemodialysis on Sunday, Sunday and Sunday. will continue / /sun. Will follow nephro for their recommendations on elevated PTH and low calcium. * Regarding hip pain, advised the patient on losing weight, life style modification including physical therapy and diet. Xray negative for fracture or dislocation. * Continue with Xeroform dressing for heel ulcer * Nocturnal CPAP for RENEE * Calcium 6.6, albumin 3.0. Corrected calcium 7.0. Patient is on calcium supplements. Please check phosphate and calcium at least once weekly * PT eval and tx. Plan for truck terminal manager placement * Renal dialysis diet * DVT prophylaxis: Heparin * Code Status: full code Problem List: 1. ESRD on dialysis Pain Ratin Pain Location: None Pain Goal: Pain 4 or less Pain Plan: Mild pain pathway Tomorrow's Labs & Rationales: CBC and CMP ALOK BEAR,[facility] 08/19/16 1318: Attending MD Review Statement Attending Statement Attending MD Statement: examined this patient, discuss w/resident/PA/PACKING MACHINE CAN FEEDER, agreed w/resident/PA/PACKING MACHINE CAN FEEDER, reviewed EMR data (avail), discussed with nursing, amended to note Attending Assessment/Plan: Patient seen and examined at hemodialysis. He offers no complaints. Vital Signs Date Time Temp Pulse Resp B/P Pulse O2 O2 Flow FiO2 Ox Delivery Rate 08/19 0750 97.7 80 16 110/60 98 Nasal 3.0L Cannula 08/19 0000 97 Nasal 3.0L Cannula 08/18 2259 99.0 75 20 107/50 97 Nasal 4.0L Cannula 08/18 2222 74 100/50 08/18 1441 98.4 78 16 100/48 98 Nasal 3.0L Cannula on exam; He was sleeping but was arousable.. cv; s1, s2, rrr resp; clear abd; soft, nt, bs+ ext; + edema and heel ulcer. Laboratory Tests 03/04 0800 Chemistry Sodium (137 - 145 mmol/L) 136 L Potassium (3.5 - 5.1 mmol/L) 5.1 Chloride (98 - 107 mmol/L) 99 Carbon Dioxide (22 - 30 mmol/L) 24 Anion Gap (5 - 16) 13 BUN (9 - 20 mg/dL) 34 H Creatinine (0.7 - 1.2 mg/dL) 5.5 *H Estimated GFR (>60 ml/min) 12 L BUN/Creatinine Ratio (7 - 25 %) 6.2 L A/P; 36-year-old male with history significant for depression, ESRD, diabetes and other multiple medical problems who is now waiting placement. Patient has been seen by psychiatry after expressing suicidal ideation. Psychiatry had cleared him to discontinue the sitter. They're recommending outpatient psychiatry follow-up. Please clarify his leg current dose. Hemodialysis per nephrology. Patient on insulin for diabetes with blood sugars in acceptable range. DVT px: Heparin subcutaneous. Next line patient to continue to work with physical therapy. Family meeting could be done next week.
[2016-08-19 14:00] VITALS: BP 118/70
--- NOTE | 2016-08-19 17:47 | PN- Nephrology ---
Assessment/Plan Assessment: ESRD - Extra HD session today. To continue on Sun///Sun schedule going forward. Anemia - On darbepoetin 200mcg weekly which has been converted to 10,000U Epogen TIW (high dose). Was iron deficient as an outpatient but has an allergy to IV iron. If Hg<7.0, may warrant transfusion. CKD-MBD/Hypocalcemia - Improved with cessation of sensipar and addition of calcium based phos binders. All numbers are now at goal. Please call [phone] with ?'s Suggestion: -HD today - 2L UF as tolerated -Dialysis Sunday -For next week if remains in-house, Sun///Sun HD schedule -Goal EDW 160kg -NEEDS fluid restriction - 1L/day -Cont Epogen 10,000U TIW with dialysis -Cont Phoslo 2 tabs TID with meals -Please check Ca and Phos at least weekly -Dispo planning Subjective Subjective: Dialysis earlier today No complaints Dispo still pending Seen by psych - no need for 1:1 - outpatient psych services Objective Vital Signs and I&Os Vital Signs Date Time Temp Pulse Resp B/P Pulse O2 O2 Flow FiO2 Ox Delivery Rate 08/19 1518 90 118/70 / 1517 90 118/70 03/04 1400 98.0 90 18 118/70 96 Nasal 3.0L Cannula / 0800 94 Nasal 3.0L Cannula / 0750 97.7 80 16 110/60 98 Nasal 3.0L Cannula 08/19 0000 97 Nasal 3.0L Cannula 08/18 2259 99.0 75 20 107/50 97 Nasal 4.0L Cannula 08/18 2222 74 100/50 Intake & Output / 1600 /04 0400 08/18 1600 08/18 0400 08/17 1600 / 0400 Intake Total 100 694 162 9458 700 450 Output Total 0 0 0 Balance 100 525 004 9492 700 450 Intake, Oral 100 961 526 1003 700 450 Number 2 2 Bowel Movements Output, Urine 0 0 0 Patient 355 lb 368 lb 372 lb Weight Physical Exam: Gen - NAD HEENT - supple CV - RRR Chest - clear anteriorly Abd - soft, nontender Ext - 1+ edema Neuro - AOX3 Access - PAUL Current Medications: Current Medications Sig/Georgina Start time Last Medication Dose Route Stop Time Status Admin Acetaminophen 650 MG .STK-MED ONE 08/19 0658 DC PO 08/19 0659 Acetaminophen 650 MG .STK-MED ONE 08/19 0011 DC PO 08/19 0012 Acetaminophen 650 MG Q4P PRN 08/16 1030 AC 08/19 PO 0702 Amlodipine Besylate 10 MG DAILY 08/13 1015 AC 08/18 PO 1233 Calcium Acetate 1,334 MG TIDAC 08/15 1200 AC 08/19 PO 1517 Clonazepam 0.5 MG BID PRN 08/13 1030 AC 08/16 PO 08/20 1029 0213 Epoetin Hernesto 10,000 UNIT TuThSa PRN 08/15 0930 AC IV Escitalopram Oxalate 20 MG DAILY 08/13 1018 AC 08/19 PO 1516 Heparin Sodium 5,000 UNIT Q8 08/12 2200 AC 08/19 (Porcine) SC 1521 Insulin Aspart 0 TIDAC/HS 08/13 0800 AC 08/19 SC 1518 Insulin Detemir 24 UNITS BID 08/12 2315 AC 08/18 SC 1233 Loratadine 10 MG DAILY 08/13 1019 AC 08/19 PO 1516 Metoprolol Tartrate 50 MG BID 08/13 1019 AC 08/19 PO 1517 Olanzapine 5 MG QPM 08/13 2200 AC 08/18 PO 2220 Pregabalin 100 MG SAT 08/22 1000 AC PO Pregabalin 75 MG DAILY 08/20 1000 AC PO Pregabalin 100 MG BID 08/19 2200 CAN PO Pregabalin 100 MG ONCE ONE 08/19 1530 DC 08/19 PO 08/19 1531 1517 Pregabalin 100 MG SAT 08/15 1000 DC 08/15 PO 1333 Pregabalin 75 MG DAILY 08/13 1020 DC 08/18 PO 1233 Prochlorperazine 5 MG Q6 PRN 08/13 1445 AC 08/16 IM 0213 Results Pertinent Lab Results: Laboratory Tests 08/19 08/18 08/17 0800 0933 1120 Chemistry Sodium (137 - 145 mmol/L) 136 L 132 L Potassium (3.5 - 5.1 mmol/L) 5.1 5.0 Chloride (98 - 107 mmol/L) 99 96 L Carbon Dioxide (22 - 30 mmol/L) 24 24 Anion Gap (5 - 16) 13 11 BUN (9 - 20 mg/dL) 34 H 45 H 20 Creatinine (0.7 - 1.2 mg/dL) 5.5 *H 5.9 *H Estimated GFR (>60 ml/min) 12 L 11 L BUN/Creatinine Ratio (7 - 25 %) 6.2 L 7.6 Calcium (8.4 - 10.2 mg/dL) 7.7 L Phosphorus (2.5 - 4.5 mg/dL) 4.8 H 25-OH Vitamin D Total (30 - 100 ng/ml) 23.0 L PTH Intact (13.8 - 85 pg/ml) 459.6 H 551.2 H Hematology CBC w Diff NO MAN DIFF REQ WBC (4.8 - 10.8 /CUMM) 6.9 RBC (4.70 - 6.10 /CUMM) 3.22 L Hgb (14.0 - 18.0 G/DL) 7.6 L Hct (42 - 52 %) 25.0 L MCV (80.0 - 94.0 FL) 77.6 L MCH (27.0 - 31.0 PG) 23.8 L RDW (11.5 - 14.5 %) 23.5 H Plt Count (130 - 400 /CUMM) 364 MPV (7.4 - 10.4 FL) 9.1 Gran % (42.2 - 75.2 %) 59.7 Lymphocytes % (20.5 - 51.1 %) 16.4 L Monocytes % (1.7 - 9.3 %) 15.3 H Eosinophils % (0 - 5 %) 7.5 H Basophils % (0.0 - 2.0 %) 1.1 Absolute Granulocytes (1.4 - 6.5 /CUMM) 4.1 Absolute Lymphocytes (1.2 - 3.4 /CUMM) 1.1 L Absolute Monocytes (0.10 - 0.60 /CUMM) 1.1 H Absolute Eosinophils (0.0 - 0.7 /CUMM) 0.5 Absolute Basophils (0.0 - 0.2 /CUMM) 0.1 PUBS MCHC (33.0 - 37.0 G/DL) 30.6 L 03/02 0733 Chemistry Sodium (137 - 145 mmol/L) 132 L Potassium (3.5 - 5.1 mmol/L) 5.3 H Chloride (98 - 107 mmol/L) 97 L Carbon Dioxide (22 - 30 mmol/L) 22 Anion Gap (5 - 16) 12 BUN (9 - 20 mg/dL) 62 H Creatinine (0.7 - 1.2 mg/dL) 8.0 *H Estimated GFR (>60 ml/min) 8 L BUN/Creatinine Ratio (7 - 25 %) 7.8 Calcium (8.4 - 10.2 mg/dL) 7.5 L Phosphorus (2.5 - 4.5 mg/dL) 5.6 H Magnesium (1.6 - 2.3 mg/dL) 2.0 Albumin (3.5 - 5.0 g/dL) 3.0 L Hematology CBC w Diff MAN DIFF ORDERED WBC (4.8 - 10.8 /CUMM) 8.3 RBC (4.70 - 6.10 /CUMM) 3.09 L Hgb (14.0 - 18.0 G/DL) 7.5 L Hct (42 - 52 %) 24.0 L MCV (80.0 - 94.0 FL) 77.9 L MCH (27.0 - 31.0 PG) 24.2 L RDW (11.5 - 14.5 %) 23.5 H Plt Count (130 - 400 /CUMM) 334 MPV (7.4 - 10.4 FL) 8.9 Gran % (42.2 - 75.2 %) 63.7 Lymphocytes % (20.5 - 51.1 %) 14.6 L Monocytes % (1.7 - 9.3 %) 13.9 H Eosinophils % (0 - 5 %) 6.9 H Basophils % (0.0 - 2.0 %) 0.9 Absolute Granulocytes (1.4 - 6.5 /CUMM) 5.3 Segmented Neutrophils (42.2 - 75.2 %) 56 Band Neutrophils (0.0 - 5.0 %) 14 H Absolute Lymphocytes (1.2 - 3.4 /CUMM) 1.2 Lymphocytes (20.5 - 51.1 %) 17 L Monocytes (1.7 - 9.3 %) 7 Absolute Monocytes (0.10 - 0.60 /CUMM) 1.2 H Eosinophils (0 - 5.0 %) 6 H Absolute Eosinophils (0.0 - 0.7 /CUMM) 0.6 Absolute Basophils (0.0 - 0.2 /CUMM) 0.1 Platelet Estimate (ADEQUATE) ADEQUATE Hypochromic-Microcytic 2+ Poikilocytosis 2+ Anisocytosis 1+ Microcytic Cells 1+ PUBS MCHC (33.0 - 37.0 G/DL) 31.1 L
[2016-08-20 06:38] VITALS: BP 124/63
[2016-08-20 08:14] LABS: ABSOLUTE BASOPHIL COUNT 0.2 /CUMM (0.0-0.2); ABSOLUTE EOSINOPHIL COUNT 0.6 /CUMM (0.0-0.7); ABSOLUTE GRANULOCYTE CT 6.7 /CUMM (1.4-6.5); ABSOLUTE LYMPH COUNT 1.5 /CUMM (1.2-3.4); EOSINOPHIL % 5.7 % (0-5); GRANULOCYTE % 67.1 % (42.2-75.2); HEMATOCRIT 27.2 % (42-52); MEAN CORPUSCULAR HGB 23.9 PG (27.0-31.0); MEAN CORPUSCULAR HGB CONC 30.2 G/DL (33.0-37.0); MEAN CORPUSCULAR VOLUME 78.9 FL (80.0-94.0); MEAN PLATELET VOLUME 9.8 FL (7.4-10.4); PLATELET COUNT 357 /CUMM (130-400); RBC DISTRIBUTION WIDTH 24.1 % (11.5-14.5); RED BLOOD CELL CT 3.44 /CUMM (4.70-6.10); WHITE BLOOD CELL COUNT 9.9 /CUMM (4.8-10.8)
--- NOTE | 2016-08-20 10:14 | PN- Housestaff ---
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 He stated he was feeling well. No acute overnight events. no complaints Review of Systems Constitutional: Reports: no symptoms. Denies: diaphoresis, fever, weakness. EENTM: Reports: no symptoms. Cardiovascular: Denies: chest pain, palpitations. Respiratory: Denies: cough, short of breath. Gastrointestinal: Denies: abdominal pain, diarrhea. Genitourinary: Reports: no symptoms. Musculoskeletal: Reports: no symptoms. Skin: Reports: no symptoms. Objective Last 24 Hrs of Vital Signs/I&O Vital Signs Date Time Temp Pulse Resp B/P Pulse O2 O2 Flow FiO2 Ox Delivery Rate 08/20 0859 79 135/74 08/20 0859 79 135/74 08/20 0638 98.4 76 18 124/63 100 Nasal 3.0L Cannula 08/20 0113 77 92 03/ 0000 97 Nasal 3.0L Cannula 08/19 2243 78 96 08/19 2212 82 146/64 08/19 1518 90 118/70 /04 1517 90 118/70 03/04 1400 98.0 90 18 118/70 96 Nasal 3.0L Cannula Intake & Output / 1600 03/05 0800 03/05 0000 Intake Total 550 1240 Output Total 350 Balance 200 1240 Intake, Oral 550 1240 Number 1 Bowel Movements Output, Urine 350 Patient 164.2 kg Weight Physical Exam General Appearance: Alert, Oriented X3, Cooperative, No Acute Distress Skin: has some lesions on face. HEENT: Atraumatic, PERRLA, Mucous Membr. moist/pink Neck: Supple Cardiovascular: Regular Rate, Normal S1, Normal S2 Lungs: Normal Air Movement Abdomen: Soft, No Tenderness Extremities: significant swelling that is bilat. Has. LLE wrapped in bandage around the heel. Bandage looks clean Current Medications: Current Medications Sig/Georgina Start time Last Medication Dose Route Stop Time Status Admin Acetaminophen 650 MG .STK-MED ONE 08/19 1945 DC PO 08/19 194 Acetaminophen 650 MG .STK-MED ONE 08/19 1510 DC PO 08/19 1511 Acetaminophen 650 MG Q4P PRN 08/16 1030 AC 08/20 PO 0444 Amlodipine Besylate 10 MG DAILY 08/13 1015 AC 08/20 PO 0859 Calcium Acetate 1,334 MG TIDAC 08/15 1200 AC 08/20 PO 0850 Clonazepam 0.5 MG BID PRN 08/13 1030 AC 08/16 PO 08/20 1029 0213 Epoetin Hernesto 10,000 UNIT TuThSa PRN 08/15 0930 AC IV Escitalopram Oxalate 20 MG DAILY 08/13 1018 AC 08/20 PO 0859 Heparin Sodium 5,000 UNIT Q8 08/12 2200 AC 08/20 (Porcine) SC 0444 Insulin Aspart 0 TIDAC/HS 08/13 0800 AC 08/20 SC 0849 Insulin Detemir 24 UNITS BID 08/12 2315 AC 08/20 SC 0906 Loratadine 10 MG DAILY 08/13 1019 AC 08/20 PO 0858 Metoprolol Tartrate 50 MG BID 08/13 1019 AC 08/20 PO 0859 Olanzapine 5 MG QPM 08/13 2200 AC 08/19 PO 2212 Pregabalin 100 MG TUES THURS SAT 08/22 1000 AC PO Pregabalin 75 MG DAILY 08/20 1000 AC 08/20 PO 0906 Pregabalin 100 MG BID 08/19 2200 CAN PO Pregabalin 100 MG ONCE ONE 08/19 1530 DC 08/19 PO 08/19 1531 1517 Pregabalin 100 MG TUES THURS SAT 08/15 1000 DC 08/15 PO 1333 Pregabalin 75 MG DAILY 08/13 1020 DC 08/18 PO 1233 Prochlorperazine 5 MG Q6 PRN 08/13 1445 AC 08/16 IM 0213 Last 24 Hrs of Lab/Karthik Results Last 24 Hrs of Labs/Mics: Laboratory Tests 08/20/16 0720: Anion Gap 14, Estimated GFR 13 L, BUN/Creatinine Ratio 6.3 L, CBC w Diff Pending, WBC Pending, RBC Pending, Hgb Pending, Hct Pending, MCV Pending, MCH Pending, RDW Pending, Plt Count Pending, MPV Pending, PUBS MCHC Pending Assessment/Plan Assessment: 36-year-old gentleman with type 1 diabetes, came with ESRD on HD 4 days a week, always a noncompliant on CPAP 3 L supplemental O2 at baseline, morbid obesity, Crohn's disease, HTN, HLD, peripheral neuropathy and retinopathy who presents with complaints of difficulty with ambulation of stairs, pain and weakness in his left hip. Problem list: 1. ESRD on HD 2. Gait instability 3. Hypokalemia 4. Hypocalcemia 5. Elevated anion gap 6. Hyponatremia 7. History of crohn's disease Plan: * Thanks psych consult. No suggestion for one-to-one sitter to monitor at this time * Please arrange for discharge planning meeting per psychiatric (review the note. Pt pending LT. dispo placement * Patient remained afebrile; vital signs Q shift, watch for fever, if spikes will send pancultures. * One episode of bloody stool on 08/16/16: reports hx of Crohn's disease not on medication,denies hemorroids and fissure, denies abdominal pain. Will Guaiac stools, if persistent bloody stool will need to be started on medication (anti- inflamamtory drugs such as mesalamine, or steroids). * Patient had hemodialysis on Sunday, Sunday and Sunday. will continue / /sun. Will follow nephro for their recommendations on elevated PTH and low calcium. * Regarding hip pain, advised the patient on losing weight, life style modification including physical therapy and diet. Xray negative for fracture or dislocation. * Continue with Xeroform dressing for heel ulcer * Nocturnal CPAP for RENEE * Calcium 6.6, albumin 3.0. Corrected calcium 7.0. Patient is on calcium supplements. Please check phosphate and calcium at least once weekly * PT eval and tx. Plan for jail placement * Renal dialysis diet * DVT prophylaxis: Heparin * Code Status: full code Problem List: 1. Hip pain 2. End stage renal disease Pain Ratin Pain Location: NONE Pain Goal: Remain pain free Pain Plan: CURRENT REG Tomorrow's Labs & Rationales: CBC BEP CALCIUM PHOS DVT/Prophylaxis: pharmacological
[2016-08-20 14:16] VITALS: BP 126/70
[2016-08-20 23:42] VITALS: BP 114/64
[2016-08-21 06:15] VITALS: BP 120/58
--- NOTE | 2016-08-21 09:18 | PN- Housestaff ---
ROSE BEAR,[facility] 08/21/16 0918: Subjective Follow-up For: ESRD on dialysis Subjective: I saw and examined the patient at bedside this morning, he is sleeping and very drowsy, unable to wake up and make a conversation. He does not appear to be in distress, will go for dialysis today, and a family meeting is arranges for this evening to discuss care plans with him and his brother. Review of Systems Constitutional: Denies: chills, fever, malaise, weakness. EENTM: Reports: no symptoms. Cardiovascular: Reports: no symptoms. Respiratory: Reports: no symptoms. Gastrointestinal: Reports: no symptoms. Genitourinary: Reports: no symptoms. Musculoskeletal: Reports: joint pain (hip pain and left heel pain). Skin: Reports: lesions. Neurological/Psychological: Reports: no symptoms (somnolent). Hematologic/Endocrine: Reports: no symptoms. Objective Last 24 Hrs of Vital Signs/I&O Vital Signs Date Time Temp Pulse Resp B/P Pulse O2 O2 Flow FiO2 Ox Delivery Rate 08/21 0800 Nasal 3.0L Cannula 08/21 0615 98.1 71 18 120/58 100 Nasal 3.0L Cannula 08/21 0000 CPAP 3.0L 08/20 2342 97.5 70 20 114/64 92 CPAP 08/20 2156 76 126/70 08/20 1600 Nasal 3.0L Cannula 08/20 1416 97.6 76 18 126/70 98 Room Air Intake & Output 08/21 1600 08/21 0800 / 0000 Intake Total 120 550 Output Total Balance 120 550 Intake, Oral 120 550 Patient 166.922 kg Weight Physical Exam General Appearance: Alert, Oriented X3, Cooperative, No Acute Distress Skin: there a non-healing ulcer on the left heel, appears dry and with no purulent discharge. HEENT: Atraumatic, EOMI Neck: Supple Cardiovascular: Normal S1, Normal S2, No Murmurs Lungs: Normal Air Movement Abdomen: Soft, No Tenderness Neurological: Normal Speech, Normal Tone Extremities: Normal Pulses, No Tenderness/Swelling Current Medications: Current Medications Sig/Georgina Start time Last Medication Dose Route Stop Time Status Admin Acetaminophen 650 MG .STK-MED ONE 08/21 0305 DC PO 08/21 030 Acetaminophen 650 MG .STK-MED ONE 08/21 2151 DC PO 03/05 2153 Acetaminophen 650 MG .STK-MED ONE 08/20 1635 DC PO 08/20 1636 Acetaminophen 650 MG .STK-MED ONE 08/20 1209 DC PO 08/20 1210 Acetaminophen 650 MG Q4P PRN 08/16 1030 AC 08/21 PO 0308 Amlodipine Besylate 10 MG DAILY 08/13 1015 AC 08/21 PO 1113 Calcium Acetate 1,334 MG TIDAC 08/15 1200 AC 08/21 PO 1123 Epoetin Hernesto 10,000 UNIT TuThSa PRN 08/15 0930 AC IV Escitalopram Oxalate 20 MG DAILY 08/13 1018 AC 08/21 PO 1113 Heparin Sodium 5,000 UNIT Q8 08/12 2200 AC 08/21 (Porcine) SC 0602 Insulin Aspart 0 TIDAC/HS 08/13 0800 AC 08/21 SC 1122 Insulin Detemir 26 UNITS BID 08/20 2200 AC 08/21 SC 1123 Insulin Detemir 24 UNITS BID 08/12 2315 DC 08/20 SC 0906 Loratadine 10 MG DAILY 08/13 1019 AC 08/21 PO 1113 Metoprolol Tartrate 50 MG BID 08/13 1019 AC 08/21 PO 1114 Olanzapine 5 MG QPM 08/13 2200 AC 08/20 PO 2155 Pregabalin 100 MG SAT 08/22 1000 AC PO Pregabalin 75 MG DAILY 08/20 1000 AC 08/21 PO 1113 Prochlorperazine 5 MG Q6 PRN 08/13 1445 AC 08/16 IM 0213 Assessment/Plan Assessment: 36-year-old gentleman with type 1 diabetes, came with ESRD on HD 4 days a week, always a noncompliant on CPAP 3 L supplemental O2 at baseline, morbid obesity, Crohn's disease, HTN, HLD, peripheral neuropathy and retinopathy who presents with complaints of difficulty with ambulation of stairs, pain and weakness in his left hip. Problem list: 1. ESRD on HD 2. Gait instability 3. History of crohn's disease 4. secondary hyperparathyroidism due to ESRD (hypocalcemia, low vitamin D and elevated PTH) Plan: * Thanks for psych consult. There is no suggestion for one-to-one sitter to monitor at this time. A family meeting was held today with the patient's brother present as well as the medical team and psychiatry. Patient will most likely be going home and will use a walker to climb up the stairs instead of the using a cane. PT will work with the patient further tomorrow and give us more specific recommendations. * Patient has remained afebrile since August 15. * One episode of bloody stool on 08/16/16: reports hx of Crohn's disease not on medication,denies hemorroids and fissure, denies abdominal pain. If persistent report of blood in stool will need to be started on medication (anti- inflamamtory drugs such as mesalamine, or steroids). Patient has not reported any further episodes of blood in the stool, will follow. * Patient had hemodialysis on Sunday, Sunday and Sunday and . will continue. Will follow nephro for their recommendations. * Regarding hip pain, advised the patient on losing weight, life style modification including physical therapy and diet. Xray negative for fracture or dislocation. * Continue with Xeroform dressing for heel ulcer * Nocturnal CPAP for RENEE * Calcium 6.6, albumin 3.0. Corrected calcium 7.0. Patient is on calcium supplements. Please check phosphate and calcium at least once weekly * PT eval and tx. Plan for snf placement * Renal dialysis diet * DVT prophylaxis: Heparin * Code Status: full code Problem List: 1. Dialysis patient 2. Chronic hip pain 3. Depression 4. Anemia 5. Diabetes mellitus type 1 Pain Ratin Pain Location: left hip and left heel Pain Goal: Pain 4 or less Pain Plan: mild pain pathway Tomorrow's Labs & Rationales: CBC (anemia), BEP (ESRD on dialysis) HUSEYIN BOLANOS MD 08/21/167: Attending MD Review Statement Attending Statement Attending MD Statement: examined this patient, discuss w/resident/PA/BONE GLUE MAKER, agreed w/resident/PA/BONE GLUE MAKER, discussed with family, reviewed EMR data (avail), discussed with nursing, discussed with case mgmt, amended to note Attending Assessment/Plan: The patient was seen and discussed with house staff. Had lengthy meeting with social service, CRM, nursing and patient/brother today. Patient prefers home care and will work with PT on "ramp" that would simulate his having to walk up/ down driveway.
--- NOTE | 2016-08-21 11:48 | PN- Nephrology ---
Assessment/Plan Assessment: ESRD - Extra HD session today. To continue on Sun///Sun schedule going forward. Anemia - On darbepoetin 200mcg weekly which has been converted to 10,000U Epogen TIW (high dose). Was iron deficient as an outpatient but has an allergy to IV iron. If Hg<7.0, may warrant transfusion. CKD-MBD/Hypocalcemia - Improved with cessation of sensipar and addition of calcium based phos binders. All numbers are now at goal. Please call [phone] with ?'s Suggestion: -HD today - UF to EDW as tolerated (~4L likely) -Cont on Sun///Sun HD schedule -Goal EDW 160kg -NEEDS fluid restriction - 1L/day -Cont Epogen 10,000U TIW with dialysis -Cont Phoslo 2 tabs TID with meals -Please check Ca and Phos at least weekly -Dispo planning Subjective Subjective: Pt without complaints Says he is OK to cont chronic HD Objective Vital Signs and I&Os Vital Signs Date Time Temp Pulse Resp B/P Pulse O2 O2 Flow FiO2 Ox Delivery Rate 08/21 0800 Nasal 3.0L Cannula 08/21 0615 98.1 71 18 120/58 100 Nasal 3.0L Cannula 08/21 0000 CPAP 3.0L 08/20 2342 97.5 70 20 114/64 92 CPAP 08/20 2156 76 126/70 08/20 1600 Nasal 3.0L Cannula 08/20 1416 97.6 76 18 126/70 98 Room Air Intake & Output 08/21 1600 08/21 0400 08/20 1600 08/20 0400 08/19 1600 08/19 0400 Intake Total 035 925 9763 1240 100 300 Output Total 350 Balance 129 439 0110 1240 100 300 Intake, Oral 494 099 1540 1240 100 300 Number 1 Bowel Movements Output, Urine 350 Patient 368 lb 362 lb 355 lb Weight Physical Exam: Gen - NAD HEENT - supple CV - RRR Chest - clear anteriorly Abd - soft, nontender Ext - 1+ edema Neuro - AOX3 Access - PAUL Current Medications: Current Medications Sig/Georgina Start time Last Medication Dose Route Stop Time Status Admin Acetaminophen 650 MG .STK-MED ONE 08/21 0305 DC PO 08/21 030 Acetaminophen 650 MG .STK-MED ONE 03/05 2152 DC PO 08/20 2153 Acetaminophen 650 MG .STK-MED ONE 08/20 1635 DC PO 08/20 1636 Acetaminophen 650 MG .STK-MED ONE 08/20 1209 DC PO 08/20 1210 Acetaminophen 650 MG Q4P PRN 08/16 1030 AC 08/21 PO 0308 Amlodipine Besylate 10 MG DAILY 08/13 1015 AC 08/21 PO 1113 Calcium Acetate 1,334 MG TIDAC 08/15 1200 AC 08/21 PO 1123 Epoetin Hernesto 10,000 UNIT TuThSa PRN 08/15 0930 AC IV Escitalopram Oxalate 20 MG DAILY 08/13 1018 AC 08/21 PO 1113 Heparin Sodium 5,000 UNIT Q8 08/12 2200 AC 08/21 (Porcine) SC 0602 Insulin Aspart 0 TIDAC/HS 08/13 0800 AC 08/21 SC 1122 Insulin Detemir 26 UNITS BID 08/20 2200 AC 08/21 SC 1123 Insulin Detemir 24 UNITS BID 08/12 2315 DC 08/20 SC 0906 Loratadine 10 MG DAILY 08/13 1019 AC 08/21 PO 1113 Metoprolol Tartrate 50 MG BID 08/13 1019 AC 08/21 PO 1114 Olanzapine 5 MG QPM 08/13 2200 AC 08/20 PO 2155 Pregabalin 100 MG TU SAT 08/22 1000 AC PO Pregabalin 75 MG DAILY 08/20 1000 AC 08/21 PO 1113 Prochlorperazine 5 MG Q6 PRN 08/13 1445 AC 08/16 IM 0213 Results Pertinent Lab Results: Laboratory Tests 08/20 08/19 0720 0800 Chemistry Sodium (137 - 145 mmol/L) 131 L 136 L Potassium (3.5 - 5.1 mmol/L) 5.1 5.1 Chloride (98 - 107 mmol/L) 95 L 99 Carbon Dioxide (22 - 30 mmol/L) 22 24 Anion Gap (5 - 16) 14 13 BUN (9 - 20 mg/dL) 32 H 34 H Creatinine (0.7 - 1.2 mg/dL) 5.1 *H 5.5 *H Estimated GFR (>60 ml/min) 13 L 12 L BUN/Creatinine Ratio (7 - 25 %) 6.3 L 6.2 L Hematology CBC w Diff NO MAN DIFF REQ WBC (4.8 - 10.8 /CUMM) 9.9 RBC (4.70 - 6.10 /CUMM) 3.44 L Hgb (14.0 - 18.0 G/DL) 8.2 L Hct (42 - 52 %) 27.2 L MCV (80.0 - 94.0 FL) 78.9 L MCH (27.0 - 31.0 PG) 23.9 L RDW (11.5 - 14.5 %) 24.1 H Plt Count (130 - 400 /CUMM) 357 MPV (7.4 - 10.4 FL) 9.8 Gran % (42.2 - 75.2 %) 67.1 Lymphocytes % (20.5 - 51.1 %) 15.1 L Monocytes % (1.7 - 9.3 %) 10.1 H Eosinophils % (0 - 5 %) 5.7 H Basophils % (0.0 - 2.0 %) 2.0 Absolute Granulocytes (1.4 - 6.5 /CUMM) 6.7 H Absolute Lymphocytes (1.2 - 3.4 /CUMM) 1.5 Absolute Monocytes (0.10 - 0.60 /CUMM) 1.0 H Absolute Eosinophils (0.0 - 0.7 /CUMM) 0.6 Absolute Basophils (0.0 - 0.2 /CUMM) 0.2 PUBS MCHC (33.0 - 37.0 G/DL) 30.2 L
[2016-08-21 15:28] VITALS: BP 118/81
--- NOTE | 2016-08-21 16:09 | PN- Psychiatry ---
Assessment/Plan Impression: I attended a family meeting today with the patient, his brother Nessa, Muniraazam Farrell, CITLALLI, Dr. Aviles, attending, Lorena Clemente, business system manager, and Blanka from [facility] care, nursing agency. The team is working on plans to make the patient's return home a safe one, but he faces some challenges, such as ambulation with a walker or cane on an inclined driveway in ill repair. He is currently working with PT to improve his strength and confidence with a cane or walker. We feel the patient would benefit from Outpatient psychiatry for group therapy. He is currently followed by Sharri Cordova APRN for psychiatry, and I have left a message for her last Sunday to discuss that plan going forward. She is managing medications and providing talk therapy. We feel he needs this higher level of care, due to the changing psychosocial environment at home, which has led to increased depression and a wish to stop hemodialysis, if the environmental factors cannot be changed. Most of these have to do with the patient's changing relationship with his brother and housemate, who now has a girlfriend. Nessa agreed to take the patient to his appointments on Sunday or Sunday mornings. Nessa works at a local restaurant from approximately 4PM to 4AM. Suggestion: 1. Continue psychotropic medications, as currently ordered: a. Escitalopram 20 mg PO daily b. Olanzapine 5 mg PO every evening 2. [facility] intake appointment on 08/30/16 at [address] [place] [address]. [phone]. The patient is to bring his photo ID and insurance card. We will continue to follow. Bear Shoemaker APRN, Pager [phone]. Subjective Subjective: The patient was seen today, 08/21/16, after the family meeting, at 1400 in room 207. His supportive brother, Nessa, with whom he lives was present. A+OX4 Not sleeping well last night, sleepy thia morning. Denies suicidal ideation He is eager to start at outpatient psychiatry in a few weeks. Objective Last 24 Hrs of Vital Signs/I&O Vital Signs Date Time Temp Pulse Resp B/P Pulse O2 O2 Flow FiO2 Ox Delivery Rate 08/21 1528 97.6 69 20 118/81 99 Nasal 4.0L Cannula 08/21 0800 Nasal 3.0L Cannula 08/21 0615 98.1 71 18 120/58 100 Nasal 3.0L Cannula 08/21 0000 CPAP 3.0L 08/20 2342 97.5 70 20 114/64 92 CPAP 08/20 2156 76 126/70 08/20 1600 Nasal 3.0L Cannula Intake & Output 08/21 1600 03 0800 03/ 0000 Intake Total 550 120 550 Output Total Balance 550 120 550 Intake, Oral 550 120 550 Patient 368 lb Weight Current Medications: Current Medications Sig/Georgina Start time Last Medication Dose Route Stop Time Status Admin Acetaminophen 650 MG .STK-MED ONE 08/21 0305 DC PO 08/21 0306 Acetaminophen 650 MG .STK-MED ONE 08/20 2152 DC PO 08/20 215 Acetaminophen 650 MG .STK-MED ONE 08/20 1635 DC PO 08/20 1636 Acetaminophen 650 MG Q4P PRN 08/16 1030 AC 08/21 PO 0308 Amlodipine Besylate 10 MG DAILY 08/13 1015 AC 08/21 PO 1113 Calcium Acetate 1,334 MG TIDAC 08/15 1200 AC 08/21 PO 1123 Epoetin Hernesto 10,000 UNIT TuThSa PRN 08/15 0930 AC IV Escitalopram Oxalate 20 MG DAILY 08/13 1018 AC 08/21 PO 1113 Heparin Sodium 5,000 UNIT Q8 08/12 2200 AC 08/21 (Porcine) SC 1302 Insulin Aspart 0 TIDAC/HS 08/13 0800 AC 08/21 SC 1122 Insulin Detemir 26 UNITS BID 08/20 2200 AC 08/21 SC 1123 Loratadine 10 MG DAILY 08/13 1019 AC 08/21 PO 1113 Metoprolol Tartrate 50 MG BID 08/13 1019 AC 08/21 PO 1114 Olanzapine 5 MG QPM 08/13 2200 AC 08/20 PO 2155 Pregabalin 100 MG TUES THURS SAT 08/22 1000 AC PO Pregabalin 75 MG DAILY 08/20 1000 AC 08/21 PO 1113 Prochlorperazine 5 MG Q6 PRN 08/13 1445 AC 08/16 IM 0213
[2016-08-21 22:58] VITALS: BP 115/58
[2016-08-22 06:44] VITALS: BP 110/62
--- NOTE | 2016-08-22 07:16 | PN- Housestaff ---
ROSE BEAR,RUEL 08/22/16 0716: Subjective Follow-up For: ESRD on dialysis Episodes of bloody stool Subjective: I saw and examined the patient at bedside, he is awake alert and oriented in no distress, he is sitting at the edge of the bed and watching TV. He has no complaints, he reported to the nursing staff that he had an episode of bowel movement which contained clot. He reports that he has had these episodes every now and then in the past as well. Patient has a history of Crohn's disease, currently on no treatments. Review of Systems Constitutional: Reports: weakness. Denies: chills, fever. EENTM: Reports: no symptoms. Cardiovascular: Denies: chest pain, palpitations, peripheral edema. Respiratory: Denies: cough, short of breath. Gastrointestinal: Reports: bloody stool. Denies: abdominal pain, diarrhea, nausea, vomiting. Genitourinary: Reports: no symptoms. Musculoskeletal: Reports: no symptoms. Neurological/Psychological: Reports: no symptoms. Hematologic/Endocrine: Reports: no symptoms. Objective Last 24 Hrs of Vital Signs/I&O Vital Signs Date Time Temp Pulse Resp B/P Pulse O2 O2 Flow FiO2 Ox Delivery Rate 08/22 1016 80 126/70 08/22 0644 97.3 90 16 110/62 98 Nasal 3.0L Cannula 08/22 0000 97 Nasal 4.0L Cannula 08/21 2258 97.8 87 20 115/58 97 Nasal Cannula 08/21 2208 87 115/59 08/21 1600 Nasal 3.0L Cannula 08/21 1528 97.6 69 20 118/81 99 Nasal 4.0L Cannula Intake & Output 08/22 1600 08/22 0800 08/22 0000 Intake Total 430 400 Output Total 0 Balance 430 400 Intake, Oral 430 400 Number 0 Bowel Movements Output, Urine 0 Patient 166.468 kg 75.07 kg Weight Physical Exam General Appearance: Alert, Oriented X3, Cooperative, No Acute Distress Skin: 5 x 5 cm left heel blister, dry with no purulent discharge, dressing change daily. HEENT: Atraumatic, EOMI Neck: Supple, No JVD Cardiovascular: Regular Rate, Normal S1, Normal S2, No Murmurs Lungs: Clear to Auscultation, Normal Air Movement Abdomen: Soft, No Tenderness Neurological: Normal Speech, Normal Tone Extremities: Normal Pulses, dependent pedal edema present bilaterally Vascular: Pulses Symmetrical Assessment/Plan Assessment: 36-year-old gentleman with type 1 diabetes, came with ESRD on HD 4 days a week, always a noncompliant on CPAP 3 L supplemental O2 at baseline, morbid obesity, Crohn's disease, HTN, HLD, peripheral neuropathy and retinopathy who presents with complaints of difficulty with ambulation of stairs, pain and weakness in his left hip. Problem list and plan: Diabetic type 1 sugars uncontrolled (above 400 today) Patient is on high dose Novolog SS, and 26 units levemir BID. * Appreciate endo recommendations * Increased levemir from 26 to 28 untis BID ESRD on HD Patient is on hemodialysis on Sunday, Sunday, , Sunday. Will continue. Will follow nephro for their recommendations. Calcium 6.6, albumin 3.0. Corrected calcium 7.0. Patient is on calcium supplements. Will check phosphate and calcium once weekly. Gait instability anf left hip pain Patient has BMI of 57.5 Regarding hip pain, advised the patient on losing weight, life style modification including physical therapy and diet. Xray negative for fracture or dislocation. Secondary hyperparathyroidism due to ESRD (hypocalcemia, low vitamin D and elevated PTH) Two episodes of bloody stool. On 08/16/16 and today on 08/22/16: reports hx of Crohn's disease not on medication, denies hemorroids and fissure, denies abdominal pain. * Patient is anticipated for discharge tomorrow if PT clear him to go home. We will repeat CBC in am, if stable and no further episodes of blood in stool, patient will follow up with GI as outpatient for work up Depression Thanks for psych consult. A family meeting was held yesterday with the patient's brother present as well as the medical team and psychiatry. Patient will receive further physical therapy today and exercise to walk on the ramp would help him with the ambulations when he goes home Left heel ulcer There is blister on the left heel, wound care on board. * Continue with Xeroform dressing for heel ulcer RENEE and somnolence in the morning Nocturnal CPAP for RENEE, patient has been noncompliant using CPAP at night which can contribute to his being somnolent especially in the morning, we have also decreased dose of Lyrica to 50 mg daily, and additional 75 mg with dialysis. Renal dialysis diet DVT prophylaxis: Heparin Code Status: full code Problem List: 1. Dialysis patient 2. Gait instability 3. Chronic hip pain Pain Ratin Pain Location: Left hip, headache, bilateral lower extremities Pain Goal: Pain 4 or less Pain Plan: Tylenol, Lyrica Tomorrow's Labs & Rationales: none HUSEYIN BOLANOS MD 08/22/16 1829: Attending MD Review Statement Attending Statement Attending MD Statement: examined this patient, agreed w/resident/PA/RANGER AIDE, reviewed EMR data (avail), discussed with case mgmt, amended to note Attending Assessment/Plan: The patient was seen and discussed with resident. Agree with plan of care as outlined.
[2016-08-22 13:53] VITALS: BP 114/62
--- NOTE | 2016-08-22 16:09 | PN- Nephrology ---
Assessment/Plan Assessment: ESRD - Routine dialysis today. Anemia - On darbepoetin 200mcg weekly which has been converted to 10,000U Epogen TIW (high dose). Was iron deficient as an outpatient but has an allergy to IV iron. If Hg<7.0, may warrant transfusion. CKD-MBD/Hypocalcemia - Improved with cessation of sensipar and addition of calcium based phos binders. All numbers are now at goal. Fluid gains - 166kg (6kg above EDW) - needs to cut down on salt/water. Even despite 4x/week dialysis, we are not able to get him down to his dry weight. Please call [phone] with ?'s Suggestion: -HD today - UF to EDW as tolerated (~4L likely) -Cont on Sun///Sun HD schedule -Goal EDW 160kg -NEEDS fluid restriction - 1L/day -Cont Epogen 10,000U TIW with dialysis -Cont Phoslo 2 tabs TID with meals -Please check Ca and Phos at least weekly -Dispo planning Subjective Subjective: Dialysis yesterday - ~3L UF Pt without specific complaints today Recommended for outpatient psych therapy Objective Vital Signs and I&Os Vital Signs Date Time Temp Pulse Resp B/P Pulse O2 O2 Flow FiO2 Ox Delivery Rate 08/22 1353 97.6 76 18 114/62 99 Nasal 3.0L Cannula 08/22 1016 80 126/70 08/22 0644 97.3 90 16 110/62 98 Nasal 3.0L Cannula 08/22 0000 97 Nasal 4.0L Cannula 08/21 2258 97.8 87 20 115/58 97 Nasal Cannula 08/21 2208 87 115/59 Intake & Output 08/22 1600 07 0400 08/21 1600 08/21 0400 08/20 1600 / 0400 Intake Total 1420 400 397 946 5983 1240 Output Total 0 350 Balance 1420 400 580 386 8619 1240 Intake, Oral 1420 400 748 808 8812 1240 Number 1 1 Bowel Movements Output, Urine 0 350 Patient 367 lb 166 lb 368 lb 362 lb Weight Physical Exam: Gen - woken up from sleep HEENT - supple CV - RRR Chest - clear anteriorly Abd - soft, nontender Ext - 1+ edema Neuro - [email or web address] Access - PAUL Current Medications: Current Medications Sig/Georgina Start time Last Medication Dose Route Stop Time Status Admin Acetaminophen 650 MG .STK-MED ONE 08/22 0417 DC PO 08/22 0418 Acetaminophen 650 MG .STK-MED ONE 08/21 1643 DC PO 08/21 1644 Acetaminophen 650 MG Q4P PRN 08/16 1030 AC 08/22 PO 1016 Amlodipine Besylate 10 MG DAILY 08/13 1015 AC 08/21 PO 1113 Calcium Acetate 1,334 MG TIDAC 08/15 1200 AC 08/22 PO 1144 Epoetin Hernesto 10,000 UNIT TuThSa PRN 08/15 0930 AC IV Escitalopram Oxalate 20 MG DAILY 08/13 1018 AC 08/22 PO 1016 Heparin Sodium 5,000 UNIT Q8 08/12 2200 AC 08/22 (Porcine) SC 1401 Insulin Aspart 0 TIDAC/HS 08/13 0800 AC 08/22 SC 1144 Insulin Detemir 28 UNITS BID 08/22 2200 AC SC Insulin Detemir 26 UNITS BID 08/20 2200 DC 08/22 SC 1017 Lactobacillus 1 CAP BID 08/22 1000 AC 08/22 Acidophilus PO 1144 Loratadine 10 MG DAILY 08/13 1019 AC 08/22 PO 1016 Metoprolol Tartrate 50 MG BID 08/13 1019 AC 08/22 PO 1016 Olanzapine 5 MG QPM 08/13 2200 AC 08/21 PO 2208 Pregabalin 75 MG MoTuThSa 08/22 1600 AC PO Pregabalin 100 MG TU THURS SAT 08/22 1000 DC PO Pregabalin 75 MG MoTuThSa 08/22 1000 DC PO Pregabalin 50 MG DAILY 08/22 1000 AC 08/22 PO 1016 Pregabalin 75 MG DAILY 08/20 1000 DC 08/21 PO 1113 Prochlorperazine 5 MG Q6 PRN 08/13 1445 AC 08/16 IM 0213 Results Pertinent Lab Results: Laboratory Tests 08/21 03 0600 0720 Chemistry Sodium (137 - 145 mmol/L) Cancelled 131 L Potassium (3.5 - 5.1 mmol/L) Cancelled 5.1 Chloride (98 - 107 mmol/L) Cancelled 95 L Carbon Dioxide (22 - 30 mmol/L) Cancelled 22 Anion Gap (5 - 16) Cancelled 14 BUN (9 - 20 mg/dL) Cancelled 32 H Creatinine (0.7 - 1.2 mg/dL) Cancelled 5.1 *H Estimated GFR (>60 ml/min) 13 L BUN/Creatinine Ratio (7 - 25 %) Cancelled 6.3 L Calcium Cancelled Phosphorus Cancelled Hematology CBC w Diff Cancelled NO MAN DIFF REQ WBC (4.8 - 10.8 /CUMM) Cancelled 9.9 RBC (4.70 - 6.10 /CUMM) Cancelled 3.44 L Hgb (14.0 - 18.0 G/DL) Cancelled 8.2 L Hct (42 - 52 %) Cancelled 27.2 L MCV (80.0 - 94.0 FL) Cancelled 78.9 L MCH (27.0 - 31.0 PG) Cancelled 23.9 L RDW (11.5 - 14.5 %) Cancelled 24.1 H Plt Count (130 - 400 /CUMM) Cancelled 357 MPV (7.4 - 10.4 FL) Cancelled 9.8 Gran % (42.2 - 75.2 %) 67.1 Lymphocytes % (20.5 - 51.1 %) 15.1 L Monocytes % (1.7 - 9.3 %) 10.1 H Eosinophils % (0 - 5 %) 5.7 H Basophils % (0.0 - 2.0 %) 2.0 Absolute Granulocytes (1.4 - 6.5 /CUMM) 6.7 H Absolute Lymphocytes (1.2 - 3.4 /CUMM) 1.5 Absolute Monocytes (0.10 - 0.60 /CUMM) 1.0 H Absolute Eosinophils (0.0 - 0.7 /CUMM) 0.6 Absolute Basophils (0.0 - 0.2 /CUMM) 0.2 PUBS MCHC (33.0 - 37.0 G/DL) Cancelled 30.2 L
[2016-08-22] MEDS ORDERED: LYRICA75 M1 PO (18:43)
[2016-08-22] MEDS ORDERED: LYRICA50 M1 PO (18:43)
[2016-08-22 20:33] LABS: ABSOLUTE GRANULOCYTE CT 4.6 /CUMM (1.4-6.5); ABSOLUTE LYMPH COUNT 1.6 /CUMM (1.2-3.4); HEMATOCRIT 23.1 % (42-52); MEAN PLATELET VOLUME 9.1 FL (7.4-10.4); RED BLOOD CELL CT 2.96 /CUMM (4.70-6.10)
[2016-08-22 20:38] LABS: ABSOLUTE BASOPHIL COUNT 0.1 /CUMM (0.0-0.2); ABSOLUTE EOSINOPHIL COUNT 0.5 /CUMM (0.0-0.7); BASOPHIL % 1.4 % (0.0-2.0); EOSINOPHIL % 6.9 % (0-5); MEAN CORPUSCULAR HGB 23.7 PG (27.0-31.0); MEAN CORPUSCULAR HGB CONC 30.4 G/DL (33.0-37.0); PLATELET COUNT 327 /CUMM (130-400); RBC DISTRIBUTION WIDTH 23.8 % (11.5-14.5); WHITE BLOOD CELL COUNT 7.8 /CUMM (4.8-10.8)
[2016-08-22 22:22] VITALS: BP 117/63
--- NOTE | 2016-08-23 07:14 | PN- Housestaff ---
ROSE BEAR,[facility] 08/23/16 0713: Subjective Follow-up For: ESRD on dialysis Episodes of bloody stool Left hip pain Left heel blister Subjective: I saw and examined the patient this morning. He is awake alert and oriented sitting up in bed and eating breakfast. Patient has not been able to sleep overnight as he said he could not stop his thoughts. Patient reported he was doing pretty well with the physical therapy yesterday however he almost fell once as he reported. Patient does not report any further episode of bloody stool, denies dizziness, chest pain or palpitation, denies shortness of breath, coughing, abdominal pain or headache. Review of Systems Constitutional: Denies: chills, fever. EENTM: Reports: no symptoms. Cardiovascular: Denies: chest pain, palpitations. Respiratory: Denies: cough, short of breath. Gastrointestinal: Denies: abdominal pain, nausea, vomiting. Genitourinary: Reports: no symptoms. Musculoskeletal: Reports: joint pain (left hip pain). Skin: Reports: lesions. Neurological/Psychological: Reports: anxiety, depressed. Hematologic/Endocrine: Reports: no symptoms. Objective Last 24 Hrs of Vital Signs/I&O Vital Signs Date Time Temp Pulse Resp B/P Pulse O2 O2 Flow FiO2 Ox Delivery Rate 08/23 0729 97.5 79 18 104/57 97 Nasal 3.0L Cannula 08/23 0030 94 Nasal 3.0L Cannula 08/22 2309 66 94 08/22 2222 98.5 87 20 117/63 96 08/22 2145 96 Nasal 3.0L Cannula 08/22 2134 87 117/63 08/22 1353 97.6 76 18 114/62 99 Nasal 3.0L Cannula 08/22 1016 80 126/70 Intake & Output 08/23 1600 08/23 0800 08/23 0000 Intake Total 120 240 Output Total 0 4000 Balance 120 -3760 Intake, Oral 120 240 Output, 4000 Dialysate Output, Urine 0 Patient 164.654 kg 164.257 kg Weight Physical Exam General Appearance: Alert, Oriented X3, Cooperative, No Acute Distress Skin: nonhealing blister on the left heel HEENT: Atraumatic, EOMI Neck: Supple Cardiovascular: Regular Rate, Normal S1, Normal S2, No Murmurs Lungs: Clear to Auscultation, Normal Air Movement Abdomen: Soft, No Tenderness, obese Neurological: Normal Speech, Normal Tone Extremities: pedal edema present, normal pulses Current Medications: Current Medications Sig/Georgina Start time Last Medication Dose Route Stop Time Status Admin Acetaminophen 650 MG .STK-MED ONE 08/22 2146 DC PO 08/22 2147 Acetaminophen 650 MG .STK-MED ONE 08/22 1010 DC PO 08/22 1011 Acetaminophen 650 MG Q4P PRN 08/16 1030 AC 08/22 PO 2152 Amlodipine Besylate 10 MG DAILY 08/13 1015 AC 08/21 PO 1113 Calcium Acetate 1,334 MG TIDAC 08/15 1200 AC 08/23 PO 0800 Epoetin Hernesto 10,000 UNIT TuThSa PRN 08/15 0930 AC IV Escitalopram Oxalate 20 MG DAILY 08/13 1018 AC 08/22 PO 1016 Heparin Sodium 5,000 UNIT Q8 08/12 2200 AC 08/23 (Porcine) SC 0524 Insulin Aspart 0 TIDAC/HS 08/13 0800 AC 08/23 SC 0759 Insulin Detemir 28 UNITS BID 08/22 2200 AC 08/22 SC 2135 Insulin Detemir 26 UNITS BID 08/20 2200 DC 08/22 SC 1017 Lactobacillus 1 CAP BID 08/22 1000 AC 08/22 Acidophilus PO 2134 Loratadine 10 MG DAILY 08/13 1019 AC 08/22 PO 1016 Metoprolol Tartrate 50 MG BID 08/13 1019 AC 08/22 PO 2134 Olanzapine 5 MG QPM 08/13 2200 AC 08/22 PO 2134 Pregabalin 75 MG MoTuThSa 08/22 1600 AC 08/22 PO 2135 Pregabalin 75 MG MoTuThSa 08/22 1000 DC PO Pregabalin 50 MG DAILY 08/22 1000 AC 08/22 PO 1016 Prochlorperazine 5 MG Q6 PRN 08/13 1445 AC 08/16 IM 0213 Last 24 Hrs of Lab/Karthik Results Last 24 Hrs of Labs/Mics: Laboratory Tests 08/23/16 0725: CBC w Diff NO MAN DIFF REQ, RBC 3.10 L, MCV 78.2 L, MCH 24.1 L, RDW 23.9 H, MPV 8.6, Gran % 63.8, Lymphocytes % 16.7 L, Monocytes % 13.0 H, Eosinophils % 5.9 H, Basophils % 0.6, Absolute Granulocytes 5.7, Absolute Lymphocytes 1.5, Absolute Monocytes 1.2 H, Absolute Eosinophils 0.5, Absolute Basophils 0.1, PUBS MCHC 30.8 L 08/22/16 1630: Anion Gap 15, Estimated GFR 9 L, BUN/Creatinine Ratio 7.2, CBC w Diff NO MAN DIFF REQ, RBC 2.96 L, MCV 78.0 L, MCH 23.7 L, RDW 23.8 H, MPV 9.1, Gran % 59.0, Lymphocytes % 20.1 L, Monocytes % 12.6 H, Eosinophils % 6.9 H, Basophils % 1.4, Absolute Granulocytes 4.6, Absolute Lymphocytes 1.6, Absolute Monocytes 1.0 H, Absolute Eosinophils 0.5, Absolute Basophils 0.1, PUBS MCHC 30.4 L Assessment/Plan Assessment: 36-year-old gentleman with type 1 diabetes, came with ESRD on HD 4 days a week, always a noncompliant on CPAP 3 L supplemental O2 at baseline, morbid obesity, Crohn's disease, HTN, HLD, peripheral neuropathy and retinopathy who presents with complaints of difficulty with ambulation of stairs, pain and weakness in his left hip. Problem list and plan: Diabetic type 1 Increased levemir from 26 to 28 untis BID yesterday Patient is also on high dose Novolog SS. Blood sugars have been lower since yesterday evening between in 230-300. Patient has been noncompliant with the diet restrictions. * He is advised again not to eat food from outside and be compliant with low carbohydrate diet. ESRD on HD Patient is on hemodialysis on Sunday, Sunday, , Sunday. Will continue. Will follow nephro for their recommendations. Calcium 7.7, albumin 3.0. Patient is on calcium supplements. Will check phosphate and calcium once weekly. * Patient will check CBC, BEP, calcium, phosphate after discharge and follow-up with PCP and nephrology outpatient Gait instability andf left hip pain Patient has BMI of 57.5 Regarding hip pain, advised the patient on losing weight, life style modification including physical therapy and diet. Xray negative for fracture or dislocation. Secondary hyperparathyroidism due to ESRD (hypocalcemia, low vitamin D and elevated PTH) * He will follow-up outpatient with nephrology Two episodes of bloody stool On 08/16/16 and today on 08/22/16: reports hx of Crohn's disease not on medication, denies hemorroids and fissure, denies abdominal pain. Afebrile. * Patient is anticipated for discharge tomorrow if PT clear him to go home. CBC this morning increased from yesterday before dialysis (may have been dilutional) , if stable and no further episodes of blood in stool, patient will follow up with GI as outpatient for necessary work up Depression Thanks for psych consult. A family meeting was held yesterday with the patient's brother present as well as the medical team and psychiatry. Patient will receive further physical therapy today and exercise to walk on the ramp would help him with the ambulations when he goes home Left heel ulcer There is blister on the left heel, wound care on board. * Continue with Xeroform dressing for heel ulcer * follow up with wound care RENEE and somnolence in the morning Nocturnal CPAP for RENEE, patient has been noncompliant using CPAP at night which can contribute to his being somnolent especially in the morning, we have also decreased dose of Lyrica to 50 mg daily, and additional 75 mg with dialysis. Renal dialysis diet DVT prophylaxis: Heparin Code Status: full code Problem List: 1. Hip pain 2. ESRD on dialysis 3. Diabetes mellitus type 1 Pain Ratin Pain Location: Currently no pain Pain Goal: Pain 4 or less Pain Plan: Mild pain pathway Tomorrow's Labs & Rationales: None HUSEYIN BOLANOS MD 08/23/16 1721: Attending MD Review Statement Attending Statement Attending MD Statement: examined this patient, discuss w/resident/PA/DOT ETCHER, agreed w/resident/PA/DOT ETCHER, reviewed EMR data (avail), discussed with nursing, discussed with case mgmt, amended to note Attending Assessment/Plan: The patient was seen and discussed with house staff. Agree with the plan of care as outlined. PT and podiatry evaluations needed.
[2016-08-23 07:29] VITALS: BP 104/57
[2016-08-23 08:16] LABS: ABSOLUTE BASOPHIL COUNT 0.1 /CUMM (0.0-0.2); ABSOLUTE EOSINOPHIL COUNT 0.5 /CUMM (0.0-0.7); ABSOLUTE GRANULOCYTE CT 5.7 /CUMM (1.4-6.5); ABSOLUTE LYMPH COUNT 1.5 /CUMM (1.2-3.4); ABSOLUTE MONOCYTE COUNT 1.2 /CUMM (0.10-0.60); BASOPHIL % 0.6 % (0.0-2.0); EOSINOPHIL % 5.9 % (0-5); GRANULOCYTE % 63.8 % (42.2-75.2); HEMATOCRIT 24.3 % (42-52); MEAN CORPUSCULAR HGB 24.1 PG (27.0-31.0); MEAN CORPUSCULAR HGB CONC 30.8 G/DL (33.0-37.0); MEAN CORPUSCULAR VOLUME 78.2 FL (80.0-94.0); MEAN PLATELET VOLUME 8.6 FL (7.4-10.4); PLATELET COUNT 318 /CUMM (130-400); RBC DISTRIBUTION WIDTH 23.9 % (11.5-14.5)
[2016-08-23 14:48] VITALS: BP 116/68
[2016-08-23 22:01] VITALS: BP 123/67
--- NOTE | 2016-08-24 07:00 | PN- Housestaff ---
ROSE BEAR,RUEL 08/24/16 0700: Subjective Follow-up For: ESRD on dialysis Diabetes type 1 with poorly controlled sugars Morbid obesity, Hytrin noncompliance Chronic left hip pain, left heel ulcer Obstructive sleep apnea report and CPAP at night Subjective: patient endorses no complaints, had dialysis in the am and feels drowsy, he will go home today. Review of Systems Constitutional: Denies: chills, fever. EENTM: Reports: no symptoms. Cardiovascular: Reports: no symptoms. Respiratory: Reports: no symptoms. Gastrointestinal: Reports: no symptoms. Genitourinary: Reports: no symptoms. Musculoskeletal: Reports: joint pain (left hip). Skin: Reports: no symptoms. Neurological/Psychological: Reports: no symptoms. Hematologic/Endocrine: Reports: no symptoms. Objective Last 24 Hrs of Vital Signs/I&O Vital Signs Date Time Temp Pulse Resp B/P Pulse O2 O2 Flow FiO2 Ox Delivery Rate 08/24 0718 96.3 68 17 120/70 98 Nasal 3.0L Cannula 08/24 0107 76 97 08/24 0000 Nasal 3.0L Cannula 08/23 2229 70 115/78 08/23 2201 97.5 72 18 123/67 95 08/23 1600 Nasal 3.0L Cannula 08/23 1448 97.4 76 18 116/68 100 Nasal 3.0L Cannula 08/23 1018 80 134/60 Intake & Output 08/24 1600 08/24 0800 08/24 0000 Intake Total 100 300 Output Total Balance 100 300 Intake, Oral 100 300 Patient 167.829 kg Weight Physical Exam General Appearance: Alert, Oriented X3, Cooperative, No Acute Distress Skin: left heel ulcer HEENT: Atraumatic, EOMI Neck: Supple Cardiovascular: Normal S1, Normal S2, No Murmurs Lungs: Clear to Auscultation, Normal Air Movement Abdomen: Soft, No Tenderness Neurological: Normal Speech, Normal Tone Extremities: Normal Pulses Vascular: Pulses Symmetrical Current Medications: Current Medications Sig/Georgina Start time Last Medication Dose Route Stop Time Status Admin Acetaminophen 650 MG .STK-MED ONE 08/23 2217 DC PO 08/23 2218 Acetaminophen 650 MG .STK-MED ONE 08/23 1359 DC PO 08/23 1400 Acetaminophen 650 MG Q4P PRN 08/16 1030 AC 08/23 PO 2230 Amlodipine Besylate 10 MG DAILY 08/13 1015 AC 08/23 PO 1018 Calcium Acetate 1,334 MG TIDAC 08/15 1200 AC 08/23 PO 1658 Epoetin Hernesto 10,000 UNIT TuThSa PRN 08/15 0930 AC IV Escitalopram Oxalate 20 MG DAILY 08/13 1018 AC / PO 1018 Heparin Sodium 5,000 UNIT Q8 08/12 2200 AC 08/24 (Porcine) SC 0514 Insulin Aspart 0 TIDAC/HS 08/13 0800 AC 08/23 SC 2230 Insulin Detemir 28 UNITS BID 08/22 2200 AC 08/23 SC 2230 Lactobacillus 1 CAP BID 08/22 1000 AC 08/23 Acidophilus PO 2229 Loratadine 10 MG DAILY 08/13 1019 AC 08/23 PO 1018 Metoprolol Tartrate 50 MG BID 08/13 1019 AC 08/23 PO 2229 Olanzapine 5 MG QPM 08/13 2200 AC 08/23 PO 2229 Pregabalin 75 MG MoTuThSa 08/22 1600 AC 08/22 PO 2135 Pregabalin 50 MG DAILY 08/22 1000 AC 08/23 PO 1018 Prochlorperazine 5 MG Q6 PRN 08/13 1445 AC 08/16 IM 0213 Assessment/Plan Assessment: 36-year-old gentleman with type 1 diabetes, came with ESRD on HD 4 days a week, always a noncompliant on CPAP 3 L supplemental O2 at baseline, morbid obesity, Crohn's disease, HTN, HLD, peripheral neuropathy and retinopathy who presents with complaints of difficulty with ambulation of stairs, pain and weakness in his left hip. Problem list and plan: Diabetic type 1 Increased levemir from 26 to 28 untis BID, sugars have been better controlled Patient is also on high dose Novolog SS. Patient has been noncompliant with the diet restrictions. * He is advised again not to eat food from outside and be compliant with low carbohydrate diet. ESRD on HD Patient is on hemodialysis on Sunday, Sunday, , Sunday. Will continue. Will follow nephro for their recommendations. Will check phosphate and calcium once weekly. * Patient will check CBC, BEP, calcium, phosphate after discharge and follow-up with PCP and nephrology outpatient Gait instability and left hip pain Patient has BMI of 57.5 Regarding hip pain, advised the patient on losing weight, life style modification including physical therapy and diet. Xray negative for fracture or dislocation. Secondary hyperparathyroidism due to ESRD (hypocalcemia, low vitamin D and elevated PTH) * He will follow-up outpatient with nephrology Two episodes of bloody stool On 08/16/16 and today on 08/22/16: reports hx of Crohn's disease not on medication, denies hemorroids and fissure, denies abdominal pain. Afebrile. * Patient is anticipated for discharge tomorrow if PT clear him to go home. CBC this morning increased from yesterday before dialysis (may have been dilutional) , if stable and no further episodes of blood in stool, patient will follow up with GI as outpatient for necessary work up Depression Thanks for psych consult. A family meeting was held yesterday with the patient's brother present as well as the medical team and psychiatry. Patient will receive further physical therapy today and exercise to walk on the ramp would help him with the ambulations when he goes home. Left heel ulcer There is blister on the left heel, wound care on board. * Continue with Xeroform dressing for heel ulcer RENEE and somnolence in the morning Nocturnal CPAP for RENEE, patient has been noncompliant using CPAP at night which can contribute to his being somnolent especially in the morning, we have also decreased dose of Lyrica to 50 mg daily, and additional 75 mg with dialysis. Renal dialysis diet DVT prophylaxis: Heparin Code Status: full code Problem List: 1. Crohn's disease 2. DIBETIC NEPHROPATHY 3. DIABETIC RETINOPATHY 4. Diabetes mellitus type 1 5. Hyperglycemia 6. Uncontrolled diabetes mellitus 7. Hyperlipidemia 8. Chronic kidney disease 9. End stage renal disease 10. Obstructive sleep apnea Pain Ratin Pain Location: Lower legs, left hip Pain Goal: Pain 4 or less Pain Plan: Tylenol for mild pain Lyrica for diabetic neuropathy pain on the lower leg Tomorrow's Labs & Rationales: none, patient is discharged HUSEYIN BOLANOS MD 08/24/16 2208: Attending MD Review Statement Attending Statement Attending Statement: examined this patient, discuss w/resident/PA/TOBACCO SCRAP SIFTER, agreed w/resident/PA/TOBACCO SCRAP SIFTER, discussed with family, reviewed EMR data (avail), discussed with nursing, discussed with case mgmt, amended to note Attending Assessment/Plan: The patient was seen and discussed with house staff, case management, PT, and nursing. OK to discharge today to home with OP dialysis, etc.
[2016-08-24 07:18] VITALS: BP 120/70
[2016-08-24 09:39] LABS: ABSOLUTE BASOPHIL COUNT 0 /CUMM (0.0-0.2); ABSOLUTE EOSINOPHIL COUNT 0.4 /CUMM (0.0-0.7); ABSOLUTE GRANULOCYTE CT 4.5 /CUMM (1.4-6.5); ABSOLUTE LYMPH COUNT 1.5 /CUMM (1.2-3.4); ABSOLUTE MONOCYTE COUNT 0.9 /CUMM (0.10-0.60); BASOPHIL % 0.5 % (0.0-2.0); EOSINOPHIL % 5.9 % (0-5); GRANULOCYTE % 61.1 % (42.2-75.2); HEMATOCRIT 23.3 % (42-52); MEAN CORPUSCULAR HGB 23.8 PG (27.0-31.0); MEAN CORPUSCULAR HGB CONC 30.3 G/DL (33.0-37.0); MEAN CORPUSCULAR VOLUME 78.5 FL (80.0-94.0); MEAN PLATELET VOLUME 8.9 FL (7.4-10.4); PLATELET COUNT 322 /CUMM (130-400); RBC DISTRIBUTION WIDTH 24.3 % (11.5-14.5); RED BLOOD CELL CT 2.97 /CUMM (4.70-6.10); WHITE BLOOD CELL COUNT 7.4 /CUMM (4.8-10.8)
--- NOTE | 2016-08-24 11:20 | Patient Discharge Instructions ---
Discharge Instructions General Discharge Information You were seen/treated for: gait instability, electrolyte derangement, chronic left hel ulcer, ESRD on dialysis Special Instructions: Please: 1. follow up with your PCP within a week 2. follow up with nephrology regarding ESRD 3. follow up with wound care regarding left heel ulcer 4. follow up with gasteroentrology regarding episodes of blood in the stool 5. follow up with endocrinology regarding diabetes 6. use CPAP and night for obstructive sleep apnea 7. have blood work done in 1 week and copy card reader and PCP Acute Coronary Syndrome Inclusion Criteria At DC or during hospital stay patient has or had the following: ACS DIAGNOSIS No Discharge Core Measures Meds if any: Prescribed or Continued at Discharge Meds if any: NOT Prescribed or Continued at Discharge Congestive Heart Failure Inclusion Criteria At DC or during hospital stay patient has or had the following: CHF DIAGNOSIS No Discharge Core Measures Meds if any: Prescribed or Continued at Discharge Meds if any: NOT Prescribed or Continued at Discharge Cerebrovascular accident Inclusion Criteria At DC or during hospital stay patient has or had the following: CVA/TIA Diagnosis No Discharge Core Measures Meds if any: Prescribed or Continued at Discharge Meds if any: NOT Prescribed or Continued at Discharge Venous thromboembolism Inclusion Criteria VTE Diagnosis No VTE Type NONE VTE Confirmed by (Test) NONE Discharge Core Measures - Per Current guidelines, there needs to be overlap - treatment for the first 5 days of Warfarin therapy. - If discharged on Warfarin prior to 5 days of - overlap therapy, the patient will need to be - assessed for post discharge needs including - *Post discharge parental anticoagulation - *Warfarin and/or parental anticoagulation education - *Follow up date to check INR post discharge At least 5 days overlap therapy as Inpatient No Meds if any: Prescribed or Continued at Discharge Note: Overlap Therapy is Warfarin and Anticoagulant Meds if any: NOT Prescribed or Continued at Discharge
--- NOTE | 2016-08-24 11:52 | PN- Nephrology ---
See Addendum Assessment/Plan Assessment: ESRD - Routine dialysis today. Anemia - On darbepoetin 200mcg weekly which has been converted to 10,000U Epogen TIW (high dose). Was iron deficient as an outpatient but has an allergy to IV iron. If Hg<7.0, may warrant transfusion. CKD-MBD/Hypocalcemia - Improved with cessation of sensipar and addition of calcium based phos binders. All numbers are now at goal. His new medication regimen needs to be communicated with his outpatient dialysis unit on discharge. Fluid gains - 168kg (8kg above EDW) - needs to cut down on salt/water. Even despite 4x/week dialysis, we are not able to get him down to his dry weight. Please call [phone] with ?'s Suggestion: -HD today - UF to EDW as tolerated (~4L likely) -Cont on Mon/Tu/Th/Sat HD schedule -Goal EDW 160kg -NEEDS fluid restriction - 1L/day -Cont Epogen 10,000U TIW with dialysis -May try Ferrlecit with dialysis next session if he remains in house - will need to further discuss -Cont Phoslo 2 tabs TID with meals -Please check Ca and Phos at least weekly -Dispo planning Subjective Subjective: Pt seen and examined on dialysis 168kg this AM (even despite extra HD sessions) Possible d/c home Objective Vital Signs and I&Os Vital Signs Date Time Temp Pulse Resp B/P Pulse O2 O2 Flow FiO2 Ox Delivery Rate 08/24 717 96.3 68 17 120/70 98 Nasal 3.0L Cannula 08/24 0107 76 97 08/24 0000 Nasal 3.0L Cannula 08/23 2229 70 115/78 08/23 2201 97.5 72 18 123/67 95 08/23 1600 Nasal 3.0L Cannula 08/23 1448 97.4 76 18 116/68 100 Nasal 3.0L Cannula Intake & Output 08/24 0400 08/23 1600 08/23 0400 08/22 0400 Intake Total 100 300 661 738 0973 400 Output Total 0 4000 0 Balance 100 300 840 -3760 1420 400 Intake, Oral 100 300 351 434 4067 400 Number 1 Bowel Movements Output, 4000 Dialysate Output, Urine 0 0 Patient 370 lb 363 lb 362 lb 367 lb 166 lb Weight Physical Exam: Gen - woken up from sleep HEENT - supple CV - RRR Chest - clear anteriorly Abd - soft, nontender Ext - 1+ edema Neuro - [email or web address] Access - PAUL Current Medications: Current Medications Sig/Georgina Start time Last Medication Dose Route Stop Time Status Admin Acetaminophen 650 MG .STK-MED ONE 08/23 2217 DC PO 08/23 2218 Acetaminophen 650 MG .STK-MED ONE 08/23 1359 DC PO 08/23 1400 Acetaminophen 650 MG Q4P PRN 08/16 1030 AC 08/23 PO 2230 Amlodipine Besylate 10 MG DAILY 08/13 1015 AC 08/23 PO 1018 Calcium Acetate 1,334 MG TIDAC 08/15 1200 AC 08/23 PO 1658 Epoetin Hernesto 10,000 UNIT TuThSa PRN 08/15 0930 AC IV Escitalopram Oxalate 20 MG DAILY 08/13 1018 AC 08/23 PO 1018 Heparin Sodium 5,000 UNIT Q8 08/12 2200 AC 08/24 (Porcine) SC 0514 Insulin Aspart 0 TIDAC/HS 08/13 0800 AC 08/24 SC 0846 Insulin Detemir 28 UNITS BID 08/22 2200 AC 08/23 SC 2230 Lactobacillus 1 CAP BID 08/22 1000 AC 08/23 Acidophilus PO 2229 Loratadine 10 MG DAILY 08/13 1019 AC 08/23 PO 1018 Metoprolol Tartrate 50 MG BID 08/13 1019 AC 08/23 PO 2229 Olanzapine 5 MG QPM 08/13 2200 AC 08/23 PO 2229 Pregabalin 75 MG MoTuThSa 08/22 1600 AC 08/22 PO 2135 Pregabalin 50 MG DAILY 08/22 1000 AC 08/23 PO 1018 Prochlorperazine 5 MG Q6 PRN 08/13 1445 AC 08/16 IM 0213 Results Pertinent Lab Results: Laboratory Tests 08/24 08/23 0745 0725 Chemistry Sodium (137 - 145 mmol/L) 132 L Potassium (3.5 - 5.1 mmol/L) 5.5 H Chloride (98 - 107 mmol/L) 96 L Carbon Dioxide (22 - 30 mmol/L) 22 Anion Gap (5 - 16) 13 BUN (9 - 20 mg/dL) 50 H Creatinine (0.7 - 1.2 mg/dL) 6.9 *H Estimated GFR (>60 ml/min) 9 L BUN/Creatinine Ratio (7 - 25 %) 7.2 Glucose (65 - 99 mg/dL) 275 H Calcium (8.4 - 10.2 mg/dL) 8.1 L Phosphorus (2.5 - 4.5 mg/dL) 4.7 H Magnesium (1.6 - 2.3 mg/dL) 2.1 Albumin (3.5 - 5.0 g/dL) 3.3 L Hematology CBC w Diff NO MAN DIFF REQ NO MAN DIFF REQ WBC (4.8 - 10.8 /CUMM) 7.4 9.0 RBC (4.70 - 6.10 /CUMM) 2.97 L 3.10 L Hgb (14.0 - 18.0 G/DL) 7.1 *L 7.5 L Hct (42 - 52 %) 23.3 L 24.3 L MCV (80.0 - 94.0 FL) 78.5 L 78.2 L MCH (27.0 - 31.0 PG) 23.8 L 24.1 L RDW (11.5 - 14.5 %) 24.3 H 23.9 H Plt Count (130 - 400 /CUMM) 322 318 MPV (7.4 - 10.4 FL) 8.9 8.6 Gran % (42.2 - 75.2 %) 61.1 63.8 Lymphocytes % (20.5 - 51.1 %) 20.7 16.7 L Monocytes % (1.7 - 9.3 %) 11.8 H 13.0 H Eosinophils % (0 - 5 %) 5.9 H 5.9 H Basophils % (0.0 - 2.0 %) 0.5 0.6 Absolute Granulocytes (1.4 - 6.5 /CUMM) 4.5 5.7 Absolute Lymphocytes (1.2 - 3.4 /CUMM) 1.5 1.5 Absolute Monocytes (0.10 - 0.60 /CUMM) 0.9 H 1.2 H Absolute Eosinophils (0.0 - 0.7 /CUMM) 0.4 0.5 Absolute Basophils (0.0 - 0.2 /CUMM) 0 0.1 PUBS MCHC (33.0 - 37.0 G/DL) 30.3 L 30.8 L 03/07 1630 Chemistry Sodium (137 - 145 mmol/L) 134 L Potassium (3.5 - 5.1 mmol/L) 5.5 H Chloride (98 - 107 mmol/L) 95 L Carbon Dioxide (22 - 30 mmol/L) 24 Anion Gap (5 - 16) 15 BUN (9 - 20 mg/dL) 51 H Creatinine (0.7 - 1.2 mg/dL) 7.1 *H Estimated GFR (>60 ml/min) 9 L BUN/Creatinine Ratio (7 - 25 %) 7.2 Hematology CBC w Diff NO MAN DIFF REQ WBC (4.8 - 10.8 /CUMM) 7.8 RBC (4.70 - 6.10 /CUMM) 2.96 L Hgb (14.0 - 18.0 G/DL) 7.0 *L Hct (42 - 52 %) 23.1 L MCV (80.0 - 94.0 FL) 78.0 L MCH (27.0 - 31.0 PG) 23.7 L RDW (11.5 - 14.5 %) 23.8 H Plt Count (130 - 400 /CUMM) 327 MPV (7.4 - 10.4 FL) 9.1 Gran % (42.2 - 75.2 %) 59.0 Lymphocytes % (20.5 - 51.1 %) 20.1 L Monocytes % (1.7 - 9.3 %) 12.6 H Eosinophils % (0 - 5 %) 6.9 H Basophils % (0.0 - 2.0 %) 1.4 Absolute Granulocytes (1.4 - 6.5 /CUMM) 4.6 Absolute Lymphocytes (1.2 - 3.4 /CUMM) 1.6 Absolute Monocytes (0.10 - 0.60 /CUMM) 1.0 H Absolute Eosinophils (0.0 - 0.7 /CUMM) 0.5 Absolute Basophils (0.0 - 0.2 /CUMM) 0.1 PUBS MCHC (33.0 - 37.0 G/DL) 30.4 L
[2016-08-24 12:52] VITALS: BP 122/70
[2016-08-24 12:59] VITALS: BP 122/70
== END 2016-08-24 18:27 | disposition home health service (06) | DRG 91 ==
LOC: ENRESERVDT → ENRESERVTM → ERH 08:51 → 2NB 15:09 → ERHI 15:09 → 2NB 20:09
PROVIDERS: Emergency Medicine; Internal Medicine Nephrology; Ophthalmology; Student in an Organized Health Care Education/Training Program; ADMIT Internal Medicine
PROC: 5A1D60Z (ICD-10-PCS; principal; 2016-08-12)
DX: R26.89 Other abnormalities of gait and mobility (principal); N18.6 End stage renal disease; I13.2 Hypertensive heart and chronic kidney disease with heart failure and with stage 5 chronic kidney disease, or end stage renal disease; J96.11 Chronic respiratory failure with hypoxia; E11.22 Type 2 diabetes mellitus with diabetic chronic kidney disease; K50.90 Crohn's disease, unspecified, without complications; L97.429 Non-pressure chronic ulcer of left heel and midfoot with unspecified severity; Z68.43 Body mass index [BMI] 50.0-59.9, adult; R26.81 Unsteadiness on feet; Z99.81 Dependence on supplemental oxygen; E11.42 Type 2 diabetes mellitus with diabetic polyneuropathy; E87.5 Hyperkalemia; G62.9 Polyneuropathy, unspecified; E11.319 Type 2 diabetes mellitus with unspecified diabetic retinopathy without macular edema; E66.01 Morbid (severe) obesity due to excess calories; I50.9 Heart failure, unspecified; Z99.2 Dependence on renal dialysis; Z79.4 Long term (current) use of insulin; E78.5 Hyperlipidemia, unspecified; G47.33 Obstructive sleep apnea (adult) (pediatric); I34.0 Nonrheumatic mitral (valve) insufficiency; D64.9 Anemia, unspecified; F32.9 Major depressive disorder, single episode, unspecified; E21.3 Hyperparathyroidism, unspecified
CPT/HCPCS: 2NBP; 36415; 82436; 93005; 93010; 97110-GO; 97116-GO; 97161-GP; 97530-GO; 99232; J0780; J0885; J1644; J1815; J2405

== ENCOUNTER 2016-08-26 07:14 | Emergency (ER) | payer OTHER, MEDICARE ==
[~2016-08-26] VITALS: Ht 170.2 cm; Wt 163.3 kg
--- NOTE | 2016-08-26 07:29 | ED AMS/SEIZURE/WEAK/DIZZY ---
History of Present Illness General Chief Complaint: General Adult Stated Complaint: BIBA FOR GENERALIZED WEAKNESS Source: patient, old records, EMS Exam Limitations: no limitations Vital Signs & Intake/Output Vital Signs & Intake/Output Vital Signs Date Time Temp Pulse Resp B/P Pulse O2 O2 Flow FiO2 Ox Delivery Rate 08/26 0857 96.8 72 21 118/62 100 Nasal 3.0L Cannula 08/27 727 96.4 69 20 113/57 100 Nasal 3.0L Cannula Allergies Coded Allergies: iron (From VENOFER) (Intermediate, N/V 08/26/16) Reconcile Medications Amlodipine Besylate 10 MG TABLET 1 TAB PO DAILY HEART HEALTH (Reported) Cinacalcet HCl (Sensipar) 30 MG TABLET 1 TAB PO DAILY KIDNEYS (Reported) Clonazepam 1 MG TABLET 0.5 TAB PO BID PRN ANXIETY (Reported) Darbepoetin Hernesto in Polysorbat (Aranesp) 40 MCG/0.4 ML SYRINGE 1 1ML SC SEE ADMIN CRITERIA DURING DIALYSIS 0.45 mcg/kg SC/IV Ergocalciferol (Vitamin D2) (Vitamin D2) 50,000 UNIT CAPSULE 50,000 IU PO QSAT Low Vit D Follow the Instruction for 8 weeks then check Vit D level Escitalopram Oxalate 20 MG TABLET 1 TAB PO DAILY MENTAL HEALTH (Reported) Insulin Glargine,Hum.rec.anlog (Lantus Solostar) 100 UNIT/ML (3 ML) INSULN.PEN 24 UNITS SC BID DM (Reported) Insulin Lispro (Humalog Kwikpen U-100) 100 UNIT/ML INSULN.PEN 1 UNITS SC TIDAC /HS DM before meals 80-150 mg/dl--8 units 151-200 mg/dl--9 units 201-250 mg/dl--10 units 251-300 mg/dl-- 11 units 301-350 mg/dl--12 units 351-400 mg/dl--13 units BEDTIME DOSING less than 250-No insulin 251-300 mg/dl--3 units 301-350 mg/dl--4 units 351-400 mg/dl 5 units Loratadine (Claritin) 10 MG TABLET 1 TAB PO DAILY ALLERGY Metoprolol Tartrate 50 MG TABLET 1 TAB PO BID HTN (Reported) Olanzapine 5 MG TABLET 1 TAB PO QPM MENTAL HEALTH (Reported) Pregabalin (Lyrica) 75 MG CAPSULE 1 TAB PO DAILY Neuropathy Pregabalin (Lyrica) 100 MG CAPSULE 1 TAB PO Sun Neuropathy Please take on dialysis days after HD session Triage Nurses Notes Reviewed? yes Onset: Abrupt Duration: day(s): (1) Timing: single episode today Injury Environment: home Severity: mild No Modifying Factors: none HPI: 36-year-old male who presents by EMS from home for chief complaint of weakness and fall. He states that he was just discharged from hospital 2 days ago. He is supposed uses walker at home but the bedroom is too narrow for the walker. Addition to this he states he's been too weak to function at home. Last dialysis was on . Mary was just in the hospital and was cleared by physical therapy for safe discharge home. He is currently due for dialysis at 10:00 today. Upon arrival EMS had 2 people to help him stand and pivot to the stretcher. He has been ambulating with a walker at home since discharge. 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 He lives with his brother and another roomate. Past History Travel History Traveled to [place] past 21 day No Medical History Any Pertinent Medical History? see below for history Neurological: migraine, peripheral neuropathy EENT: diabetic retinopathy Cardiovascular: CHF, hypertension, hyperlipidemia, mitral regurgitation, he has chronic fluid overload due to his inabilityto adhere to the necessary dietary restrictions of sodium and fluid intake. 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 RETINA SPECIALIST/Reproductive: NONE Other Medical Hx: MSSA hidradenitis History of MRSA: Yes History of VRE: No History of CDIFF: No Influenza Vaccine: 03/02/16 Surgical History Surgical History: AVF LUE Vitrectomies- Both eyes Pilonidal Cyst I & D of abscesses Right IJ Bharat Cath Psychosocial History Who do you live with Brother What is your primary language Kuwaiti Tobacco Use: Quit >30 days ago ETOH Use: occasional use Illicit Drug Use: denies illicit drug use Family History Family History, If Any: FATHER Myocardial infarction at age less than 60 MOTHER Hodgkin's sarcoma Relation not specified for: FH: CAD (coronary artery disease) FH: HTN (hypertension) Hx Contributory? No Review of Systems Review of Systems Constitutional: Reports: weakness. Denies: chills, fever. EENTM: Reports: no symptoms. Respiratory: Denies: cough, short of breath, sputum production. Cardiovascular: Denies: chest pain. GI: Denies: abdominal pain, nausea, vomiting. Genitourinary: Reports: no symptoms. Musculoskeletal: Reports: muscle pain. Denies: back pain, muscle stiffness, neck pain. Skin: Reports: no symptoms. Neurological/Psychological: Reports: no symptoms. Hematologic/Endocrine: Denies: bruising, bleeding, polyuria, polydipsia. Immunologic/Allergic: Denies: splenectomy. All Other Systems: Reviewed and Negative Physical Exam Physical Exam General Appearance: well developed/nourished, alert, awake, mild distress, obese Head: atraumatic, normal appearance Eyes: Bilateral: normal appearance, PERRL, EOMI. Ears, Nose, Throat: normal pharynx, normal ENT inspection, hearing grossly normal Neck: normal inspection, supple, full range of motion Respiratory: normal breath sounds, chest non-tender, no respiratory distress, no rales or rhonchi Cardiovascular: regular rate/rhythm Peripheral Pulses: 2+ radial (R), 2+ radial (L) Gastrointestinal: soft, non-tender, obese Extremities: normal range of motion Neurologic/Psych: no motor/sensory deficits, awake, alert, oriented x 3 Skin: intact, normal color, warm/dry Core Measures ACS in differential dx? No CVA/TIA Diagnosis: No Severe Sepsis Present: No Septic Shock Present: No Progress Differential Diagnosis: anemia, CHF, HYPERKALEMIA, FAILURE TO THRIVE, DECONDITIONING, MORBID OBESITY Plan of Care: Orders Procedure Date/time Status COMPREHENSIVE METABOLIC PANEL 08/26 0728 Complete CBC WITHOUT DIFFERENTIAL 08/27 727 Complete EKG 08/26 07 Active Laboratory Tests 08/26/16 0801: Anion Gap 17 H, Estimated GFR 8 L, BUN/Creatinine Ratio 6.9 L, Glucose 193 H , Calcium 8.2 L, Total Bilirubin 0.4, AST 14 L, ALT 22, Alkaline Phosphatase 210 H, Total Protein 7.4, Albumin 3.6, Globulin 3.8, Albumin/Globulin Ratio 0.9 L, CBC w Diff NO MAN DIFF REQ, RBC 3.23 L, MCV 79.4 L, MCH 23.6 L, RDW 24.4 H, MPV 9.0, Gran % 71.6, Lymphocytes % 14.7 L, Monocytes % 7.7, Eosinophils % 5.6 H, Basophils % 0.4, Absolute Granulocytes 6.7 H, Absolute Lymphocytes 1.4, Absolute Monocytes 0.7 H, Absolute Eosinophils 0.5, Absolute Basophils 0, PUBS MCHC 29.8 L PATIENT AMBULATED WITH WALKER APPROXIMATELY 20 FEET WITHOUT DIFFICULTY. NO EVIDENCE OF CONGESTIVE HEART FAILURE. NOT HYPERKALEMIC. NO EVIDENCE OF SIGNIFICANT TRAUMA ON EXAMINATION. PATIENT SENT TO DIALYSIS IN DEPORT. WILL D/ W CASE MANAGEMENT. AT THIS TIME MARY DOES NOT REQUIRE HOSPITALIZATION OR SHORT TERM REHAB PLACEMENT. WAS RECENTLY CLEARED BY PT IN THE HOSPITAL. ([place] BEAR,AUBREY) Initial ED EKG: NSR Departure Departure Time of Disposition: 929 Disposition: HOME OR SELF CARE Condition: Stable Clinical Impression Primary Impression: Weakness Secondary Impressions: End stage kidney disease Referrals: GUILLERMO BEAR,BLANCA Chun (PCP/Family) Additional Instructions: Follow up with dialysis today. Case management will contact you for further home services. Departure Forms: Customer Survey General Discharge Information
[2016-08-26 08:45] LABS: ABSOLUTE BASOPHIL COUNT 0 /CUMM (0.0-0.2); ABSOLUTE EOSINOPHIL COUNT 0.5 /CUMM (0.0-0.7); ABSOLUTE GRANULOCYTE CT 6.7 /CUMM (1.4-6.5); ABSOLUTE LYMPH COUNT 1.4 /CUMM (1.2-3.4); ABSOLUTE MONOCYTE COUNT 0.7 /CUMM (0.10-0.60); BASOPHIL % 0.4 % (0.0-2.0); EOSINOPHIL % 5.6 % (0-5); GRANULOCYTE % 71.6 % (42.2-75.2); HEMATOCRIT 25.6 % (42-52); MEAN CORPUSCULAR HGB 23.6 PG (27.0-31.0); MEAN CORPUSCULAR HGB CONC 29.8 G/DL (33.0-37.0); MEAN CORPUSCULAR VOLUME 79.4 FL (80.0-94.0); PLATELET COUNT 332 /CUMM (130-400); RBC DISTRIBUTION WIDTH 24.4 % (11.5-14.5); RED BLOOD CELL CT 3.23 /CUMM (4.70-6.10); WHITE BLOOD CELL COUNT 9.3 /CUMM (4.8-10.8)
[2016-08-26 08:57] VITALS: BP 118/62
== END 2016-08-26 09:49 ==
LOC: ERH 07:14
PROVIDERS: Emergency Medicine
DX: R53.1 Weakness (principal); N18.6 End stage renal disease; Z99.2 Dependence on renal dialysis
CPT/HCPCS: 93005; 93010